=== PATIENT | male | born 1950 | race Caucasian/White ===

== ENCOUNTER 2016-11-25 17:49 | Inpatient (IN) ==
[2016-11-25 19:58] LABS: AGAP 13; ALBUMIN 3.5 g/dL (3.5-5.0); ALKALINE PHOSPHATASE 93 U/L (32-122); BUN 13 mg/dL (8-22); CALCIUM 8.9 mg/dL (8.8-10.2); CHLORIDE 95 mmol/L (98-107); CK PROFILE 59 U/L (24-204); COSMO 278; GOT 11 U/L (10-34); GPT 12 U/L (10-44); POTASSIUM 4.1 mmol/L (3.5-5.1); SODIUM 137 mmol/L (136-145); TCO2 29 mmol/L (25-35); TOTAL BILIRUBIN 0.37 mg/dL (0.20-1.00); TOTAL PROTEIN 6.7 g/dL (6.3-8.3)
[2016-11-25 20:12] LABS: MANUAL DIFF NEEDED? NO
[2016-11-25 20:15] LABS: BASO% 0.3 % (0.0-0.8); EOS# 0.07 X1000 (0.0-0.7); EOS% 0.6 % (0.0-10.0); HEMATOCRIT 40.7 % (42.0-52.0); HEMOGLOBIN 13.7 g/dL (14.0-18.0); IMM GRAN# 0.03 X1000 (0.0-0.04); IMM GRAN% 0.3 % (0.0-0.5); LYMPH% 11.7 % (20.5-51.1); MCH 28.7 PG (27-31); MCHC 33.7 g/dL (33-37); MCV 85.1 FL (81-99); MONO# 0.76 X1000 (0.11-0.59); MONO% 6.8 % (1.7-9.3); MPV 11.1 FL (7.4-10.4); NEUT% 80.3 % (42.2-75.2); PLT 223 X1000 (130-400); RBC 4.78 XMIL (4.7-6.1)
[2016-11-25 20:43] LABS: ALLEN TEST YES; BE 4.4 mmoll (-3.0-3.0); BLOOD TYPE ARTERIAL; DRAW SITE R RADIAL; METHB 1.7 % (0.0-1.5); MODALITY CANNULA; O2(CT) 18.2 mL/dL (15.0-23.0); PCO2(98.6) 43 mmHg (35-45); PO2(98.6) 71 mmHg (60-100); SAMPLE BLOOD; SAO2 97.7 % (95.0-100.0); THB 13.8 g/dL (11.5-17.4); pH(98.6) 7.44 (7.35-7.45)
[2016-11-25] MEDS ORDERED: VANCOMYCIN 1 GM/NS 250 ML IV ONE ×2 (21:06→23:00)
[2016-11-25] MEDS ORDERED: MERREM 1 GM in NS 50 ML IV ONE (21:06)
--- NOTE | 2016-11-25 21:15 | PROVIDER DOCUMENTATION ---
HPI-Respiratory General - General Chief Complaint: Cough Stated Complaint: poss pneumonia Time Seen by Provider: 11/25/16 20:05 Source: patient, family, old records Allergies/Adverse Reactions: Patient Allergies Allergy/AdvReac Type Severity Reaction Status Date / Time daptomycin Allergy Severe RASH Verified 10/06/16 15:33 piperacillin Allergy Intermediate RASH Verified 10/06/16 15:33 tazobactam Allergy Intermediate RASH Verified 10/06/16 15:33 Home Medications: Home Medication List Medication Instructions Recorded Confirmed Last Taken Type Albuterol Sulfate [Proair 90 mcg IH 4XDAY 10/06/16 10/06/16 10/06/16 History Respiclick] Buspirone [Buspar] 10 mg PO TID 10/06/16 10/06/16 10/06/16 History Carvedilol 12.5 mg PO BID 10/06/16 10/06/16 10/06/16 History Fluoxetine [Prozac] 20 mg PO BID 10/06/16 10/06/16 10/06/16 History Furosemide 120 mg PO DAILY 10/06/16 10/06/16 10/05/16 History Hum Insulin NPH/Reg Insulin Hm 70 unit SQ BID 10/06/16 10/06/16 10/06/16 History [Novolin 70-30 100 Unit/ml Vial] Isosorbide Mononitrate [Imdur] 120 mg PO DAILY 10/06/16 10/06/16 10/06/16 History Linaclotide [Linzess] 145 mcg PO TID 10/06/16 10/06/16 10/06/16 History Losartan [Cozaar] 50 mg PO DAILY 10/06/16 10/06/16 10/06/16 History Magnesium Carbonate/Al Hydrox 1 each PO 4XDAY PRN PRN 10/06/16 10/06/16 History [Gaviscon] Mometasone Furoate [Asmanex] 220 mcg IH BID 10/06/16 10/06/16 10/06/16 History Morphine Sulfate 15 mg PO BID PRN 10/06/16 10/06/16 10/06/16 History Morphine Sulfate [Ms Contin] 60 mg PO BID 10/06/16 10/06/16 10/06/16 History [place] 3,6,9 Combination No.7 92 mg PO DAILY 10/06/16 10/06/16 10/06/16 History [[place] Dha] Spironolactone 25 mg PO DAILY 10/06/16 10/06/16 10/06/16 History Sulfamethoxazole/Trimethoprim 20 ml PO BID 10/06/16 10/06/16 10/06/16 History [Sulfatrim 800-160 mg/20 ml Corinna] Warfarin [Coumadin] 5 mg PO QHS 10/06/16 10/06/16 10/06/16 History Pantoprazole [Protonix] 40 mg PO BID #60 tablet 10/09/16 Unknown Rx Prednisone 20 mg PO DAILY #5 tablet 10/09/16 Unknown Rx Sucralfate [Carafate Liquid] 1 gm PO Q6HR #1 udc 10/09/16 Unknown Rx - History of Present Illness-Resp Nature of Presenting Problem: This pt, who has chronic respiratory issues due to asbestosis, agent orange exposure and COPD. He has been hospitalized twice in the last 3 months for pneumonia. He is followed by Dr. Nino and Dr. Downs. He became acutely short of breath this morning and had a productive cough. He returns to the ER tonight to see if his pneumonia has returned. Quality of Pain: reports: aching, tightness Severity in ED: reports: moderate Onset/Duration: reports: other (see hpi) Timing: reports: still present Cough Quality/Degree: reports: moderate, productive cough Modifying Factors: improves with: exertion, coughing Associated Symptoms: reports: fever/chills, shortness of breath, sweaty, wheezing Similar Symptoms Previously?: Yes Recently seen or treated by another doctor?: Yes Review of Systems - Adult - REVIEW OF SYSTEMS - ADULT Constitutional: reports: roel. denies: weight gain, weight loss Eyes: reports: no symptoms reported. denies: discharge, dry eyes Ears, Nose, Mouth & Throat: reports: no symptoms reported. denies: ear discharge, ear pain Cardiovascular: reports: no symptoms reported. denies: chest pain, edema Respiratory: reports: chronic cough, cough, dyspnea on exertion, shortness of breath, wheezing. denies: hemoptysis, pleurisy Gastrointestinal: reports: no symptoms reported. denies: hematemesis, constipation Genitourinary: reports: no symptoms reported. denies: dysuria, discharge Musculoskeletal: reports: no symptoms reported. denies: bone pain, back pain Integumentary: reports: no symptoms reported. denies: hives, hair loss Neurological: reports: no symptoms reported. denies: ataxia, dizziness/vertigo Psychiatric: reports: no symptoms reported. denies: anxiety, anti-depressant use Endocrine: reports: no symptoms reported Hematologic/Lymphatic: reports: no symptoms reported Allergic/Immunologic: reports: no symptoms reported All Other Systems: Reviewed and Negative Past History - Adult - PAST MEDICAL HISTORY-ADULT Review of Records: reports: Old Records Reviewed, Nursing Assessment Review, Medications Reviewed, Social history reviewed & non-contributory. Major Childhood Illnesses: reports: denies history Cardiovascular: reports: arrhythmia (with cardiac ablation), CAD, HTN, hyperlipidemia Respiratory: reports: asthma, COPD (on 4 Liters NC), pneumonia Gastrointestinal: reports: denies history Obstetrical/Gynecological: reports: denies history Genitourinary: reports: kidney stones Musculoskeletal: reports: denies history Neurological: reports: denies history Endocrine/Immune: reports: Diabetes Other Conditions: reports: other (sleep apnea) - PRIOR SURGERIES/PROCEDURES Surgical/Procedure History: reports: CABG, pacemaker, other (ablation) - IMMUNIZATION STATUS Childhood Immunizations: See Nurse Assessment Flu Vaccine: See Nurse Assessment - FAMILY HISTORY Family History: reviewed, not pertinent Physical Exam-General - PHYSICAL EXAM-ADULT Initial Vital Signs Reviewed: Yes - CONSTITUTIONAL General Appearance: appears well, alert, no apparent distress - EYES Eyes: PERRL/EOMI, pink conjunctivae - HEAD, EARS, NOSE, MOUTH & THROAT HENMT: normocephalic/atraumatic, moist mucous membranes, normal ENT inspection - NECK Neck: non-tender, full range of motion, supple, normal inspection - RESPIRATORY Respiratory: chest non-tender, respiratory distress, decreased breath sounds, rhonchi, wheezing, increased rate. negative: accessory muscle use, crackles, rales, stridor - CARDIOVASCULAR Cardiovascular: normal peripheral pulses, tachycardia - GASTROINTESTINAL (ABDOMEN) Abdominal Exam: normal bowel sounds, non tender, soft - MUSCULOSKELETAL Back Exam: normal inspection, no CVA tenderness, no vertebral tenderness Extremity: normal range of motion, non-tender, normal gait, normal inspection - SKIN Integumentary: normal turgor, warm/dry, diaphoresis - NEUROLOGIC Neurologic: grossly normal, no motor/sensory deficits. negative: facial droop, focal weakness, motor weakness, sensory deficit - PSYCHIATRIC Psych/Mental Status: normal mood/affect, normal thought content, normal thought process, oriented x 3 Progress - PLAN OF CARE/RESULTS Progress/Plan/Lab Results: Laboratory Tests 11/25/16 11/25/16 11/25/16 19:20 19:20 19:20 WBC RBC Hgb Hct MCV MCH MCHC RDW Std Deviation Plt Count MPV Immature Gran % (Auto) Neut % (Auto) Lymph % (Auto) Island % (Auto) Eos % (Auto) Baso % (Auto) Immature Gran # (Auto) Neut # (Auto) Lymph # (Auto) Island # (Auto) Eos # (Auto) Baso # (Auto) D-Dimer 0.29 Specimen Type Sample Site pH pCO2 pO2 HCO3 Base Excess Oxyhemoglobin ABG O2 Sat (Calculated) ABG O2 Saturation ABG Carboxyhemoglobin ABG Methemoglobin Dominguez Test A-a O2 Difference Total Hemoglobin Lactate Liter Flow Blood Gas Modality FiO2 % Sodium 137 Potassium 4.1 Chloride 95 L Carbon Dioxide 29 Anion Gap 13 BUN 13 Creatinine 0.8 Estimated GFR/1.73 m2 > 60 BUN/Creatinine Ratio 16 Glucose 176 H Calculated Osmolality 278 Calcium 8.9 Total Bilirubin 0.37 AST 11 ALT 12 Alkaline Phosphatase 93 Creatine Kinase 59 Troponin T Cda-T-Odfdbaahkcm Pept 101 Total Protein 6.7 Albumin 3.5 Globulin 3.2 Albumin/Globulin Ratio 1.1 11/25/16 11/25/16 11/25/16 19:20 19:20 20:31 WBC 11.10 H RBC 4.78 Hgb 13.7 L Hct 40.7 L MCV 85.1 MCH 28.7 MCHC 33.7 RDW Std Deviation 13.8 Plt Count 223 MPV 11.1 H Immature Gran % (Auto) 0.3 Neut % (Auto) 80.3 H Lymph % (Auto) 11.7 L Island % (Auto) 6.8 Eos % (Auto) 0.6 Baso % (Auto) 0.3 Immature Gran # (Auto) 0.03 Neut # (Auto) 8.91 H Lymph # (Auto) 1.30 Island # (Auto) 0.76 H Eos # (Auto) 0.07 Baso # (Auto) 0.03 D-Dimer Specimen Type ARTERIAL Sample Site R RADIAL pH 7.44 pCO2 43 pO2 71 HCO3 28.3 H Base Excess 4.4 H Oxyhemoglobin 93.9 L ABG O2 Sat (Calculated) 18.2 ABG O2 Saturation 97.7 ABG Carboxyhemoglobin 2.20 ABG Methemoglobin 1.7 H Dominguez Test YES A-a O2 Difference 132.0 Total Hemoglobin 13.8 Lactate 1.80 Liter Flow 4.0 Blood Gas Modality CANNULA FiO2 % 36.0 Sodium Potassium Chloride Carbon Dioxide Anion Gap BUN Creatinine Estimated GFR/1.73 m2 BUN/Creatinine Ratio Glucose Calculated Osmolality Calcium Total Bilirubin AST ALT Alkaline Phosphatase Creatine Kinase Troponin T < 0.010 Rro-W-Xrccpcbvakp Pept Total Protein Albumin Globulin Albumin/Globulin Ratio Orders Category Date Time Status cxr [CHEST-2 VIEWS] [RAD] Stat Exams 11/25/16 18:08 Taken ABG [RESP] Routine Lab 11/25/16 20:31 Completed BLOOD CULTURE [BLDCUL] Stat Lab 11/25/16 19:20 Ordered CBC WITH ELECTRONIC DIFF [HEME] Stat Lab 11/25/16 19:20 Completed CK PROFILE [SP CHEM] Stat Lab 11/25/16 19:20 Completed CMP [COMPREHENSIVE METABOLIC PANEL] [CHEM] Stat Lab 11/25/16 19:20 Completed D-DIMER [CHEM] Stat Lab 11/25/16 19:20 Completed LACTATE, PLASMA [CHEM] Stat Lab 11/25/16 21:06 Uncollected PRO B-NATRIURETIC PEPTIDE Stat Lab 11/25/16 19:20 Completed TROPONIN T Stat Lab 11/25/16 19:20 Completed Meropenem [Merrem] 1 gm Med 11/25/16 21:06 Active 0.9% Sodium Chloride Inj [Ns] 50 ml IV NOW Vancomycin 1 gm/Ns 250 ml Med 11/25/16 21:06 Active IV NOW EKG [EKG] Stat Ther 11/25/16 18:08 Ordered Vital Signs Temp Pulse Resp BP Pulse Ox 11/25/16 20:33 77 20 95 11/25/16 18:04 97.9 F 78 24 134/74 94 L daptomycin Allergy (Severe, Verified 10/06/16 15:33) RASH piperacillin Allergy (Intermediate, Verified 10/06/16 15:33) RASH I think the rash is due to a fungal infection and is not a drug allergy. tazobactam Allergy (Intermediate, Verified 10/06/16 15:33) RASH Albuterol Sulfate [Proair Respiclick] 90 mcg IH 4XDAY 10/06/16 Buspirone [Buspar] 10 mg PO TID 10/06/16 Carvedilol 12.5 mg PO BID 10/06/16 Fluoxetine [Prozac] 20 mg PO BID 10/06/16 Furosemide 120 mg PO DAILY 10/06/16 Hum Insulin NPH/Reg Insulin Hm [Novolin 70-30 100 Unit/ml Vial] 70 unit SQ BID 10/06/16 Isosorbide Mononitrate [Imdur] 120 mg PO DAILY 10/06/16 Linaclotide [Linzess] 145 mcg PO TID 10/06/16 Losartan [Cozaar] 50 mg PO DAILY 10/06/16 Magnesium Carbonate/Al Hydrox [Gaviscon] 1 each PO 4XDAY PRN PRN 10/06/16 Mometasone Furoate [Asmanex] 220 mcg IH BID 10/06/16 Morphine Sulfate 15 mg PO BID PRN 10/06/16 Morphine Sulfate [Ms Contin] 60 mg PO BID 10/06/16 [place] 3,6,9 Combination No.7 [[place] Dha] 92 mg PO DAILY 10/06/16 Spironolactone 25 mg PO DAILY 10/06/16 Sulfamethoxazole/Trimethoprim [Sulfatrim 800-160 mg/20 ml Corinna] 20 ml PO BID 03/15 Warfarin [Coumadin] 5 mg PO QHS 10/06/16 Pantoprazole [Protonix] 40 mg PO BID #60 tablet 10/09/16 Prednisone 20 mg PO DAILY #5 tablet 10/09/16 Sucralfate [Carafate Liquid] 1 gm PO Q6HR #1 udc 10/09/16 Laboratory 11/25/16 11/25/16 11/25/16 20:31 19:20 19:20 WBC 11.10 H RBC 4.78 Hgb 13.7 L Hct 40.7 L MCV 85.1 MCH 28.7 MCHC 33.7 RDW Std Deviation 13.8 Plt Count 223 MPV 11.1 H Immature Gran % (Auto) 0.3 Neut % (Auto) 80.3 H Lymph % (Auto) 11.7 L Island % (Auto) 6.8 Eos % (Auto) 0.6 Baso % (Auto) 0.3 Immature Gran # (Auto) 0.03 Neut # (Auto) 8.91 H Lymph # (Auto) 1.30 Island # (Auto) 0.76 H Eos # (Auto) 0.07 Baso # (Auto) 0.03 D-Dimer Specimen Type ARTERIAL Sample Site R RADIAL pH 7.44 pCO2 43 pO2 71 HCO3 28.3 H Base Excess 4.4 H Oxyhemoglobin 93.9 L ABG O2 Sat (Calculated) 18.2 ABG O2 Saturation 97.7 ABG Carboxyhemoglobin 2.20 ABG Methemoglobin 1.7 H Dominguez Test YES A-a O2 Difference 132.0 Total Hemoglobin 13.8 Lactate 1.80 Liter Flow 4.0 Blood Gas Modality CANNULA FiO2 % 36.0 Sodium Potassium Chloride Carbon Dioxide Anion Gap BUN Creatinine Estimated GFR/1.73 m2 BUN/Creatinine Ratio Glucose Calculated Osmolality Calcium Total Bilirubin AST ALT Alkaline Phosphatase Creatine Kinase Troponin T < 0.010 Aaw-U-Ztcncxxrruk Pept Total Protein Albumin Globulin Albumin/Globulin Ratio 11/25/16 11/25/16 11/25/16 19:20 19:20 19:20 WBC RBC Hgb Hct MCV MCH MCHC RDW Std Deviation Plt Count MPV Immature Gran % (Auto) Neut % (Auto) Lymph % (Auto) Island % (Auto) Eos % (Auto) Baso % (Auto) Immature Gran # (Auto) Neut # (Auto) Lymph # (Auto) Island # (Auto) Eos # (Auto) Baso # (Auto) D-Dimer 0.29 Specimen Type Sample Site pH pCO2 pO2 HCO3 Base Excess Oxyhemoglobin ABG O2 Sat (Calculated) ABG O2 Saturation ABG Carboxyhemoglobin ABG Methemoglobin Dominguez Test A-a O2 Difference Total Hemoglobin Lactate Liter Flow Blood Gas Modality FiO2 % Sodium 137 Potassium 4.1 Chloride 95 L Carbon Dioxide 29 Anion Gap 13 BUN 13 Creatinine 0.8 Estimated GFR/1.73 m2 > 60 BUN/Creatinine Ratio 16 Glucose 176 H Calculated Osmolality 278 Calcium 8.9 Total Bilirubin 0.37 AST 11 ALT 12 Alkaline Phosphatase 93 Creatine Kinase 59 Troponin T Kqa-M-Mvspyxxwbot Pept 101 Total Protein 6.7 Albumin 3.5 Globulin 3.2 Albumin/Globulin Ratio 1.1 Will admit for recurrent pneumonia. - XRAY 1 XRAY Study: Chest XRAY Interpretation: RLL pneumonia Departure - Departure Time of Disposition Order: 21:18 DIAGNOSIS: Chronic respiratory failure with hypoxia and hypercapnia Pneumonia Qualifiers: Pneumonia type: due to unspecified organism Laterality: right Lung location: lower lobe of lung Qualified Code(s): J18.1 - Lobar pneumonia, unspecified organism Disposition: ADMITTED INPATIENT 09 Certified Medical Emergency: Emergent Condition: Stable Attestation - Physician/ ABBY Attestation Patient care was provided by Advanced Practice Provider:: Yes Advanced Practice Provider:: Calixto Bello Advanced Practice Provider documentation review:: The Mid-level provider documentation, treatment plan and medical decision making was reviewed by the physician who agrees with all treatment and medical decision making by the MLP.
[2016-11-25 22:23] LABS: INR 1.84; PROTIME 20.1 Seconds (9.2-11.7)
[2016-11-25] MEDS ORDERED: GAVISCON PO PRN (22:41)
[2016-11-25] MEDS ORDERED: VANCOMYCIN IV PER PHARMACY MISC SCH (22:41)
[2016-11-25] MEDS ORDERED: TYLENOL PO PRN (22:41)
[2016-11-25] MEDS: DUONEB (A & A) INH SCH (22:47)
--- NOTE | 2016-11-25 23:38 | HISTORY AND PHYSICAL ---
PRIMARY CARE PHYSICIAN: Dr. Jennifer Jean Baptiste. REASON FOR ADMISSION: Three day history of worsening shortness of breath. HISTORY OF PRESENT ILLNESS: Mr. Ari Bell is a 66-year-old man, with past medical history of multiple admissions for recurrent pneumonia and COPD. He has a history of asbestosis, reflux disease, morbid obesity, atrial fibrillation, CAD, type 2 diabetes, hypertension, obstructive sleep apnea and chronic systolic heart failure, EF 09/2016, was 40%. He reports that over the last 3 to 4 days, he has been having progressive shortness of breath with mild exertion. He said things came to a head today when he developed sudden shortness of breath, with smothering, but no chest pain. He said he became profoundly diaphoretic without any palpitations. He says his O2 saturation when he checked it was below 90%, and he had to increase his nasal cannula O2 supply from 3 L, to 10 L before he got any relief. On account of this, he decided to come into get checked out. He reports a 1 to 2 day history of fever and chills subjectively. He also complains of coughing up brownish yellowish sputum for the last 3 days. A month ago, he was treated for hospital-acquired pneumonia with vancomycin and Merrem, and got better, however, he says his symptoms today are very similar to this. He has a longstanding history of orthopnea and sleeps in a recliner. He also has a longstanding history of chronic lower extremity swelling, which has not gotten any worse. No PND and no lightheadedness. No weight loss. No polyuria or polydipsia. REVIEW OF SYSTEMS: Notable for chronic constipation and worsening heartburn. Otherwise, 12 system review is negative. Positive findings as per HPI. ALLERGIES: Daptomycin and Zosyn. HOME MEDICATIONS: Include: Magnesium carbonate and aluminum 4 times a day, morphine sulfate 15 mg b.i.d., ProAir 2 puffs q.4 p.r.n., BuSpar 10 mg t.i.d., carvedilol 12.5 mg b.i.d., losartan 50 mg daily, Coumadin 5 mg at bedtime, furosemide 120 mg daily, Humulin 70/30, 70 units b.i.d., Imdur 120 mg daily, Linzess 145 mg daily, Asmanex 2 puffs b.i.d., [place] Contin 60 mg b.i.d., [place] 3, 6 and 9, and 92 mg daily, Prozac 20 mg daily, spironolactone 25 mg daily, Bactrim b.i.d., Carafate 1 g q.6, prednisone 20 mg daily, Protonix 40 mg b.i.d. SURGICAL HISTORY: Notable for left lower extremity ORIF, back surgery, CABG, pacemaker implantation, and cardiac ablation. SOCIAL HISTORY: Patient is , does not smoke, drink or use drugs. He says he was exposed to agent orange and asbestos. FAMILY HISTORY: Two of his siblings have lung cancer, and several of his siblings and parents both have heart disease. Nobody else with diabetes. PAST MEDICAL HISTORY: See above, including chronic respiratory failure with home O2, systolic heart failure, and chronic pain. LAB WORK: Chest x-ray shows a right lower lobe infiltrate. White count 11,000, hemoglobin and hematocrit 13 and 40, platelets 223,000, with a neutrophil count of 80%. Glucose 176, BUN 13, creatinine 0.8. Troponin is negative. CK 59. ProBNP 101. D-dimer 0.29. Blood gas, pH 7.4, pCO2 of 43, PO2 of 71 on 4 L. EXAMINATION: General: He is more pleasant, morbidly obese, male. Vital signs: Blood pressure is 134/74, heart rate is 70, respirations 24, temperature 97.9, with for 4 L nasal cannula his O2 saturation is 94%. HEENT: Head is normocephalic, atraumatic. Eyes: He is anicteric and not pale. ENT and oropharynx exam is grossly normal. No signs of cyanosis. Neck: Short and thick. No JVD visualized. No bruit or thyromegaly. Chest: Decreased entry in both lung ann with expiratory wheezes, and scattered coarse crepitations. Cardiovascular: First and second heart sounds are heard but distant. No gallop, murmurs or rubs. Rhythm is regular. The patient does have a large ventral hernia, which is reducible and not tender. Abdomen: Protuberant, soft. No focal areas of tenderness. No mass or organomegaly appreciated. Bowel sounds are significantly hypoactive. Rectal: Deferred. Extremities: Patient has skin changes of the lower extremities consistent with chronic venous insufficiency. He has 1+ pitting edema in both lower extremities, but pulses distally in all extremities have good volume and are symmetrical. No clubbing or peripheral cyanosis. Neurological: No focal deficits. Skin: See above, but otherwise unremarkable. Musculoskeletal: Grossly normal. ASSESSMENT: 1. Right lower lobe pneumonia (recurrent pneumonia). 2. Acute on chronic respiratory failure, secondary to right lower lobe pneumonia and complicated with ongoing COPD and chronic systolic heart failure. 3. Coronary artery disease. 4. Atrial fibrillation. 5. Type 2 diabetes. 6. Hypertensive heart disease. 7. Obstructive sleep apnea. 8. Chronic systolic heart failure, EF 40%. 9. COPD. 10. Morbid obesity. 11. Hyperlipidemia. 12. Chronic pain syndrome. 13. Reflux disease. PLAN: At this time, I will start patient on Merrem and vancomycin, and treat him for hospital- acquired pneumonia. I have discontinued the patient's inhaled steroids as there is data suggesting that this can increase recurrence of pneumonia. Also, one needs to be aware of the severe theoretical risk associated of having PPIs increased pneumonia, and this will need to be discussed with the patient, especially since patient has severe reflux disease. I will also start the patient on nebulizer treatments. Repeat chest film in 2 days to ensure that this pneumonia does not become complicated with effusions/empyema. Adjust home O2 accordingly. We will send off sputum for cultures. Consult Dr. Downs and Dr. Nino to see the patient, to whom this patient is well known. Other issues i.e. diabetes, will be addressed by starting the patient on a sliding scale, but also cutting the dose of his 70/30 insulin, being that his diet was modified to a much lower dose. His PT/INR was not drawn, and we will order this and modify the dose if need be. Continue his CHF medications, i.e., Lasix, Cozaar, beta blockers and spironolactone. Other home medications will be continued. Start his magnesium, and Milk of Magnesia to help with his constipation, in addition to the Linzess, which he takes.
[2016-11-26] MEDS: MORPHINE IR PO PRN (00:53)
[2016-11-26] MEDS: MILK OF MAGNESIA PO SCH ×4 (01:05→21:48)
[2016-11-26] MEDS: DUONEB (A & A) INH SCH ×6 (03:22→23:00)
--- NOTE | 2016-11-26 05:20 | EKG Report ---
Test Performed on : 11/25/2016 6:08:15 PM Test Reason : cough/CP Blood Pressure : / mmHG Vent. Rate : 082 BPM Atrial Rate : 082 BPM P-R Int : 186 ms QRS Dur : 202 ms QT Int : 460 ms P-R-T Axes : 090 -73 089 degrees QTc Int : 537 ms Atrial-sensed ventricular-paced rhythm with frequent premature ventricular complexes. Abnormal ECG When compared with ECG of 06-OCT-2016 14:51, Vent. rate has decreased BY 17 BPM Unconfirmed Result
[2016-11-26] MEDS: MERREM 1 GM in NS 50 ML IV SCH ×3 (05:33→21:48)
[2016-11-26] MEDS: HUMALOG SUBQ SCH ×4 (06:57→21:53)
[2016-11-26 07:15] LABS: MANUAL DIFF NEEDED? NO
--- NOTE | 2016-11-26 07:20 | PROGRESS NOTE ---
DATE: 11/26/2016 PRESENT ILLNESS: The patient is admitted to the hospital. He is having a difficult time breathing and he is coughing up purulent sputum. I suspect he does have a pneumonia. However, the chest x-ray report is not yet back. MEDICATIONS: The patient is allergic to Zosyn. He broke out in a rash but he appears to be tolerating meropenem well. He is also on vancomycin. I agree with the choice of both of those antibiotics because the patient has been exposed to so many antibiotics that he may well have a very resistant organism causing his presumed pneumonia. PHYSICAL EXAMINATION: Vital Signs: Temperature is 97.9 degrees, pulse 91, respirations 15, blood pressure is 107/82. General: This is an obese, elderly male. He is slightly short of breath just sitting down and on a few instances, he coughed. Lungs: There were scattered rales and rhonchi bilaterally. Cardiovascular: The patient's heart rate was regular. Abdomen: Soft and nontender. Neurologic: The patient can move all of his extremities. There is no tremor. His speech is normal. LAB AND X-RAY: CBC-WBC 11.1, hgb 13.7, platelets 223K. Creatinine-0.8, GFR >60. Liver function tests-normal. Blood cultures-pending. Blood gases-pH 7.44, p02 71 , pCO2 43. ASSESSMENT AND PLAN: The patient has a pulmonary infection. Whether it is going to log turner to be pneumonia or a purulent bronchitis is uncertain at this time. In any event, I would treat with the same antibiotics that the patient is on for either one of the diagnoses. The sputum for culture has been ordered. Hopefully, it can be collected. Then we can, once we know the name and susceptibility of the organism, possibly streamline the patient's antibiotic treatment. The patient's comorbidities include COPD, asbestosis, reflux esophagitis, morbid obesity, atrial fibrillation, coronary artery disease, diabetes mellitus, hypertension, obstructive sleep apnea, and congestive heart failure. Thank you for asking me to see the patient again. The patient's comorbidities include asbestosis, reflux esophagitis, morbid obesity, chronic obstructive pulmonary disease, sleep apnea, and congestive heart failure. Patient's home medications as regarding his infection, he has been started on a combination of vancomycin and meropenem as mentioned above. [facility]
[2016-11-26 07:24] LABS: BASO% 0.2 % (0.0-0.8); EOS# 0.05 X1000 (0.0-0.7); EOS% 0.3 % (0.0-10.0); HEMATOCRIT 41.5 % (42.0-52.0); HEMOGLOBIN 13.7 g/dL (14.0-18.0); IMM GRAN# 0.03 X1000 (0.0-0.04); IMM GRAN% 0.2 % (0.0-0.5); LYMPH# 1.34 X1000 (1.2-3.4); LYMPH% 8.9 % (20.5-51.1); MCV 84.9 FL (81-99); MONO# 1.19 X1000 (0.11-0.59); MONO% 7.9 % (1.7-9.3); MPV 10.8 FL (7.4-10.4); NEUT% 82.5 % (42.2-75.2); PLT 205 X1000 (130-400); RBC 4.89 XMIL (4.7-6.1)
[2016-11-26 07:47] LABS: AGAP 14; ALBUMIN 3.4 g/dL (3.5-5.0); ALKALINE PHOSPHATASE 92 U/L (32-122); BUN 13 mg/dL (8-22); CALCIUM 9.1 mg/dL (8.8-10.2); CHLORIDE 96 mmol/L (98-107); COSMO 282; GOT 11 U/L (10-34); GPT 10 U/L (10-44); SODIUM 138 mmol/L (136-145); TCO2 28 mmol/L (25-35); TOTAL BILIRUBIN 0.87 mg/dL (0.20-1.00); TOTAL PROTEIN 6.6 g/dL (6.3-8.3)
--- NOTE | 2016-11-26 08:00 | Diag Imaging Result Document ---
PROCEDURE NAME: CHEST-2 VIEWS - 11/25/2016 PA AND LATERAL RADIOGRAPH OF THE CHEST: COMPARISON: 10/06/2016. FINDINGS: There are linear densities at the mid and lower lung zone suggesting scarring and/or atelectasis. The lungs are grossly clear otherwise. There is no large pleural fluid collection identified. There are stable CABG changes. Cardiac silhouette is prominent but stable. Central vasculature is unremarkable. IMPRESSION: Subsegmental atelectasis and/or scarring at the lower lung zones bilaterally.
[2016-11-26] MEDS ORDERED: LINZESS PO SCH (09:00)
[2016-11-26] MEDS: ALDACTONE PO SCH (09:28)
[2016-11-26] MEDS: COREG PO SCH ×2 (09:28→21:48)
[2016-11-26] MEDS: COZAAR PO SCH (09:28)
[2016-11-26] MEDS: BUSPAR PO SCH ×3 (09:28→17:11)
[2016-11-26] MEDS: PROZAC PO SCH ×2 (09:29→21:48)
[2016-11-26] MEDS: MS CONTIN PO SCH ×2 (09:29→21:49)
[2016-11-26] MEDS: PROTONIX PO SCH ×2 (09:29→21:48)
[2016-11-26] MEDS: LASIX PO SCH (09:29)
[2016-11-26] MEDS: IMDUR PO SCH (09:29)
[2016-11-26] MEDS: PREDNISONE PO SCH (09:29)
[2016-11-26] MEDS ORDERED: INSULIN PEN NEEDLES ONE (09:54)
[2016-11-26] MEDS: HUMULIN 70/30 SUBQ SCH ×2 (10:33→17:11)
[2016-11-26] MEDS: VANCOMYCIN 2,000 MG in NS 500 ML IV SCH (12:05)
--- NOTE | 2016-11-26 14:12 | PROGRESS NOTE ---
DATE: 11/26/2016 SUBJECTIVE: The patient is doing well. He has no complaint. Still having a productive cough. No fever. No chills. OBJECTIVE: Vital Signs: Blood pressure 134/73, pulse of 97, respirations 22, temperature 97.8 degrees, saturation of 96% on 5 L of nasal cannula. General Appearance: Morbidly obese, white male, in mild distress. HEENT: Anicteric. Clear conjunctivae. Neck: Supple. No JVD. No bruit. Cardiovascular: S1, S2. Normal rate and rhythm. No murmur, rubs, or gallops. Pulmonary: Clear to auscultation bilaterally. GI: Soft, nontender, nondistended. Normoactive bowel sounds. Musculoskeletal: No clubbing, cyanosis, or edema. LABORATORY: White count 15.12, hemoglobin of 13.7, hematocrit of 41.5, platelets of 205,000. Chemistry: Sodium 138, potassium 4.0, chloride 96, bicarb 28, BUN 13, creatinine 0.8, glucose of 203. Troponin 2 sets were negative. Chest x-ray on admission showed atelectasis versus scarring in the lower lungs on both side. ASSESSMENT AND PLAN: 1. A 66-year-old white male with a recurrent pneumonia, admitted for productive cough with purulent bronchitis. Cultures are pending. The patient is on meropenem and vancomycin. ID is following. 2. Diabetes type 2. We will continue 70/30 insulin and sliding scale insulin. 3. Hypertension. We will continue Cozaar, isosorbide. 4. Atrial fibrillation. We will continue rate control and Coumadin. 5. Chronic systolic congestive heart failure, not in acute exacerbation. We will resume his home medications. 6. Morbid obesity, noted. 7. Deep vein thrombosis prophylaxis. The patient is on Coumadin. We will recheck his INR in the morning. 8. Code status. The patient is a full code.
[2016-11-26] MEDS: COUMADIN PO SCH (21:49)
[2016-11-27] MEDS: VANCOMYCIN 2,000 MG in NS 500 ML IV SCH (00:30)
[2016-11-27] MEDS: MORPHINE IR PO PRN (00:44)
[2016-11-27] MEDS: DUONEB (A & A) INH SCH ×6 (02:45→23:02)
[2016-11-27] MEDS: MERREM 1 GM in NS 50 ML IV SCH ×3 (05:55→22:36)
[2016-11-27] MEDS: HUMALOG SUBQ SCH ×4 (06:09→22:33)
--- NOTE | 2016-11-27 08:20 | Diag Imaging Result Document ---
PROCEDURE NAME: CHEST-2 VIEWS - 11/26/2016 CHEST X-RAY, 2 VIEWS: COMPARISON: 11/25/2016. FINDINGS: Stable left-sided dual-chamber pacemaker. Stable CABG changes. Heart size remains grossly normal. No focal infiltrates, pneumothorax, or pleural effusion. Lungs are hyperexpanded compatible with COPD. There is some stable linear scarring in the lung bases. IMPRESSION: No acute disease or change from prior.
[2016-11-27] MEDS: MILK OF MAGNESIA PO SCH ×2 (10:35→22:35)
[2016-11-27] MEDS: PROTONIX PO SCH ×2 (10:35→22:35)
[2016-11-27] MEDS: BUSPAR PO SCH ×3 (10:36→18:21)
[2016-11-27] MEDS: IMDUR PO SCH (10:36)
[2016-11-27] MEDS: COREG PO SCH ×2 (10:36→22:35)
[2016-11-27] MEDS: LASIX PO SCH (10:36)
[2016-11-27] MEDS: ALDACTONE PO SCH (10:36)
[2016-11-27] MEDS: PREDNISONE PO SCH (10:36)
[2016-11-27] MEDS: COZAAR PO SCH (10:36)
[2016-11-27] MEDS: PROZAC PO SCH ×2 (10:36→22:36)
[2016-11-27] MEDS: MS CONTIN PO SCH ×2 (10:36→22:33)
[2016-11-27] MEDS: HUMULIN 70/30 SUBQ SCH ×2 (10:37→18:21)
[2016-11-27 10:49] LABS: INR 1.39; PROTIME 14.9 Seconds (9.2-11.7)
--- NOTE | 2016-11-27 11:09 | CONSULTATION ---
DATE OF CONSULTATION: 11/27/2016 OUTPATIENT PRIMARY CARE PHYSICIAN: Dr. Jennifer Jean Baptiste. HOSPITALIST: Dr. Juan A Scott. CHIEF COMPLAINT: Evaluation for sleep apnea, COPD, and recurrent pneumonia. HISTORY OF PRESENTING ILLNESS: This is a 66-year-old man with past history of coronary artery disease, atrial fibrillation, diabetes, hypertension, obstructive sleep apnea, congestive heart failure, ejection fraction 40%, with recurrent pneumonia who presents to the hospital with shortness of breath, COPD exacerbation, purulent sputum production likely signifying lower respiratory tract infection despite x-ray findings. PAST MEDICAL HISTORY: Coronary artery disease, congestive heart failure, atrial fibrillation, diabetes, hypertension, obstructive sleep apnea. Tried BiPAP serology and CPAP in the past. He is not compliant with that and likely this is contributing to his readmissions. Also, he is on home oxygen. PAST SURGICAL HISTORY: Coronary artery bypass graft, pacemaker, back surgery, ORIF for left lower extremity fracture, cardiac ablation. REVIEW OF SYSTEMS: As detailed in history of presenting illness, otherwise noncontributory. ALLERGIES: Zosyn and daptomycin. FAMILY HISTORY: Hypertension, coronary artery disease, diabetes. SOCIAL HISTORY: Not a smoker. 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 PHYSICAL EXAMINATION: Vital Signs: Noted. General Examination: He is awake, communicative. He is overweight and obese. Chest: Exam revealed reduced entry, a few crackles. Cardiac: S1, S2. Abdomen: Nontender on examination. Extremities: On lower limb examination, +1 pedal edema. Neurological exam: Awake and communicative. LABS AND INVESTIGATIONS: Chest x-ray reviewed with some renal scarring and COPD and sternal wires. Earlier ABG, CBC, CMP reviewed and his pCO2 on the twenty-ninth was 43, PO2 71 on nasal cannula. MEDICATIONS: Medications in the hospital were reviewed and they include vancomycin, meropenem, BuSpar, Coreg, Prozac, Lasix, insulin, Imdur, Cozaar. ASSESSMENT AND PLAN: A 66-year-old man with past history of coronary artery disease, coronary artery bypass graft, congestive heart failure, pacemaker, chronic obstructive pulmonary disease, sleep apnea not compliant with CPAP, BiPAP that presented to the hospital with chronic obstructive pulmonary disease exacerbation, shortness of breath. Sleep apnea needs to be addressed and the possibility of lower respiratory tract infection despite the x-ray findings. Thank you for the courtesy of this consult.
--- NOTE | 2016-11-27 12:33 | PROGRESS NOTE ---
DATE: 11/27/2016 PRESENT ILLNESS: The patient has chronic purulent bronchitis. MEDICATIONS: The patient currently is receiving a combination of vancomycin and meropenem. PHYSICAL EXAMINATION: Vital signs: Temperature is 98.4, pulse 81, respirations 20, blood pressure 140/78. General: The patient looks much better today. He does not seem to be nearly as dyspneic as he was yesterday. Lungs: There were bilateral rhonchi. Cardiovascular: The patient's heart tones were distant. At times, the heart appeared to be beating regularly and then at other times it was irregular. Abdomen: Soft and nontender. The patient is morbidly obese. LABORATORY AND X-RAY: There is no new lab today. The patient's CBC shows a white count of 15,120, hemoglobin 13.7, and platelet count 205,000. Creatinine is 0.8. GFR is greater than 60. Blood cultures are sterile. Sputum is growing a gram-negative sohail. ASSESSMENT AND PLAN: For now, we plan to continue the patient in the hospital. I have discontinued vancomycin but will continue meropenem pending the result of the gram-negative sohail growing from the patient's sputum. The patient's comorbidities include COPD, asbestosis, reflux esophagitis, morbid obesity, atrial fibrillation, diabetes mellitus, obstructive sleep apnea, and congestive heart failure.
--- NOTE | 2016-11-27 12:41 | PROGRESS NOTE ---
DATE: 11/27/2016 SUBJECTIVE: The patient is feeling a little better today. He denies having any fever or chills. Denies having any nausea, vomiting, or diarrhea. Still having productive cough. Vital signs: Blood pressure 140/78, pulse of 72, respirations 22, temperature 98.1 degrees, sat of 92% on 2 on 4 L. General Appearance: Morbidly obese, white male, in mild distress due to coughing. HEENT: Anicteric. Clear conjunctivae. Neck: Supple. No JVD. No bruits. Cardiovascular: S1, S2. Normal rate and rhythm. No murmur, rubs, or gallops. Pulmonary: Clear to auscultation bilaterally. GI: Soft, nontender, nondistended. Normoactive bowel sounds. Musculoskeletal: No clubbing, cyanosis, or edema. LABORATORY: White count 15.12, hemoglobin 13.7, hematocrit of 41.5 platelets 205,000. 82% neutrophils. Chemistry: Sodium 130, potassium 4.0, chloride 96, bicarb 28, BUN 13, creatinine 0.8, glucose of 203. His sputum culture grew out gram negative sohail. ASSESSMENT AND PLAN: This is a 66-year-old white male, admitted to the hospital for productive cough, fever and chills. He was found to have pneumonia due to gram-negative sohail. 1. Gram-negative sohail pneumonia. We stopped vancomycin and keep him on meropenem. Infectious Disease is following. 2. Diabetes type 2. Continue sliding scale insulin and 70/30 insulin. 3. Atrial fibrillation. Continue Coumadin. His INR is subtherapeutic. We will recheck it again tomorrow. We will hold off on bridging the patient at this point. Continue Coreg for rate control. 4. Hypertension. Continue Cozaar, spironolactone and Lasix as well as Imdur. 5. History of systolic heart failure. Not in acute exacerbation. He is on spironolactone, ARB and Lasix. 6. Depression. Continue Prozac. 7. Irritable bowel syndrome. Continue Linzess. 8. Deep vein thrombosis prophylaxis. The patient on Coumadin. CODE STATUS: The patient is a full code.
[2016-11-27] MEDS: COUMADIN PO SCH (22:36)
[2016-11-28] MEDS: DUONEB (A & A) INH SCH ×6 (03:35→23:15)
[2016-11-28] MEDS: HUMALOG SUBQ SCH ×3 (07:00→18:10)
[2016-11-28] MEDS: MERREM 1 GM in NS 50 ML IV SCH ×3 (07:18→23:19)
[2016-11-28] MEDS: PREDNISONE PO SCH (10:00)
[2016-11-28] MEDS: PROTONIX PO SCH ×2 (10:00→23:21)
[2016-11-28] MEDS: HUMULIN 70/30 SUBQ SCH ×2 (10:00→18:10)
[2016-11-28] MEDS: MILK OF MAGNESIA PO SCH ×2 (10:00→23:21)
[2016-11-28] MEDS: IMDUR PO SCH (10:00)
[2016-11-28] MEDS: LASIX PO SCH (10:00)
[2016-11-28] MEDS: COZAAR PO SCH (10:00)
[2016-11-28] MEDS: LINZESS PO SCH (10:00)
[2016-11-28] MEDS: COREG PO SCH ×2 (10:00→23:20)
[2016-11-28] MEDS: BUSPAR PO SCH ×3 (10:00→18:10)
[2016-11-28] MEDS: PROZAC PO SCH ×2 (10:00→23:20)
[2016-11-28] MEDS: ALDACTONE PO SCH (10:00)
[2016-11-28] MEDS: MS CONTIN PO SCH ×2 (10:00→23:21)
--- NOTE | 2016-11-28 14:18 | PROGRESS NOTE ---
DATE: 11/28/2016 SUBJECTIVE: The patient is feeling better. Still coughing up purulent sputum. No fever. No chills. OBJECTIVE: Vital signs: Blood pressure 140/79, pulse of 85, respirations 22, temperature 100.0 degrees. General appearance: Morbidly obese, white male, in no acute distress. HEENT: Anicteric. Clear conjunctivae. Neck: Supple. No JVD. No bruit. Cardiovascular: S1, S2. Normal rate and rhythm. No murmur, rubs, or gallops. Pulmonary: Crackle bilaterally. GI: Soft, nontender, nondistended. Normoactive bowel sounds. Musculoskeletal: No clubbing, cyanosis, or edema. LABORATORY: Is still pending labs this morning. ASSESSMENT/PLAN: 66-year-old white male, admitted to the hospital for pneumonia. 1. Gram-negative sohail pneumonia. The patient is on meropenem. Infectious Disease is following. We still waiting for culture to finalize. 2. Diabetes type 2. Continue sliding scale insulin and 70/30 insulin. 3. Atrial fibrillation. Continue Coumadin and Coreg. 4. Hypertension. Her systolic CHF without exacerbation. Continue Cozaar, spironolactone and Lasix as well as Imdur. 5. Depression. Continue Prozac. 6. Morbid obesity. Education provided. 7. Deep vein thrombosis prophylaxis. The patient on Coumadin.
[2016-11-28 18:03] LABS: INR 1.43; PROTIME 15.4 Seconds (9.2-11.7)
[2016-11-28 18:25] LABS: AGAP 11; BUN 12 mg/dL (8-22); CALCIUM 8.9 mg/dL (8.8-10.2); CHLORIDE 96 mmol/L (98-107); COSMO 277; POTASSIUM 4.4 mmol/L (3.5-5.1); SODIUM 136 mmol/L (136-145); TCO2 29 mmol/L (25-35)
[2016-11-28] MEDS: COUMADIN PO SCH (23:20)
[2016-11-29] MEDS: HUMALOG SUBQ SCH ×5 (00:48→21:39)
[2016-11-29] MEDS: DUONEB (A & A) INH SCH ×6 (02:50→22:35)
[2016-11-29] MEDS: MERREM 1 GM in NS 50 ML IV SCH (05:48)
[2016-11-29 07:08] LABS: MANUAL DIFF NEEDED? NO
[2016-11-29 07:13] LABS: BASO% 0.4 % (0.0-0.8); EOS# 0.16 X1000 (0.0-0.7); EOS% 1.6 % (0.0-10.0); HEMATOCRIT 41.5 % (42.0-52.0); HEMOGLOBIN 13.8 g/dL (14.0-18.0); IMM GRAN# 0.03 X1000 (0.0-0.04); IMM GRAN% 0.3 % (0.0-0.5); LYMPH# 1.66 X1000 (1.2-3.4); LYMPH% 16.9 % (20.5-51.1); MCH 28.3 PG (27-31); MCHC 33.3 g/dL (33-37); MONO# 0.95 X1000 (0.11-0.59); MONO% 9.7 % (1.7-9.3); MPV 10.7 FL (7.4-10.4); NEUT% 71.1 % (42.2-75.2); PLT 250 X1000 (130-400); RBC 4.88 XMIL (4.7-6.1)
[2016-11-29 07:29] LABS: INR 1.54; PROTIME 16.6 Seconds (9.2-11.7)
[2016-11-29 07:30] LABS: AGAP 10; BUN 17 mg/dL (8-22); CALCIUM 9.4 mg/dL (8.8-10.2); CHLORIDE 97 mmol/L (98-107); COSMO 275; POTASSIUM 4.6 mmol/L (3.5-5.1); SODIUM 136 mmol/L (136-145); TCO2 29 mmol/L (25-35)
[2016-11-29] MEDS: PREDNISONE PO SCH (08:28)
[2016-11-29] MEDS: LASIX PO SCH (08:28)
[2016-11-29] MEDS: IMDUR PO SCH (08:29)
[2016-11-29] MEDS: PROZAC PO SCH ×2 (08:29→21:37)
[2016-11-29] MEDS: LINZESS PO SCH (08:29)
[2016-11-29] MEDS: COZAAR PO SCH (08:29)
[2016-11-29] MEDS: ALDACTONE PO SCH (08:29)
[2016-11-29] MEDS: COREG PO SCH ×2 (08:29→21:36)
[2016-11-29] MEDS: BUSPAR PO SCH ×3 (08:29→21:36)
[2016-11-29] MEDS: MS CONTIN PO SCH ×2 (08:29→21:36)
[2016-11-29] MEDS: PROTONIX PO SCH ×2 (08:29→21:37)
[2016-11-29] MEDS: HUMULIN 70/30 SUBQ SCH ×2 (08:30→17:52)
[2016-11-29] MEDS: MILK OF MAGNESIA PO SCH ×2 (08:30→21:37)
--- NOTE | 2016-11-29 10:43 | PROGRESS NOTE ---
DATE: 11/29/2016 SUBJECTIVE: The patient is feeling better today. Still having a productive cough. No fever. No chills. No nausea, vomiting, or diarrhea. He rested well overnight. PHYSICAL EXAMINATION: Vital Signs: Blood pressure 135/81, pulse of 70, respirations 20, temperature of 97.3 degrees, saturation of 94% on 4 L nasal cannula. General Appearance: Obese, white male, in no acute distress. HEENT: Anicteric sclerae. Clear conjunctivae. Neck: Supple. No JVD. No bruit. Cardiovascular: S1 and S2. Normal rate and rhythm. No murmur, rubs, or gallops. Pulmonary: Crackles at the bases bilaterally. GI: Soft, nontender, nondistended. Normoactive bowel sounds. Musculoskeletal: No clubbing, cyanosis, or edema. LABORATORY: White count of 9.82, hemoglobin 13.8, hematocrit of 41.5, platelets of 250,000. Chemistry: Sodium 136, potassium 4.6, chloride 97, bicarb 29, BUN 17, creatinine 0.9, glucose of 118. Culture grew out Pseudomonas that is sensitive to cefepime. ASSESSMENT AND PLAN: This is a 66-year-old, white male admitted to the hospital for Pseudomonas pneumonia. 1. Pseudomonas pneumonia. We changed his antibiotics to cefepime 1 g twice a day. Infectious disease is following. Change antibiotic according to the sensitivity only. 2. Diabetes type 2. Sliding scale insulin, 70/30 insulin twice a day. 3. Atrial fibrillation. Continue Coumadin and Coreg. INR is going up. Bridging this patient for atrial fibrillation. 4. Hypertension. Continue Cozaar, spironolactone, Lasix, and Imdur. 5. Depression. Continue Prozac. 6. Morbid obesity. Education provided. 7. Deep vein thrombosis prophylaxis. The patient is on Coumadin. 8. Code status. The patient is a full code. 9. Disposition. This patient will need to be on antibiotics for about 2 weeks. He may need a peripherally inserted central catheter line and home antibiotics once he adequately responds to the cefepime.
[2016-11-29] MEDS ORDERED: MAXIPIME 1 GM/NS 1 GM/50 ML IVPB IV SCH (11:00)
[2016-11-29] MEDS: MAXIPIME 2 GM/NS 2 GM/100 ML IVPB IV SCH ×2 (16:19→22:14)
[2016-11-29] MEDS: COUMADIN PO SCH (21:36)
[2016-11-30] MEDS: DUONEB (A & A) INH SCH ×6 (03:10→23:02)
[2016-11-30] MEDS: MAXIPIME 2 GM/NS 2 GM/100 ML IVPB IV SCH ×3 (06:33→21:33)
[2016-11-30] MEDS: HUMALOG SUBQ SCH ×4 (06:36→21:34)
[2016-11-30 06:51] LABS: MANUAL DIFF NEEDED? NO
[2016-11-30 06:56] LABS: BASO% 0.5 % (0.0-0.8); EOS# 0.15 X1000 (0.0-0.7); EOS% 1.9 % (0.0-10.0); HEMATOCRIT 40.2 % (42.0-52.0); HEMOGLOBIN 13.3 g/dL (14.0-18.0); IMM GRAN# 0.04 X1000 (0.0-0.04); IMM GRAN% 0.5 % (0.0-0.5); LYMPH# 1.47 X1000 (1.2-3.4); LYMPH% 18.2 % (20.5-51.1); MCH 28.2 PG (27-31); MCHC 33.1 g/dL (33-37); MCV 85.4 FL (81-99); MONO# 0.87 X1000 (0.11-0.59); MONO% 10.8 % (1.7-9.3); MPV 10.6 FL (7.4-10.4); NEUT% 68.1 % (42.2-75.2); PLT 231 X1000 (130-400); RBC 4.71 XMIL (4.7-6.1)
[2016-11-30 07:19] LABS: AGAP 9; BUN 19 mg/dL (8-22); CALCIUM 9.4 mg/dL (8.8-10.2); CHLORIDE 95 mmol/L (98-107); COSMO 278; SODIUM 136 mmol/L (136-145); TCO2 32 mmol/L (25-35)
[2016-11-30 07:30] LABS: INR 1.75
[2016-11-30] MEDS: HUMULIN 70/30 SUBQ SCH ×2 (08:18→17:22)
[2016-11-30] MEDS: ALDACTONE PO SCH (08:19)
[2016-11-30] MEDS: LASIX PO SCH (08:19)
[2016-11-30] MEDS: PREDNISONE PO SCH (08:19)
[2016-11-30] MEDS: LINZESS PO SCH (08:19)
[2016-11-30] MEDS: IMDUR PO SCH (08:19)
[2016-11-30] MEDS: PROTONIX PO SCH ×2 (08:19→21:34)
[2016-11-30] MEDS: COZAAR PO SCH (08:19)
[2016-11-30] MEDS: COREG PO SCH ×2 (08:19→21:31)
[2016-11-30] MEDS: PROZAC PO SCH ×2 (08:19→21:31)
[2016-11-30] MEDS: BUSPAR PO SCH ×4 (08:19→17:21)
[2016-11-30] MEDS: MILK OF MAGNESIA PO SCH ×2 (08:21→21:31)
--- NOTE | 2016-11-30 08:24 | Diag Imaging Result Document ---
PROCEDURE NAME: CHEST-1 VIEW - 11/30/2016 SINGLE FRONTAL RADIOGRAPH OF THE CHEST: COMPARISON: 11/26/2016. FINDINGS: Linear scarring and/or atelectasis at the lower lung zones is stable. No new consolidation is identified. There is stable cardiomegaly. IMPRESSION: Stable chest.
[2016-11-30] MEDS: MS CONTIN PO SCH ×2 (08:26→21:32)
--- NOTE | 2016-11-30 12:08 | PROGRESS NOTE ---
DATE: 11/30/2016 SUBJECTIVE: The patient is resting comfortably in bed. He states that he feels better today. No acute events noted overnight. OBJECTIVE: Vital Signs: Temperature 97.3 degrees, blood pressure 147/75, heart rate 88, respirations 18, O2 saturations 98% on 5 L nasal cannula. General: This is an elderly, overweight male lying in bed, in no acute distress. HEENT: Head normocephalic and atraumatic. Heart: S1, S2. Normal. Regular rate and rhythm. Lungs: Clear to auscultation bilaterally. No crackles. No rales. Abdomen: Positive bowel sounds. Soft, obese, nontender, nondistended. Extremities: There is +1 edema. No cyanosis. No calf tenderness. Neurologic: The patient is alert and oriented x3. Labs: White blood cell count 8, hemoglobin 13, hematocrit 40, platelets 231,000. INR 1.75. Sodium 136, potassium 5, chloride 95, CO2 32, BUN 19, creatinine 1, glucose 164. ASSESSMENT AND PLAN: 1. Severe acute bronchitis secondary to Pseudomonas. We will continue with intravenous antibiotic therapy as directed by Dr. Downs. 2. Morbid obesity. Aware. 3. Atrial fibrillation. The patient is currently rate controlled. The INR is 1.75. Continue on warfarin. 4. Hypertension. Controlled. Continue on the current antihypertensives. 5. Depression. Continue on Prozac. 6. Disposition. The patient will be discharged home once arrangements have been made for home intravenous antibiotic therapy. cc: Denia Cordero MD
--- NOTE | 2016-11-30 16:40 | PALLIATIVE CARE CONSULTATION ---
DATE: 11/30/2016 REQUESTING PHYSICIAN: Ralph Stephen M.D. REASON FOR CONSULTATION: Goals of care. HISTORY OF PRESENT ILLNESS: This is a 66-year-old, male with a past medical history of COPD, recurrent pneumonia, gastroesophageal reflux disease, morbid obesity, atrial fibrillation, coronary artery disease, hypertension, type 2 diabetes mellitus, obstructive sleep apnea, and chronic systolic heart failure with an ejection fraction of 40%, who was most recently admitted on 11/25/2016 after presenting to the ED with complaints of progressive shortness of breath, fever, chills, productive cough. It was reported that just prior to presenting to the ER, he became suddenly short of breath with diaphoresis and an O2 saturation less than 90%. It is reported that they had to increase his oxygen from 3 L to 10 L before he got any relief. Currently he is sitting up in the hospital bed. He is receiving oxygen via nasal cannula at 3 L. He denies shortness of breath, however, he states with walking short distances he becomes significantly dyspneic. There is no family at the bedside. The palliative care team was consulted to assist with goals of care. He complains of pain to his low back that he describes as chronic. He is seen at the [facility] to manage that pain. He denies anxiety or depression. He states he has occasional episodes of nausea. REVIEW OF SYSTEMS: Twelve point review of systems has been conducted and otherwise negative except as mentioned in the HPI. PAST MEDICAL HISTORY: See HPI. PAST SURGICAL HISTORY: 1. CABG. 2. Pacemaker placement. 3. Cardiac ablation. 4. Back surgery. 5. Left lower extremity ORIF. SOCIAL HISTORY: He is . Alcohol, tobacco and drug use have been denied. FAMILY HISTORY: Positive for lung cancer and heart disease. PHYSICAL EXAMINATION: General: This is a 66-year-old, obese, male, who does not appear to be in any acute distress. HEENT: Atraumatic, normocephalic. Neck: Supple. Cardiovascular: Heart sounds are distant. Regular rate and rhythm. Pulmonary: Lung sounds are diminished with scattered wheeze. Respirations are nonlabored. Abdomen: Obese, soft. Bowel sounds are active. Extremities: Pulses are palpable. Neurologic: Alert and oriented to person, place and time. IMPRESSION: This is a 66-year-old, obese, male with a past medical history as listed above in HPI. The Palliative Care team was consulted to assist with goals of care. The patient states that he will be discharged home with IV antibiotics. He states that while at home he is able to perform all of his activities of daily living. It appears that Mr. Bell palliative performance scale is 70%. Mr. Bell is desires to be a full code. He states that he has legal documentation of Power of Powerhouse Engineer which is his and advanced directives that state that he would want to be a full code. I have asked that he present this document to the hospital staff to place on file. As previously mentioned, he currently denies shortness of breath and is receiving his oxygen via nasal cannula at 3 L. He does complain of back pain, however, he is followed at the [facility] for that and states that his current regimen is effective. The Palliative Care team will continue to follow as needed. Thank you for this consultation. Dictated by HORTENCIA Moses for Ramsey Nino MD cc: HORTENCIA Moses MD
--- NOTE | 2016-11-30 17:07 | PROGRESS NOTE ---
DATE: 11/30/2016 PRESENT ILLNESS: The patient has chronic purulent bronchitis. He has had an acute exacerbation. He remains coughing quite a bit and still bringing up purulent sputum. MEDICATIONS: The patient currently is on cefepime in a dose of 2 g IV every 8 hours. PHYSICAL EXAMINATION: Vital signs: Temperature is 98 degrees, pulse 85, respirations 18, blood pressure 116/72. General: This is a chronically ill-appearing, elderly male who is having some degree of respiratory difficulty. Lungs: Bilateral rhonchi. Cardiovascular: Regular heart rate. Abdomen: Soft and nontender. Patient is very obese. LABORATORY AND X-RAY: Patient's CBC for today shows a white count of 8070, hemoglobin 13.3, and platelet count 231,000. Creatinine is 1. GFR is greater than 60. Chest x-ray shows bibasilar atelectasis and/or scarring. ASSESSMENT AND PLAN: 1. I plan to continue with the 7 patient's cefepime. I have put in a consult for a peripherally inserted central line to be placed and also I have consulted [facility] to supply the patient's home IV antibiotic. I will be seeing the patient back in my office in approximately 2-3 weeks. 2. Comorbidities: Include chronic obstructive pulmonary disease, asbestosis, reflux esophagitis, morbid obesity, atrial fibrillation, diabetes mellitus, obstructive sleep apnea, and congestive heart failure. cc: Darryl Downs MD
[2016-11-30] MEDS: COUMADIN PO SCH (21:31)
[2016-12-01] MEDS: MAXIPIME 2 GM/NS 2 GM/100 ML IVPB IV SCH ×2 (02:13→09:26)
[2016-12-01] MEDS: DUONEB (A & A) INH SCH ×3 (03:12→11:32)
[2016-12-01 06:20] LABS: MANUAL DIFF NEEDED? NO
[2016-12-01 06:27] LABS: BASO% 0.4 % (0.0-0.8); EOS# 0.22 X1000 (0.0-0.7); EOS% 2.4 % (0.0-10.0); HEMATOCRIT 39.9 % (42.0-52.0); HEMOGLOBIN 13.3 g/dL (14.0-18.0); IMM GRAN# 0.05 X1000 (0.0-0.04); IMM GRAN% 0.6 % (0.0-0.5); LYMPH# 1.56 X1000 (1.2-3.4); LYMPH% 17.3 % (20.5-51.1); MCH 28.5 PG (27-31); MCHC 33.3 g/dL (33-37); MCV 85.4 FL (81-99); MONO# 0.96 X1000 (0.11-0.59); MONO% 10.6 % (1.7-9.3); MPV 10.7 FL (7.4-10.4); NEUT% 68.7 % (42.2-75.2); PLT 237 X1000 (130-400); RBC 4.67 XMIL (4.7-6.1)
[2016-12-01 06:44] LABS: AGAP 11; BUN 20 mg/dL (8-22); CALCIUM 9.2 mg/dL (8.8-10.2); CHLORIDE 96 mmol/L (98-107); COSMO 278; POTASSIUM 4.4 mmol/L (3.5-5.1); SODIUM 136 mmol/L (136-145); TCO2 29 mmol/L (25-35)
[2016-12-01] MEDS: HUMALOG SUBQ SCH ×2 (07:03→12:49)
[2016-12-01 07:52] VITALS: BP 123/83
[2016-12-01] MEDS ORDERED: NS 250 ML ONE (07:52)
[2016-12-01] MEDS: MS CONTIN PO SCH (09:20)
[2016-12-01] MEDS: HUMULIN 70/30 SUBQ SCH (09:24)
[2016-12-01] MEDS: PROTONIX PO SCH (09:25)
[2016-12-01] MEDS: PROZAC PO SCH (09:25)
[2016-12-01] MEDS: ALDACTONE PO SCH (09:25)
[2016-12-01] MEDS: LASIX PO SCH (09:25)
[2016-12-01] MEDS: IMDUR PO SCH (09:25)
[2016-12-01] MEDS: BUSPAR PO SCH ×2 (09:25→12:46)
[2016-12-01] MEDS: COZAAR PO SCH (09:25)
[2016-12-01] MEDS: PREDNISONE PO SCH (09:25)
[2016-12-01] MEDS: COREG PO SCH (09:25)
[2016-12-01] MEDS: LINZESS PO SCH (09:25)
[2016-12-01] MEDS: MILK OF MAGNESIA PO SCH (09:26)
--- NOTE | 2016-12-01 09:47 | Diag Imaging Result Document ---
PROCEDURE NAME: CHEST-PORTABLE - 12/01/2016 PORTABLE CHEST: COMPARISON: 11/30/2016. FINDINGS: There has been interval insertion of a PIC-line from the right. The distal end of the PIC-line is partially obscured by overlying transvenous cardiac pacemaker wire. The tip of the PIC-line appears to be located at the distal superior vena cava. There are no other significant interval changes identified. There is subsegmental atelectasis or scarring at the lung bases. There is stable cardiomegaly. There is no pneumothorax seen. IMPRESSION: 1. Tip of PICC line apparently at distal superior vena cava. Verbal results provided to Josue of the PIC-line team at 9:32 a.m. on 12/01/2016. [facility] CENTERLeonel
--- NOTE | 2016-12-02 11:58 | DISCHARGE SUMMARY ---
ADMISSION DATE: 11/25/2016 DISCHARGE DATE: 12/01/2016 CONSULTATIONS: 1. Dr. Marco A Campo with Pulmonology. 2. Dr. Darryl Downs with Infectious Disease. 3. HORTENCIA Moses with Palliative Care. PERTINENT PROCEDURES: Chest x-ray showed subsegmental atelectasis and/or scarring at the lower lung zones bilaterally. Follow-up chest x-ray showed no acute disease or change from prior. DISCHARGE DIAGNOSES: 1. Severe acute bronchitis secondary to pseudomonas. 2. Morbid obesity. 3. Atrial fibrillation 4. Hypertension 5. Depression. 6. Acute on chronic respiratory failure secondary to bronchitis with ongoing chronic obstructive pulmonary disease HOSPITAL COURSE: Briefly, Mr. Ari Bell is a 66-year-old man well known to our service with a past medical history of multiple admissions for recurrent pneumonia, COPD, asbestosis, reflux disease, morbid obesity, atrial fibrillation, CAD, type 2 diabetes mellitus, hypertension, obstructive sleep apnea, and chronic systolic heart failure with an EF of 40% on 10/19/2016. He came to the ED complaining of 3-4 days of progressive worsening shortness of breath without exertion. The patient stated that on the day of his admission he developed sudden shortness of breath with smothering without chest pain. He became profoundly diaphoretic without any palpitations and when he checked his O2 saturation it was below 90%. He increased his nasal cannula O2 supply from 3 L to 10 L before he got any relief. He did report 1-2 days of subjective fever and chills with complaints of coughing up brownish yellowish sputum for 3 days. A month ago he was treated for hospital-acquired pneumonia with vancomycin and Merrem. The patient does have a longstanding history of orthopnea and sleeps in a recliner and a longstanding history of chronic lower extremity swelling that has not changed. The patient was initially admitted for a right lower lobe pneumonia. However, after serial chest x-rays it was decided that the patient has acute bronchitis secondary to pseudomonas as well as acute on chronic respiratory failure with his ongoing COPD and chronic systolic heart failure. The patient was restarted on Merrem and vancomycin as well as his supplemental O2. Sputum cultures were sent. Infectious Disease as well as Pulmonology were consulted. The patient was educated on aggressive pulmonary toilet. The patient's sputum culture did grow out pseudomonas. The patient's antibiotics were changed to only Meropenem. Clinically the patient has improved. There have been no fevers. His white count is normal. Palliative Care was called in to assist with goals of care. He does have a legal power of patent attorney which is his and advanced directives that state that he would want to be a full code. The patient did receive a PICC line. Dr. Downs has set up IV antibiotics with [facility] with cefepime and he will follow up with Dr. Darryl Downs in 2-3 weeks. VITAL SIGNS AT THE TIME OF DISCHARGE: Temperature is 97.8, heart rate 72, respirations 18, and blood pressure 123/83. O2 is 97% on 3 L nasal cannula. DISCHARGE DIET: Diabetic. DISCHARGE MEDICATIONS: 1. BuSpar 10 mg p.o. t.i.d.. 2. Coreg 12.5 mg p.o. b.i.d.. 3. Prozac 20 mg p.o. b.i.d.. 4. Lasix 120 mg p.o. daily. 5. Isosorbide mononitrate 120 mg p.o. daily. 6. Linzess 145 mcg p.o. t.i.d.. 7. Losartan 50 mg daily. 8. Gaviscon one each p.o. 4 times a day p.r.n. for heartburn. 9. Morphine sulfate 15 mg p.o. b.i.d. p.r.n. pain. 10.MS Contin 60 mg p.o. b.i.d.. 11.Protonix 40 mg p.o. b.i.d.. 12.Prednisone 20 mg p.o. daily. 13.Spironolactone 25 mg p.o. daily. 14.Coumadin 5 mg p.o. at bedtime. 15.Albuterol sulfate 90 mcg inhaled 4 times a day. 16.Asmanex 220 mcg inhaled b.i.d.. 17.Carafate 1 gram p.o. every 6 hours. FOLLOW UP: The patient is to follow up with Dr. Darryl Downs in 2 weeks. He will follow up with his primary care physician, Dr. Jennifer Jean Baptiste in 1 week as well as Dr. Campo on 12/08/2016 at 1330. The patient is being discharged home with cefepime with [facility] set up by Dr. Darryl Downs. The patient has been educated on diet and exercise. He can return to the ED for any worsening of symptoms. This is HORTENCIA De La Fuente doing a discharge summary for Dr. Cordero. DISCHARGE TIME: 30 minutes. Dictated by HORTENCIA De La Fuente for Denia Cordero MD cc: MD Marichuy Celestin [facility]ENTERLeonel
== END 2016-12-01 13:49 | disposition home health service (06) ==
LOC: ED 17:49 → 3N 22:27 → OBSVTOIN 22:27 → SUATTDRO 22:27 → INTOOBSV 22:27 → 3N 23:19
PROVIDERS: ATTEND Internal Medicine

== ENCOUNTER 2017-01-25 00:26 | Inpatient (IN) ==
[2017-01-25] MEDS ORDERED: SOLU-MEDROL IV ONE (00:54)
[2017-01-25 01:27] LABS: ALLEN TEST YES; BE 0.1 mmoll (-3.0-3.0); BLOOD TYPE ARTERIAL; DRAW SITE R RADIAL; METHB 0.6 % (0.0-1.5); MODALITY CANNULA; O2(CT) 19.5 mL/dL (15.0-23.0); PCO2(98.6) 39 mmHg (35-45); PO2(98.6) 74 mmHg (60-100); SAMPLE BLOOD; SAO2 96.5 % (95.0-100.0); THB 14.7 g/dL (11.5-17.4); pH(98.6) 7.41 (7.35-7.45)
[2017-01-25] MEDS ORDERED: ROCEPHIN 1 GM/NS 1 GM/50 ML IVPB IV ONE (01:37)
[2017-01-25] MEDS ORDERED: NS 500 ML IV ONE (01:37)
[2017-01-25 02:44] LABS: BASO% 0.1 % (0.0-0.8); EOS# 0.06 X1000 (0.0-0.7); EOS% 0.3 % (0.0-10.0); HEMATOCRIT 40.7 % (42.0-52.0); HEMOGLOBIN 13.9 g/dL (14.0-18.0); IMM GRAN# 0.06 X1000 (0.0-0.04); IMM GRAN% 0.3 % (0.0-0.5); LYMPH# 0.53 X1000 (1.2-3.4); LYMPH% 2.8 % (20.5-51.1); MANUAL DIFF NEEDED? NO; MCHC 34.2 g/dL (33-37); MCV 81.9 FL (81-99); MONO# 1.12 X1000 (0.11-0.59); MONO% 5.9 % (1.7-9.3); MPV 11.5 FL (7.4-10.4); NEUT% 90.6 % (42.2-75.2); PLT 168 X1000 (130-400); RBC 4.97 XMIL (4.7-6.1)
[2017-01-25] MEDS ORDERED: DUONEB (A & A) INH ONE (02:58)
[2017-01-25 03:01] LABS: AGAP 17; ALBUMIN 3.6 g/dL (3.5-5.0); ALKALINE PHOSPHATASE 100 U/L (32-122); BUN 16 mg/dL (8-22); CALCIUM 9.1 mg/dL (8.8-10.2); CHLORIDE 95 mmol/L (98-107); COSMO 280; GOT 13 U/L (10-34); GPT 10 U/L (10-44); POTASSIUM 4.2 mmol/L (3.5-5.1); SODIUM 135 mmol/L (136-145); TCO2 23 mmol/L (25-35); TOTAL PROTEIN 6.8 g/dL (6.3-8.3)
--- NOTE | 2017-01-25 03:16 | PROVIDER DOCUMENTATION ---
This chart was entered by Jeison Sarmiento Scribe, acting as scribe for Mars Valentin MD. HPI-Respiratory General - General Chief Complaint: Fever Stated Complaint: "PNEUMONIA" Time Seen by Provider: 01/25/17 00:53 Source: patient Allergies/Adverse Reactions: Patient Allergies Allergy/AdvReac Type Severity Reaction Status Date / Time daptomycin Allergy Severe RASH Verified 01/25/17 00:48 piperacillin Allergy Intermediate RASH Verified 01/25/17 00:48 tazobactam Allergy Intermediate RASH Verified 01/25/17 00:48 Home Medications: Home Medication List Medication Instructions Recorded Confirmed Last Taken Type Albuterol Sulfate [Proair 90 mcg IH 4XDAY 10/06/16 01/25/17 01/24/17 20:00 History Respiclick] Buspirone [Buspar] 10 mg PO TID 10/06/16 01/25/17 01/24/17 20:00 History Carvedilol 12.5 mg PO BID 10/06/16 01/25/17 01/24/17 20:00 History Fluoxetine [Prozac] 20 mg PO BID 10/06/16 01/25/17 01/24/17 20:00 History Furosemide 120 mg PO DAILY 10/06/16 01/25/17 01/24/17 07:00 History Isosorbide Mononitrate [Imdur] 120 mg PO DAILY 10/06/16 01/25/17 01/24/17 20:00 History Linaclotide [Linzess] 145 mcg PO TID 10/06/16 01/25/17 01/24/17 20:00 History Losartan [Cozaar] 50 mg PO DAILY 10/06/16 01/25/17 01/24/17 07:00 History Magnesium Carbonate/Al Hydrox 1 each PO 4XDAY PRN PRN 10/06/16 01/25/17 20:00 History [Gaviscon] Mometasone Furoate [Asmanex] 220 mcg IH BID 10/06/16 01/25/17 01/24/17 20:00 History Morphine Sulfate 15 mg PO BID PRN 10/06/16 01/25/17 10/06/16 History Morphine Sulfate [Ms Contin] 60 mg PO BID 10/06/16 01/25/17 01/24/17 20:00 History Spironolactone 25 mg PO DAILY 10/06/16 01/25/17 01/24/17 07:00 History Warfarin [Coumadin] 5 mg PO QHS 10/06/16 01/25/17 01/24/17 20:00 History Pantoprazole [Protonix] 40 mg PO BID #60 tablet 10/09/16 01/25/17 01/24/17 20: 00 Rx Prednisone 20 mg PO DAILY #5 tablet 10/09/16 01/25/17 01/24/17 07:00 Rx Sucralfate [Carafate Liquid] 1 gm PO Q6HR #1 udc 10/09/16 01/25/17 01/24/17 20: 00 Rx Cefepime HCl/D5w 2 gm IV Q8H #1 piggyback 12/01/16 01/25/17 Unknown Rx [Cefepime-Dextrose 2 gm/50 ml] Insulin Humulin 70/30 [Humulin 70 unit SUBQ BID #4 insuln.pen 12/01/16 01/25/17 01/24/17 20:00 Rx 70/30] - History of Present Illness-Resp Nature of Presenting Problem: Pt is a 66 yowm who presents to ER with CC of shortness of breath. PT reports hx of asthma/COPD and has been diagnosed with pna 3 times this year. 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 Pt states that he has been short of breath for the past several weeks, but it got significantly worse today. Pt is on 4L home O2. Quality of Pain: reports: other (shortness of breath) Severity in ED: reports: moderate Onset/Duration: reports: this evening Timing: reports: still present Cough Quality/Degree: reports: moderate, productive cough, sputum (brown) Associated Symptoms: reports: cough, fever/chills, shortness of breath, short of breath, wheezing. denies: chest pain/soreness, dizziness, earache, facial pain, flu-like symptoms, headache, heart racing, hurts to breathe, hyperventilating, lightheadedness, muscle/bodyaches, nasal congestion, nasal drainage, sinus pain, sore throat, sweaty Similar Symptoms Previously?: Yes Recently seen or treated by another doctor?: Yes Review of Systems - Adult - REVIEW OF SYSTEMS - ADULT Constitutional: reports: chills, fever. denies: fatique, night sweats, weight gain, weight loss Eyes: reports: no symptoms reported Ears, Nose, Mouth & Throat: reports: no symptoms reported Cardiovascular: denies: chest pain, edema, irregular heart rate, palpitations, poor circulation, syncope Respiratory: reports: chronic cough, cough, excessive sputum production, shortness of breath, wheezing. denies: dyspnea on exertion, hemoptysis, pleurisy Gastrointestinal: reports: no symptoms reported Genitourinary: reports: no symptoms reported Musculoskeletal: reports: no symptoms reported Integumentary: reports: no symptoms reported Neurological: reports: no symptoms reported Psychiatric: reports: no symptoms reported Endocrine: reports: no symptoms reported Hematologic/Lymphatic: reports: no symptoms reported Allergic/Immunologic: reports: no symptoms reported All Other Systems: Reviewed and Negative Past History - Adult - PAST MEDICAL HISTORY-ADULT Review of Records: reports: Nursing Assessment Review, Medications Reviewed Cardiovascular: reports: arrhythmia (with cardiac ablation), CAD, HTN, hyperlipidemia Respiratory: reports: asthma, COPD (on 4 Liters NC), pneumonia Genitourinary: reports: kidney stones Endocrine/Immune: reports: Diabetes Other Conditions: reports: other (sleep apnea) - PRIOR SURGERIES/PROCEDURES Surgical/Procedure History: reports: CABG, pacemaker, other (ablation) - IMMUNIZATION STATUS Childhood Immunizations: See Nurse Assessment Flu Vaccine: See Nurse Assessment - FAMILY HISTORY Family History: reviewed, not pertinent Physical Exam-General - PHYSICAL EXAM-ADULT Initial Vital Signs Reviewed: Yes - CONSTITUTIONAL General Appearance: appears well, alert, mild distress, obese - EYES Eyes: PERRL/EOMI, pink conjunctivae - HEAD, EARS, NOSE, MOUTH & THROAT HENMT: normocephalic/atraumatic, moist mucous membranes, normal ENT inspection, TMs normal, pharynx normal. negative: pharyngeal erythema, tonsillar exudate, TM abnormal - NECK Neck: non-tender, full range of motion, supple, normal inspection. negative: limited range of motion, lymphadenopathy - RESPIRATORY Respiratory: chest non-tender, no pleuratic chest pain, no respiratory distress , no accessory muscle use, rhonchi (coarse), wheezing (scattered). negative: lungs clear, normal breath sounds - CARDIOVASCULAR Cardiovascular: normal peripheral pulses, regular rate, rhythm. negative: bradycardia, tachycardia, irregularly irregular - GASTROINTESTINAL (ABDOMEN) Abdominal Exam: normal bowel sounds, non tender, soft, no organomegaly, no pulsatile mass. negative: guarding, rebound, tenderness - LYMPHATIC Lymphatic: no adenopathy - MUSCULOSKELETAL Back Exam: normal inspection, no CVA tenderness, no vertebral tenderness. negative: CVA tenderness, vertebral tenderness Extremity: normal range of motion, non-tender, normal gait, normal inspection, no pedal edema, no calf tenderness, normal capillary refill, pelvis stable. negative: deformity, erythema, inflammation, swelling (pt wears bilateral compression socks), tenderness - SKIN Integumentary: normal color, normal turgor, warm/dry. negative: abrasion(s), diaphoresis, ecchymosis, erythema, laceration(s), swelling, tenderness, warm - NEUROLOGIC Neurologic: quality intern II-XII nml as tested, grossly normal, no motor/sensory deficits . negative: facial droop, focal weakness, motor weakness, sensory deficit - PSYCHIATRIC Psych/Mental Status: normal mood/affect, normal thought content, normal thought process, oriented x 3 Progress - PLAN OF CARE/RESULTS Progress/Plan/Lab Results: Vital Signs - 8 hr 01/25/17 00:28 01/25/17 03:11 Temperature 100.1 F H Pulse Rate 120 H 104 H Respiratory Rate 23 18 Blood Pressure 177/80 134/87 O2 Sat by Pulse Oximetry 94 L 95 Laboratory Results - last 24 hr 01/25/17 01/25/17 01/25/17 00:41 01:17 02:03 WBC 19.00 H RBC 4.97 Hgb 13.9 L Hct 40.7 L MCV 81.9 MCH 28.0 MCHC 34.2 RDW Std Deviation 13.8 Plt Count 168 MPV 11.5 H Immature Gran % (Auto) 0.3 Neut % (Auto) 90.6 H Lymph % (Auto) 2.8 L Hays % (Auto) 5.9 Eos % (Auto) 0.3 Baso % (Auto) 0.1 Immature Gran # (Auto) 0.06 H Neut # (Auto) 17.21 H Lymph # (Auto) 0.53 L Hays # (Auto) 1.12 H Eos # (Auto) 0.06 Baso # (Auto) 0.02 Specimen Type ARTERIAL Sample Site R RADIAL pH 7.41 pCO2 39 pO2 74 HCO3 24.9 Base Excess 0.1 Oxyhemoglobin 94.4 L ABG O2 Sat (Calculated) 19.5 ABG O2 Saturation 96.5 ABG Carboxyhemoglobin 1.60 ABG Methemoglobin 0.6 Dominguez Test YES A-a O2 Difference 162.0 Total Hemoglobin 14.7 Lactate 3.70 H Liter Flow 5.0 Blood Gas Modality CANNULA FiO2 % 40.0 Sodium Potassium Chloride Carbon Dioxide Anion Gap BUN Creatinine Estimated GFR/1.73 m2 BUN/Creatinine Ratio Glucose POC Glucose 152 H Calculated Osmolality Calcium Total Bilirubin AST ALT Alkaline Phosphatase Total Protein Albumin Globulin Albumin/Globulin Ratio 01/25/17 02:03 WBC RBC Hgb Hct MCV MCH MCHC RDW Std Deviation Plt Count MPV Immature Gran % (Auto) Neut % (Auto) Lymph % (Auto) Hays % (Auto) Eos % (Auto) Baso % (Auto) Immature Gran # (Auto) Neut # (Auto) Lymph # (Auto) Hays # (Auto) Eos # (Auto) Baso # (Auto) Specimen Type Sample Site pH pCO2 pO2 HCO3 Base Excess Oxyhemoglobin ABG O2 Sat (Calculated) ABG O2 Saturation ABG Carboxyhemoglobin ABG Methemoglobin Dominguez Test A-a O2 Difference Total Hemoglobin Lactate Liter Flow Blood Gas Modality FiO2 % Sodium 135 L Potassium 4.2 Chloride 95 L Carbon Dioxide 23 L Anion Gap 17 BUN 16 Creatinine 1.0 Estimated GFR/1.73 m2 > 60 BUN/Creatinine Ratio 16 Glucose 252 H POC Glucose Calculated Osmolality 280 Calcium 9.1 Total Bilirubin 0.50 AST 13 ALT 10 Alkaline Phosphatase 100 Total Protein 6.8 Albumin 3.6 Globulin 3.2 Albumin/Globulin Ratio 1.1 Orders Category Date Time Status Saline Loc NOW Care 01/25/17 00:54 Active CHEST-PORTABLE [RAD] Stat Exams 01/25/17 00:54 Taken ABG [RESP] Routine Lab 01/25/17 01:17 Completed BLOOD CULTURE [BLDCUL] Stat Lab 01/25/17 02:03 Received CBC WITH DIFF [HEME] Stat Lab 01/25/17 02:03 Completed COMPREHENSIVE METABOLIC PANEL [CHEM] Stat Lab 01/25/17 02:03 Completed PROTIME WITH INR [COAG] Stat Lab 01/25/17 02:42 Ordered PTT [COAG] Stat Lab 01/25/17 02:42 Ordered 0.9% Sodium Chloride Inj [Ns] 500 ml Med 01/25/17 01:37 Discontinued IV 999 mls/hr Albuterol 2.5MG/Ipratrop 0.5MG [Duoneb (A & A)] Med 01/25/17 02:58 Discontinued 3 ml INH NOW ONE CefTRIAXONE 1 GM/NS [Rocephin 1 gm/Ns] Med 01/25/17 01:37 Discontinued 1 gm in 50 ml IV NOW Methylprednisolone Sod Succ [Solu-Medrol] Med 01/25/17 00:54 Discontinued 125 mg IV NOW ONE Aerosol Treatments Routine Ot 01/25/17 02:58 Active Aerosol Treatments Stat Ot 01/25/17 02:58 Active Pulse Oximetry Stat Ot 01/25/17 00:54 Active Result Diagrams: 01/25/17 02:03 01/25/17 02:03 - XRAY 1 XRAY: Bilateral XRAY Study: Chest (obscured left hemidiaphragm, cannot rule out left lower lobe pneumonia - Dr. Valentin) Impression: See EMR Report XRAY Interpretation: obscured left hemidiaphragm, cannot rule out left lower lobe pneumonia - - CONSULTS/PCP/HOSPITALIST Notification #1 *Consult/PCP/Hospitalist*: Dr. Mustafa (Hospitalist) Time Discussed: 03:15 Consult Disposition: Admit Departure - Departure Time of Disposition Decision: 03:15 DIAGNOSIS: COPD exacerbation, Lactic acidosis Pneumonia Qualifiers: Pneumonia type: due to unspecified organism Laterality: left Lung location: lower lobe of lung Qualified Code(s): J18.1 - Lobar pneumonia, unspecified organism Diabetes Qualifiers: Diabetes mellitus type: type 2 Diabetes mellitus complication status: with unspecified complications Diabetes mellitus termite treater helper insulin use: with termite treater helper use Qualified Code(s): E11.8 - Type 2 diabetes mellitus with unspecified complications; Z79.4 - supervisor intermediates (current) use of insulin Disposition: ADMITTED INPATIENT 09 Certified Medical Emergency: Emergent Condition: Stable Referrals and Follow-Ups: Jennifer Jean Baptiste MD [Primary Care Provider] - - Critical Care Note This patient required my direct & personal management of CC.: No This chart was documented by the indicated scribe, (Jeison Sarmiento Scribe) and accurately reflects the services I performed and decisions made by , Mars Valentin MD, as attested by the provider's signature.
[2017-01-25 03:33] LABS: PTT 38.6 Seconds (22.0-36.0)
[2017-01-25 03:41] LABS: INR 3.12; PROTIME 35.2 Seconds (9.2-11.7)
--- NOTE | 2017-01-25 05:38 | HISTORY AND PHYSICAL ---
PRIMARY CARE PHYSICIAN: Dr. Jennifer Jean Baptiste. CHIEF COMPLAINT: Shortness of breath and coughing x4 days. HISTORY OF PRESENTING ILLNESS: This is a 66-year-old male with a history of COPD on home oxygen, diabetes mellitus type 2, hypertension and coronary disease. Had presented to the emergency department with 4 days history of having worsening shortness of breath and a productive cough of yellowish material. The patient was evaluated in the ER. He was moderately dyspneic. He was given nebulizers and he has had some improvement. As per ER physician, his chest x-ray did show some infiltrates consistent with pneumonia. Subsequently, he will need hospitalization for further management. At the time of my examination, he had denied any nausea, vomiting, diarrhea, chest pain, hemoptysis, melena, but complained of having fever, chills and shortness of breath. PAST MEDICAL HISTORY: Includes COPD on home oxygen, diabetes mellitus type 2, hypertension, coronary artery disease. PAST SURGICAL HISTORY: Coronary bypass, pacemaker, back surgeries, left leg surgery. ALLERGIES: To daptomycin, piperacillin, tazobactam. CURRENT MEDICATIONS: As listed in the MAR. SOCIAL HISTORY: He is a former smoker. Denies any history of alcohol or illicit drug use. FAMILY HISTORY: Positive for coronary disease in father. REVIEW OF SYSTEMS: [employer] point systems is as in HPI. Other systems negative. PHYSICAL EXAMINATION: GENERAL: Cooperative, friendly, obese male. He is resting more comfortably now. VITAL SIGNS: Temperature 100.1 degrees, pulse 120, respiration 23, blood pressure 177/80. He is saturating 94%. HEENT: Atraumatic, normocephalic. Extraocular movements intact. PERRLA. NECK: No masses. CHEST: Rhonchi. CARDIOVASCULAR: Regular rate and rhythm. ABDOMEN: Soft, obese, positive bowel sounds. EXTREMITIES: Trace edema. NEUROLOGIC: He is awake, alert, oriented x3. GENITOURINARY: No bladder distention. SKIN: Warm. LABORATORIES AND STUDIES: WBCs 19.0, hemoglobin 13.9, hematocrit 40.7, platelets 168,000. Sodium 135, potassium 4.2, chloride 95, CO2 23, BUN is 16, creatinine is 1.0, glucose is 252. ASSESSMENT: A 66-year-old male with a history of chronic obstructive pulmonary disease, diabetes mellitus 2, hypertension and coronary disease, who presented to the emergency department with 4 days history of worsening cough and shortness of breath. He is found to have infiltrates on chest x-ray consistent with pneumonia. The patient will need hospitalization for further management. 1. Suspected pneumonia. 2. Chronic obstructive pulmonary disease exacerbation. 3. Diabetes mellitus type 2. 4. Hypertension. PLAN: 1. We will admit patient to medical floor with telemetry. 2. We will check blood cultures and start patient on IV antibiotics. 3. We will continue with DuoNebs and mucolytic agents. 4. We will hold Solu-Medrol for now due to patient having diabetes. 5. We will monitor blood glucose and put patient on sliding scale insulin regimen. 6. We will monitor blood pressure and resume antihypertensive agents. 7. Put the patient on DVT prophylaxis with SCD. 8. We will continue to follow and reassess. cc: Mekhi Mustafa MD
--- NOTE | 2017-01-25 06:35 | Diag Imaging Result Doc PS360 ---
EXAM: CHEST-PORTABLE HISTORY: cough TECHNIQUE: COMPARISON: 12/17/2016 FINDINGS: The lungs are well expanded. There is a left-sided pacemaker. Heart is mildly prominent. The vessels are not distended. No consolidation. IMPRESSION: No pneumonia. Follow-up films may be beneficial. Electronically signed by Ramses Stanton 01/25/2017 6:33 AM
[2017-01-25] MEDS ORDERED: TYLENOL PO PRN (07:16)
[2017-01-25] MEDS ORDERED: LINZESS PO SCH (09:00)
[2017-01-25] MEDS: COREG PO SCH ×2 (10:28→20:26)
[2017-01-25] MEDS: LASIX PO SCH (10:28)
[2017-01-25] MEDS: IMDUR PO SCH (10:29)
[2017-01-25] MEDS: BUSPAR PO SCH ×3 (10:29→18:15)
[2017-01-25] MEDS: MUCINEX PO SCH ×2 (10:29→20:26)
[2017-01-25] MEDS: PROZAC PO SCH ×2 (10:30→20:25)
[2017-01-25] MEDS: LEVAQUIN 750 MG/D5W 750 MG/150 ML IVPB IV SCH (10:35)
[2017-01-25] MEDS: ALDACTONE PO SCH (11:03)
[2017-01-25] MEDS: CARAFATE LIQUID PO SCH ×3 (11:03→20:26)
[2017-01-25] MEDS: MS CONTIN PO SCH ×2 (11:04→20:26)
[2017-01-25] MEDS: PREDNISONE PO SCH (11:05)
[2017-01-25] MEDS: PROTONIX PO SCH ×2 (11:05→20:27)
[2017-01-25] MEDS: COZAAR PO SCH (11:06)
[2017-01-25] MEDS: DUONEB (A & A) INH SCH ×5 (11:15→23:02)
[2017-01-25] MEDS ORDERED: INSULIN PEN NEEDLES ONE (12:01)
[2017-01-25] MEDS: HUMULIN 70/30 SUBQ SCH ×2 (12:14→20:30)
[2017-01-25] MEDS: HUMULIN R SUBQ SCH ×4 (12:24→23:03)
--- NOTE | 2017-01-25 14:39 | PROGRESS NOTE ---
DATE: 01/25/2017 SUBJECTIVE: He states he is feeling a little better than yesterday but he was real sick when he came in, started having fever and chills, increased work of breathing. EXAM: Vital signs: Today afebrile temperature 98.2 degrees. HEENT: Pupils are equal, round. Lungs: With scattered rhonchi anterolateral. Cardiovascular: Regular rhythm, rate without murmur or S3. Abdomen: Soft. Skin: Warm and dry. Blood pressure 127/68. CVP less than 6 cm. Lungs: Clear in all lung ann. Weight 337 pounds. LAB: White count 19,000, hematocrit 40, platelet count 168,000. Chemistry, sodium 135, potassium 4.2, chloride 95, BUN 16, creatinine 1.0, blood sugar 152, 252 and 415 was his last 1. Chest x-ray from this morning. No pneumonia or infiltrates seen on films. ASSESSMENT AND PLAN: 1. Chronic obstructive pulmonary disease, exacerbation of chronic obstructive pulmonary disease with fever and chills. Will treat for bronchopneumonia. Did not see an infiltrate on x-ray but clinically consistent with bronchopneumonia. 2. Morbid obesity. 3. Atrial fibrillation. Rate is controlled. 4. Hypertension. 5. Depression. 6. Once again, acute on chronic respiratory failure secondary to bronchitis, chronic obstructive pulmonary disease. Continue present orders reviewed, on Levaquin 750 mg IV daily, getting breathing treatments and then he is on Linzess 145 mcg p.o. daily. Continue present regimen but he is on Coumadin. His PT was 35. Probably need to hold his Coumadin and follow pro times. cc: Dominguez Burger MD
[2017-01-25] MEDS: MORPHINE IR PO PRN (15:19)
[2017-01-25] MEDS ORDERED: COUMADIN PO SCH (21:00)
[2017-01-26] MEDS: CARAFATE LIQUID PO SCH ×4 (01:30→21:14)
[2017-01-26] MEDS: HUMULIN R SUBQ SCH ×5 (01:31→21:17)
[2017-01-26] MEDS: DUONEB (A & A) INH SCH ×6 (03:35→22:55)
[2017-01-26] MEDS: LINZESS PO SCH (06:14)
[2017-01-26] MEDS: MUCINEX PO SCH ×2 (06:16→21:22)
[2017-01-26 06:27] LABS: HEMATOCRIT 38.7 % (42.0-52.0); HEMOGLOBIN 13.1 g/dL (14.0-18.0); IMM GRAN# 0.05 X1000 (0.0-0.04); IMM GRAN% 0.3 % (0.0-0.5); LYMPH# 0.96 X1000 (1.2-3.4); LYMPH% 6.2 % (20.5-51.1); MANUAL DIFF NEEDED? YES; MCH 27.6 PG (27-31); MCHC 33.9 g/dL (33-37); MCV 81.5 FL (81-99); MONO# 1.27 X1000 (0.11-0.59); MONO% 8.2 % (1.7-9.3); MPV 11.1 FL (7.4-10.4); NEUT% 85.3 % (42.2-75.2); PLT 246 X1000 (130-400); RBC 4.75 XMIL (4.7-6.1)
[2017-01-26 06:28] LABS: INR 2.92; PROTIME 32.8 Seconds (9.2-11.7)
[2017-01-26 07:00] LABS: AGAP 14; BUN 22 mg/dL (8-22); CALCIUM 8.9 mg/dL (8.8-10.2); CHLORIDE 95 mmol/L (98-107); COSMO 277; POTASSIUM 4.1 mmol/L (3.5-5.1); SODIUM 134 mmol/L (136-145); TCO2 25 mmol/L (25-35)
[2017-01-26 07:01] LABS: LYMPHS 4 % (21-51); MONO 4 % (1-9)
[2017-01-26] MEDS ORDERED: INSULIN PEN NEEDLES ONE (07:02)
[2017-01-26] MEDS: IMDUR PO SCH (08:16)
[2017-01-26] MEDS: LASIX PO SCH (08:16)
[2017-01-26] MEDS: COZAAR PO SCH (08:16)
[2017-01-26] MEDS: BUSPAR PO SCH ×3 (08:17→16:26)
[2017-01-26] MEDS: PREDNISONE PO SCH (08:17)
[2017-01-26] MEDS: COREG PO SCH ×2 (08:17→21:14)
[2017-01-26] MEDS: ALDACTONE PO SCH (08:17)
[2017-01-26] MEDS: PROTONIX PO SCH ×2 (08:17→21:14)
[2017-01-26] MEDS: PROZAC PO SCH ×2 (08:19→21:14)
[2017-01-26] MEDS: HUMULIN 70/30 SUBQ SCH ×2 (08:19→21:15)
[2017-01-26] MEDS: MS CONTIN PO SCH ×2 (08:21→21:14)
[2017-01-26] MEDS: LEVAQUIN 750 MG/D5W 750 MG/150 ML IVPB IV SCH (10:34)
[2017-01-26] MEDS ORDERED: BUSPAR ONE (13:19)
--- NOTE | 2017-01-26 15:59 | PROGRESS NOTE ---
DATE: 01/26/2017 SUBJECTIVE: Today Mr. Bell was sitting up in the chair. He refers to be doing okay. However, he is coughing up some dark chocolate looking, bloody sputum since this morning according to him. OBJECTIVE: Vital signs: Blood pressure is 103/55, pulse of 88, respiration is 18, temperature 97.7 degrees. General: Mr. Bell is a 66-year-old, morbidly obese, male. He was sitting up in the chair. He did not seem to be in any distress. Was on oxygen. HEENT: Mucosa is pink and moist. Anicteric. Acyanotic. Neck: Supple. Chest: Air entry is bilaterally reduced, more so to the right lower lobe. There are some bibasilar few crepitations. Did not appreciate any rhonchi. Cardiovascular: Regular rate and rhythm. Abdomen: Soft, distended. Extremities: No pedal edema. 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 LABORATORY DATA: WBC is down to 15.51, hemoglobin is 13.1, platelet count of 246,000. Chemistry is reviewed. Sodium is 134, potassium is 4.1, chloride is 95, bicarb is 25, BUN is 22, creatinine 0.9, glucose is 119. INR is 2.92. MEDICATIONS: 1. Tylenol p.r.n. 2. BuSpar p.r.n. 3. Carvedilol 12.5 b.i.d. 4. Prozac 20 mg b.i.d. 5. Furosemide 120 p.o. daily. 6. Guaifenesin. 7. Insulin 70/30, 70 units b.i.d. 8. Sliding scale. 9. 120 daily. 10. Levaquin 750 daily. 11. Losartan 50 mg daily. 12. Morphine sulfate. 13. Prednisone 20 p.o. daily. 14. Spironolactone 25 mg daily. 15. Sucralfate. DIAGNOSTIC STUDIES: A chest x-ray done yesterday shows lungs were well expanded. There is the left-sided pacemaker. Heart size mildly prominent. Vessels are not distended. No consolidation. ASSESSMENT: 1. Chronic obstructive pulmonary disease exacerbation. 2. Morbid obesity. 3. Atrial fibrillation, currently rate controlled. 4. Hypertension. 5. Depression. 6. Coumadin anticoagulation. PLAN: So I think in general Mr. Bell is doing of relatively stable. He is coughing a lot of dark, bloody looking, chocolate colored sputum. We are going to do a CT scan of the lungs to have a better look at the lung anatomy since chest x-ray was completely unremarkable. I suspect the patient does have an underlying pneumonia. He has been started on levofloxacin and I will add doxycycline to cover for MRSA. cc: Jed Matthew MD MTDD
[2017-01-26] MEDS: DOXYCYCLINE 100 MG in NS 250 ML IV SCH (17:17)
[2017-01-27] MEDS: CARAFATE LIQUID PO SCH ×4 (01:01→20:27)
[2017-01-27] MEDS: DUONEB (A & A) INH SCH ×6 (03:25→23:10)
[2017-01-27] MEDS: DOXYCYCLINE 100 MG in NS 250 ML IV SCH ×2 (05:52→16:02)
[2017-01-27] MEDS: HUMULIN R SUBQ SCH ×4 (06:36→21:53)
[2017-01-27] MEDS: LINZESS PO SCH (06:36)
[2017-01-27] MEDS: MUCINEX PO SCH ×2 (06:37→18:26)
[2017-01-27 06:56] LABS: MANUAL DIFF NEEDED? NO
[2017-01-27 07:13] LABS: INR 2.14; PROTIME 23.6 Seconds (9.2-11.7)
[2017-01-27 07:14] LABS: BASO% 0.1 % (0.0-0.8); EOS# 0.04 X1000 (0.0-0.7); EOS% 0.3 % (0.0-10.0); HEMATOCRIT 40.9 % (42.0-52.0); HEMOGLOBIN 13.6 g/dL (14.0-18.0); IMM GRAN# 0.04 X1000 (0.0-0.04); IMM GRAN% 0.3 % (0.0-0.5); LYMPH# 1.56 X1000 (1.2-3.4); LYMPH% 13.6 % (20.5-51.1); MCH 27.3 PG (27-31); MCHC 33.3 g/dL (33-37); MCV 82.1 FL (81-99); MONO# 1.12 X1000 (0.11-0.59); MONO% 9.8 % (1.7-9.3); NEUT% 75.9 % (42.2-75.2); PLT 256 X1000 (130-400); RBC 4.98 XMIL (4.7-6.1)
--- NOTE | 2017-01-27 07:25 | Diag Imaging Result Doc PS360 ---
EXAM: CT THORAX W/CONTRAST HISTORY: pneumonia TECHNIQUE: CT of the chest with intravenous contrast and dose reduction (clarity.) COMMENT: There is no evidence of filling defects in the pulmonary arteries. The aorta is not distended and there is no evidence of dissection. There is extensive calcification in the left anterior descending, left main and right coronary arteries. There has been previous sternotomy. There is no evidence of significant adenopathy in the appearance of the mediastinum is essentially stable since 10/06/2016. There are no abnormal fluid collections. There are bibasilar pulmonary parenchymal opacities which have worsened slightly since the previous study. Some improvement in the opacities previously present in the lingula has occurred. Otherwise there is been no appreciable change in the lungs. There are spondylotic changes in the thoracic spine which are stable in appearance to the previous study. IMPRESSION: Atelectasis versus pneumonia in both lower lobes. No evidence of pulmonary emboli. Improvement in lingular atelectasis versus pneumonia. Electronically signed by Wayne Reddy 01/27/2017 7:23 AM
[2017-01-27 07:36] LABS: AGAP 12; BUN 21 mg/dL (8-22); CALCIUM 9.4 mg/dL (8.8-10.2); CHLORIDE 95 mmol/L (98-107); COSMO 276; MAGNESIUM 2.2 mg/dL (1.5-2.7); SODIUM 135 mmol/L (136-145); TCO2 28 mmol/L (25-35)
[2017-01-27] MEDS: LASIX PO SCH (08:26)
[2017-01-27] MEDS: HUMULIN 70/30 SUBQ SCH ×2 (08:26→20:27)
[2017-01-27] MEDS: COREG PO SCH ×2 (08:27→20:29)
[2017-01-27] MEDS: BUSPAR PO SCH ×3 (08:27→16:03)
[2017-01-27] MEDS: MS CONTIN PO SCH ×2 (08:27→20:28)
[2017-01-27] MEDS: PROTONIX PO SCH ×2 (08:27→20:29)
[2017-01-27] MEDS: PREDNISONE PO SCH (08:28)
[2017-01-27] MEDS: ALDACTONE PO SCH (08:28)
[2017-01-27] MEDS: COZAAR PO SCH (08:28)
[2017-01-27] MEDS: IMDUR PO SCH (08:28)
[2017-01-27] MEDS: PROZAC PO SCH ×2 (08:28→20:29)
[2017-01-27] MEDS: LEVAQUIN 750 MG/D5W 750 MG/150 ML IVPB IV SCH (09:49)
[2017-01-27] MEDS ORDERED: INSULIN PEN NEEDLES ONE (10:52)
--- NOTE | 2017-01-27 12:03 | PROGRESS NOTE ---
DATE: 01/27/2017 SUBJECTIVE: Today, Mr. Bell referred to be doing fine. He continues to have sputum production which continues to be slightly bloody. OBJECTIVELY: Vital Signs: Blood pressure is 120/67, pulse of 99, respirations are 11, temperature 97.6 degrees. General Examination: Mr. Bell is a 66-year-old, male. He was sitting up in the chair. Not seemingly in distress. HEENT: Mucosa is pink and moist. Anicteric and acyanotic. Neck: Supple. Chest: Air entry is bilaterally reduced. There is some end exploratory rhonchi in the left posterior lung field. Cardiovascular: Regular rate and rhythm. Abdomen: Soft, nontender. Extremities: Mild pedal edema. GEOLOGY TECHNICIAN: Patient is alert and oriented x4. Laboratory Data: WBC is 11.48 which is reduced from 15.51, hemoglobin is 13.6, platelet count of 256,000. Chemistry reviewed. Sodium is 135, potassium is 4.4, chloride 95, bicarb is 28, glucose is 155. Diagnostic Studies: A CT scan of the chest which was done yesterday shows atelectasis versus pneumonia in both lower lobes. No evidence of PE. There is improvement in the lingular atelectasis versus pneumonia. ASSESSMENT: 1. Chronic obstructive pulmonary disease exacerbation. 2. Left lingular pneumonia with bibasilar atelectasis. 3. Atrial fibrillation, currently rate controlled. 4. Hypertension. 5. Depression. 6. Mild hemoptysis. The patient is on Coumadin anticoagulation. A CT scan of the lungs is negative for pulmonary embolism. PLAN: In general, Mr. Bell seems to be doing fine. His INR is pretty much in the therapeutic range. He is having some mild hemoptysis which I am not quite sure if it is due to the anticoagulation or is to the underlying pneumonia. We will continue with the current double coverage of antibiotics. I will get pulmonary medicine to evaluate the patient. We will make changes to the management pending pulmonary medicine recommendations. cc: Jed Matthew MD
[2017-01-27] MEDS: PRIMAXIN 500 MG in NS 100 ML IV SCH (22:42)
[2017-01-28] MEDS: CARAFATE LIQUID PO SCH ×4 (03:16→20:57)
--- NOTE | 2017-01-28 03:26 | CONSULTATION ---
DATE OF CONSULTATION: 01/27/2017 REQUESTING PHYSICIAN: Dr. Matthew. REASON FOR CONSULTATION: Pneumonia and hemoptysis. HISTORY OF PRESENT ILLNESS: Mr. Bell is a 66-year-old white male with severe COPD, morbid obesity, bronchiectasis, with recurrent admission to the hospital with exacerbation of COPD/bronchiectasis. The patient's previous cultures have revealed Levaquin-resistant Pseudomonas, along with an ESBL positive E. coli. The patient was last discharged from this hospital in early November, and received an outpatient course of cefepime. The patient reports he was doing well until approximately 2-3 days prior to admission, when he developed increasing cough, increasing shortness of breath, with purulent sputum production, with intermittent blood components. He did have a 45 minutes episode of a shaking chill. The patient presented to the emergency room, and CT scan revealed some improvement and a lingular infiltrate on prior scan, but with new small bibasilar areas of consolidation associated with bronchiectasis in both lower lobes. PAST MEDICAL HISTORY: 1. Severe COPD with bronchiectasis. 2. Atrial fibrillation, on chronic anticoagulation. 3. Obstructive sleep apnea. He uses a Trilogy. 4. Morbid obesity. 5. Diabetes mellitus. 6. Dyslipidemia. 7. Hypertension. 8. Chronic back pain. 9. Chronic hip pain due to bilateral arthritis. 10. Coronary artery bypass grafting in 2000. 11. Status post pacemaker placement. 12. History of colonic polyps. SOCIAL HISTORY: Previous tobacco use, but none for several years. 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 FAMILY HISTORY: Positive for heart disease. REVIEW OF SYSTEMS: Negative, except as noted in the HPI. PHYSICAL EXAMINATION: General: Reveals a morbidly obese white male, resting comfortably in a bedside chair, in no distress. Vital Signs: Blood pressure 104/59, heart rate 72, respiration rate 16, oxygen saturation 99% on 5 L per nasal cannula. He is afebrile. HEENT: Pupils are equal and reactive. Oropharynx is clear. Neck: Supple. Chest: Reveals prolonged expiratory phase, with bilateral rhonchi and wheezing. Cardiac: Distant heart sounds. Normal S1, normal S2. Abdomen: Obese and soft. Extremities: Reveal chronic lower extremity edema. LABORATORY STUDIES: White blood count on admission was 19.00. White blood count today was 11.5. Blood cultures are no growth after 48 hours. Sputum culture is pending. CT scan as per HPI. IMPRESSION: A 66-year-old with severe chronic obstructive pulmonary disease, chronic hypoxemic respiratory failure, who presents with an exacerbation of bronchiectasis/bilateral pneumonia. Given his history, this most likely represents a Gram negative pneumonia. Patient's hemoptysis is likely related to an exacerbation of this pneumonia/bronchiectasis while on anticoagulation. The patient is not a candidate for bronchoscopy and aggressive evaluation of the airway, due to his obesity, chronic hypoxemic respiratory failure, and severe chronic obstructive pulmonary disease. RECOMMENDATIONS: 1. Recommend adding a carbapenem to his regimen, given the previous Pseudomonas identified, along with an ESBL positive E. coli. 2. Continue bronchial hygiene as you are doing. 3. Adjust antibiotics based on culture results. 4. Glucose control. 5. Encourage continued weight loss. 6. Additional recommendations pending hospital course. cc: Ramsey Nino MD
[2017-01-28] MEDS: DUONEB (A & A) INH SCH ×6 (04:35→22:56)
[2017-01-28] MEDS: DOXYCYCLINE 100 MG in NS 250 ML IV SCH ×2 (05:07→17:36)
[2017-01-28 06:39] LABS: INR 1.61; PROTIME 17.4 Seconds (9.2-11.7)
[2017-01-28] MEDS: LINZESS PO SCH (06:41)
[2017-01-28] MEDS: HUMULIN R SUBQ SCH ×4 (06:55→20:54)
[2017-01-28] MEDS: MUCINEX PO SCH ×2 (08:18→20:16)
[2017-01-28] MEDS: PROZAC PO SCH ×2 (08:18→20:58)
[2017-01-28] MEDS: PROTONIX PO SCH ×2 (08:18→20:58)
[2017-01-28] MEDS: PREDNISONE PO SCH (08:18)
[2017-01-28] MEDS: LASIX PO SCH (08:18)
[2017-01-28] MEDS: HUMULIN 70/30 SUBQ SCH ×2 (08:18→21:00)
[2017-01-28] MEDS: MS CONTIN PO SCH ×2 (08:19→20:57)
[2017-01-28] MEDS: COZAAR PO SCH (08:21)
[2017-01-28] MEDS: COREG PO SCH ×2 (08:21→20:57)
[2017-01-28] MEDS: PRIMAXIN 500 MG in NS 100 ML IV SCH ×2 (08:21→16:54)
[2017-01-28] MEDS: ALDACTONE PO SCH (08:21)
[2017-01-28] MEDS: BUSPAR PO SCH ×3 (08:21→17:35)
[2017-01-28] MEDS: IMDUR PO SCH (08:21)
[2017-01-28] MEDS: LEVAQUIN 750 MG/D5W 750 MG/150 ML IVPB IV SCH (10:14)
--- NOTE | 2017-01-28 13:11 | PROGRESS NOTE ---
DATE: 01/28/2017 Today Mr. Bell referred to be doing pretty fine. He continues to be coughing but not as before and he still has some dark expectoration. OBJECTIVE: Vital signs: Blood pressure is 117/67, pulse of 78, respirations 20 , temperature is 98.4 degrees. General: Mr. Bell is a 66-year-old male. He was sitting up in a chair. Was not in any distress. HEENT: Mucosa is pink and moist. Anicteric. Acyanotic. Neck: Supple. Chest: Air entry is bilaterally reduced. There are some few crepitations to the right posterior lung field. Cardiovascular: Regular rate and rhythm. Abdomen: Soft , is distended. Extremities: About 2+ pedal edema. TANKERMAN: Patient is alert and oriented x4. LABORATORY DATA: No lab work for today. Sputum culture growing gram-negative rods, gram-positive cocci. ASSESSMENT: 1. Left lingular pneumonia with bibasilar atelectasis. Sputum culture is growing gram-negative rods and gram-positive cocci. The patient has a history of multiple bacteria in the previous cultures including Pseudomonas, E. coli and Enterobacter cloacae complex and Klebsiella oxytoca. Imipenem has been added to his medication. Will be pending the ID and sensitivity to scale down on the current triple therapy. Since patient has been started on imipenem I will go ahead and stop the levofloxacin. 2. COPD exacerbation. 3. History of atrial fibrillation currently rate controlled. 4. Hypertension. 5. Depression. 6. Mild hemoptysis. In general, I think Mr. Bell is doing relatively fine. We are going to continue the current antibiotics including doxycycline and recently added imipenem. I have discontinued the levofloxacin. I will continue with aggressive pulmonary toilette and incentives parameter. I think Mr. Bell is probably going to be here throughout the weekend to get this lung infection better under control. cc: Jed Matthew MD MTDD
[2017-01-29] MEDS: PRIMAXIN 500 MG in NS 100 ML IV SCH ×3 (01:00→16:34)
[2017-01-29] MEDS: CARAFATE LIQUID PO SCH ×4 (01:36→21:08)
[2017-01-29] MEDS: DUONEB (A & A) INH SCH ×6 (04:01→22:51)
[2017-01-29] MEDS: DOXYCYCLINE 100 MG in NS 250 ML IV SCH ×2 (04:42→18:43)
[2017-01-29] MEDS: HUMULIN R SUBQ SCH ×3 (06:35→21:18)
[2017-01-29] MEDS: MUCINEX PO SCH ×2 (06:36→21:08)
[2017-01-29] MEDS: LINZESS PO SCH (06:36)
--- NOTE | 2017-01-29 07:13 | Diag Imaging Result Doc PS360 ---
EXAM: CHEST-PORTABLE HISTORY: dyspnea TECHNIQUE: AP portable chest dated 01/29/2017 at 0500 COMMENT: The inspiration is slightly less optimal than on 01/25/2017. Otherwise has been no significant change in the appearance of the chest. IMPRESSION: Stable chest Electronically signed by Wayne Reddy 01/29/2017 7:11 AM
[2017-01-29 07:45] LABS: INR 1.3; PROTIME 13.9 Seconds (9.2-11.7)
[2017-01-29] MEDS: LASIX PO SCH (09:49)
[2017-01-29] MEDS: COZAAR PO SCH (09:49)
[2017-01-29] MEDS: BUSPAR PO SCH ×3 (09:51→18:43)
[2017-01-29] MEDS: PROTONIX PO SCH ×2 (09:51→21:08)
[2017-01-29] MEDS: ALDACTONE PO SCH (09:51)
[2017-01-29] MEDS: IMDUR PO SCH (09:51)
[2017-01-29] MEDS: COREG PO SCH ×2 (09:51→21:08)
[2017-01-29] MEDS: PROZAC PO SCH ×2 (09:51→21:08)
[2017-01-29] MEDS: PREDNISONE PO SCH (09:51)
[2017-01-29] MEDS: HUMULIN 70/30 SUBQ SCH ×2 (09:52→21:17)
[2017-01-29] MEDS: MS CONTIN PO SCH ×2 (10:01→21:07)
--- NOTE | 2017-01-29 11:33 | PROGRESS NOTE ---
DATE: 01/29/2017 SUBJECTIVE: Today Mr. Bell refers to be doing a whole lot better. He continues to have a cough, but it is not bloody; it is dark gil colored. He says his breathing has also significantly improved. OBJECTIVE: Vital Signs: Blood pressure is 129/63, pulse of 77, respirations 20, temperature is 98.2 degrees. General: Mr. Bell is a 66-year-old morbidly obese male. He is in bed, in no distress. HEENT: Mucosa is pink and moist. Anicteric. Acyanotic. Neck: Supple. Chest: Good air entry bilateral. A few bibasilar crepitations. Cardiovascular: Regular rate and rhythm. Abdomen: Soft, distended, but nontender. Extremities: About 2+ pedal edema. Central Nervous System: The patient is alert, oriented x4. There is no focal neurological deficit. LABORATORY DATA: None. The sputum is still growing gram-negative rods of 3+. We are still pending the and ID and sensitivity. ASSESSMENT AND PLAN: 1. Left lingular pneumonia with bibasilar atelectasis. Culture is growing gram-negative rods. The patient is currently on imipenem and doxycycline. We will scale this down once we have the identification and sensitivity. 2. Chronic obstructive pulmonary disease exacerbation. 3. History of atrial fibrillation, currently rate controlled. 4. Hypertension. 5. Depression. 6. Mild hemoptysis is improved. 7. Coumadin anticoagulation. The patient's INR was 1.3. The patient has been started on his Coumadin 5 mg yesterday. We will recheck on the INR tomorrow and go from there. cc: Jed Matthew MD
[2017-01-29] MEDS ORDERED: NS 250 ML ONE (12:10)
[2017-01-29] MEDS: COUMADIN PO SCH (21:08)
[2017-01-30] MEDS: PRIMAXIN 500 MG in NS 100 ML IV SCH ×2 (01:56→08:40)
[2017-01-30] MEDS: CARAFATE LIQUID PO SCH ×4 (03:40→21:09)
[2017-01-30] MEDS: DUONEB (A & A) INH SCH ×6 (03:49→22:56)
[2017-01-30] MEDS: DOXYCYCLINE 100 MG in NS 250 ML IV SCH (05:44)
[2017-01-30] MEDS: HUMULIN R SUBQ SCH ×4 (06:26→21:11)
[2017-01-30 06:32] LABS: MANUAL DIFF NEEDED? NO
[2017-01-30] MEDS: LINZESS PO SCH (06:37)
[2017-01-30 06:45] LABS: INR 1.21; PROTIME 12.9 Seconds (9.2-11.7)
[2017-01-30 06:48] LABS: BASO% 0.3 % (0.0-0.8); EOS% 1.9 % (0.0-10.0); HEMATOCRIT 39.7 % (42.0-52.0); HEMOGLOBIN 13.2 g/dL (14.0-18.0); IMM GRAN# 0.08 X1000 (0.0-0.04); IMM GRAN% 0.8 % (0.0-0.5); LYMPH# 1.56 X1000 (1.2-3.4); LYMPH% 14.9 % (20.5-51.1); MCH 27.6 PG (27-31); MCHC 33.2 g/dL (33-37); MCV 82.9 FL (81-99); MONO# 0.91 X1000 (0.11-0.59); MONO% 8.7 % (1.7-9.3); MPV 10.1 FL (7.4-10.4); NEUT% 73.4 % (42.2-75.2); PLT 247 X1000 (130-400); RBC 4.79 XMIL (4.7-6.1)
[2017-01-30 07:23] LABS: AGAP 11; BUN 17 mg/dL (8-22); CALCIUM 8.8 mg/dL (8.8-10.2); CHLORIDE 97 mmol/L (98-107); COSMO 277; SODIUM 137 mmol/L (136-145); TCO2 29 mmol/L (25-35)
[2017-01-30] MEDS: MUCINEX PO SCH ×2 (08:43→21:09)
[2017-01-30] MEDS: MS CONTIN PO SCH ×2 (08:43→21:08)
[2017-01-30] MEDS: LASIX PO SCH (08:43)
[2017-01-30] MEDS: COREG PO SCH ×2 (08:44→21:08)
[2017-01-30] MEDS: COZAAR PO SCH (08:44)
[2017-01-30] MEDS: BUSPAR PO SCH ×3 (08:44→16:28)
[2017-01-30] MEDS: ALDACTONE PO SCH (08:44)
[2017-01-30] MEDS: PROZAC PO SCH ×2 (08:44→21:08)
[2017-01-30] MEDS: PREDNISONE PO SCH (08:44)
[2017-01-30] MEDS: IMDUR PO SCH (08:44)
[2017-01-30] MEDS: PROTONIX PO SCH ×2 (08:44→21:09)
[2017-01-30] MEDS: HUMULIN 70/30 SUBQ SCH ×2 (08:45→21:09)
[2017-01-30] MEDS: MAXIPIME 2 GM/NS 2 GM/100 ML IVPB IV SCH (14:04)
--- NOTE | 2017-01-30 15:01 | PROGRESS NOTE ---
DATE: 01/30/2017 SUBJECTIVE: Today Mr. Bell refers to be doing better. However he said he did have a little bit of rough night. OBJECTIVE: Vital Signs: Stable. Blood pressure is 104/64, pulse of 75, respirations 19, temperature is 97.9 degrees. General: Mr. Bell a 66-year-old morbidly obese male. He was sitting up in the chair. No distress. HEENT: Mucosa is pink and moist. Anicteric. Acyanotic. Neck: Supple. Chest: Air entry is bilaterally reduced. Did not appreciate any crepitations or rhonchi. Cardiovascular: Regular rate and rhythm. Abdomen: Soft. Extremities: About 2+ pedal edema. 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 No focal neurological deficit. LABORATORY DATA: WBC is down to 10.47, hemoglobin is 13.3, platelet count of 247,000. Chemistry is reviewed. Completely normal. Glucose is 195 this morning. ASSESSMENT: 1. Left lingular pneumonia. Culture is positive for Pseudomonas. I have therefore gone ahead and discontinued the doxycycline. Pulmonary medicine has changed the imipenem to cefepime. 2. Chronic obstructive pulmonary disease exacerbation. Will continue with the current therapy. 3. History of atrial fibrillation currently rate controlled. 4. Hypertension controlled. 5. Diabetes mellitus not very well controlled. We are going to go up on the insulin 70/30 to 75 b.i.d. 6. Mild hemoptysis resolved. 7. Coumadin anticoagulation. Patient has been started on his Coumadin. We will recheck his INR and tweak this accordingly. cc: Jed Matthew MD MTDD
[2017-01-30] MEDS ORDERED: INSULIN PEN NEEDLES ONE (16:17)
[2017-01-30] MEDS: COUMADIN PO SCH (21:09)
[2017-01-31] MEDS: MAXIPIME 2 GM/NS 2 GM/100 ML IVPB IV SCH ×2 (00:37→13:43)
[2017-01-31] MEDS: HUMULIN R SUBQ SCH ×5 (02:01→22:54)
[2017-01-31] MEDS: CARAFATE LIQUID PO SCH ×4 (02:16→22:53)
[2017-01-31] MEDS: DUONEB (A & A) INH SCH ×4 (03:56→15:49)
[2017-01-31] MEDS: LINZESS PO SCH (06:20)
--- NOTE | 2017-01-31 08:07 | Diag Imaging Result Doc PS360 ---
EXAM: CHEST-PORTABLE INDICATION: dyspnea TECHNIQUE: One view COMPARISON: 01/29/2017 FINDINGS: There are no new consolidations. Inspiration is marginally better than the previous study. Cardiac silhouette is stable. IMPRESSION: Stable chest. Electronically signed by Jose Harkins 01/31/2017 8:05 AM
[2017-01-31] MEDS: PROTONIX PO SCH ×2 (09:29→22:52)
[2017-01-31] MEDS: COZAAR PO SCH (09:29)
[2017-01-31] MEDS: COREG PO SCH ×2 (09:29→22:52)
[2017-01-31] MEDS: LASIX PO SCH (09:29)
[2017-01-31] MEDS: IMDUR PO SCH (09:29)
[2017-01-31] MEDS: PREDNISONE PO SCH (09:29)
[2017-01-31] MEDS: ALDACTONE PO SCH (09:29)
[2017-01-31] MEDS: BUSPAR PO SCH ×3 (09:29→16:41)
[2017-01-31] MEDS: MUCINEX PO SCH ×2 (09:29→22:52)
[2017-01-31] MEDS: PROZAC PO SCH ×2 (09:29→22:52)
[2017-01-31] MEDS: MS CONTIN PO SCH ×2 (09:29→23:00)
[2017-01-31] MEDS: HUMULIN 70/30 SUBQ SCH ×2 (09:39→22:53)
[2017-01-31] MEDS: MORPHINE IR PO PRN (13:43)
--- NOTE | 2017-01-31 16:51 | PROGRESS NOTE ---
DATE: 01/31/2017 SUBJECTIVE: Mr. Bell is feeling better. He is still coughing up thick yellowish beige sputum but he feels like he is breathing better. Feels like the swelling in his legs gone down some. OBJECTIVE: Vital signs: Temperature 97.4 degrees, pulse 76, respirations 18, blood pressure 101/50. HEENT: Pupils are equal, round. Lungs: Are clear in all lung ann. Cardiovascular: Regular rhythm and rate without murmur or S3. Good urine output. LAB: Reviewed from yesterday. Blood sugars 135, 222, 224. Chest x-ray from today stable chest. There is no new consolidations. ASSESSMENT AND PLAN: 1. Left lingular pneumonia. Cultures positive for Pseudomonas. Discontinued doxycycline and changed him to cefepime. Clinically seems to be improving. 2. Chronic obstructive pulmonary disease exacerbation. Continue bronchodilators and antibiotics. 3. History of atrial fibrillation. Rate is controlled. 4. Hypertension. 5. Diabetes mellitus type 2. Continue follow sugars. Put on sliding scale and pattern sugars. 6. Hemoptysis resolved. 7. Coumadin anticoagulation. Patient was started on Coumadin. Recheck his recent INR, yesterday it was 12.9 so will continue to follow that. REVIEW OF HIS ORDERS: Patient on Coumadin 5 mg at bedtime, Carafate 1 g q.6 hours, prednisone 20 mg a day, Aldactone 25 mg a day, Protonix 40 mg b.i.d. He is getting morphine ER, morphine IR for pain and I think that is back pain. Cozaar 50 mg a day, cefepime 2 g IV q.12, isosorbide mononitrate 120 mg daily, Linzess 145 mcg p.o. daily, guaifenesin ER 600 mg q.12, Lasix 120 mg p.o. daily, Prozac 20 mg b.i.d., Coreg 12.5 mg b.i.d., BuSpar 10 mg t.i.d. and his albuterol, ipratropium breathing treatments. cc: Dominguez Burger MD
[2017-01-31] MEDS: COUMADIN PO SCH (22:52)
[2017-02-01] MEDS: MAXIPIME 2 GM/NS 2 GM/100 ML IVPB IV SCH ×2 (00:55→13:09)
[2017-02-01] MEDS: CARAFATE LIQUID PO SCH ×4 (01:45→20:14)
[2017-02-01] MEDS: MORPHINE IR PO PRN (02:57)
[2017-02-01] MEDS: HUMULIN 70/30 SUBQ SCH (03:30)
[2017-02-01 07:34] LABS: MANUAL DIFF NEEDED? NO
[2017-02-01 07:35] LABS: INR 1.45; PROTIME 15.6 Seconds (9.2-11.7)
[2017-02-01] MEDS: DUONEB (A & A) INH SCH ×6 (07:38→22:51)
[2017-02-01 07:54] LABS: BASO% 0.2 % (0.0-0.8); EOS# 0.17 X1000 (0.0-0.7); EOS% 1.7 % (0.0-10.0); HEMATOCRIT 39.9 % (42.0-52.0); HEMOGLOBIN 13.2 g/dL (14.0-18.0); IMM GRAN# 0.09 X1000 (0.0-0.04); IMM GRAN% 0.9 % (0.0-0.5); LYMPH# 1.31 X1000 (1.2-3.4); LYMPH% 13.2 % (20.5-51.1); MCH 27.6 PG (27-31); MCHC 33.1 g/dL (33-37); MCV 83.3 FL (81-99); MONO# 0.93 X1000 (0.11-0.59); MONO% 9.3 % (1.7-9.3); MPV 10.4 FL (7.4-10.4); NEUT% 74.7 % (42.2-75.2); PLT 236 X1000 (130-400); RBC 4.79 XMIL (4.7-6.1)
[2017-02-01] MEDS: LASIX PO SCH (08:09)
[2017-02-01] MEDS: MUCINEX PO SCH ×2 (08:09→20:14)
[2017-02-01] MEDS: MS CONTIN PO SCH ×2 (08:09→20:14)
[2017-02-01] MEDS: PROTONIX PO SCH ×2 (08:10→20:14)
[2017-02-01] MEDS: BUSPAR PO SCH ×3 (08:10→17:31)
[2017-02-01] MEDS: COZAAR PO SCH (08:10)
[2017-02-01] MEDS: PROZAC PO SCH ×2 (08:10→20:14)
[2017-02-01] MEDS: IMDUR PO SCH (08:10)
[2017-02-01] MEDS: COREG PO SCH ×2 (08:10→20:14)
[2017-02-01] MEDS: ALDACTONE PO SCH (08:10)
[2017-02-01] MEDS: PREDNISONE PO SCH (08:10)
[2017-02-01] MEDS: NON-FORMULARY BULK MED SUBQ SCH ×2 (08:11→21:10)
[2017-02-01] MEDS: LINZESS PO SCH (08:14)
[2017-02-01] MEDS: HUMULIN R SUBQ SCH ×4 (08:15→20:28)
[2017-02-01 08:21] LABS: AGAP 12; BUN 12 mg/dL (8-22); CHLORIDE 96 mmol/L (98-107); COSMO 279; MAGNESIUM 2.2 mg/dL (1.5-2.7); POTASSIUM 3.8 mmol/L (3.5-5.1); SODIUM 138 mmol/L (136-145); TCO2 30 mmol/L (25-35)
--- NOTE | 2017-02-01 14:58 | PROGRESS NOTE ---
DATE: 02/01/2017 SUBJECTIVE: He was sitting up in a chair. He is breathing better. Still coughing up some thick yellowish base phlegm, but he does feel like he is moving air better and his feet are less swollen, less edema. OBJECTIVE: Vital signs: Temperature 97.8 degrees, pulse 62, respirations 19, blood pressure 120/61. Eyes: Pupils are equal, round. Lungs: Are clear in all lung ann anterolateral. Cardiovascular: Regular rhythm and rate without murmur or S3. Abdomen: Soft. Skin: Warm and dry. LABORATORY AND IMAGING: White count 9950, hematocrit 39, platelet count 236,000. Chemistry: Sodium 138, potassium 3.8, chloride 96, bicarb 30, BUN 12, creatinine 0.8, blood sugars 143, 167, 156, 200. Chest x-ray that we did yesterday, stable chest with no new consolidations. Inspiration is markedly better than previous study. Cardiac silhouette is stable. ASSESSMENT AND PLAN: 1. Chronic obstructive pulmonary disease exacerbation. Left lingular pneumonia improving. Culture grew out Pseudomonas, so continue present antibiotics. 2. Chronic obstructive pulmonary disease, he is on bronchodilators. 3. History of atrial fibrillation, rate controlled. 4. Hypertension. 5. Diabetes mellitus type 2. Sugars under good control. 6. History of hemoptysis which resolved. 7. On Coumadin. His ProTime is 15.6, so he is back on his 5 mg at bedtime. Continue to follow ProTime. Blood pressures look good. cc: Dominguez Burger MD
[2017-02-01] MEDS: COUMADIN PO SCH (20:14)
[2017-02-02] MEDS: MAXIPIME 2 GM/NS 2 GM/100 ML IVPB IV SCH ×2 (00:34→13:41)
[2017-02-02] MEDS: MORPHINE IR PO PRN (00:34)
[2017-02-02] MEDS: CARAFATE LIQUID PO SCH ×4 (01:31→20:52)
[2017-02-02] MEDS: DUONEB (A & A) INH SCH ×6 (03:56→22:57)
[2017-02-02] MEDS: LINZESS PO SCH (06:15)
[2017-02-02] MEDS: HUMULIN R SUBQ SCH ×4 (06:15→20:57)
[2017-02-02 06:47] LABS: INR 1.7; PROTIME 18.5 Seconds (9.2-11.7)
[2017-02-02] MEDS: IMDUR PO SCH (08:37)
[2017-02-02] MEDS: LASIX PO SCH (08:37)
[2017-02-02] MEDS: ALDACTONE PO SCH (08:38)
[2017-02-02] MEDS: PROZAC PO SCH ×2 (08:38→20:52)
[2017-02-02] MEDS: COZAAR PO SCH (08:38)
[2017-02-02] MEDS: MS CONTIN PO SCH ×2 (08:38→20:53)
[2017-02-02] MEDS: MUCINEX PO SCH ×2 (08:38→20:52)
[2017-02-02] MEDS: PREDNISONE PO SCH (08:38)
[2017-02-02] MEDS: BUSPAR PO SCH ×3 (08:38→20:52)
[2017-02-02] MEDS: PROTONIX PO SCH ×2 (08:38→20:53)
[2017-02-02] MEDS: COREG PO SCH ×2 (08:39→20:52)
[2017-02-02] MEDS: NON-FORMULARY BULK MED SUBQ SCH ×2 (08:39→20:56)
--- NOTE | 2017-02-02 13:52 | PROGRESS NOTE ---
DATE: 02/02/2017 SUBJECTIVE: Mr. Bell is better, breathing better. States the sputum is less colored and less tenacious. OBJECTIVE: Vital Signs: Temperature 97.6 degrees, pulse 72, respirations 17, blood pressure 124/60. HEENT: Pupils are equal, round. Lungs: Clear in all lung ann. Cardiovascular: Regular rhythm and rate, without murmur or S3. LABORATORY: Blood sugar 274, 172, 179. White count 9950, hematocrit 39, platelet count 236,000. Blood sugars 294, 58, 172. ASSESSMENT AND PLAN: 1. Chronic obstructive pulmonary disease with exacerbation. 2. Left lingular pneumonia, improving. Pseudomonas growing from sputum cultures. Continue present antibiotics. 3. Chronic obstructive pulmonary disease with some bronchospasm, on bronchodilators. 4. Atrial fibrillation, rate controlled. 5. Hypertension. 6. Diabetes mellitus, type 2. Sugars under good control. 7. History of hemoptysis, which has resolved. He is back on his Coumadin and prothrombin time is 18.5 today. Continue present dose of Coumadin this. cc: Dominguez Burger MD
[2017-02-02] MEDS: COUMADIN PO SCH (20:53)
[2017-02-03] MEDS: MAXIPIME 2 GM/NS 2 GM/100 ML IVPB IV SCH ×2 (01:41→13:39)
[2017-02-03] MEDS: CARAFATE LIQUID PO SCH ×4 (01:41→20:25)
[2017-02-03] MEDS: MORPHINE IR PO PRN (01:42)
[2017-02-03] MEDS: DUONEB (A & A) INH SCH ×7 (03:27→22:50)
[2017-02-03] MEDS: HUMULIN R SUBQ SCH ×4 (06:14→21:28)
[2017-02-03] MEDS: LINZESS PO SCH (06:15)
[2017-02-03 07:14] LABS: INR 2.18; PROTIME 24.1 Seconds (9.2-11.7)
[2017-02-03] MEDS: BUSPAR PO SCH ×3 (08:22→20:26)
[2017-02-03] MEDS: PROTONIX PO SCH ×2 (08:22→20:27)
[2017-02-03] MEDS: PROZAC PO SCH ×2 (08:22→20:26)
[2017-02-03] MEDS: PREDNISONE PO SCH (08:22)
[2017-02-03] MEDS: ALDACTONE PO SCH (08:22)
[2017-02-03] MEDS: MUCINEX PO SCH ×2 (08:22→20:27)
[2017-02-03] MEDS: IMDUR PO SCH (08:22)
[2017-02-03] MEDS: COZAAR PO SCH (08:22)
[2017-02-03] MEDS: LASIX PO SCH (08:22)
[2017-02-03] MEDS: COREG PO SCH ×2 (08:22→20:26)
[2017-02-03] MEDS: NON-FORMULARY BULK MED SUBQ SCH ×2 (08:23→20:27)
[2017-02-03] MEDS: MS CONTIN PO SCH ×2 (08:27→20:25)
--- NOTE | 2017-02-03 11:53 | PROGRESS NOTE ---
DATE: 02/03/2017 SUBJECTIVE: Mr. Bell is sitting up in bed. He feels that his breathing is better and his sputum is more clear. OBJECTIVE: Vital Signs: Temperature is 98.1 degrees, heart rate 74, respirations 18, blood pressure 130/69, O2 is 99% on 4 L nasal cannula. General: Mr. Bell is a 66-year-old, morbidly obese, male who is sitting up in the bed, in no acute distress. HEENT: Atraumatic, normocephalic. PERRLA. Neck: Supple. Trachea midline. CV: No murmurs, gallops, rubs noted. Respiratory: Lungs sound clear to auscultation. GI: Obese, soft, nontender, nondistended. Positive bowel sounds 4 quadrants. Extremities: Continue with generalized edema. Neurologic: No focal deficits noted. LABORATORY DATA: No new laboratory data. DIAGNOSTIC DATA: No new diagnostic data. ASSESSMENT AND PLAN: 1. Left lingular pneumonia. Culture positive for pseudomonas. Continue with antibiotics. 2. Chronic obstructive pulmonary disease exacerbation, improved. 3. Atrial fibrillation, history. Rate controlled. 4. Hypertension, controlled. 5. Diabetes mellitus. Not well controlled. Will continue with medications. 6. Mild hemoptysis, resolved. 7. Coumadin anticoagulation. PT was 24.1 and INR was 2.18 on 02/03/2017. 8. Disposition. Possibly home on Wednesday. 9. Further recommendations to follow physician evaluation. Dictated by HORTENCIA De La Fuente for Dominguez Burger MD cc: Dominguez Burger MD
[2017-02-03] MEDS: MYCOSTATIN POWDER TOP SCH ×2 (15:58→20:28)
[2017-02-03] MEDS: MYCOSTATIN CREAM TOP SCH (16:58)
[2017-02-03] MEDS: COUMADIN PO SCH (20:26)
[2017-02-04] MEDS: MAXIPIME 2 GM/NS 2 GM/100 ML IVPB IV SCH ×2 (00:09→13:14)
[2017-02-04] MEDS: MORPHINE IR PO PRN (00:09)
[2017-02-04] MEDS: CARAFATE LIQUID PO SCH ×4 (01:58→20:38)
[2017-02-04] MEDS: DUONEB (A & A) INH SCH ×7 (03:05→23:06)
[2017-02-04] MEDS: HUMULIN R SUBQ SCH ×4 (06:04→20:44)
[2017-02-04] MEDS: LINZESS PO SCH (06:05)
[2017-02-04 07:25] LABS: INR 2.35; PROTIME 26.1 Seconds (9.2-11.7)
[2017-02-04] MEDS: ALDACTONE PO SCH (09:02)
[2017-02-04] MEDS: COZAAR PO SCH (09:02)
[2017-02-04] MEDS: MUCINEX PO SCH ×2 (09:02→20:38)
[2017-02-04] MEDS: PROTONIX PO SCH ×2 (09:02→20:43)
[2017-02-04] MEDS: LASIX PO SCH (09:02)
[2017-02-04] MEDS: IMDUR PO SCH (09:02)
[2017-02-04] MEDS: COREG PO SCH ×2 (09:03→20:37)
[2017-02-04] MEDS: PREDNISONE PO SCH (09:03)
[2017-02-04] MEDS: PROZAC PO SCH ×2 (09:03→20:37)
[2017-02-04] MEDS: BUSPAR PO SCH ×3 (09:03→17:40)
[2017-02-04] MEDS: NON-FORMULARY BULK MED SUBQ SCH ×2 (09:04→20:37)
[2017-02-04] MEDS: MS CONTIN PO SCH ×2 (09:08→20:37)
[2017-02-04] MEDS: MYCOSTATIN CREAM TOP SCH ×3 (09:08→17:40)
[2017-02-04] MEDS: MYCOSTATIN POWDER TOP SCH ×2 (09:09→20:37)
--- NOTE | 2017-02-04 13:27 | PROGRESS NOTE ---
DATE: 02/04/2017 SUBJECTIVE: Mr. Bell is feeling better. Cough is looser. Still brownish yellow sputum. Feels like his legs are less swollen and feels much better. He is hoping he can go home tomorrow. OBJECTIVE: Vital signs: Temperature 97.3 degrees, pulse 70, respirations 20, blood pressure 125/63. Lungs: Clear in all lung ann. Cardiovascular: Regular rhythm and rate without murmur or S3. Abdomen: Soft. Skin: Warm and dry. : Urine output 2100 mL. LAB: Reviewed. Blood sugars 211, 319, and 94. ASSESSMENT AND PLAN: 1. Left lingular pneumonia. Found Pseudomonas. Continue present antibiotics. 2. Chronic obstructive pulmonary disease exacerbation, improved. 3. Atrial fibrillation, rate controlled. 4. Hypertension. 5. Diabetes mellitus type 2. 6. Mild hemoptysis, resolved. 7. Coumadin anticoagulation. Coumadin back on. His INR was 2.1. 8. Disposition hopefully Wednesday. His most recent INR today, PT was 26, INR 2.3. 9. Review of his medications. He is on warfarin 5 mg daily and I may back that down to 4 mg a day. We will see how he does. Hopefully home tomorrow. What we need to decide before going home tomorrow is how long he needs antibiotic treatment. He did grow Pseudomonas out that was sensitive to gentamicin and cefepime. cc: Dominguez Burger MD
--- NOTE | 2017-02-04 15:49 | CONSULTATION ---
DATE OF CONSULTATION: 02/04/2017 CONCLUSION: Patient is admitted to the hospital with a pneumonia. Unfortunately, the patient has been exposed to Agent [place] and asbestos. He has severe COPD. The last 2 times that we cultured his sputum, he was found to have Pseudomonas growing from it. The organism was resistant to Levaquin, but sensitive to the other antibiotics. The patient's immunoglobulin levels, specifically IgG and IgA, are normal. The patient now is on cefepime and he feels like he is improving. He is less short of breath and his sputum is becoming more clear. RECOMMENDATIONS: I agree with treating the patient with cefepime. I have ordered a sputum Gram stain and culture. I discussed with the patient the possibility of putting him on an oral antibiotic on a daily basis to prevent further pulmonary infections; however, this is not going to be possible because the patient, as mentioned above, has had Pseudomonas isolated from his sputum the last 2 times that the sputum was cultured and both times the organism was resistant to Levaquin, which means it would be resistant to any other quinolone, including ciprofloxacin. Unfortunately, I do not think there is an antibiotic by mouth we can put the patient on long-term for the reasons mentioned above to help prevent infection. Likewise, since his immunoglobulin levels are normal, an immunoglobulin infusion is not an option. I discussed with the patient getting a long-term IV in, such as a Port-A-Cath, so that possibly even as an outpatient, when he gets ill, we could start an IV antibiotic and that may get him better and prevent him from having to come in the hospital. The patient is ageeable about getting a portacath. . Dr. Vick is consulted place it. HISTORY OF PRESENT ILLNESS/DISCUSSION: The patient has had very frequent recurrences of pneumonia and purulent bronchitis. He has underlying lung disease, as outlined above. Usually, when he comes in the hospital, he gets put on an antibiotic and he starts to clear up. He currently has not been having any fever or chills. He is not having any chest pain either. The patient's CBC shows a white count of 9950, hemoglobin 13.2, and platelet count 236,000. Creatinine 0.8. GFR is greater than 60. IgG and IgA levels are in the normal range. PAST MEDICAL HISTORY/REVIEW OF SYSTEMS: Eyes and Ears: The patient has decreased hearing and he wears glasses. Neck: No meningismus. Respiratory: The patient has chronic cough and has dyspnea, especially with exertion. Cardiovascular: No chest pain or palpitations. Gastrointestinal: No nausea, vomiting, or diarrhea. Genitourinary: No dysuria or flank pain. Endocrine: The patient is not diabetic and he does not have thyroid disease. Neurologic: Patient has paresthesias in his arms and legs. He is not having seizures. Bones, Joints, Muscles: He has pain in his knee joints and it is difficult for him to be active because of many factors, including joint pain from osteoarthritis, dyspnea because of COPD, as mentioned above, and obesity. PREVIOUS HOSPITALIZATIONS AND OPERATIONS: He has had multiple admissions for pneumonia and exacerbation of his COPD. He has a pacemaker present on the left side. He has also had coronary artery bypass grafting and surgery on his left leg following trauma to the leg. MEDICAL DISEASES: Positive for coronary artery disease, diabetes mellitus, osteoarthritis, obesity, atrial fibrillation, pacemaker dependent, and COPD. INFECTIOUS DISEASE HISTORY: Positive for recurrent pneumonia and purulent bronchitis. Patient at times does have sinusitis. FAMILY HISTORY: Positive for cancer and myocardial infarction. SOCIAL HISTORY[place] . He is disabled. He stopped smoking cigarettes in 1989. He does not drink alcoholic beverages or abuse drugs. He does not have any pets at home. ASSESSMENT AND PLAN: For now, the patient is going to receive IV antibiotics in the hospital and is soon to be discharged. Unfortunately, there does not appear to be a good oral antibiotic we can give the patient to take at home. He may need to get more IV antibiotic, doing it at home. PHYSICAL EXAMINATION: Vital Signs: Temperature is 97.7 degrees, pulse 80, respirations 20, blood pressure 100/55. General: This is a morbidly obese, elderly male who is in no acute distress at this time. Head, Eyes, Ears, Nose, and Throat: He can hear my spoken words and see near objects. No drainage noted from the nose or ears. Thorax: Increased AP diameter to the chest. The patient has a pacemaker present in the left upper chest. The site is not swollen or erythematous. Lungs: Scattered rhonchi bilaterally. Cardiovascular: Heart rate is regular. Abdomen: Soft and nontender. Extremities: Patient has bilateral leg edema. Neurologic: The patient is awake. He can move his extremities. There is no tremor. His sensation is diminished in his legs. Thank you for the consult. cc: Darryl Downs MD MTDD
[2017-02-04 16:51] LABS: INR 2.46; PROTIME 27.4 Seconds (9.2-11.7)
[2017-02-04] MEDS: COUMADIN PO SCH (20:37)
[2017-02-05] MEDS: CARAFATE LIQUID PO SCH ×2 (01:16→08:09)
[2017-02-05] MEDS: MAXIPIME 2 GM/NS 2 GM/100 ML IVPB IV SCH ×2 (01:16→12:13)
[2017-02-05] MEDS: MORPHINE IR PO PRN ×2 (01:16→10:26)
[2017-02-05] MEDS: DUONEB (A & A) INH SCH ×3 (04:02→11:29)
--- NOTE | 2017-02-05 04:13 | PROGRESS NOTE ---
DATE: 02/04/2017 ADDENDUM: Dr. Burger, the patient and I have discussed things and we feel that the patient can go home tomorrow. Our plan is to have a PICC put in and I have consulted [facility] to supply the cefepime 2 g IV every 12 hours for 2 weeks at which time I will see the patient back in the office and if he seems to be doing well we will remove his PICC. I will go ahead also and get a chest x- ray. Dr. Vick has been consulted to put in a portacath after pneumonia clears. cc: Darryl Downs MD MTDD
[2017-02-05] MEDS: HUMULIN R SUBQ SCH ×2 (06:07→11:01)
[2017-02-05] MEDS: LINZESS PO SCH (06:08)
[2017-02-05] MEDS: PROTONIX PO SCH (08:09)
[2017-02-05] MEDS: COZAAR PO SCH (08:09)
[2017-02-05] MEDS: COREG PO SCH (08:09)
[2017-02-05] MEDS: IMDUR PO SCH (08:10)
[2017-02-05] MEDS: PREDNISONE PO SCH (08:10)
[2017-02-05] MEDS: MUCINEX PO SCH (08:10)
[2017-02-05] MEDS: BUSPAR PO SCH ×2 (08:10→12:16)
[2017-02-05] MEDS: PROZAC PO SCH (08:10)
[2017-02-05] MEDS: LASIX PO SCH (08:10)
[2017-02-05] MEDS: ALDACTONE PO SCH (08:10)
[2017-02-05] MEDS: MYCOSTATIN CREAM TOP SCH (08:12)
[2017-02-05] MEDS: MYCOSTATIN POWDER TOP SCH (08:12)
[2017-02-05] MEDS: MS CONTIN PO SCH (08:18)
[2017-02-05] MEDS: NON-FORMULARY BULK MED SUBQ SCH (08:19)
[2017-02-05 09:18] LABS: INR 2.54; PROTIME 28.3 Seconds (9.2-11.7)
[2017-02-05 14:24] VITALS: BP 116/70
--- NOTE | 2017-02-05 15:17 | DISCHARGE SUMMARY ---
ADMISSION DATE: 01/25/2017 DISCHARGE DATE: 02/05/2017 HISTORY OF PRESENT ILLNESS: This is a 66-year-old who presented with shortness of breath. He follows with Dr. Jennifer Jean Baptiste. He has a history of COPD, on home oxygen, with multiple admissions for pneumonia, diabetes mellitus type 2, hypertension, and coronary artery disease. He presented to the emergency department after 4 days of having worsening shortness of breath and productive cough of yellowish material. The patient was evaluated in the emergency room, with moderate dyspnea. He was given nebulizers and had some improvement. As per the ER physician, a chest x-ray did show some infiltrates consistent with pneumonia. Subsequently, he was hospitalized. HOSPITAL COURSE: He received antibiotics and showed steady improvement. We gave bronchodilators. We followed his blood sugars and blood pressure. He had no evidence of any cardiac ischemia and he showed slow improvement. He had a CT of his chest on 01/26/2017 that showed atelectasis versus pneumonia in both lower lobes, no evidence of pulmonary emboli. Involvement of lingular atelectasis versus pneumonia. He was clinically better. He had thick, tenacious, brown to beige sputum. Followup chest x-ray on 01/31/2017 showed stable chest. Clinically, though, he continued to improve. Dr. Downs was consulted and he felt the patient has been admitted multiple times for pneumonia and, unfortunately, the patient has been exposed to Agent [place] and asbestos. He has severe COPD. At least 2 times, his cultures of sputum were found to have Pseudomonas from it. Organisms were resistant to Levaquin, but sensitive to other antibiotics. Patient's immunoglobulin levels have been checked in the past, specifically IgG and IgA, and have been normal, so for now I am going to try to set him up for cefepime as an outpatient with IV antibiotics. I will let him go home. We will get a PICC line. He needs to hold his Coumadin for a couple of days and maybe get the PICC line in on Wednesday. This is Wednesday. We will discharge him on his medications that he takes at home. He will hold his Coumadin and get a prothrombin time checked first thing Wednesday. He will take his Carafate 1 g q.6 hours; Aldactone 25 mg a day; prednisone 20 mg a day; Protonix 40 mg b.i.d.; morphine IR 15 mg b.i.d. p.r.n.; MS Contin 60 mg b.i.d.; Cozaar 50 mg a day; Linzess 145 mg p.o. daily; Imdur 120 mg daily; take his insulin as before, 70/30; Prozac 20 mg b.i.d.; Lasix 120 mg q.a.m.; Coreg 12.5 mg b.i.d.; BuSpar 10 mg t.i.d.; DuoNeb at home. For 2 weeks more, they are hoping to get a PICC line and supply cefepime 2 g q.12 hours. We will send him home and he will get that done on Wednesday so we can hold his Coumadin. cc: Dominguez Burger MD
--- NOTE | 2017-02-05 18:31 | CONSULTATION ---
DATE OF CONSULTATION: 02/05/2017 HISTORY OF PRESENT ILLNESS: This is a 66-year-old male with chronic lung disease related to asbestosis and COPD who has recurrent pneumonia, requires IV antibiotics with inpatient admissions for this. Dr. Downs has seen in this go around and as he is clinically improving plan to transition to PICC line at home for the next couple weeks and has requested a port placement given his recurrent nature of this. Never had central line placements before or other venous catheters centrally but has had coronary bypass. MEDICAL HISTORY: COPD, asbestosis, diabetes, hypertension, coronary disease. SURGICAL HISTORY: Coronary artery bypass pacemaker, back surgery, left leg surgery. SOCIAL HISTORY: History of smoking and denies alcohol or drugs. REVIEW OF SYSTEMS: Ten point negative other what is mentioned in the HPI. FAMILY HISTORY: Noncontributory. PHYSICAL EXAM: Vital signs: Temperature 98.1 degrees, pulse 93, blood pressure 113/69. General: He is alert and oriented. HEENT: No scleral icterus. Chest: No cervical scars or masses. There is median sternotomy scar. Cardiovascular: Normal rate, regular rhythm. Pulmonary: On some nasal cannula but in no distress. Abdomen: Soft, nontender. Integument: Otherwise warm and dry. LABS: His INR is elevated at 2.54, is anticoagulated. ASSESSMENT/PLAN: 66-year-old male with recurrent pneumonias and chronic pulmonary disease. Dr. Downs requested for placement. I discussed risks, benefits, alternatives with patient. He has very poor peripheral access and is having a PICC line placed currently. I think he would be a good candidate for a port as an outpatient after he completes this course of antibiotics. He will see me in my office. I have given the contact information. He will call us outpatient evaluation. cc: Therese Vick MD
== END 2017-02-05 17:00 | disposition home health service (06) ==
LOC: ED 00:26 → 3N 06:21 → SUATTDRO 06:21
PROVIDERS: ATTEND Emergency Medicine

== ENCOUNTER 2017-03-08 13:06 | Inpatient (IN) ==
[2017-03-08 13:50] LABS: MANUAL DIFF NEEDED? NO
[2017-03-08 13:54] LABS: BASO% 0.2 % (0.0-0.8); EOS# 0.11 X1000 (0.0-0.7); EOS% 0.6 % (0.0-10.0); HEMOGLOBIN 13.3 g/dL (14.0-18.0); IMM GRAN# 0.04 X1000 (0.0-0.04); IMM GRAN% 0.2 % (0.0-0.5); LYMPH# 1.23 X1000 (1.2-3.4); LYMPH% 6.7 % (20.5-51.1); MCH 27.5 PG (27-31); MCHC 33.3 g/dL (33-37); MCV 82.6 FL (81-99); MONO# 1.47 X1000 (0.11-0.59); MPV 10.8 FL (7.4-10.4); NEUT% 84.3 % (42.2-75.2); PLT 235 X1000 (130-400); RBC 4.84 XMIL (4.7-6.1)
[2017-03-08 14:07] LABS: AGAP 11; ALBUMIN 3.6 g/dL (3.5-5.0); ALKALINE PHOSPHATASE 90 U/L (32-122); BUN 15 mg/dL (8-22); CALCIUM 8.7 mg/dL (8.8-10.2); CHLORIDE 93 mmol/L (98-107); COSMO 269; GOT 10 U/L (10-34); GPT 9 U/L (10-44); POTASSIUM 3.6 mmol/L (3.5-5.1); SODIUM 133 mmol/L (136-145); TCO2 29 mmol/L (25-35); TOTAL PROTEIN 7.1 g/dL (6.3-8.3)
--- NOTE | 2017-03-08 14:57 | Diag Imaging Result Doc PS360 ---
EXAM: CHEST-2 VIEWS HISTORY: short of breath TECHNIQUE: COMPARISON: 02/18/2017 FINDINGS: The lungs are well expanded. The heart is not enlarged. Sternal wires are present. There is a left-sided pacemaker. The right-sided PICC line has been removed. The vessels are not distended. There are no infiltrates. No pleural effusions. IMPRESSION: No acute abnormality. Electronically signed by Ramses Stanton 03/08/2017 2:55 PM
--- NOTE | 2017-03-08 15:29 | PROVIDER DOCUMENTATION ---
This chart was entered by Robert Olivera Scribe, acting as scribe for Alejandra Villanueva MD. HPI-Respiratory General - General Chief Complaint: Cough Stated Complaint: pneumonia Time Seen by Provider: 03/08/17 13:10 Source: patient Allergies/Adverse Reactions: Patient Allergies Allergy/AdvReac Type Severity Reaction Status Date / Time daptomycin Allergy Severe RASH Verified 03/08/17 13:35 piperacillin Allergy Intermediate RASH Verified 03/08/17 13:34 tazobactam Allergy Intermediate RASH Verified 03/08/17 13:35 Home Medications: Home Medication List Medication Instructions Recorded Confirmed Last Taken Type Albuterol Sulfate [Proair 90 mcg IH 4XDAY 10/06/16 01/25/17 01/24/17 20:00 History Respiclick] Buspirone [Buspar] 15 mg PO TID 10/06/16 01/25/17 03/08/17 12:00 History Carvedilol 12.5 mg PO BID 10/06/16 01/25/17 03/08/17 08:00 History Fluoxetine [Prozac] 20 mg PO BID 10/06/16 01/25/17 03/08/17 08:00 History Furosemide 120 mg PO DAILY 10/06/16 01/25/17 03/08/17 08:00 History Isosorbide Mononitrate [Imdur] 60 mg PO DAILY 10/06/16 01/25/17 03/08/17 08:00 History Linaclotide [Linzess] 145 mcg PO DAILY 10/06/16 01/25/17 03/08/17 08:00 History Losartan [Cozaar] 50 mg PO DAILY 10/06/16 01/25/17 03/08/17 08:00 History Magnesium Carbonate/Al Hydrox 1 each PO 4XDAY PRN PRN 10/06/16 01/25/17 20:00 History [Gaviscon] Mometasone Furoate [Asmanex] 220 mcg IH BID 10/06/16 01/25/17 01/24/17 20:00 History Morphine Sulfate 15 mg PO BID PRN 10/06/16 01/25/17 03/08/17 12:00 History Spironolactone 25 mg PO DAILY 10/06/16 01/25/17 03/08/17 08:00 History Pantoprazole [Protonix] 40 mg PO BID #60 tablet 10/09/16 01/25/17 03/08/17 08: 00 Rx Prednisone 20 mg PO DAILY #5 tablet 10/09/16 01/25/17 01/24/17 07:00 Rx Sucralfate [Carafate Liquid] 1 gm PO Q6HR #1 udc 10/09/16 01/25/17 03/07/17 20: 00 Rx Cefepime HCl/D5w 2 gm IV Q8H #1 piggyback 12/01/16 01/25/17 Unknown Rx [Cefepime-Dextrose 2 gm/50 ml] Insulin Humulin 70/30 [Humulin 70 unit SUBQ BID #4 insuln.pen 12/01/16 01/25/17 03/08/17 07:00 Rx 70/30] Baclofen [Baclofen] 10 mg PO HS 03/08/17 03/08/17 03/07/17 20:00 History Carvedilol [Coreg] 12.5 mg PO BID 03/08/17 03/08/17 03/08/17 07:00 History Furosemide 80 mg PO HS 03/08/17 03/08/17 03/07/17 19:00 History Morphine Sulfate [Yasmin] 60 mg PO BID 03/08/17 03/08/17 03/08/17 07:30 History [place]-3 Fatty Acids/Fish Oil 1 each PO DAILY 03/08/17 03/08/17 03/08/17 08:00 History [[place]astings 3 1,000 mg Softgel] Warfarin [Coumadin] 2.5 mg PO QHS 03/08/17 03/08/17 03/07/17 20:00 History Warfarin [Coumadin] 5 mg PO QHS 03/08/17 03/08/17 03/08/17 07:00 History - History of Present Illness-Resp Nature of Presenting Problem: patient is a 66 y/o M that presents with cough congestion and shortness of breath. Has been admitted 5 times in 6 months. has had to get IV antibiotics outpatient elise. Denies fever/chills. Feels he has pneumonia again. Quality of Pain: reports: fullness, tightness Severity in ED: reports: moderate, severe Onset/Duration: reports: gradual Timing: reports: still present, constant Context: reports: other (recent infection) Cough Quality/Degree: reports: moderate, productive cough, sputum (yellow to a rebel garcia) Episode Frequency: chronic episodes Current Respiratory Medication Therapy: Initiated see nurses note Modifying Factors: worse with: exertion, coughing Associated Symptoms: reports: cough, shortness of breath, short of breath. denies: fever/chills, nasal congestion, nasal drainage Similar Symptoms Previously?: Yes Recently seen or treated by another doctor?: Yes Review of Systems - Adult - REVIEW OF SYSTEMS - ADULT Constitutional: denies: chills, fever Eyes: reports: no symptoms reported Ears, Nose, Mouth & Throat: reports: throat pain. denies: ear pain, sinus problem Cardiovascular: denies: chest pain, palpitations, syncope Respiratory: reports: chronic cough, cough, dyspnea on exertion, excessive sputum production, shortness of breath Gastrointestinal: denies: abdominal pain, diarrhea, nausea, vomiting Genitourinary: reports: no symptoms reported Musculoskeletal: reports: no symptoms reported Integumentary: reports: no symptoms reported Neurological: reports: no symptoms reported Psychiatric: reports: no symptoms reported Endocrine: reports: no symptoms reported Hematologic/Lymphatic: reports: no symptoms reported Allergic/Immunologic: reports: no symptoms reported All Other Systems: Reviewed and Negative Past History - Adult - PAST MEDICAL HISTORY-ADULT Review of Records: reports: Old Records Reviewed, Nursing Assessment Review, Medications Reviewed Cardiovascular: reports: arrhythmia (with cardiac ablation), CAD, HTN, hyperlipidemia Respiratory: reports: asthma, COPD (on 4 Liters NC), pneumonia Genitourinary: reports: kidney stones Endocrine/Immune: reports: Diabetes Other Conditions: reports: other (sleep apnea) - PRIOR SURGERIES/PROCEDURES Surgical/Procedure History: reports: CABG, pacemaker, other (ablation) - IMMUNIZATION STATUS Childhood Immunizations: See Nurse Assessment Flu Vaccine: See Nurse Assessment - FAMILY HISTORY Family History: reviewed, not pertinent - SOCIAL HISTORY Smoking: quit greater than 1 year, cigarettes Alcohol Use Frequency: occasionally Living Situation: family Physical Exam-General - PHYSICAL EXAM-ADULT Initial Vital Signs Reviewed: Yes - CONSTITUTIONAL General Appearance: alert, mild distress, moderate distress, obese, other (Ill appearing) - EYES Eyes: PERRL/EOMI, pink conjunctivae - RESPIRATORY Respiratory: no respiratory distress, no accessory muscle use, rales (right sided), rhonchi (throughout) - CARDIOVASCULAR Cardiovascular: regular rate, rhythm, no edema, no murmur - GASTROINTESTINAL (ABDOMEN) Abdominal Exam: normal bowel sounds, non tender, soft - MUSCULOSKELETAL Extremity: normal range of motion, normal inspection, no pedal edema - SKIN Integumentary: normal color, warm/dry - NEUROLOGIC Neurologic: roaster supervisor II-XII nml as tested, no motor/sensory deficits - PSYCHIATRIC Psych/Mental Status: normal mood/affect, normal thought content, normal thought process, oriented x 3 Progress - PLAN OF CARE/RESULTS Progress/Plan/Lab Results: Vital Signs - 8 hr 03/08/17 13:25 Temperature 99 F Pulse Rate 87 Respiratory Rate 22 Blood Pressure 117/61 O2 Sat by Pulse Oximetry 91 L Laboratory Results - last 24 hr 03/08/17 03/08/17 03/08/17 13:35 13:35 13:35 WBC 18.47 H RBC 4.84 Hgb 13.3 L Hct 40.0 L MCV 82.6 MCH 27.5 MCHC 33.3 RDW Std Deviation 14.6 H Plt Count 235 MPV 10.8 H Immature Gran % (Auto) 0.2 Neut % (Auto) 84.3 H Lymph % (Auto) 6.7 L [place] % (Auto) 8.0 Eos % (Auto) 0.6 Baso % (Auto) 0.2 Immature Gran # (Auto) 0.04 Neut # (Auto) 15.59 H Lymph # (Auto) 1.23 [place] # (Auto) 1.47 H Eos # (Auto) 0.11 Baso # (Auto) 0.03 Sodium 133 L Potassium 3.6 Chloride 93 L Carbon Dioxide 29 Anion Gap 11 BUN 15 Creatinine 0.8 Estimated GFR/1.73 m2 > 60 BUN/Creatinine Ratio 19 Glucose 138 H Calculated Osmolality 269 Calcium 8.7 L Total Bilirubin 0.70 AST 10 ALT 9 L Alkaline Phosphatase 90 Total Protein 7.1 Albumin 3.6 Globulin 3.5 Albumin/Globulin Ratio 1.0 Plasma Lactate 1.6 Orders Category Date Time Status IV Insertion ORDERED Care 03/08/17 14:24 Active CHEST-2 VIEWS [RAD] Stat Exams 03/08/17 14:24 Completed BLOOD CULTURE [BLDCUL] Stat Lab 03/08/17 13:39 Results CBC WITH DIFF [HEME] Stat Lab 03/08/17 13:35 Completed CMP [COMPREHENSIVE METABOLIC PANEL] [CHEM] Stat Lab 03/08/17 13:35 Completed LACTATE, PLASMA [CHEM] Stat Lab 03/08/17 13:[address]Leroy Downs paged Result Diagrams: 03/08/17 13:35 03/08/17 13:35 - XRAY 1 XRAY Study: Chest Impression: Normal XRAY Interpretation: nad - CONSULTS/PCP/HOSPITALIST Notification #1 *Consult/PCP/Hospitalist*: Dr.Leroy Downs Time Discussed: 15:15 Reason/Comments: recommends admission, have hospitalist admit and he will consult Consult Disposition: other #2 Consult: Time Discussed: 15:24 Consult Disposition: Admit Departure - Departure Date of Disposition Decision: 03/08/17 Time of Disposition Decision: 15:28 DIAGNOSIS: COPD with exacerbation, Cough with sputum, Leukocytosis Dyspnea Qualifiers: Dyspnea type: shortness of breath Qualified Code(s): R06.02 - Shortness of breath Disposition: ADMITTED INPATIENT 09 Certified Medical Emergency: Emergent Condition: Stable Referrals and Follow-Ups: Marichuy Jean Baptiste [Primary Care Provider] - - Critical Care Note This patient required my direct & personal management of CC.: No This chart was documented by the indicated scribe, (Robert Olivera, Scribe) and accurately reflects the services I performed and decisions made by me, Alejandra Villanueva MD, as attested by the provider's signature.
[2017-03-08 16:11] LABS: INR 2.37; PROTIME 26.3 Seconds (9.2-11.7)
[2017-03-08 16:19] LABS: ALLEN TEST YES; BLOOD TYPE ARTERIAL; DRAW SITE R RADIAL; METHB 0.8 % (0.0-1.5); O2(CT) 18.2 mL/dL (15.0-23.0); PCO2(98.6) 43 mmHg (35-45); PO2(98.6) 72 mmHg (60-100); SAMPLE BLOOD; SAO2 96.5 % (95.0-100.0); THB 13.8 g/dL (11.5-17.4); pH(98.6) 7.46 (7.35-7.45)
[2017-03-08 16:20] LABS: MODALITY CANNULA
[2017-03-08] MEDS ORDERED: DUONEB (A & A) INH PRN (16:39)
[2017-03-08] MEDS ORDERED: ZOFRAN IV PRN (16:56)
[2017-03-08] MEDS ORDERED: MAXIPIME 1 GM/NS 1 GM/50 ML IVPB IV SCH (17:00)
[2017-03-08] MEDS: MAXIPIME 2 GM/NS 2 GM/100 ML IVPB IV SCH (18:00)
[2017-03-08] MEDS: DUONEB (A & A) INH SCH ×2 (19:30→23:30)
--- NOTE | 2017-03-08 19:47 | HISTORY AND PHYSICAL ---
PRIMARY CARE PHYSICIAN: Dr. Marichuy Jean Baptiste. SYRUP MACHINE LABORER: Dr. Nino. INFECTIOUS DISEASES PHYSICIAN: Dr. Darryl Downs. CHIEF COMPLAINT: Cough and shortness of breath. HISTORY OF PRESENT ILLNESS: Mr. Bell is a 66-year-old male, well-known to our service, with multiple admissions for recurrent pneumonia. He has a history of chronic bronchiectasis and severe COPD, on oxygen at home. He has been admitted multiple times for pneumonia, found to have Pseudomonas most recently, that was sensitive to cefepime. He is being followed by Dr. Downs of Infectious Disease, and has recently had a port placed for as needed IV antibiotics. He returns today with similar complaints of cough, shortness of breath, and sputum production. Over the past few days, getting progressively worse. Symptoms worsened acutely last night, when he started coughing, with grayish sputum production and hard chills, but no definite fever. He continued to worsen throughout the night, and decided to come to the ER today. In the ER, he had a chest x-ray done, which did not show anything acute. His laboratory data shows some leukocytosis, but otherwise unremarkable. Blood cultures have been obtained, and we are going to start antibiotics and admit him for further treatment and evaluation. PAST MEDICAL HISTORY: 1. Severe COPD, with bronchiectasis. 2. Chronic atrial fibrillation, on anticoagulation. 3. [place]. 4. Morbid obesity. 5. Diabetes mellitus. 6. Hyperlipidemia. 7. Hypertension. 8. Chronic back pain. PAST SURGICAL HISTORY: He has had a CABG, pacemaker placement, and ablation. SOCIAL HISTORY: The patient quit smoking in the s. He has a history of exposure to Agent [place] and asbestos. He denies drinking alcohol, use of illicit drugs. His is at the bedside. FAMILY HISTORY: Significant for cancer and heart disease. ALLERGIES: Zosyn and daptomycin. HOME MEDICATIONS: Currently being compiled. REVIEW OF SYSTEMS: A 14-point review of systems obtained and found to be negative, with the exception of the HPI. PHYSICAL EXAMINATION: VITAL SIGNS: Blood pressure is 117/61, heart rate is 87, respiratory rate 22, O2 saturation 99% on 4 L. Temperature is 99 degrees. GENERAL: This is a morbidly obese male, sitting in the hospital chair, in no acute distress. NEUROLOGIC AND HEENT: Head is atraumatic, normocephalic. His pupils are equal, round, and reactive to light. His oral mucosa is moist. Trachea is midline. CHEST: Coarse bilaterally. CARDIOVASCULAR: Irregular. S1, S2 is noted. GASTROINTESTINAL: Soft, nondistended, nontender. Bowel sounds positive. EXTREMITIES: 1+ edema. Diminished pulses, but palpable bilaterally. DIAGNOSTIC DATA: Chest x-ray does not show anything acute. WBC 18.47, hemoglobin 13, hematocrit 40, platelet count 235,000. INR 2.37. ABG on 4 L: pH 7.46, CO2 43, O2 72, bicarb 29.5, oxyhemoglobin 93.8. Sodium 133, potassium 3.6, chloride 93, CO2 29, anion gap 11, BUN 15, creatinine 0.8, glucose is 138. T-bilirubin 0.7, ALT 9, alkaline phosphatase 90, protein 7.1, albumin , lactate 1.6. Vitamin D 19.9. ASSESSMENT AND PLAN: 1. Recurrent pneumonia: Will cover the patient with cefepime and obtain sputum and blood cultures. Consult Dr. Downs and Dr. Nino. Continue oxygen, nebulizers, and aggressive pulmonary toilet. 2. Chronic obstructive pulmonary disease: As above. 3. Chronic atrial fibrillation: Continue home medications. His INR is within expected limits. 4. Hyperlipidemia/hypertension: Chronic and stable. Continue home medications. 5. Chronic pain: Continue home medications. This is stable. 6. Obstructive sleep apnea: Continue his Trilogy at night. 7. Diabetes mellitus: Add pattern sugars and sliding scale insulin. 8. DVT prophylaxis will be provided with his home Coumadin. Further recommendations to follow. Dictated by HORTENCIA Sutton for Denia Cordero MD cc: HORTENCIA Sutton MD Lindsey T. Smith Leroy F. Harris, MD James E. Boyle, MD
[2017-03-08] MEDS ORDERED: MORPHINE SULFATE 60 MG PO SCH (21:00)
[2017-03-08] MEDS ORDERED: MS CONTIN PO SCH (21:00)
[2017-03-08] MEDS: COUMADIN PO SCH (22:12)
[2017-03-08] MEDS: HUMALOG SUBQ SCH (22:12)
[2017-03-09] MEDS: MAXIPIME 2 GM/NS 2 GM/100 ML IVPB IV SCH ×3 (01:38→17:03)
[2017-03-09] MEDS: DUONEB (A & A) INH SCH ×6 (03:24→23:25)
[2017-03-09] MEDS: PRILOSEC PO SCH (06:33)
[2017-03-09] MEDS: HUMALOG SUBQ SCH ×4 (06:33→22:04)
[2017-03-09 06:50] LABS: HEMATOCRIT 39.1 % (42.0-52.0); HEMOGLOBIN 12.9 g/dL (14.0-18.0); MCH 27.4 PG (27-31); MCV 83.2 FL (81-99); MPV 10.9 FL (7.4-10.4); RBC 4.7 XMIL (4.7-6.1)
[2017-03-09 07:06] LABS: INR 2.21; PROTIME 24.4 Seconds (9.2-11.7)
[2017-03-09 07:20] LABS: AGAP 9; BUN 15 mg/dL (8-22); CALCIUM 9.2 mg/dL (8.8-10.2); CHLORIDE 96 mmol/L (98-107); COSMO 279; POTASSIUM 4.2 mmol/L (3.5-5.1); SODIUM 135 mmol/L (136-145); TCO2 30 mmol/L (25-35)
[2017-03-09] MEDS: VITAMIN D PO SCH ×2 (07:55→07:56)
[2017-03-09] MEDS ORDERED: HUMULIN 70/30 SUBQ SCH ×3 (09:00→21:00)
[2017-03-09] MEDS ORDERED: PREDNISONE PO SCH (09:00)
[2017-03-09] MEDS ORDERED: LASIX PO SCH (09:00)
[2017-03-09] MEDS ORDERED: INSULIN PEN NEEDLES ONE (09:44)
[2017-03-09] MEDS: PROZAC PO SCH (09:51)
[2017-03-09] MEDS: IMDUR PO SCH (09:51)
[2017-03-09] MEDS: ALDACTONE PO SCH (09:51)
[2017-03-09] MEDS: LINZESS PO SCH (09:51)
[2017-03-09] MEDS: COREG PO SCH ×2 (09:51→21:58)
[2017-03-09] MEDS: BUSPAR PO SCH ×3 (09:56→17:03)
--- NOTE | 2017-03-09 10:46 | PROGRESS NOTE ---
DATE: 03/09/2017 PRESENT ILLNESS: The patient is admitted with purulent bronchitis. He has a history of severe COPD and it may well be that his purulent bronchitis will turn into pneumonia. The patient was exposed to Agent [place] and asbestos; both probably account for much of his COPD. In the last few times that I have seen the patient, he has grown Pseudomonas from the his sputum. 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 We have checked the patient's immunoglobulin levels, specifically IgG and IgA, and they are normal. MEDICATIONS: I agree with placing the patient on cefepime. I increased the dose to 2 g IV every 8 hours. PHYSICAL EXAMINATION: Vital Signs: Temperature is 98 degrees, pulse 73, respirations are 16 and blood pressure 142/78. General: This is an obese, elderly male. He is wearing oxygen and seems to be dyspneic even at rest. Cardiovascular: Heart rate is regular. Lungs: Clear to auscultation. Abdomen: Obese, soft and nontender. Chest: On the left side the patient has a pacemaker. The site is not swollen or erythematous. LAB AND X-RAY: Chest x-ray shows clear lung ann. The patient's CBC shows a white count of 11,290, hemoglobin of 12.9, and platelet count of 208,000. Creatinine 0.8. GFR is greater than 60. Blood and sputum cultures are pending. Blood gases show a pH of 7.46, a PO2 of 72, and a pCO2 of 43. ASSESSMENT AND PLAN: Patient has purulent bronchitis and it may be early pneumonia that just does not show up yet on the chest x-ray. I have been treating him with cefepime because for the last few times he has grown Pseudomonas from his sputum. The patient is scheduled to get a Port-A-Cath placed because he comes in the hospital so frequently the Port-A-Cath will serve for a good place to give the patient intravenous medication without having to stick him so many times to start intravenous lines or to place a PICC. COMORBIDITIES: The patient's comorbidities include COPD, diabetes mellitus and obesity. Hopefully, the patient will get better soon and maybe we can get his Port-A-Cath placed this admission. Dr. Vick is the surgeon that it is going to place the patient's Port-A-Cath. cc: Darryl Downs MD
--- NOTE | 2017-03-09 15:44 | PROGRESS NOTE ---
DATE: 03/09/2017 SUBJECTIVE: Mr. Bell feels about the same compared with yesterday. He is still coughing up green phlegm. No fever, no chills. He is complaining also of throat soreness. He is morbidly obese, male, sitting in hospital chair and he is not in acute distress. OBJECTIVE: Vital Signs: Temperature 97.4, pulse 88, respiratory rate 14, blood pressure 117/66, oxygen saturation 98 on 4 L of nasal cannula. HEENT: Normocephalic. No trauma. PERRLA. Neck: Supple. No JVD. No masses. Central trachea. Chest: Coarse breath sounds bilaterally with rhonchi at the bases. Cardiovascular: Irregular rate and rhythm. Gastrointestinal: Soft, obese. Positive bowel sounds. Nontender. Extremities: One to 2+ lower extremity edema. No clubbing. No cyanosis. Neurological: The patient is alert and oriented x3. No focal neurological deficits. LABORATORY: WBC 11.2, hemoglobin 12.9, hematocrit 39.1, platelets 208. PT 24.4, INR 2.21, sodium 135, potassium 4.2, chloride 96, bicarbonate 30, BUN 15, creatinine 0.8, glucose 244, calcium 9.2. ASSESSMENT AND PLAN: 1. Bronchitis with possible bronchiectasis/pneumonia. I will continue with antibiotics. Infectious Disease Department is on board and pulmonary Department has been consulted. We will continue with oxygen nebulizers, antibiotics and pulmonary toilet. 2. Chronic obstructive pulmonary disease as above. 3. Chronic atrial fibrillation. Continue with home medications. INR is therapeutic. 4. Hyperlipidemia and hypertension, chronic and stable. Continue with home medication. 5. Chronic pain. I put this patient today on morphine sulfate p.o., but I cut the amount from 60 twice a day to 30 mg twice a day. 6. Type 2 diabetes. I will continue with sliding scale insulin and insulin Humulin 70/30. I will start with 20 in the morning and 10 in the afternoon. 7. Deep vein thrombosis prophylaxis, provided by Coumadin. cc: Blair Rivas MD
--- NOTE | 2017-03-09 18:06 | CONSULTATION ---
DATE OF CONSULTATION: 03/09/2017 REQUESTING PHYSICIAN: Dr. Downing. REASON FOR CONSULTATION: Recurrent pneumonia. HISTORY OF PRESENT ILLNESS: Mr. Bell is a 66-year-old white male with severe COPD, component of bronchiectasis, drug-resistant Pseudomonas, who has had monthly admissions for the last several months with exacerbations of bronchiectasis/pneumonia. The patient was tentatively scheduled for a Port-A-Cath placement tomorrow but developed increased cough, increased dyspnea with increased sputum production over the last 2 days. He has remained afebrile. He presented to the emergency room, was noted to have leukocytosis. He has improved with antibiotics. Pulmonary consultation was requested. PAST MEDICAL HISTORY: 1. Severe COPD with bronchiectasis component. 2. Morbid obesity. 3. Atrial fibrillation. 4. Obstructive sleep apnea. 5. Diabetes mellitus. 6. Dyslipidemia. 7. Hypertension. 8. Chronic back pain. 9. Coronary artery disease, status post bypass grafting. 10. Status post pacemaker placement. 11. History of colonic polyps. SOCIAL HISTORY: Extensive tobacco history but nonsmoker for several years. Patient previous exposed to Agent [place] and asbestos. 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 FAMILY HISTORY: Positive for heart disease. REVIEW OF SYSTEMS: As noted in the HPI. PHYSICAL EXAMINATION: General: Reveals a morbidly obese, white male resting comfortably and in no distress. He is sitting in a bedside chair eating supper. Vital Signs: BP 120/66, heart rate 79, respiratory rate 22, oxygen saturation 98%. HEENT: Pupils are equal and reactive. Oropharynx is clear. Neck: Supple. Chest: Reveals scattered rhonchi bilaterally. Cardiac Exam: Distant heart sounds. Irregular rhythm. Abdomen: Obese and soft. Extremities: Reveal trace to 1+ ankle edema. LABORATORIES: Chest x-ray reveals normal heart size, status post pacemaker placement, no acute infiltrates. White blood count 18.47, hemoglobin 13.3, platelet count 235,000. Arterial blood gas on 4 L pH 7.46, pCO2 of 43, PO2 of 72. IMPRESSION: 75-year-old white male with chronic obstructive pulmonary disease with component of bronchiectasis, quinolone-resistant Pseudomonas aeruginosa, with recurrent admissions to the hospital for exacerbation of bronchiectasis/pneumonia. RECOMMENDATIONS: 1. Agree with antibiotics as outlined by Dr. Downs. 2. Continue bronchial hygiene. 3. Would decrease steroids use given hyperglycemia which may affect his ability to clear this infection. 4. Long-term weight loss is recommended. 5. Additional recommendations pending hospital course. A Port-A-Cath will be of benefit because patient will likely require ongoing intermittent antibiotics. cc: Ramsey Nino MD
[2017-03-09] MEDS: COUMADIN PO SCH ×2 (21:57→22:09)
[2017-03-09] MEDS: LASIX IV SCH (21:57)
[2017-03-09] MEDS: MS CONTIN PO SCH (21:57)
[2017-03-10] MEDS: MAXIPIME 2 GM/NS 2 GM/100 ML IVPB IV SCH ×3 (02:15→19:17)
[2017-03-10] MEDS: DUONEB (A & A) INH SCH ×6 (03:52→22:50)
[2017-03-10] MEDS: PRILOSEC PO SCH (06:40)
[2017-03-10] MEDS: HUMALOG SUBQ SCH ×5 (06:41→22:36)
[2017-03-10 07:18] LABS: HEMATOCRIT 37.2 % (42.0-52.0); HEMOGLOBIN 12.2 g/dL (14.0-18.0); MCH 27.4 PG (27-31); MCHC 32.8 g/dL (33-37); MCV 83.6 FL (81-99); MPV 10.5 FL (7.4-10.4); RBC 4.45 XMIL (4.7-6.1)
[2017-03-10 07:39] LABS: AGAP 9; BUN 18 mg/dL (8-22); CHLORIDE 96 mmol/L (98-107); COSMO 279; POTASSIUM 3.7 mmol/L (3.5-5.1); SODIUM 134 mmol/L (136-145); TCO2 29 mmol/L (25-35)
[2017-03-10 07:59] LABS: INR 2.41; PROTIME 26.8 Seconds (9.2-11.7)
[2017-03-10] MEDS ORDERED: HUMULIN 70/30 SUBQ SCH ×2 (08:00→08:07)
[2017-03-10] MEDS: LINZESS PO SCH (09:31)
[2017-03-10] MEDS: ALDACTONE PO SCH (09:31)
[2017-03-10] MEDS: MS CONTIN PO SCH ×2 (09:31→20:06)
[2017-03-10] MEDS: COREG PO SCH ×2 (09:33→20:06)
[2017-03-10] MEDS: PROZAC PO SCH (09:33)
[2017-03-10] MEDS: BUSPAR PO SCH ×3 (09:33→18:23)
[2017-03-10] MEDS: IMDUR PO SCH (09:33)
[2017-03-10] MEDS: LASIX IV SCH ×2 (09:36→20:06)
--- NOTE | 2017-03-10 16:13 | PROGRESS NOTE ---
DATE: 03/10/2017 SUBJECTIVE: Mr. Bell feels a little bit better compared with yesterday. He is still coughing up green phlegm. No fever. No chills. He is complaining also of mild shortness of breath. He is a morbidly obese, male sitting in a hospital chair and he is not in acute distress. OBJECTIVE: Vital Signs: Temperature 97.6 degrees, pulse 76, respiratory rate 15, blood pressure 155/76, O2 saturation 98 on 4 L of nasal cannula. HEENT: Head normocephalic. No trauma. PERRLA. Neck: Supple. No JVD. No masses. Central trachea. Chest: Coarse breath sounds bilaterally with rhonchi mostly at the bases. Prolonged expiatory phase. Cardiovascular: Irregular rate and rhythm. Gastrointestinal: Soft, obese. Positive bowel sounds. Extremities: 2+ lower extremity edema. No clubbing. No cyanosis. Neurological: The patient is alert and oriented x3. No focal deficits. LABORATORY: WBC 7.3, hemoglobin 12.2, hematocrit 37.2, platelet 183,000. Sodium 134, potassium, chloride 96, bicarbonate 29, BUN 18, creatinine 0.7, glucose 256, calcium 9, magnesium 2.1. ASSESSMENT AND PLAN: 1. Bronchitis with possible bronchiectasis/pneumonia. I will continue with antibiotics. Infectious Disease Department is on board and Pulmonary Department is on board as well. We will continue with oxygen, nebulizer, antibiotics, and pulmonary toilet. 2. Chronic obstructive pulmonary disease as above. 3. Chronic atrial fibrillation. Continue with home medication, warfarin. INR is therapeutic. 4. Hyperlipidemia and hypertension chronic and stable. Continue with home medication. 5. Chronic pain. I increased the dose of morphine sulfate from 30 mg twice a day to 60 twice a day p.o., he has been usually on this dose at home. 6. Type 2 diabetes, uncontrolled. I increased the dose of insulin Humulin 70/30 from 20 every morning to 50 every morning, and from 10 every evening to 25 every evening. 7. Deep vein thrombosis prophylaxis provided by Coumadin. 8. Physical deconditioning. I have consulted Physical Therapy today. cc: Blair Rivas MD
[2017-03-10] MEDS: NITROGLYCERIN SL PRN ×4 (17:19→17:40)
--- NOTE | 2017-03-10 18:09 | PROGRESS NOTE ---
DATE: 03/10/2017 PRESENT ILLNESS: The patient has a purulent bronchitis most likely due to Pseudomonas which the patient has grown out several times from his sputum. In addition, tonight the patient started complaining of tightness in his chest which he thinks is due to angina. He sees Dr. Seven Dawson for this. MEDICATIONS: The patient is on cefepime at a high dose namely 2 g IV every 8 hours. PHYSICAL EXAMINATION: Vital Signs: Temperature is 97.6 degrees, pulse 76, respirations 15, blood pressure 155/76. General: This is an obese, elderly male. He has oxygen on and he is complaining that his chest feels tight. Lungs: Clear to auscultation. Cardiovascular: Heart rate is regular. Abdomen: Soft and nontender. Chest: On the left side the patient has a pacemaker. The chest wall is not tender. The pacemaker site is not erythematous or draining. LAB AND X-RAY: The patient's CBC today shows a white count of 7,320, hemoglobin 12.2, and platelet count 183,000. The patient's creatinine is 0.7 with a GFR of 60. ASSESSMENT AND PLAN: As regarding the patient's pulmonary status, I plan to continue with cefepime. As regarding his chest tightness which most likely is due to angina, we have ordered nitroglycerin for the patient and I have put in a consult for Dr. Dawson, who is the patient's x ray service engineer, to see him. Dr. Vick saw the patient today about putting in a Port-A-Cath because of the patient's frequent need of IV medication and hopefully his angina will be under good control and the Port-A-Cath can be put in later in the week or early next week. The patient's comorbidities include COPD, diabetes mellitus, obesity. cc: Darryl Downs MD
[2017-03-10] MEDS: HUMULIN 70/30 SUBQ SCH (19:30)
[2017-03-10] MEDS ORDERED: G.I. COCKTAIL PO ONE (22:33)
[2017-03-11] MEDS: MAXIPIME 2 GM/NS 2 GM/100 ML IVPB IV SCH ×3 (01:28→17:45)
[2017-03-11] MEDS: DUONEB (A & A) INH SCH ×6 (03:51→22:55)
--- NOTE | 2017-03-11 05:36 | EKG Report ---
Test Performed on : 03/10/2017 5:05:12 PM Test Reason : chest pain Blood Pressure : / mmHG Vent. Rate : 073 BPM Atrial Rate : 073 BPM P-R Int : 182 ms QRS Dur : 214 ms QT Int : 470 ms P-R-T Axes : 090 -71 089 degrees QTc Int : 517 ms Atrial-sensed ventricular-paced rhythm Abnormal ECG When compared with ECG of 25-NOV-2016 18:08, premature ventricular complexes. are no longer present Vent. rate has decreased BY 9 BPM Confirmed by Julián Hinson MD ([id number]) on 03/11/2017 1:06:50 PM
[2017-03-11] MEDS: PRILOSEC PO SCH (06:18)
[2017-03-11] MEDS: HUMALOG SUBQ SCH ×5 (06:19→22:19)
[2017-03-11 07:03] LABS: HEMATOCRIT 37.7 % (42.0-52.0); HEMOGLOBIN 12.4 g/dL (14.0-18.0); MCH 27.9 PG (27-31); MCHC 32.9 g/dL (33-37); MCV 84.7 FL (81-99); MPV 10.7 FL (7.4-10.4); RBC 4.45 XMIL (4.7-6.1)
[2017-03-11 07:08] LABS: INR 1.93; PROTIME 21.1 Seconds (9.2-11.7)
[2017-03-11 08:05] LABS: AGAP 12; BUN 15 mg/dL (8-22); CALCIUM 9.2 mg/dL (8.8-10.2); CHLORIDE 96 mmol/L (98-107); COSMO 280; POTASSIUM 3.9 mmol/L (3.5-5.1); SODIUM 137 mmol/L (136-145); TCO2 29 mmol/L (25-35)
[2017-03-11] MEDS: PROZAC PO SCH (09:43)
[2017-03-11] MEDS: LASIX IV SCH ×2 (09:43→22:17)
[2017-03-11] MEDS: IMDUR PO SCH (09:43)
[2017-03-11] MEDS: ALDACTONE PO SCH (09:43)
[2017-03-11] MEDS: COREG PO SCH ×2 (09:43→22:16)
[2017-03-11] MEDS: LINZESS PO SCH (09:43)
[2017-03-11] MEDS: BUSPAR PO SCH ×3 (09:44→18:40)
[2017-03-11] MEDS: MS CONTIN PO SCH ×2 (10:00→22:16)
--- NOTE | 2017-03-11 11:55 | CONSULTATION ---
DATE OF CONSULTATION: 03/11/2017 HISTORY OF PRESENT ILLNESS: This is a 66-year-old male with severe lung disease, chronic bronchitis, and pneumonia who requires frequent admissions for IV antibiotics. He is managed by Dr. Nino and Dr. Downs. He was supposed to see me on Wednesday to discuss port placement, as he is in and out, requires frequent infusions, and has poor peripheral access. However, he had worsening pulmonary symptoms and was admitted, and is being treated with antibiotics for pneumonia PAST MEDICAL HISTORY: 1. Coronary artery disease. 2. Severe pulmonary disease. 3. Chronic obstructive pulmonary disease with bronchiectasis. 4. Morbid obesity. 5. Atrial fibrillation, for which he takes Coumadin. 6. Obstructive sleep apnea. 7. Diabetes. 8. Hyperlipidemia. 9. Hypertension. 10. Chronic degenerative disk disease and back pain. 11. History of pacemaker placement. 12. History of colon polyps. SURGICAL HISTORY: He has had coronary bypass. He has a pacemaker placed on the left. He has had multiple percutaneous interventions for his back. SOCIAL HISTORY: Extensive tobacco history, but has not smoked for several years. 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 FAMILY HISTORY: Significant for coronary artery disease. REVIEW OF SYSTEMS: Ten points negative other than what is mentioned in HPI. PHYSICAL EXAMINATION: Vital Signs: No fevers. Pulse has been in the 70s to 80s. Blood pressure 155/79. He is 97% on 4L nasal cannula. General: He is alert, in no acute distress, sitting in a chair. Cardiovascular: Normal rate, regular rhythm. Pulmonary: He has a very productive cough, but is in no respiratory distress. Integument: Otherwise, warm and dry. Extremities: There is no upper extremity edema. He has a scar on his left neck from a traumatic injury, but has not had any vascular procedures. Integument: There is no jaundice noted at all on his exam. LABORATORY AND IMAGING: White count 7. Hematocrit is 37. INR is 1.93. Creatinine is 0.8. Glucose 186. Troponins have been negative x2. Blood culture has been negative for 48 hours. He has Gram-negative rods growing out of his sputum. He has also a chest x-ray from 03/08/2017 that shows some chronic-appearing changes, but no acute abnormalities, and a left-sided pacemaker in good position. ASSESSMENT AND PLAN: This is a 66-year-old male with severe chronic lung disease requiring frequent IV antibiotic infusions, and he has poor peripheral access. Long discussion with the patient about risks, benefits, and alternatives, including vascular injury, pneumothorax, bleeding, infection, nonfunction of the catheter, and anesthetic-associated complications. He consents to port placement. I have held his Coumadin, which he takes for atrial fibrillation. We will allow his INR to down-trend and will plan for Wednesday to place a Mediport if he is clinically ready. Otherwise, we will defer management Dr. Nino, Dr. Downs, and the Hospitalist Service for the weekend, and hopefully his pulmonary status will allow us to go to the operating room on Wednesday. cc: Therese Vick MD
--- NOTE | 2017-03-11 14:06 | PROGRESS NOTE ---
DATE: 03/11/2017 SUBJECTIVE: This patient states that he is feeling about the same compared with yesterday. He is still having productive cough with green phlegm. No fever, no chills. Yesterday he was complaining of chest pain pressure-like in the middle of the chest. We used nitroglycerin. Troponins are negative. No changes in the EKG. He has a pacemaker and apparently the pain went away after getting a GI cocktail so probably this pain is related with some esophagitis or gastritis. OBJECTIVE: Vital Signs: Temperature 97.3 degrees, pulse 82, respiratory rate 20, blood pressure 155/79, oxygen saturation 98 on 4 L of nasal cannula. HEENT: Head normocephalic. No trauma. PERRLA. Neck: Supple. No JVD. No masses. Central trachea. Cardiovascular: RRR. Chest: Decreased breath sounds at the bases with bilateral rhonchi, prolonged expiratory phase. Abdomen: Soft, obese, protuberant, nontender, nondistended. No hepatosplenomegaly. Extremities: 2+ lower extremity edema. No clubbing. No cyanosis. Neurological: The patient is alert and oriented x3. No focal deficits. LABORATORY: WBC 7.2, hemoglobin 12.4, hematocrit 37.7, platelets 193,000. PT 21.1, INR 1.9. Sodium 137, potassium 3.9, chloride 96, bicarbonate 29, BUN 15, creatinine 0.8, glucose 186, calcium 9.2, magnesium 2.1. Troponins negative x3. ASSESSMENT AND PLAN: 1. Bronchitis with possible bronchiectasis/pneumonia. Continue with the antibiotics. Infectious Disease Department is on board as well as Pulmonary Department. Continue with oxygen supplementation, nebulizer, antibiotics and pulmonary toilet. 2. Chronic obstructive pulmonary disease as above. 3. Chronic atrial fibrillation. We have discontinued his warfarin because he is going to get a Port-A-Cath placed on Wednesday, will monitor. 4. Hyperlipidemia and hypertension. This is chronic and stable. Continue with home medication. 5. Chronic pain. The dose of morphine was increased yesterday to 60 p.o. twice a day. He has been usually on this dose at home. 6. Type 2 diabetes. Today the blood sugar looks better. Yesterday I increased the dose of Humulin 70/30 to 50 in the morning and 25 in the evening. Will monitor. 7. Deep vein thrombosis prophylaxis provided by Coumadin but this one has been stopped because he is going to get a Port-A-Cath placed on Wednesday. 8. Poor intravenous access. Surgery department has been consulted. They will place a Port-A- Cath on Wednesday if everything is okay. 9. Physical deconditioning. Continue with physical therapy. cc: Blair Rivas MD
[2017-03-11] MEDS: HUMULIN 70/30 SUBQ SCH (18:44)
[2017-03-12] MEDS: DUONEB (A & A) INH SCH ×6 (03:34→22:44)
[2017-03-12] MEDS: TYLENOL PO PRN (03:49)
[2017-03-12] MEDS: MAXIPIME 2 GM/NS 2 GM/100 ML IVPB IV SCH ×3 (03:49→16:36)
[2017-03-12 06:44] LABS: MANUAL DIFF NEEDED? NO
[2017-03-12 06:47] LABS: BASO% 0.6 % (0.0-0.8); EOS# 0.17 X1000 (0.0-0.7); EOS% 2.1 % (0.0-10.0); HEMATOCRIT 37.1 % (42.0-52.0); HEMOGLOBIN 12.4 g/dL (14.0-18.0); IMM GRAN# 0.03 X1000 (0.0-0.04); IMM GRAN% 0.4 % (0.0-0.5); LYMPH# 1.39 X1000 (1.2-3.4); LYMPH% 17.5 % (20.5-51.1); MCH 27.7 PG (27-31); MCHC 33.4 g/dL (33-37); MCV 82.8 FL (81-99); MONO# 0.71 X1000 (0.11-0.59); MPV 10.4 FL (7.4-10.4); NEUT% 70.4 % (42.2-75.2); PLT 200 X1000 (130-400); RBC 4.48 XMIL (4.7-6.1)
[2017-03-12 06:58] LABS: INR 1.49; PROTIME 16.1 Seconds (9.2-11.7)
[2017-03-12 07:13] LABS: AGAP 10; BUN 17 mg/dL (8-22); CALCIUM 8.8 mg/dL (8.8-10.2); CHLORIDE 95 mmol/L (98-107); COSMO 277; POTASSIUM 3.8 mmol/L (3.5-5.1); SODIUM 133 mmol/L (136-145); TCO2 28 mmol/L (25-35)
[2017-03-12] MEDS: HUMALOG SUBQ SCH ×4 (07:40→21:34)
[2017-03-12] MEDS: PRILOSEC PO SCH (07:41)
[2017-03-12] MEDS: LASIX IV SCH ×2 (09:59→21:34)
[2017-03-12] MEDS: PROZAC PO SCH (09:59)
[2017-03-12] MEDS: BUSPAR PO SCH ×3 (09:59→16:36)
[2017-03-12] MEDS: LINZESS PO SCH (09:59)
[2017-03-12] MEDS: IMDUR PO SCH (10:00)
[2017-03-12] MEDS: ALDACTONE PO SCH (10:00)
[2017-03-12] MEDS: COREG PO SCH ×2 (10:00→21:34)
[2017-03-12] MEDS: MS CONTIN PO SCH ×2 (10:03→21:34)
[2017-03-12] MEDS: HUMULIN 70/30 SUBQ SCH (16:35)
--- NOTE | 2017-03-12 17:23 | PROGRESS NOTE ---
DATE: 03/12/2017 PRESENT ILLNESS: The patient has purulent bronchitis. His culture now is growing Pseudomonas. The susceptibilities are pending. MEDICATIONS: The patient is on cefepime in a high dose of 2 g IV every 8 hours. PHYSICAL EXAMINATION: Vital Signs: Temperature is 97.8, pulse is 79, respirations 18, blood pressure 132/70. Generally: This is an obese, elderly male. Thorax: Patient has an increased AP diameter of the chest. The patient has a pacemaker present on the left side. Lungs: There were bilateral basilar rales. Cardiovascular: Heart rate is regular. Abdomen: Soft and nontender. LAB AND X-RAY: There is no new x-ray today. The organism cultured from the patient's sputum has been identified as Pseudomonas. The susceptibility studies are pending. Patient's CBC has a white count of 7930, hemoglobin 12.4, and platelet count 200,000. Creatinine 0.8. GFR is greater than 60. ASSESSMENT AND PLAN: The patient still is coughing up purulent fluid I plan to continue for now cefepime pending the results of the susceptibility data. The patient has talked to Dr. Vick and his placement of a Port-A-Cath has been set up for WednesdayMarch 15. COMORBIDITIES: Include COPD which occurred because of asbestos exposure and agent orange exposure. Diabetes mellitus and obesity. cc: Darryl Downs MD
--- NOTE | 2017-03-12 18:03 | PROGRESS NOTE ---
DATE: 03/12/2017 SUBJECTIVE: This patient states that he is feeling about the same compared with yesterday. He is still having productive cough with green phlegm. No fever. No chills. He is not complaining of chest pain today. OBJECTIVE: Vital Signs: Temperature 97.8, pulse 79, respiratory rate 18, blood pressure 132/70, oxygen saturation 100% on 4 L of nasal cannula. HEENT: Head normocephalic. No trauma. PERRLA. Neck: Supple. No JVD. No masses. Central trachea. Cardiovascular: RRR. Chest: Decreased breath sounds at the bases with bilateral rhonchi. Prolonged expiatory phase. Abdomen: Soft, obese, protuberant. Nontender, nondistended. No hepatosplenomegaly. Extremities: 2+ lower extremity edema. No clubbing. No cyanosis. Neurological: The patient is alert and oriented x3. No focal deficits. LABORATORY: WBC 7.9, hemoglobin 12.4, hematocrit 37.1, platelets 200. PT 16.1, INR 1.4. Sodium 133, potassium 3.8, chloride 95, bicarbonate 28, BUN 17, creatinine 0.8, glucose 259. Calcium 8.8, magnesium 2.2. ASSESSMENT AND PLAN: 1. Bronchitis with possible bronchiectasis/pneumonia. Continue with antibiotics. Infectious Disease department on board, as well as Pulmonary department continue with oxygen supplementation, nebulizer, antibiotics and pulmonary toilet. 2. Chronic obstructive pulmonary disease, as above. 3. Chronic atrial fibrillation. We have discontinued his warfarin because he is going to get the Port-A-Cath placed on Wednesday. Will monitor the PT/INR. 4. Hyperlipidemia and hypertension. This is chronic and stable. Continue with home medication. 5. Chronic pain. Continue with the same management. 6. Type 2 diabetes. Today the blood sugar was above 200, I have increased the dose of Humulin 70/30 to 70 units in the morning and 40 units in the afternoon, we will continue to monitor. 7. Deep vein thrombosis prophylaxis provided by Coumadin but this has been stopped because he is going to get a Port-A-Cath placed on Wednesday. 8. Poor intravenous access. Surgery department has been consulted. They will place a Port-A- Cath on Wednesday if everything is okay. 9. Physical deconditioning. Continue physical therapy. cc: Blair Rivas MD
[2017-03-13] MEDS: TYLENOL PO PRN ×2 (00:13→21:48)
[2017-03-13] MEDS: MAXIPIME 2 GM/NS 2 GM/100 ML IVPB IV SCH ×3 (02:30→17:18)
[2017-03-13] MEDS: DUONEB (A & A) INH SCH ×6 (03:37→22:56)
[2017-03-13 06:33] LABS: INR 1.3; PROTIME 13.9 Seconds (9.2-11.7)
[2017-03-13] MEDS ORDERED: INSULIN PEN NEEDLES ONE (06:42)
[2017-03-13] MEDS: HUMALOG SUBQ SCH ×4 (06:45→21:47)
[2017-03-13] MEDS: PRILOSEC PO SCH (06:46)
[2017-03-13] MEDS: HUMULIN 70/30 SUBQ SCH ×2 (09:20→17:19)
[2017-03-13] MEDS: IMDUR PO SCH (09:21)
[2017-03-13] MEDS: PROZAC PO SCH (09:21)
[2017-03-13] MEDS: BUSPAR PO SCH ×3 (09:21→17:18)
[2017-03-13] MEDS: ALDACTONE PO SCH (09:21)
[2017-03-13] MEDS: LINZESS PO SCH (09:21)
[2017-03-13] MEDS: COREG PO SCH ×2 (09:21→21:48)
[2017-03-13] MEDS: LASIX IV SCH ×2 (09:22→21:48)
[2017-03-13] MEDS: MS CONTIN PO SCH ×2 (09:22→21:48)
[2017-03-13] MEDS ORDERED: LOVENOX SUBQ SCH (14:00)
--- NOTE | 2017-03-13 14:05 | PROGRESS NOTE ---
DATE: 03/13/2017 SUBJECTIVE: This patient states that he is feeling better today. He is still having productive cough with green phlegm. No fever. No chills. He is not complaining of chest pain today. We have a positive sputum culture that showed Pseudomonas aeruginosa, sensitive to with cefepime. OBJECTIVE: Vital Signs: Temperature 97.8 degrees, pulse 84, respiratory rate 19, blood pressure 136/69, oxygen saturation 97% on 4L nasal cannula. HEENT: Head normocephalic. No trauma. PERRLA. Neck: Supple. No JVD. No masses. Central trachea. Cardiovascular: RRR. Chest: Decreased breath sounds globally, but mostly at the bases, with bilateral scattered rhonchi, prolonged expiratory phase. Abdomen: Soft, obese, protuberant, nontender, and nondistended. No hepatosplenomegaly. Extremities: Lower extremity edema 2+. No clubbing. No cyanosis. Neurologic: The patient is alert and oriented x3. No focal deficits. LABORATORY: PT 13.9. INR 1.3. Glucose 192. ASSESSMENT AND PLAN: 1. Bronchitis with possible bronchiectasis/pneumonia. Continue with antibiotics. Infectious Disease Department is following this patient. He has a positive sputum culture that shows Pseudomonas aeruginosa that is sensitive to cefepime. We will continue with oxygen, nebulizer, antibiotics, and pulmonary toilet. 2. Chronic obstructive pulmonary disease, as above. 3. Chronic atrial fibrillation. We have discontinued his warfarin because he is going to get a Port-A-Cath placed on Wednesday. Will monitor the PT/INR. 4. Hyperlipidemia. Continue with the same management. 5. Hypertension. Stable. 6. Chronic pain. Continue with the same treatment. 7. Type 2 diabetes. Continue with the same management. Yesterday, I increased the dose of Humulin 70/30. 8. Deep vein thrombosis prophylaxis provided by Coumadin, but this has been stopped because he is going to get a Port-A-Cath placed on Wednesday. 9. Poor intravenous access. The Surgery Department has been consulted. They will place a Port-A- Cath on Wednesday if everything is fine. 10. Physical deconditioning. Continue with physical therapy. cc: Blair Rivas MD
[2017-03-14] MEDS ORDERED: NS 250 ML ONE (02:05)
[2017-03-14] MEDS: DUONEB (A & A) INH SCH ×6 (03:54→23:17)
[2017-03-14 06:49] LABS: MANUAL DIFF NEEDED? NO
[2017-03-14 06:53] LABS: BASO% 0.5 % (0.0-0.8); EOS% 2.1 % (0.0-10.0); HEMOGLOBIN 12.5 g/dL (14.0-18.0); IMM GRAN# 0.06 X1000 (0.0-0.04); IMM GRAN% 0.6 % (0.0-0.5); LYMPH# 1.43 X1000 (1.2-3.4); LYMPH% 15.1 % (20.5-51.1); MCH 27.6 PG (27-31); MCHC 32.9 g/dL (33-37); MCV 83.9 FL (81-99); MONO# 0.98 X1000 (0.11-0.59); MONO% 10.4 % (1.7-9.3); MPV 10.6 FL (7.4-10.4); NEUT% 71.3 % (42.2-75.2); PLT 215 X1000 (130-400); RBC 4.53 XMIL (4.7-6.1)
[2017-03-14 07:20] LABS: AGAP 7; BUN 17 mg/dL (8-22); CHLORIDE 98 mmol/L (98-107); COSMO 284; POTASSIUM 4.4 mmol/L (3.5-5.1); SODIUM 137 mmol/L (136-145); TCO2 32 mmol/L (25-35)
[2017-03-14] MEDS: LASIX IV SCH ×2 (08:07→21:49)
[2017-03-14] MEDS: MAXIPIME 2 GM/NS 2 GM/100 ML IVPB IV SCH ×3 (08:07→16:53)
[2017-03-14] MEDS: COREG PO SCH ×2 (08:08→21:49)
[2017-03-14] MEDS: MS CONTIN PO SCH ×2 (08:08→21:49)
[2017-03-14] MEDS: PROZAC PO SCH (08:08)
[2017-03-14] MEDS: IMDUR PO SCH (08:09)
[2017-03-14] MEDS: ALDACTONE PO SCH (08:09)
[2017-03-14] MEDS: BUSPAR PO SCH ×3 (08:09→16:54)
[2017-03-14] MEDS: HUMULIN 70/30 SUBQ SCH ×2 (08:09→16:55)
[2017-03-14] MEDS: LINZESS PO SCH (08:09)
[2017-03-14] MEDS: PRILOSEC PO SCH (11:19)
[2017-03-14] MEDS: HUMALOG SUBQ SCH ×4 (11:20→21:55)
--- NOTE | 2017-03-14 13:10 | PROGRESS NOTE ---
DATE: 03/14/2017 SUBJECTIVE: Mr. Bell is breathing a little better. He is coughing up some thick stuff and it is a little looser. OBJECTIVE: Vital signs: Today temp 97.4 degrees, pulse 82, respirations 18, blood pressure 144/82. HEENT: Pupils are equal and round. Lungs: Clear in all lung ann. Cardiovascular: Regular rhythm and rate without murmur or S3. Abdomen: Soft. Skin: Warm and dry. Intake and output: Good urine output. LAB: White count 9,460, hematocrit is 38, platelet count 215,000. Sodium 137, potassium 4.4, chloride 98, BUN 17, creatinine 1.0. Blood sugar 208, 168, 256. ASSESSMENT: 1. Bronchitis, possible bronchopneumonia, underlying chronic obstructive pulmonary disease. Continue present antibiotics. Had a sputum culture that shows Pseudomonas aeruginosa. It is sensitive to cefepime. Continue supplemental O2, nebulizer, bronchodilators. They are probably going to set up a PICC line for chronic antibiotics. He is followed by Dr. Downs. 2. Chronic obstructive pulmonary disease. 3. Chronic atrial fibrillation. Continue to be on his Coumadin. 4. Hyperlipidemia. 5. Hypertension. 6. Chronic pain, lower back. 7. Diabetes mellitus type 2. PLAN: So my understanding is we are going to try and put a PICC line in. Continue present antibiotics. He is getting cefepime 2 g IV q.8 hours. But maybe it is not a PICC line. Dr. Vick has been talked to about a Port-A-Cath placement for Wednesday, so maybe that is what we are attempting to do. cc: Dominguez Burger MD
[2017-03-15] MEDS: MAXIPIME 2 GM/NS 2 GM/100 ML IVPB IV SCH ×3 (01:56→17:03)
[2017-03-15] MEDS: DUONEB (A & A) INH SCH ×6 (03:48→23:59)
[2017-03-15] MEDS: PRILOSEC PO SCH (06:38)
[2017-03-15] MEDS: HUMALOG SUBQ SCH ×4 (06:38→22:16)
[2017-03-15] MEDS ORDERED: INSULIN PEN NEEDLES ONE (08:00)
[2017-03-15] MEDS: HUMULIN 70/30 SUBQ SCH ×2 (10:07→17:01)
[2017-03-15] MEDS: ALDACTONE PO SCH (10:09)
[2017-03-15] MEDS: COREG PO SCH ×2 (10:09→22:11)
[2017-03-15] MEDS: BUSPAR PO SCH ×3 (10:09→17:02)
[2017-03-15] MEDS: IMDUR PO SCH (10:09)
[2017-03-15] MEDS: LINZESS PO SCH (10:09)
[2017-03-15] MEDS: PROZAC PO SCH (10:09)
[2017-03-15] MEDS: LASIX IV SCH ×2 (10:10→22:12)
[2017-03-15] MEDS: MS CONTIN PO SCH ×2 (10:10→22:11)
[2017-03-15] MEDS: VITAMIN D PO SCH (17:03)
--- NOTE | 2017-03-15 21:03 | PROGRESS NOTE ---
DATE: 03/15/2017 PRESENT ILLNESS: The patient has purulent Pseudomonas bronchitis. The organism in vitro is susceptible to cefepime. MEDICATIONS: The patient is receiving cefepime at a dose of 2 g IV every 8 hours. PHYSICAL EXAMINATION: Vital Signs: Temperature is 97.4 degrees, pulse 91, respirations 17, blood pressure 122/80. General: This is an obese, elderly male who is somewhat dyspneic even at rest. He does cough fairly frequently and still produces sputum that has a light yellow color to it. Lungs: There were bilateral rhonchi and wheezes. Cardiovascular: Heart rate is regular. Thorax: Patient has an increased AP diameter of the chest. There is a left- sided pacemaker. The site is not swollen or tender. Legs: Patient has bilateral leg edema. LAB AND X-RAY:No new lab or x-ray. ASSESSMENT AND PLAN: The patient has purulent bronchitis. Plan is to continue with cefepime. Hopefully tomorrow the patient will have his Port-A-Cath put in and then possibly we could discharge him on cefepime at home. COMORBIDITIES: Include COPD, diabetes mellitus and obesity. cc: Darryl Downs MD MTDLeonel
--- NOTE | 2017-03-15 23:06 | PROGRESS NOTE ---
DATE: 03/15/2017 SUBJECTIVE: No events. Says his breathing is better; however, states that if he is unable to go surgery by noon today, he does not want to wait any longer. I reviewed his labs. OBJECTIVE: He is on nasal cannula but in no acute distress, sitting in the chair. ASSESSMENT/PLAN: A 66-year-old male with chronic bronchitis, pneumonias, who requires frequent antibiotics. His peripheral access is getting poor. I talked to him about port placement. He consents. He understands the risks, benefits and alternatives. However, I think due to the OR schedule, we will be unable to get this in before noon and he says that he is not going to be able to wait any longer to eat or drink. We will see if we can do it today. If not, we will make him NPO at midnight and plan for this tomorrow. Otherwise further medical management per the Hospitalist, Infectious Disease and Pulmonary Services. cc: Therese Vick MD
[2017-03-16] MEDS: MAXIPIME 2 GM/NS 2 GM/100 ML IVPB IV SCH ×3 (02:27→16:54)
[2017-03-16] MEDS: DUONEB (A & A) INH SCH ×6 (03:25→23:36)
--- NOTE | 2017-03-16 03:59 | PROGRESS NOTE ---
DATE: 03/15/2017 SUBJECTIVE: He does feel better. Feels like he is breathing a little better. They were not able to put the PICC line in, so hopefully tomorrow. He does feel like he is eating a little better. Maybe his ankles or lower extremities are a little more swollen. PHYSICAL EXAMINATION: Vital Signs: Temperature 97.4 degrees, pulse 90, respirations 17, blood pressure 122/80. HEENT: Pupils are equal and round. Lungs: Are clear in all lung ann. Cardiovascular Examination: Regular rhythm and rate without murmur or S3. Abdomen: Soft, nontender, nondistended. Skin: Is warm and dry. LABORATORY DATA: Blood sugar 208, 169, 366. ASSESSMENT AND PLAN: 1. Bronchitis secondary to bronchopneumonia, underlying chronic obstructive pulmonary disease. He has been on antibiotics for most of the year. He has chronic Pseudomonas aeruginosa, sensitive to cefepime. Continue intravenous antibiotics, oxygen supplement nebulizer, and bronchodilator treatments. Hope to place peripherally inserted central catheter line tomorrow. 2. Chronic obstructive pulmonary disease. 3. Chronic atrial fibrillation. Rate is controlled on Coumadin. 4. Hyperlipidemia. 5. Hypertension. 6. Chronic lower back pain. 7. Diabetes mellitus. Continue to follow sugars. A little bit sporadic. 8. Looking at lab, following his most recent lab on the , hematocrit is stable at 38. Coagulation, he is down to 13. Prothrombin time is 13 so we will restart his Coumadin tomorrow. This is in preparation to get him home. cc: Dominguez Burger MD
[2017-03-16] MEDS: PRILOSEC PO SCH (06:19)
[2017-03-16] MEDS: HUMALOG SUBQ SCH ×4 (06:45→21:45)
[2017-03-16] MEDS: MS CONTIN PO SCH ×2 (08:27→21:20)
[2017-03-16] MEDS: LASIX IV SCH ×2 (08:28→21:20)
[2017-03-16] MEDS: HUMULIN 70/30 SUBQ SCH ×2 (08:28→16:54)
[2017-03-16] MEDS: BUSPAR PO SCH ×3 (08:29→16:53)
[2017-03-16] MEDS: IMDUR PO SCH (08:30)
[2017-03-16] MEDS: LINZESS PO SCH (08:30)
[2017-03-16] MEDS: ALDACTONE PO SCH (08:30)
[2017-03-16] MEDS: PROZAC PO SCH (08:30)
[2017-03-16] MEDS: COREG PO SCH ×2 (08:30→21:21)
[2017-03-16] MEDS ORDERED: HEPARIN ONE (09:28)
[2017-03-16] MEDS ORDERED: NS 250 ML ONE (09:28)
[2017-03-16] MEDS ORDERED: XYLOCAINE 1%/EPI 1:100,000 ONE (09:41)
[2017-03-16] MEDS ORDERED: VERSED ONE (10:08)
[2017-03-16] MEDS ORDERED: DIPRIVAN 1% ONE (10:09)
--- NOTE | 2017-03-16 11:23 | Diag Imaging Result Doc PS360 ---
EXAM: CHEST-PORTABLE HISTORY: port placement TECHNIQUE: AP portable at 1100 COMMENT: Study is somewhat overexposed. There is some atelectasis or fibrosis over the lung bases. There is been placement of a Port-A-Cath on the right. The tip is in the superior vena cava. There is no apparent pneumothorax or pleural fluid collection. Considering differences in inspiration and technique there has been no appreciable change since 03/08/2017. IMPRESSION: Stable chest. Electronically signed by Wayne Reddy 03/16/2017 11:21 AM
[2017-03-16] MEDS: TYLENOL PO PRN (12:02)
--- NOTE | 2017-03-16 15:26 | PROGRESS NOTE ---
DATE: 03/16/2017 SUBJECTIVE: Mr. Bell is suppose to get his PICC line today. He states his breathing is better. He is still coughing up thick phlegm but feels like he is moving air better. OBJECTIVE: Temp 98.7 degrees, pulse 75, respirations 18, blood pressure 131/77. Pupils are equal and round. Lungs are clear in all lung ann. Cardiovascular: Regular rhythm and rate without murmur or S3. Abdomen is soft. Skin is warm and dry. Blood sugar 169, 199, 259. EXTREMITIES: He got 1+ to 2+ edema about the same. I would call it 1+ edema, symmetrical. ASSESSMENT AND PLAN: 1. Bronchitis secondary to bronchopulmonary pneumonia and underlying severe chronic obstructive pulmonary disease. Continue antibiotics. Plan is for PICC line. He has a recurrent Pseudomonas aeruginosa infection which is sensitive to cefepime. 2. Atrial fibrillation. We are holding the Coumadin for now. 3. Hyperlipidemia. 4. Hypertension. 5. Chronic lower back pain. 6. Diabetes mellitus, type 2. Sugar is under good control. So, we will hopefully get the PICC line in and set him up for home antibiotics and we will send him home. Currently, he is on cefepime 2 g IV daily. cc: Dominguez Burger MD
--- NOTE | 2017-03-16 15:28 | PROGRESS NOTE ---
DATE: 03/16/2017 SUBJECTIVE: Feels well. No events overnight. OBJECTIVE: No fevers, no tachycardia. Labs have been reviewed. Glucose 259, otherwise no new labs. INR is 1.3 three days ago. PHYSICAL EXAMINATION: General: He is alert. Cardiovascular: Normal rate, regular rhythm. Pulmonary: On nasal cannula but not working to breathe. Neck: His right neck has no scars, no masses. ASSESSMENT AND PLAN: A 66-year-old male with chronic pulmonary disease, recurrent pneumonias requiring frequent and long-term IV antibiotics with poor peripheral access. Long discussion with the patient. Risks, benefits, alternatives, bleeding, infection, possibility of pneumothorax, possibility of not being able to place the port, he has a left-sided pacemaker in place, and he consents to right internal jugular vein port placement. Will go to the operating room today. cc: Therese Vick MD
--- NOTE | 2017-03-16 18:38 | OPERATIVE NOTE ---
PROCEDURE DATE: 03/16/2017 PREOPERATIVE DIAGNOSES: Chronic lung disease with poor peripheral access. POSTOPERATIVE DIAGNOSES: Chronic lung disease with poor peripheral access. PROCEDURE PERFORMED: 1. Ultrasound-guided right internal jugular vein port placement. 2. Fluoroscopy less than 1 hour. COMPLICATIONS: None. ESTIMATED BLOOD LOSS: 5 mL. ANESTHESIA: MAC with local. INDICATION: This is a 66-year-old male with chronic lung disease requiring frequent and long course of antibiotics for bronchitis and pneumonias who has very poor peripheral access and need for long-term indwelling access. OPERATIVE FINDINGS: 1. Ultrasound examination of right neck showed a compressible small internal jugular vein with no evidence of intraluminal thrombus. 2. Final fluoroscopic image shows no kink in the catheter along its course with good position in the superior vena cava-atrial junction with no evidence of postoperative pneumothorax. OPERATIVE NOTE: Risks, benefits, alternatives discussed with the patient, he consented to the procedure. He was seen preoperatively and the surgery to be performed was confirmed. He was taken to the operating room, placed in supine position and IV anesthesia was administered. Hair was removed with clippers from his right neck and he was prepped with Betadine and draped in usual fashion. He had a left-sided pacemaker. After time out, ultrasound of the right neck was performed. Then a skin shravan was made after local anesthetic was infiltrated. The pink needle was used to access the internal jugular vein with the 1st course. It was quite compressible despite being in Trendelenburg position, but we were able to thread a wire and confirmed with fluoroscopy that this was in the superior vena cava and the right side of the heart. Also confirmed with ultrasound that the wire coursed directly into vein not traversing artery. We created our subcutaneous pouch 2 fingerbreadths below the clavicle after infiltration per local anesthetic. We used bipolar cautery as his pacemaker was in place and we tunneled the catheter from the incision in the chest to incision in the neck. We measured the catheter overlying the wire with fluoroscopy and trimmed it to fit and then using a peel-away dilator introducer sheath, we placed this under fluoroscopic guidance, removing the dilator and the wire, threading the catheter into the right side of the heart. We confirmed that it was in good position. We trimmed the catheter, connected the port with a hemmer chainstitch device and placed it into the subcutaneous pouch secured with 2- 0 Prolene. We confirmed that it did withdraw blood and flushed easily. Final fluoroscopic images showed good position of the catheter. We then closed the deep dermis with interrupted 3-0 Vicryl sutures. Skin was closed 4-0 Monocryl, both the neck and chest. We confirmed after closure of the skin that the port again withdrew blood and flushed easily. We flushed it at the final flushed with heparinized saline. Dermabond was applied for dressing. There were no identified complications. He was awoken and transferred to PACU where we will obtain a chest x-ray. Counts were correct x2. cc: Therese Vick MD MTDD
--- NOTE | 2017-03-16 20:37 | PROGRESS NOTE ---
DATE: 03/16/2017 PRESENT ILLNESS: The patient has purulent Pseudomonas bronchitis. Gradually the patient has been improving. He is coughing less and the sputum he does cough up he has less color to it, too. MEDICATIONS: The patient is receiving Cefepime. This is day 8 of cefepime. PHYSICAL EXAMINATION: Vital Signs: Temperature is 98.1 degrees, pulse 73, respirations 14, blood pressure 123/71. General: This is a somewhat ill-appearing dyspneic elderly male. He is in no acute distress, however. Lungs: There are scattered rhonchi bilaterally. The patient coughed a few times while I was examining him. Cardiovascular: Heart rate is regular. Thorax: Patient has an increased AP diameter of the chest. On the left side there is a pacemaker present. That site is not erythematous or swollen. Extremities: Patient has bilateral leg edema. LABORATORY AND X-RAY: There is no new lab or x-ray. A chest x-ray today shows bibasilar atelectasis versus fibrosis. ASSESSMENT AND PLAN: 1. The patient has purulent bronchitis. The plan is to continue his antibiotics and tomorrow I have ordered a CBC and a BMP. In possibly 2 days, the patient should be ready to go home. I am paging Dr. Vick to see when we can use his Port-A-Cath. 2. Comorbidities include COPD, diabetes mellitus and obesity. cc: Darryl Downs MD
[2017-03-17] MEDS: TYLENOL PO PRN (00:36)
[2017-03-17] MEDS: MAXIPIME 2 GM/NS 2 GM/100 ML IVPB IV SCH ×3 (02:53→17:45)
[2017-03-17] MEDS: DUONEB (A & A) INH SCH ×6 (03:50→22:52)
[2017-03-17] MEDS: PRILOSEC PO SCH (06:33)
[2017-03-17] MEDS: HUMALOG SUBQ SCH ×4 (06:34→21:57)
[2017-03-17 06:45] LABS: MANUAL DIFF NEEDED? NO
[2017-03-17 06:56] LABS: EOS# 0.19 X1000 (0.0-0.7); EOS% 2.5 % (0.0-10.0); HEMATOCRIT 38.9 % (42.0-52.0); HEMOGLOBIN 12.8 g/dL (14.0-18.0); IMM GRAN# 0.05 X1000 (0.0-0.04); IMM GRAN% 0.6 % (0.0-0.5); LYMPH# 1.49 X1000 (1.2-3.4); LYMPH% 19.3 % (20.5-51.1); MCH 27.7 PG (27-31); MCHC 32.9 g/dL (33-37); MCV 84.2 FL (81-99); MONO# 0.88 X1000 (0.11-0.59); MONO% 11.4 % (1.7-9.3); MPV 11.1 FL (7.4-10.4); NEUT% 65.2 % (42.2-75.2); PLT 207 X1000 (130-400); RBC 4.62 XMIL (4.7-6.1)
[2017-03-17 07:24] LABS: AGAP 12; BUN 20 mg/dL (8-22); CALCIUM 8.9 mg/dL (8.8-10.2); CHLORIDE 96 mmol/L (98-107); COSMO 281; POTASSIUM 4.6 mmol/L (3.5-5.1); SODIUM 137 mmol/L (136-145); TCO2 29 mmol/L (25-35)
[2017-03-17] MEDS: BUSPAR PO SCH ×3 (08:48→17:44)
[2017-03-17] MEDS: HUMULIN 70/30 SUBQ SCH ×2 (08:48→17:45)
[2017-03-17] MEDS: LINZESS PO SCH (08:48)
[2017-03-17] MEDS: LASIX IV SCH ×2 (08:49→21:52)
[2017-03-17] MEDS: MS CONTIN PO SCH ×2 (08:49→21:52)
[2017-03-17] MEDS: IMDUR PO SCH (08:49)
[2017-03-17] MEDS: COREG PO SCH ×2 (08:49→21:52)
[2017-03-17] MEDS: PROZAC PO SCH (08:49)
[2017-03-17] MEDS: ALDACTONE PO SCH (08:49)
--- NOTE | 2017-03-17 12:00 | PROGRESS NOTE ---
DATE: 03/17/2017 SUBJECTIVE: He feels well. Some soreness at his port site but no other events. No difficulty breathing. OBJECTIVE: He is alert. No acute distress on room air. He still has a productive cough. Some bruising at his port site but no hematoma or cellulitis. The incision is healing well. IMPRESSION AND PLAN: A 66-year-old male with chronic pulmonary disease status post port placement for long-term IV access. His port can be used whenever it is needed, however, if he remains in the hospital I would keep using the peripheral IV for the next couple of days just give this further time to heal but if he loses access it is okay to use his port. We will defer further management to the pulmonology, hospitalist, and infectious disease service. cc: Therese Vick MD
[2017-03-17] MEDS ORDERED: INSULIN PEN NEEDLES ONE (13:25)
[2017-03-17] MEDS ORDERED: COUMADIN PO SCH (21:00)
--- NOTE | 2017-03-17 22:13 | PROGRESS NOTE ---
DATE: 03/17/2017 SUBJECTIVE: He feels better and feels like he is breathing well, still coughing up thick sputum. He had his Port-A-Cath placed and would like that to heal a little bit before we try to use it. He has got a left PICC line. OBJECTIVE: Vital signs: Remains afebrile, 97.5 degrees, pulse 75, respirations 19, blood pressure 134/72. HEENT: Pupils are equal, round. Lungs: Are clear in all lung ann. Cardiovascular: Regular rhythm and rate without murmur or S3. Abdomen: Soft. Skin: Warm and dry. : Urine output 2 L. LABORATORY: White count 7740, hematocrit 38, platelet count 207,000. Chemistry: Sodium 137, potassium 4.6, chloride 96, BUN 20, creatinine 0.9, blood sugars 165, 203, 177. ASSESSMENT AND PLAN: 1. Chronic pulmonary disease status post port placement. Long-term IV access. He has Pseudomonas which is probably colonized. Continue present antibiotics. Hope to get him home after another 48 hours of antibiotics. He is currently on Cefepime, day 8. 2. Chronic obstructive pulmonary disease. Suspect some bronchiectasis, chronic colonization with Pseudomonas. 3. Morbid obesity. 4. Chronic venous insufficiency. 5. Atrial fibrillation. Restarted his Coumadin. Rate has been well controlled. 6. Lower back pain. 7. Diabetes mellitus. Sugars under good control. cc: Dominguez Burger MD
[2017-03-18] MEDS: MAXIPIME 2 GM/NS 2 GM/100 ML IVPB IV SCH ×2 (02:06→08:40)
[2017-03-18] MEDS: TYLENOL PO PRN (03:00)
[2017-03-18] MEDS: DUONEB (A & A) INH SCH ×3 (03:51→11:39)
--- NOTE | 2017-03-18 04:08 | PROGRESS NOTE ---
DATE: 03/17/2017 PRESENT ILLNESS: The patient has purulent Pseudomonas bronchitis. Overall, he is improving since admission to the hospital. MEDICATIONS: This is day 9 of treatment with cefepime in a dose of 2 g IV every 8 hours. PHYSICAL EXAMINATION: Vital Signs: Temperature is 97.5 degrees, pulse 75, respirations 19, blood pressure 134/72. Generally: This is a chronically ill-appearing, elderly male. He is somewhat dyspneic even at rest. He occasionally coughs and occasionally produces sputum. Lungs: There is bilateral rhonchi. Thorax: Patient's Port-A-Cath site is slightly erythematous. On the left side, the patient has a pacemaker. Cardiovascular: Heart rate is regular. Abdomen: Obese, soft, and nontender. Extremities: The patient has leg edema but no erythema. LAB AND X-RAY: CBC shows a white count of 7740, hemoglobin 12.8, platelet count 207,000. Creatinine 0.9. GFR is greater than 60. Chest x-ray is stable. ASSESSMENT AND PLAN: Patient has bronchitis. The plan is to continue cefepime at home for 2 more weeks. I have also ordered that the patient's Port-A-Cath can be accessed. I will be seeing the patient back in the office in 2 weeks at which time I will examine him and repeat his x-ray. If he is doing well, we may stop the antibiotics but if he still is coughing and producing some sputum with color, I will keep them going and probably repeat a culture of the sputum as well. COMORBIDITIES: Include COPD, diabetes mellitus, and obesity. cc: Darryl Downs MD
--- NOTE | 2017-03-18 04:15 | PROGRESS NOTE ---
DATE: 03/17/2017 PRESENT ILLNESS: The patient has purulent Pseudomonas bronchitis. He overall has improved since being hospitalized. He received a Port-A-Cath while he was in here. MEDICATIONS: The patient is on cefepime in a dose of 2 g IV every 8 hours. This is the 9th day of treatment with that antibiotic in the hospital. PHYSICAL EXAMINATION: Vital Signs: Temperature is 97.5 degrees, pulse 75, respirations 19, blood pressure 134/72. General: This is a chronically ill-appearing and dyspneic, elderly male. He even seems somewhat dyspneic at rest. Lungs: Bilateral rhonchi. Cardiovascular: Regular heart rate. Abdomen: Soft and nontender. Chest: The patient's right-sided Port-A-Cath site is only slightly erythematous. It is not fluctuant or tender. Extremities: Patient has bilateral leg edema but no erythema. LAB AND X-RAY: The CBC shows a white count of 7740, hemoglobin 12.8, and platelet count of 207,000. Creatinine 0.9. GFR is greater than 60. The patient's chest x-ray showed atelectasis or fibrosis over the patient's lung bases. ASSESSMENT AND PLAN: The patient has a Pseudomonas bronchitis. I plan to continue cefepime for 2 more weeks and then see the patient in the office at which time I will examine him and obtain another chest x-ray. COMORBIDITIES: Include COPD, diabetes mellitus, and obesity. cc: Darryl Downs MD
[2017-03-18] MEDS: PRILOSEC PO SCH (06:15)
[2017-03-18] MEDS: HUMALOG SUBQ SCH ×2 (06:17→11:58)
[2017-03-18] MEDS: IMDUR PO SCH (08:41)
[2017-03-18] MEDS: BUSPAR PO SCH ×2 (08:41→13:08)
[2017-03-18] MEDS: HUMULIN 70/30 SUBQ SCH (08:41)
[2017-03-18] MEDS: ALDACTONE PO SCH (08:41)
[2017-03-18] MEDS: MS CONTIN PO SCH (08:41)
[2017-03-18] MEDS: LINZESS PO SCH (08:41)
[2017-03-18] MEDS: COREG PO SCH (08:41)
[2017-03-18] MEDS: PROZAC PO SCH (08:41)
[2017-03-18] MEDS: LASIX IV SCH (08:41)
[2017-03-18 14:01] VITALS: BP 122/78
--- NOTE | 2017-03-18 14:35 | DISCHARGE SUMMARY ---
ADMISSION DATE: 03/08/2017 DISCHARGE DATE: 03/18/2017 He is a patient of Dr. Marichuy Jean Baptiste, followed by Dr. Ramsey Nino, and Dr. Darryl Downs also follows him. HISTORY OF PRESENT ILLNESS: A 66-year-old male, well known to our service, with multiple admissions for recurrent pneumonia. He has a history of chronic bronchiectasis and severe COPD, dependent on home O2. He is colonized with Pseudomonas and presents again with shortness of breath. His Pseudomonas was sensitive to cefepime. He was readmitted, started on antibiotics, bronchodilators, and supplemental O2. He also has chronic venous insufficiency, severe COPD with bronchiectasis, chronic atrial fibrillation on anticoagulation, osteoarthritis, morbid obesity, diabetes mellitus, hyperlipidemia, hypertension, and chronic back pain. He has had a CABG, pacemaker placement, and AV ablation, I believe, in the past. He showed steady improvement. He was followed by Dr. Downs, who felt he would benefit from Port-A-Cath for access and felt like he had improved, and could give him some antibiotics and let him go home. He continues bronchodilators. Continue to encourage him to try and lose some weight. Port-A-Cath was placed. The patient is on cefepime 2 g IV q.8 hours. He has finished 9 days of treatment. We will set him up to go home, to follow up with Dr. Downs. MEDICATIONS ON DISCHARGE: DuoNeb, albuterol, ipratropium as needed, BuSpar 50 mg t.i.d., Coreg 12.5 b.i.d., continue cefepime under the direction of Dr. Downs, which is 2 g IV q.8 hours, vitamin D 50,000 units every week, Prozac 20 mg a day, Lasix 40 mg I think p.o. b.i.d., and he will continue his insulin Humulin 70/30, 70 units in the morning and 40 units at 5 o'clock, linaclotide, which is Linzess, 145 mcg daily, MS Contin 60 mg q.12 hours, Prilosec 40 mg a day, Aldactone 25 mg a day, Coumadin 5 mg at bedtime, and he was started back on his Coumadin at 5 mg. His prothrombin time needs to be followed up, as well, as an outpatient. cc: MD Marichuy Mauricio
== END 2017-03-18 15:45 | disposition home health service (06) ==
LOC: 3N 13:06 → ED 13:06 → OBSVTOIN 15:57 → SUATTDRO 15:57
PROVIDERS: ATTEND Emergency Medicine

== ENCOUNTER 2018-11-17 23:30 | Inpatient (IN) ==
[2018-11-18 00:36] LABS: BASO# 0.01 X1000 (0.0-0.2); BASO% 0.1 % (0.0-0.8); EOS# 0.07 X1000 (0.0-0.7); EOS% 0.9 % (0.0-10.0); HEMOGLOBIN 12.2 g/dL (14.0-18.0); IMM GRAN# 0.03 X1000 (0.0-0.04); IMM GRAN% 0.4 % (0.0-0.5); LYMPH# 1.05 X1000 (1.2-3.4); LYMPH% 14.2 % (20.5-51.1); MCH 26.3 PG (27-31); MCHC 32.1 g/dL (33-37); MCV 82.1 FL (81-99); MONO# 0.66 X1000 (0.11-0.59); MONO% 8.9 % (1.7-9.3); MPV 11.6 FL (7.4-10.4); NEUT# 5.57 X1000 (1.4-6.5); NEUT% 75.5 % (42.2-75.2); PLT 124 X1000 (130-400); RBC 4.63 XMIL (4.7-6.1); RDW 13.7 % (11.5-14.5); WBC 7.39 X1000 (4.8-10.8)
[2018-11-18 01:20] LABS: AGAP 14; ALB/GLOB RATIO 1.3; ALBUMIN 3.5 g/dL (3.5-5.0); ALKALINE PHOSPHATASE 87 U/L (32-122); BUN 15 mg/dL (8-22); CALCIUM 8.6 mg/dL (8.8-10.2); CHLORIDE 98 mmol/L (98-107); COSMO 292; ESTIMATED GFR > 60; GLUCOSE 346 mg/dL (70-104); GOT 11 U/L (10-34); GPT 9 U/L (10-44); POTASSIUM 3.6 mmol/L (3.5-5.1); SODIUM 139 mmol/L (136-145); TCO2 27 mmol/L (25-35); TOTAL BILIRUBIN 0.28 mg/dL (0.20-1.00); TOTAL PROTEIN 6.3 g/dL (6.3-8.3)
[2018-11-18] MEDS ORDERED: NS 1,000 ML IV ONE (01:43)
[2018-11-18] MEDS ORDERED: ROCEPHIN 1 GM in NS 50 ML IV ONE (01:43)
[2018-11-18] MEDS ORDERED: VANCOMYCIN 1 GM/NS 1 GM/250 ML IVPB IV ONE (01:49)
[2018-11-18] MEDS ORDERED: MAXIPIME 2 GM in NS 100 ML IV ONE (02:10)
[2018-11-18] MEDS ORDERED: TYLENOL PO PRN (02:58)
[2018-11-18] MEDS ORDERED: VANCOMYCIN IV PER PHARMACY MISC SCH (02:58)
[2018-11-18] MEDS ORDERED: MAXIPIME 1 GM in NS 50 ML IV SCH (03:00)
[2018-11-18] MEDS ORDERED: VANCOMYCIN 2,500 MG in NS 500 ML IV SCH (04:00)
--- NOTE | 2018-11-18 04:06 | HISTORY AND PHYSICAL ---
PRIMARY CARE PHYSICIAN: Dr. Rut Jean Baptiste REASON FOR ADMISSION: Two day history of worsening shortness of breath. HISTORY OF PRESENT ILLNESS: Mr. Ari Bell is a 68-year-old male with past medical history of COPD on 4 L nasal cannula, diastolic heart failure, ischemic cardiomyopathy with recent EF of 60%, coronary artery disease, obstructive sleep apnea, type 2 diabetes, hypertension, hyperlipidemia, chronic low back pain, chronic depression, atrial fibrillation, reflux disease, and history of recurrent gram-negative pneumonia, E. coli/pseudomonas. The patient reports that for the last 2 days he has been increasingly short of breath and has been having to use his nebulizer machine more frequently with minimal improvement. He says also his cough has gotten worse and noticed that his sputum has changed from a yellowish color with a brownish color which usually heralds early onset pneumonia. Patient denies any fever, but says he has been having chills since yesterday. No worsening of the lower extremity swelling, PND or orthopnea. No significant chest pain. He did have some mild chest pain with cough yesterday. No GI or complaints. No focal neurological neurologic complaints. No polyuria or polydipsia. REVIEW OF SYSTEMS: Notable for chronic lower extremity swelling which has not worsened and chronic constipation. A 12-point review of systems was done and positive as per HPI. ALLERGIES: No known allergies. HOME MEDICATIONS: Yet to be reconciled. SURGICAL HISTORY: He has had a CABG, pacemaker placed, cardiac ablation, bilateral lower extremity surgery, lumbar spine surgery, a Mediport placed in the right chest. SOCIAL HISTORY: . Does not smoke, drink or use illicit drugs. A . FAMILY HISTORY: Notable for coronary artery disease and lung cancer. No first-degree relatives with type 2 diabetes. LABORATORY WORK: White count is 75,000, hemoglobin and hematocrit 12 and 38, platelets 124,000 with 75% neutrophils. Glucose is 346, BUN 15, creatinine 1.0. Troponin is negative. Lactate 2.8. Flu swab was negative. Chest film: The patient did not fully inspire, but I do not see any gross infiltrates at this point in time. PHYSICAL EXAMINATION: VITAL SIGNS: Blood pressure 160/77, heart rate is 82, temperature is 97.9, respiratory rate is 25. He is on oxygen at 4 L. GENERAL APPEARANCE: Morbidly obese man in no acute distress. He is alert and oriented to person, place and time with normal mood and affect. HEAD: Normocephalic and atraumatic. EYES: PERRL. EOMI. He is anicteric and not pale. ENT: Oropharynx exam is grossly normal. NECK: Short and thick. No JVD. No central cyanosis noted. CHEST: The patient has significant decreased entry in both lung ann. There are few scattered wheezes. CARDIOVASCULAR: First and second heart sounds heard. No gallops, murmurs or rubs. Rhythm is regular. He has a Mediport in the right pectoral area, no areas of erythema or tenderness elicited. ABDOMEN: The patient has a 6 x 4 upper ventral hernia which is reducible. No tenderness. Bowel sounds are heard. No masses or organomegaly appreciated. RECTAL EXAM: Deferred. EXTREMITIES: Patient has trace to +1 pitting edema of lower extremities. Distal pulses in all extremities 1+ symmetrical. No clubbing or peripheral cyanosis appreciated. NEUROLOGIC: No gross focal deficits. SKIN: Intact with no breakdown or erythema. SKIN: For the most part grossly normal. I did not take off the compression hose on the lower extremities to evaluate the skin of the lower extremities. MUSCULOSKELETAL: Grossly normal. ASSESSMENT: 1. Probable pneumonia. 2. Chronic obstructive pulmonary disease. 3. Chronic diastolic heart failure. 4. Atrial fibrillation. 5. Type 2 diabetes uncontrolled. 6. Hypertensive heart disease. 7. Coronary artery disease. 8. Morbid obesity with probable sleep apnea. 9. Anemia of chronic inflammation. PLAN: The patient is currently undergoing a CT thorax to get a better picture of his pulmonary anatomy. His x-ray was not done with full inspiration, but the technique was good. For now will empirically treat him with Maxipime with vancomycin. Will start him on nebulizer treatments. I know his lactate was high, but it could be a false positive from beta2 agonist stimulation. I am cautious about giving this patient excessive fluids because of the underlying congestive heart failure. Will await home medications to be reconciled. Sliding scale will be instituted and daily Lantus might need to be increased during his stay. If the patient does not improve clinically, other things need to be explored. He may need a moderate dose of steroids, or, alternatively, antibiotics may need to be changed from Maxipime to a carbapenem if it is documented that he has a new infiltrate on film. This is [*]for potential ESBL or a multi drug- resistant pseudomonas. cc: Juan A Scott MD
[2018-11-18] MEDS: DUONEB (A & A) INH SCH ×4 (05:19→21:16)
[2018-11-18 06:36] LABS: BILIRUBIN URINE NEGATIVE (NEGATIVE); BLOOD URINE TRACE (NEGATIVE); COLOR YELLOW; GLUCOSE URINE 500 mg/dL (NEGATIVE); KETONE URINE NEGATIVE (NEGATIVE); LEUKOCYTES URINE NEGATIVE (NEGATIVE); NITRITE URINE NEGATIVE (NEGATIVE); PH URINE 6.5; PROTEIN URINE 100 mg/dL (NEGATIVE); SP GRAVITY URINE 1.014; TURBIDITY URINE CLEAR (CLEAR); URINE SOURCE CATH; UROBILINOGEN URINE NORMAL (NORMAL)
[2018-11-18 06:37] LABS: UR EPITHELIAL CELLS <10 /HPF (<10); URINE BACTERIA NEGATIVE /HPF; URINE RBC <10 /HPF (<10); URINE WBC <10 /HPF (<10)
[2018-11-18] MEDS ORDERED: HUMALOG SUBQ SCH (07:00)
--- NOTE | 2018-11-18 07:15 | Diag Imaging Result Doc PS360 ---
EXAM: CHEST-2 VIEWS 11/18/2018 HISTORY: cough, sputum, possible pneumonia TECHNIQUE: PA and lateral chest COMMENT: There is some platelike opacity over the right base which was not present on 10/11/2018. Otherwise there has been no significant change. IMPRESSION: Right lower lobe subsegmental atelectasis. Electronically signed by Wayne Reddy 11/18/2018 7:12 AM
--- NOTE | 2018-11-18 07:23 | Diag Imaging Result Doc PS360 ---
EXAM: CT THORAX W/O CONTRAST INDICATION: Possible PNA TECHNIQUE: This exam was performed using automated exposure control, adjustment of mA or kV according to patient size, and/or use of iterative reconstruction technique. COMPARISON: 06/29/2018 FINDINGS: There are mild emphysematous changes at the lung apices. There is linear scarring in the mid lung zones and the lung bases that is unchanged as compared to the previous study. There is a calcified granuloma in the right middle lobe and right lower lobe. The main pulmonary artery is somewhat prominent measuring up to 4 cm in diameter. There are CABG changes. There are extensive coronary artery atherosclerotic calcifications there is a calcified subcarinal lymph node indicating prior granulomatous disease. No new lymphadenopathy is appreciated. There are degenerative changes throughout the spine. IMPRESSION: 1.Mild pulmonary emphysema. 2.Linear scarring at the mid lung zones and lung bases. No airspace consolidation is appreciated. 3.Stable somewhat prominent main pulmonary artery which could indicate pulmonary hypertension. 4.Other incidental/nonacute findings detailed above. Electronically signed by Jose Harkins 11/18/2018 7:20 AM
--- NOTE | 2018-11-18 08:08 | EKG Report ---
Test Performed on : 11/18/2018 00:06:26 AM Test Reason : CP Blood Pressure : / mmHG Vent. Rate : 082 BPM Atrial Rate : 082 BPM P-R Int : 184 ms QRS Dur : 212 ms QT Int : 480 ms P-R-T Axes : 072 -76 081 degrees QTc Int : 560 ms Atrial-sensed ventricular-paced rhythm Abnormal ECG When compared with ECG of 22-SEP-2018 06:23, (Unconfirmed) premature ventricular complexes. are no longer present Vent. rate has decreased BY 37 BPM Unconfirmed Result
[2018-11-18] MEDS: LINZESS PO SCH (09:32)
[2018-11-18] MEDS: MS CONTIN PO SCH ×2 (09:32→18:57)
[2018-11-18] MEDS: ELIQUIS PO SCH ×2 (09:33→21:54)
[2018-11-18] MEDS: COREG PO SCH ×2 (09:33→21:55)
--- NOTE | 2018-11-18 12:59 | PROGRESS NOTE ---
DATE: 11/18/2018 The patient with a slightly productive cough, dyspnea, and body aches. Flu swab pending. The initial suspicion was for pneumonia, but CT chest shows only chronic issues including COPD. The patient is afebrile. No leukocytosis. We will discontinue antibiotics and monitor. Continue steroids and nebs. Suspect a viral upper respiratory infection with mild COPD exacerbation. If the patient improves on steroids and nebs, and no other acute issues develop then can likely be discharged home tomorrow.
[2018-11-18] MEDS: BUSPAR PO SCH ×2 (15:30→21:54)
[2018-11-18] MEDS: PROZAC PO SCH (15:30)
[2018-11-18] MEDS: HUMALOG SUBQ SCH ×2 (16:32→21:53)
--- NOTE | 2018-11-18 20:37 | PROVIDER DOCUMENTATION ---
This chart was entered by Glory Blake Scribe, acting as scribe for Juan Shukla MD. HPI-General Adult - General Chief Complaint: Cough Stated Complaint: "PNEUMONIA" Time Seen by Provider: 11/17/18 23:42 Source: patient Allergies/Adverse Reactions: Patient Allergies Allergy/AdvReac Type Severity Reaction Status Date / Time No Known Allergies Allergy Verified 09/22/18 12:54 Home Medications: Home Medication List Medication Instructions Recorded Confirmed Last Taken Type Buspirone [Buspar] 15 mg PO TID 10/06/16 11/18/18 05/26/18 05:00 History Carvedilol 12.5 mg PO BID 10/06/16 11/18/18 05/26/18 05:00 History Fluoxetine [Prozac] 20 mg PO DAILY 10/06/16 11/18/18 05/26/18 05:00 History Furosemide 80 mg PO QHS 10/06/16 11/18/18 09/22/18 History 80 mg Isosorbide Mononitrate [Imdur] 60 mg PO QHS 10/06/16 11/18/18 05/26/18 05:00 History Losartan [Cozaar] 50 mg PO HS 10/06/16 11/18/18 05/25/18 20:00 History Spironolactone 25 mg PO QHS 10/06/16 11/18/18 05/25/18 20:00 History Insulin Aspart [Novolog] 20 units SQ QPM 07/04/17 11/18/18 05/25/18 20:00 History Albuterol 2.5MG/Ipratrop 0.5MG 3 ml INH Q4H PRN PRN neb 07/14/17 11/18/18 05/26/18 05:00 Rx [Duoneb (A & A)] Hydroxyzine [Atarax] 25 mg PO DAILY 03/04/18 11/18/18 05/26/18 05:00 History Insulin Aspart [Novolog] 30 unit SQ BID 03/04/18 11/18/18 06/28/18 History Mometasone Furoate 220 Mcg INH 0.5 inhaler INH BID 03/04/18 11/18/18 05/26/18 05:00 History [Asmanex 220 Microgm Inhaler] Morphine Sulfate 30 mg PO TID 03/04/18 11/18/18 1 Day Ago History ~06/28/18 Apixaban [Eliquis] 5 mg PO BID 05/19/18 11/18/18 05/22/18 History Cholecalciferol (Vitamin D3) 1,000 unit PO DAILY 05/19/18 11/18/18 05/26/18 05:00 History [Vitamin D3] Furosemide [Lasix] 120 mg PO AC 05/19/18 11/18/18 05/26/18 05:00 History Insulin Detemir [Levemir] 60 unit SUBQ BID 05/19/18 11/18/18 05/25/18 20:00 History Pantoprazole [Protonix] 40 mg PO QHS 05/19/18 11/18/18 05/25/18 20:00 History Tiotropium [place] [Spiriva 18 mcg IH DAILY 06/29/18 11/18/18 Unknown History Respimat] Albuterol Sulfate [Proair 90 mcg IH 4XDAY 09/22/18 11/18/18 09/21/18 History Respiclick] Baclofen [Lioresal] 10 mg PO QHS 09/22/18 11/18/18 Unknown History Linaclotide [Linzess] 145 mcg PO DAILY 09/22/18 11/18/18 Unknown History - History of Present Illness -Gen Adult Nature of Presenting Problems: Pt is 68/m presenting to ED w/ productive cough and SOB.that has increased since yesterday. Pt was admitted to the hospital for pneumonia at the end of August and was sent home w/ a port to receive 2 weeks of antibiotics, as he was told that he also had E. Coli in his lungs. Pt is on 4L O2 at home around the clock. Pt has hx of IDDM, CHF, COPD, pacemaker and bypass. Location of Pain/Injury: reports: none Pain Radiation: reports: no radiation Quality of Pain: reports: none Severity: reports: moderate Onset/Duration: reports: 24 hours ago Timing: reports: still present, getting worse Context/Activities at Onset: reports: none Modifying Factors: improves with: coughing Associated Symptoms: reports: cough, nausea, shortness of breath. denies: diaphoresis, EENT symptoms, vomiting Similar Symptoms Previously?: Yes Recently seen or treated by another doctor?: Yes Review of Systems - Adult - REVIEW OF SYSTEMS - ADULT Constitutional: reports: no symptoms reported. denies: chills, fever Eyes: reports: no symptoms reported Cardiovascular: reports: edema. denies: chest pain Respiratory: reports: chronic cough, cough, shortness of breath. denies: wheezing Gastrointestinal: reports: no symptoms reported. denies: abdominal pain, nausea, vomiting Musculoskeletal: reports: no symptoms reported Neurological: reports: no symptoms reported. denies: dizziness/vertigo, headache/migraines Past History - Adult - PAST MEDICAL HISTORY-ADULT Review of Records: reports: Old Records Reviewed, Nursing Assessment Review, Medications Reviewed, Social history reviewed & non-contributory. Major Childhood Illnesses: reports: denies history Cardiovascular: reports: arrhythmia (with cardiac ablation), CAD, HTN, hyperlip idemia, NV Respiratory: reports: asthma, COPD (on 4 Liters NC), pneumonia Gastrointestinal: reports: denies history Obstetrical/Gynecological: reports: denies history Genitourinary: reports: kidney stones Musculoskeletal: reports: denies history Neurological: reports: denies history Endocrine/Immune: reports: Diabetes Diabetes Type: Type 2 Diabetes controlled by:: Insulin Dependent Other Conditions: reports: other (sleep apnea) - PRIOR SURGERIES/PROCEDURES Surgical/Procedure History: reports: CABG, pacemaker, other (ablation) - IMMUNIZATION STATUS Childhood Immunizations: See Nurse Assessment Flu Vaccine: See Nurse Assessment - FAMILY HISTORY Family History: reviewed, not pertinent - SOCIAL HISTORY Smoking: quit greater than 1 year Substance Use: none/never Alcohol Use Frequency: never Living Situation: family Physical Exam-General - CONSTITUTIONAL General Appearance: appears well, alert, no apparent distress, obese (morbid obesity), other (Pt has port in R chest) - EYES Eyes: PERRL/EOMI, pink conjunctivae - HEAD, EARS, NOSE, MOUTH & THROAT HENMT: normal ENT inspection - NECK Neck: full range of motion - RESPIRATORY Respiratory: respiratory distress, other (Fiar air entry B/L). negative: rhonchi, wheezing - CARDIOVASCULAR Cardiovascular: regular rate, rhythm (heart sounds are distant), other (2+ edema lower extremities bilaterally) - CHEST (BREASTS) Chest/Breast: other (midline scar) - GASTROINTESTINAL (ABDOMEN) Abdominal Exam: normal bowel sounds, non tender, soft - LYMPHATIC Lymphatic: no adenopathy - MUSCULOSKELETAL Back Exam: normal inspection, no CVA tenderness, no vertebral tenderness Extremity: non-tender - SKIN Integumentary: normal color, warm/dry - NEUROLOGIC Neurologic: grossly normal - PSYCHIATRIC Psych/Mental Status: oriented x 3 Progress - PLAN OF CARE/RESULTS Progress/Plan/Lab Results: Vital Signs - 8 hr 11/17/18 23:49 Temperature 97.9 F Pulse Rate 84 Respiratory Rate 20 Blood Pressure 125/77 O2 Sat by Pulse Oximetry 94 L Orders Category Date Time Status cxr [CHEST-2 VIEWS] [RAD] Stat Exams 11/18/18 00:03 Ordered BNP [PRO B-NATRIURETIC PEPTIDE] Stat Lab 11/18/18 00:04 Uncollected CBC WITH ELECTRONIC DIFF [HEME] Stat Lab 11/18/18 00:04 Uncollected CMP [COMPREHENSIVE METABOLIC PANEL] [CHEM] Stat Lab 11/18/18 00:04 Uncollected Flu Swab [INFLUENZA SCREEN A/B] Stat Lab 11/18/18 00:05 Uncollected LACTATE, PLASMA [CHEM] Stat Lab 11/18/18 00:11 Uncollected TROPONIN T Stat Lab 11/18/18 00:04 Uncollected EKG [EKG] Stat Ther 11/18/18 00:04 Ordered Result Diagrams: 11/18/18 00:18 11/18/18 00:18 - REASSESSMENT Reassessment #1 Time Reassessed: 01:36 Status: unchanged - EKG 1 Time of EKG reading by physician:: 00:10 EKG Read and Signed by:: Mark Massey EKG Interpretation (*Must complete 3 of following elements*): Normal (paced rhythm) Rate: 82 Rhythm: paced - CONSULTS/PCP/HOSPITALIST Notification #1 *Consult/PCP/Hospitalist*: Dr. Scott Time Discussed: 02:14 Consult Disposition: Admit (Patient Hx, PE and patient care discussed with Dr. Scott, accepted.) Departure - Departure Date of Disposition Decision: 11/18/18 Time of Disposition Decision: 02:13 DIAGNOSIS: Elevated serum lactate dehydrogenase (LDH), Respiratory distress Pneumonia Qualifiers: Pneumonia type: due to unspecified organism Laterality: left Lung location: lower lobe of lung Qualified Code(s): J18.1 - Lobar pneumonia, unspecified organism Disposition: ADMITTED INPATIENT 09 Certified Medical Emergency: Emergent Condition: Serious - Critical Care Note This patient required my direct & personal management of CC.: No Attestation - Physician/ ABBY Attestation Patient care was provided by Advanced Practice Provider:: No The physician spent face to face time with patient:: Yes Advanced Practice Provider documentation review:: Supervising physician onsite and consulted in the evaluation and care of this patient. The physician did have a face to face encounter with the patient. This chart was documented by the indicated scribe, (Glory Blake, Demarc[place]) and accurately reflects the services I performed and decisions made by me, Juan Mclean MD, as attested by the provider's signature.
[2018-11-18] MEDS: LEVEMIR SUBQ SCH (21:53)
[2018-11-18] MEDS ORDERED: INSULIN PEN NEEDLES ONE (21:54)
[2018-11-18] MEDS: COZAAR PO SCH (21:55)
[2018-11-18] MEDS: PRILOSEC PO SCH (21:55)
[2018-11-19] MEDS: MS CONTIN PO SCH ×3 (01:02→17:24)
[2018-11-19] MEDS: DUONEB (A & A) INH SCH ×4 (03:17→21:27)
[2018-11-19] MEDS: HUMALOG SUBQ SCH ×6 (06:08→21:20)
[2018-11-19] MEDS: LINZESS PO SCH (06:08)
[2018-11-19 07:31] LABS: BASO# 0.03 X1000 (0.0-0.2); BASO% 0.5 % (0.0-0.8); EOS# 0.14 X1000 (0.0-0.7); EOS% 2.3 % (0.0-10.0); HEMATOCRIT 37.9 % (42.0-52.0); HEMOGLOBIN 12.1 g/dL (14.0-18.0); IMM GRAN# 0.02 X1000 (0.0-0.04); IMM GRAN% 0.3 % (0.0-0.5); LYMPH% 17.8 % (20.5-51.1); MCH 26.3 PG (27-31); MCHC 31.9 g/dL (33-37); MCV 82.4 FL (81-99); MONO# 0.62 X1000 (0.11-0.59); MPV 11.1 FL (7.4-10.4); NEUT# 4.26 X1000 (1.4-6.5); NEUT% 69.1 % (42.2-75.2); PLT 133 X1000 (130-400); RDW 13.8 % (11.5-14.5); WBC 6.17 X1000 (4.8-10.8)
[2018-11-19 07:56] LABS: AGAP 11; BUN 11 mg/dL (8-22); CALCIUM 9.2 mg/dL (8.8-10.2); CHLORIDE 101 mmol/L (98-107); COSMO 286; CREATININE 0.8 mg/dL (0.7-1.2); ESTIMATED GFR > 60; GLUCOSE 201 mg/dL (70-104); POTASSIUM 3.6 mmol/L (3.5-5.1); SODIUM 141 mmol/L (136-145); TCO2 29 mmol/L (25-35)
[2018-11-19] MEDS: BUSPAR PO SCH ×3 (08:21→21:12)
[2018-11-19] MEDS: COREG PO SCH ×2 (08:21→21:13)
[2018-11-19] MEDS: PROZAC PO SCH (08:21)
[2018-11-19] MEDS: ELIQUIS PO SCH ×2 (08:21→21:12)
[2018-11-19] MEDS: LEVEMIR SUBQ SCH ×2 (08:21→21:14)
[2018-11-19] MEDS ORDERED: HUMALOG SUBQ SCH (13:00)
--- NOTE | 2018-11-19 13:22 | PROGRESS NOTE ---
DATE: 11/19/2018 INTERVAL HISTORY: The patient is slightly improved, but still with dyspnea with minimal exertion, wheezing, myalgias. Remains afebrile. Oxygen sats remain essentially stable on his home 4 L. No other new complaints. No acute events overnight. REVIEW OF SYSTEMS: Twelve point review of systems negative except as per interval history. LABS: WBC 6.1, hemoglobin 12.1, hematocrit 37.9, platelets 133,000. Basic metabolic panel unremarkable aside from hyperglycemia. Hemoglobin A1c 9.0. Lactate 1.4. VITALS: T-max 98.9 degrees, pulse 79, respirations 20, blood pressure 149/80, O2 saturation 100% on 4 L by nasal. PHYSICAL EXAMINATION: General: No acute distress. Vitals: As above. HEENT: Normocephalic, atraumatic. Moist mucous membranes. Neck: No cervical adenopathy. Cardiovascular: Regular rate and rhythm. No murmurs, rubs or gallops. Pulmonary: Moderately decreased air entry throughout. Some expiratory wheezing remains. No rales or rhonchi noted. Abdomen: Obese, soft, nontender. Bowel sounds positive. Extremities: Peripheral pulses intact. No clubbing or cyanosis. Neurologic: Cranial nerves grossly intact. No focal deficits. Psychiatric: Normal mood and affect. Awake, alert, and oriented x3. ASSESSMENT AND PLAN: 1. Dyspnea. CT chest with no evidence of pneumonia, so suspect viral upper respiratory infection and COPD exacerbation. Given ongoing dyspnea and wheezing we will increase the steroids slightly. Continue nebulizer treatments. Hopeful for discharge tomorrow if the patient begins to improve. 2. Chronic diastolic heart failure. No signs of volume overload currently. Monitor. 3. Paroxysmal atrial fibrillation. The patient has remained normal sinus rhythm, thus far. Continue home medications. Continue patient;s home Eliquis for anticoagulation. 4. Chronic hypoxic respiratory failure secondary to chronic obstructive pulmonary disease as above. We will continue his 4 L of oxygen, which he is on at home. 5. Diabetes mellitus. Control remains suboptimal. We will add mealtime insulin and continue to monitor. 6. Hypertension. Some occasional mild elevations, but overall reasonable control currently. If it becomes further elevated then we will restart the patient's home spironolactone. 7. CAD. Continue home medications. Stable at this time. 8. Gastroesophageal reflux disease. Continue PPI. 9. Morbid obesity. Patient counseled on weight loss. Likely contributing to respiratory issues above. 10. Hyperlipidemia. Continue home statin.
[2018-11-19] MEDS: SOLU-MEDROL IV SCH ×2 (14:52→23:55)
[2018-11-19] MEDS: PRILOSEC PO SCH (21:12)
[2018-11-19] MEDS: COZAAR PO SCH (21:13)
[2018-11-20] MEDS: MS CONTIN PO SCH ×2 (01:53→09:05)
[2018-11-20] MEDS: DUONEB (A & A) INH SCH ×2 (03:21→10:48)
[2018-11-20] MEDS: LINZESS PO SCH (06:22)
[2018-11-20] MEDS: HUMALOG SUBQ SCH ×3 (06:23→11:14)
[2018-11-20 08:30] VITALS: BP 149/74
[2018-11-20] MEDS: LEVEMIR SUBQ SCH (09:05)
[2018-11-20] MEDS: COREG PO SCH (09:05)
[2018-11-20] MEDS: BUSPAR PO SCH (09:05)
[2018-11-20] MEDS: ELIQUIS PO SCH (09:05)
[2018-11-20] MEDS: PROZAC PO SCH (09:05)
[2018-11-20] MEDS: SOLU-MEDROL IV SCH (11:14)
--- NOTE | 2018-11-20 15:26 | DISCHARGE SUMMARY ---
ADMISSION DATE: 11/18/2018 DISCHARGE DATE: 11/20/2018 ADMITTING DIAGNOSES: 1. Suspected pneumonia. 2. Chronic obstructive pulmonary disease exacerbation. 3. Acute on chronic diastolic heart failure. 4. Atrial fibrillation. 5. Uncontrolled type 2 diabetes. 6. Hypertensive heart disease. 7. Coronary artery disease. 8. Morbid obesity with probable sleep apnea. 9. Anemia of chronic inflammation. DISCHARGE DIAGNOSES: 1. Chronic obstructive pulmonary disease exacerbation. 2. Sinus infection. 3. Chronic diastolic heart failure. 4. Atrial fibrillation. 5. Type 2 diabetes, uncontrolled. 6. Hypertensive heart disease. 7. Coronary artery disease. 8. Morbid obesity with probable sleep apnea. 9. Anemia of chronic disease. CONSULTATIONS: None. DIAGNOSTIC PROCEDURES AND FINDINGS: Chest x-ray on 11/18/2018 with right lower lobe subsegmental atelectasis. EKG on 11/18/2018 with atrial sensed ventricular paced rhythm. Chest CT on 11/18/2018 with mild pulmonary emphysema, linear scarring at the mid lung zones and lung bases, no airspace consolidation appreciated. Stable, somewhat prominent pulmonary artery which could indicate pulmonary hypertension. HOSPITAL COURSE: Mr. Bell is a 68-year-old male with a significant history of oxygen dependent COPD, diastolic heart failure, type 2 diabetes and others, who presented with 2 days of progressive shortness of breath and increased use of nebulizers. He reported that his cough had worsened and that his sputum changed from yellow to brown which, according to him, usually suggests a pneumonia. He came to the ER and while a chest x-ray initially did not show acute pneumonia, he was treated for suspected pneumonia. The next day, he had a CT of the chest which was negative for any consolidation, so his antibiotics were discontinued. With IV steroids, breathing treatments and time, his symptoms improved greatly. Today he was complaining of some sinus pressure, so the decision was to go ahead and start him on some Augmentin for sinus infection. Otherwise, his vitals are stable, and he has reached maximum benefit of inpatient hospitalization. He will now be discharged home. DISCHARGE MEDICATIONS: BuSpar 15 mg p.o. t.i.d., Aldactone 25 mg p.o. at bedtime, Cozaar 50 mg at bedtime, isosorbide mononitrate 60 mg p.o. at bedtime, Lasix 80 mg p.o. at bedtime, Prozac 20 mg daily, Coreg 12.5 mg p.o. b.i.d., NovoLog 20 units subcutaneously daily, DuoNeb every 4 hours as needed, morphine sulfate 30 mg p.o. t.i.d., mometasone inhaler as directed, NovoLog 30 units subcutaneously b.i.d., Atarax 25 mg p.o. daily, Eliquis 5 mg p.o. b.i.d., vitamin D3 1000 units p.o. daily, Protonix 40 mg p.o. at bedtime, Levemir 60 units subcutaneously p.o. b.i.d., Lasix 120 mg p.o. before meals, ProAir RespiClick 90 mcg inhaled 4 times a day, Baclofen 10 mg p.o. at bedtime, Augmentin 875/125 one p.o. b.i.d., Medrol Dosepak as directed. DISCHARGE DIET: Diabetic. DISCHARGE ACTIVITY: Resume activity as tolerated. DISPOSITION AND OTHER DISCHARGE INSTRUCTIONS: The patient is discharged home to self care. He is to follow up with his PCP, Dr. Jennifer Jean Baptiste, within the next week to 2 weeks or sooner if needed. He is to return to the ER or call 911 for any worsening complaints or concerns. All questions answered. Discharge time greater than 35 minutes. Dictated by HORTENCIA Sutton for Almas Fountain MD cc: HORTENCIA Sutton MD Agree with above, the following is my own face to face assessment. Patient wheezing resolved. dyspnea back to baseline. still with some significant sinus drainage and some frontal sinus tenderness on exam so will give short course of augmentin for possible sinusitis. steroid taper for his copd. MTDD
== END 2018-11-20 13:44 | disposition home or self-care (01) | DRG 191 ==
LOC: ED 23:30 → 3N 11-18 02:37 → SUATTDRO 11-18 02:37
PROVIDERS: ATTEND Internal Medicine
CPT/HCPCS: 71020; 71046; 71250; 76641; 80048; 80053; 81001; 82948; 83036; 83605; 83880; 84484; 85025; 87040; 87275; 87276; 87804; 93005; 94640; 94761; 94799; 96365; 99285; A9270; J0692; J0696; J1815; J2920; J3370; J7030; J7040; XXXXX

== ENCOUNTER 2019-05-10 09:54 | Inpatient (IN) ==
[2019-05-10] MEDS ORDERED: MAXIPIME 1 GM in NS 50 ML IV SCH (12:45)
--- NOTE | 2019-05-10 13:08 | EKG Report ---
Test Performed on : 05/10/2019 12:59:58 PM Test Reason : rychristine mcmanus Blood Pressure : / mmHG Vent. Rate : 079 BPM Atrial Rate : 079 BPM P-R Int : 168 ms QRS Dur : 206 ms QT Int : 472 ms P-R-T Axes : 069 259 059 degrees QTc Int : 541 ms Atrial-sensed ventricular-paced rhythm (100% paced) Abnormal ECG When compared with ECG of 15-APR-2019 17:33, (Unconfirmed) premature ventricular complexes. are no longer present Vent. rate has decreased BY 22 BPM Confirmed by Lakeisha GREGG, Ubaldo Nation ([id number]) on 05/11/2019 8:28:13 AM
[2019-05-10 13:11] LABS: ALLEN TEST YES; BE 6.5 mmoll (-3.0-3.0); BLOOD TYPE ARTERIAL; METHB 0.6 % (0.0-1.5); MODALITY CANNULA; O2(CT) 15.6 mL/dL (15.0-23.0); O2HB 95.8 % (95.0-99.0); PCO2(98.6) 45 mmHg (35-45); PO2(98.6) 82 mmHg (60-100); SAMPLE BLOOD; SAO2 97.9 % (95.0-100.0); THB 11.5 g/dL (11.5-17.4); pH(98.6) 7.45 (7.35-7.45)
--- NOTE | 2019-05-10 13:38 | Diag Imaging Result Doc PS360 ---
EXAM: CHEST-2 VIEWS 05/10/2019 HISTORY: Pneumonia TECHNIQUE: AP portable at 1316 COMMENT: There is bibasilar atelectasis which is definitely worse on the right than on 04/15/2019. The inspiration is generally less optimal. IMPRESSION: Subsegmental atelectasis. The possibility of bronchopneumonia cannot be entirely excluded. Electronically signed by Wayne Reddy 05/10/2019 1:35 PM
[2019-05-10 15:11] LABS: BASO# 0.03 X1000 (0.0-0.2); BASO% 0.4 % (0.0-0.8); EOS# 0.27 X1000 (0.0-0.7); EOS% 3.2 % (0.0-10.0); HEMATOCRIT 37.4 % (42.0-52.0); HEMOGLOBIN 11.9 g/dL (14.0-18.0); IMM GRAN# 0.03 X1000 (0.0-0.04); IMM GRAN% 0.4 % (0.0-0.5); LYMPH# 1.24 X1000 (1.2-3.4); LYMPH% 14.7 % (20.5-51.1); MCH 25.8 PG (27-31); MCHC 31.8 g/dL (33-37); MCV 81.1 FL (81-99); MONO# 0.68 X1000 (0.11-0.59); MONO% 8.1 % (1.7-9.3); MPV 11.3 FL (7.4-10.4); NEUT# 6.17 X1000 (1.4-6.5); NEUT% 73.2 % (42.2-75.2); PLT 129 X1000 (130-400); RBC 4.61 XMIL (4.7-6.1); RDW 13.9 % (11.5-14.5); WBC 8.42 X1000 (4.8-10.8)
[2019-05-10 15:36] LABS: AGAP 12; ALB/GLOB RATIO 1.3; ALBUMIN 3.4 g/dL (3.5-5.0); ALKALINE PHOSPHATASE 90 U/L (32-122); BUN 12 mg/dL (8-22); CALCIUM 8.5 mg/dL (8.8-10.2); CHLORIDE 98 mmol/L (98-107); COSMO 276; CREATININE 0.7 mg/dL (0.7-1.2); ESTIMATED GFR > 60; GLUCOSE 148 mg/dL (70-104); GOT 11 U/L (10-34); GPT 9 U/L (10-44); POTASSIUM 3.7 mmol/L (3.5-5.1); SODIUM 137 mmol/L (136-145); TCO2 27 mmol/L (25-35); TOTAL BILIRUBIN 0.28 mg/dL (0.20-1.00); TOTAL PROTEIN 6.1 g/dL (6.3-8.3)
[2019-05-10 15:49] LABS: HEMOGLOBIN A1C 7.8 % (4.8-6.0)
[2019-05-10] MEDS: DUONEB (A & A) INH SCH ×3 (16:04→23:37)
[2019-05-10 17:35] LABS: URINE SOURCE CLEAN CATCH
[2019-05-10] MEDS: HUMULIN R SUBQ SCH ×2 (17:39→23:35)
[2019-05-10 17:49] LABS: BILIRUBIN URINE NEGATIVE (NEGATIVE); BLOOD URINE NEGATIVE (NEGATIVE); COLOR YELLOW; GLUCOSE URINE NEGATIVE (NEGATIVE); KETONE URINE NEGATIVE (NEGATIVE); LEUKOCYTES URINE TRACE (NEGATIVE); NITRITE URINE NEGATIVE (NEGATIVE); PH URINE 6.5; PROTEIN URINE 30 mg/dL (NEGATIVE); TURBIDITY URINE CLEAR (CLEAR); UROBILINOGEN URINE 2 mg/dL (NORMAL)
[2019-05-10 17:50] LABS: UR EPITHELIAL CELLS <10 /HPF (<10); URINE BACTERIA NEGATIVE /HPF; URINE RBC <10 /HPF (<10); URINE WBC <10 /HPF (<10)
[2019-05-10] MEDS: MERREM 1 GM in NS 50 ML IV SCH (18:06)
--- NOTE | 2019-05-10 18:45 | HISTORY AND PHYSICAL ---
CHIEF COMPLAINT: Shortness of breath. HISTORY OF PRESENT ILLNESS: Mr. Ari Bell is a 68-year-old male with a medical history of frequent spells of pneumonia, also with urinary tract infections, COPD followed by Dr. Nino, history of chronic atrial fibrillation on Eliquis at home, is now here with recurrent pneumonia. Apparently, Mr. Bell went to go see Dr. Jennifer Jean Baptiste secondary to having worsening shortness of breath and increased production of phlegm. So his story is he had come here to the emergency department on 04/19/2019, followed up with Dr. Jean Baptiste afterwards, was started on antibiotic therapy, Levaquin, for pneumonia. He took 750 mg daily, has been off of it for about a week and a half. He is coming here as a direct admit from Dr. Jennifer Jean Baptiste's office. Apparently this past Wednesday started having fatigue and started having shortness of breath on Wednesday, saw Dr. Jean Baptiste today, having excessive amounts of productive phlegm that is yellow-green in color, some nausea, just feeling extreme fatigue, fluid buildup in the lower extremities, cannot walk more than 5 feet without getting significantly short of breath. He is on oxygen at home, 4 L. When he went to Dr. Jean Baptiste's office, they put him on 6 L, but when he got here, he was returned down to about 5 L of oxygen. Reviewing his microbiology results from last month on the when he presented to the emergency department, the urine grew out Pseudomonas aeruginosa, which was cervantes sensitive. The sputum grew out Serratia, which was resistant to cefazolin. Since he had taken the Levaquin and was getting worse, he came here for IV antibiotic treatment of his pneumonia. He states he does have a history of having pneumonia about 5 times within a 1-year timeframe and apparently had a port placed at that time by Dr. Downs, Infectious Disease, to treat his pneumonia. We will get him started on cefepime here. Currently he is stable. PAST MEDICAL HISTORY: 1. COPD, severe bronchiectasis followed by Dr. Nino on continuous 4 L of oxygen at home. 2. GERD. 3. Chronic atrial fibrillation on anticoagulation, Eliquis. 4. Ischemic cardiomyopathy. Ejection fraction in August of 2018 per echocardiogram is 60% now, but I believe in 2017, it was 40%. 5. Coronary artery disease with coronary artery bypass grafting history. 6. Obstructive sleep apnea, does not wear CPAP. 7. Morbid obesity. The BMI is not currently recorded. 8. Diabetes mellitus type 2, insulin dependent. 9. Hypertension. 10. Hyperlipidemia. 11. Chronic pain syndrome with chronic opioid use. 12. Depression or PTSD. 13. History of multidrug resistant Pseudomonas. That is when he was followed by Dr. Downs and that was in the lungs. 14. History of osteoarthritis. 15. DVT and pulmonary emboli back in his 20s. 16. Seasonal allergies. 17. History of exposure to asbestosis and agent orange. 18. Untreated umbilical hernia. SURGICAL HISTORY: 1. Coronary artery bypass grafting. 2. Permanent pacemaker in 2004. 3. Cardiac ablation. 4. Bilateral leg surgery secondary to traumatic injury in his 20s. 5. Lumbar spine surgery. 6. Port placement. 7. Skin graft on his leg. SOCIAL HISTORY: Started smoking at the age of 13, quit in 1989. He was a 3-pack per day smoker. Two beers a year maybe. Denies any illicit drug use. Lives at home with his . FAMILY HISTORY: Positive for lung cancer in the mother at age 36. Grandmother also had lung cancer. Father had a heart attack at 68. He has 3 brothers with heart disease, 2 of them with surgery. ALLERGIES: No known drug allergies. HOME MEDICATIONS: Not yet reconciled. REVIEW OF SYSTEMS: Fourteen point review of systems are complete, and all were negative except for those mentioned above in HPI except he did complain of a wound on his buttock. PHYSICAL EXAMINATION: VITAL SIGNS: Not recorded. GENERAL: Mr. Ari Bell is a 68-year-old male, morbidly obese, sounds congested in his head when he is talking, was sitting on the side of the bed eating and was able to answer questions appropriately. HEENT: Atraumatic, normocephalic. Pupils equal, round, reactive to light. Extraocular movements intact. Mucous membranes are moist. NECK: Trachea midline. CARDIOVASCULAR: S1, S2. It is actually a regular rate and rhythm. No rubs, gallops, or murmurs. He has got 1+ lower extremity edema. +2 dorsalis and radial pulses. Negative JVD or carotid bruits. PULMONARY: Inspiratory wheezes noted throughout. GASTROINTESTINAL: Soft, nontender, nondistended. Positive bowel sounds x4. EXTREMITIES: Moves all extremities equally. Decreased range of motion. NEUROLOGIC: A and O x3. Follows commands. Decreased sensory in the lower extremities. SKIN: Warm, dry, intact. On the right lower buttock, there is a stage II right buttock wound. LABORATORY DATA: The only labs we have right now is an ABG: pH 7.45, pCO2 45, pO2 82, bicarb 30, base excess 6.5, saturation 95%, lactate 1.7 and this should have been on 5 L nasal cannula. IMAGING: We do have a chest x-ray: Subsegmental atelectasis, possibility of bronchopneumonia could not be entirely excluded. EKG is ventricularly paced rhythm. The rate is 79. ASSESSMENT AND PLAN: 1. Failed outpatient treatment of bronchopneumonia. Apparently it just keeps coming back. He had a sputum culture on the 19 of April when he first came here. It was positive for Serratia and resistant to cefazolin. He was treated with Levaquin, and it never fully went away. So we will start him on cefepime. 2. Also urinary tract infection diagnosed 04/19/2019 with Pseudomonas, also sensitive to cefepime so we will continue with that. He denies any symptoms at this time with that. 3. Right buttock stage II wound, and we will consult wound care for that. 4. Chronic obstructive pulmonary disease. No obvious exacerbation at this time. We will continue him on oxygen, nebulizers. 5. History of chronic atrial fibrillation on Eliquis, currently waiting on home medications to be verified so we can resume those. 6. History of ischemic cardiomyopathy, but most recently the echocardiogram showed a normal ejection fraction, looks like he is on spironolactone at home, Lasix at home, Imdur, Coreg so will get those resumed once they are in the medication list verified. 7. Chronic pain syndrome. It looks like he also takes scheduled morphine at home. If that is what he takes, we will get that resumed as well. 8. Diabetes mellitus type 2. We will do pattern blood glucoses and sliding scale insulin. 9. Hypertension. We will resume home medications. 10. Deep venous thrombosis prophylaxis. He is on JANI hose. Dictated by HORTENCIA Haywood for Jed Matthew MD cc: HORTENCIA Haywood MD
[2019-05-10] MEDS: PULMICORT INH SCH (19:43)
--- NOTE | 2019-05-10 19:52 | HISTORY AND PHYSICAL ---
ADDENDUM: Mr. Bell is a frequent flyer to the hospital. Was last discharged from here in October, on 11/20/2018. This is about his 3rd hospitalization for this year. Mr. Bell is known to have severe COPD with bronchiectasis, associated with multiple infections, including ESBL and Pseudomonas in the sputum in the past. Comes this time because of progressively worsening shortness of breath. Patient refers that he was treated recently in the ER, per the chart, on 04/15/2019. Apparently was sent home on some antibiotics, which he does not remember. I do not see any documentation in the chart. He also said the family doctor also treated him recently with Levaquin and he did feel slightly better; however, for the past 3 or 4 days, he has been bringing up some yellowish sputum and he has been coughing up more, and he has been having more difficulty breathing. He came to the emergency department. He was evaluated. His chest x-ray seems to suggest subsegmental atelectasis and possibility of bronchopneumonia. On physical exam, he is remarkably wheezing with rhonchi on expiration. He is currently on oxygen 5 L and he is saturating about 94%. Mr. Bell is being admitted for: 1. Chronic obstructive pulmonary disease/bronchiectasis exacerbation. I have changed his current antimicrobial coverage to meropenem because of his previous extended-spectrum beta lactamase and Pseudomonas, so we can get it right at the beginning. Sputum will be sent for cultures. 2. History of ischemic cardiomyopathy, with ejection fraction of 40%. Patient seems to be euvolemic. 3. Diabetes mellitus. 4. Morbid obesity. 5. History of atrial fibrillation. 6. Obstructive sleep apnea. Please refer to the details of the History and Physical, which has been dictated by the WINDLASSER, in the chart. cc: Jed Matthew MD
[2019-05-10] MEDS: IMDUR PO SCH ×2 (19:56→23:34)
[2019-05-10] MEDS: ELIQUIS PO SCH ×2 (19:58→23:34)
[2019-05-10] MEDS: PROTONIX PO SCH ×2 (19:58→23:34)
[2019-05-10] MEDS: COZAAR PO SCH ×2 (19:58→23:34)
[2019-05-10] MEDS: ATARAX PO SCH ×2 (19:58→23:33)
[2019-05-10] MEDS: BUSPAR PO SCH ×2 (19:58→23:34)
[2019-05-10] MEDS: LASIX PO SCH (19:59)
[2019-05-10] MEDS: ALDACTONE PO SCH (19:59)
[2019-05-10] MEDS: COREG PO SCH (19:59)
[2019-05-10] MEDS: MS CONTIN PO PRN (21:07)
[2019-05-10] MEDS: HUMALOG SUBQ SCH (21:08)
[2019-05-10] MEDS: LEVEMIR SUBQ SCH (21:11)
[2019-05-10] MEDS: ASMANEX 220 MICROGM INHALER INH SCH (22:54)
[2019-05-11] MEDS: MERREM 1 GM in NS 50 ML IV SCH ×3 (00:33→18:25)
[2019-05-11] MEDS: TYLENOL PO PRN (03:06)
[2019-05-11] MEDS: DUONEB (A & A) INH SCH ×6 (03:30→23:41)
[2019-05-11] MEDS: HUMULIN R SUBQ SCH ×3 (06:24→18:26)
[2019-05-11 07:26] LABS: BASO# 0.03 X1000 (0.0-0.2); BASO% 0.4 % (0.0-0.8); EOS# 0.22 X1000 (0.0-0.7); HEMATOCRIT 37.5 % (42.0-52.0); HEMOGLOBIN 12.1 g/dL (14.0-18.0); LYMPH# 1.03 X1000 (1.2-3.4); LYMPH% 14.1 % (20.5-51.1); MCH 26.2 PG (27-31); MCHC 32.3 g/dL (33-37); MCV 81.2 FL (81-99); MONO# 0.58 X1000 (0.11-0.59); MONO% 7.9 % (1.7-9.3); MPV 11.4 FL (7.4-10.4); NEUT# 5.45 X1000 (1.4-6.5); NEUT% 74.6 % (42.2-75.2); PLT 133 X1000 (130-400); RBC 4.62 XMIL (4.7-6.1); RDW 13.9 % (11.5-14.5); WBC 7.31 X1000 (4.8-10.8)
[2019-05-11] MEDS ORDERED: INSULIN PEN NEEDLES ONE (07:45)
[2019-05-11 07:48] LABS: AGAP 11; ALB/GLOB RATIO 1.3; ALBUMIN 3.6 g/dL (3.5-5.0); ALKALINE PHOSPHATASE 90 U/L (32-122); BUN 14 mg/dL (8-22); CALCIUM 8.9 mg/dL (8.8-10.2); CHLORIDE 95 mmol/L (98-107); COSMO 279; ESTIMATED GFR > 60; GLUCOSE 216 mg/dL (70-104); GOT 13 U/L (10-34); GPT 8 U/L (10-44); POTASSIUM 3.9 mmol/L (3.5-5.1); SODIUM 136 mmol/L (136-145); TCO2 30 mmol/L (25-35); TOTAL BILIRUBIN 0.46 mg/dL (0.20-1.00); TOTAL PROTEIN 6.3 g/dL (6.3-8.3)
[2019-05-11] MEDS: PULMICORT INH SCH ×2 (07:57→19:28)
[2019-05-11] MEDS: ASMANEX 220 MICROGM INHALER INH SCH ×2 (08:57→22:11)
[2019-05-11] MEDS: SPIRIVA INH SCH (08:58)
[2019-05-11] MEDS: LEVEMIR SUBQ SCH ×2 (09:32→23:17)
[2019-05-11] MEDS: LINZESS PO SCH (09:32)
[2019-05-11] MEDS: ELIQUIS PO SCH ×2 (09:33→23:02)
[2019-05-11] MEDS: BUSPAR PO SCH ×3 (09:33→23:02)
[2019-05-11] MEDS: PROZAC PO SCH (09:33)
[2019-05-11] MEDS: COREG PO SCH ×2 (09:33→23:01)
[2019-05-11] MEDS: HUMALOG SUBQ SCH ×2 (09:36→23:21)
[2019-05-11] MEDS ORDERED: SOLU-MEDROL IV ONE (13:15)
[2019-05-11] MEDS: MS CONTIN PO PRN ×2 (13:34→22:59)
--- NOTE | 2019-05-11 13:43 | PROGRESS NOTE ---
DATE: 05/11/2019 SUBJECTIVE: This patient is still feeling short of breath and with generalized weakness. He has been coughing up phlegm. He does have some end-expiratory wheezing so I will try some steroids today to see how he does. He has a history of COPD and he is on home O2, around 4 L. OBJECTIVE: Vital Signs: Temperature 97.8 degrees, pulse 81, respiratory rate 18, blood pressure 137/70, oxygen saturation 100% on 5 L of nasal cannula. HEENT: Head normocephalic. No trauma. PERRLA. Neck: Supple. I cannot see JVD because of his neck size. Central trachea. Chest: Decreased breath sounds globally with bilateral rhonchi and crackles, some crepitus, mostly at the bases. Abdomen: Soft, obese, protuberant, nontender, nondistended. No hepatosplenomegaly. Extremities: He does have edema. No clubbing, no clubbing. Neurological Examination: The patient is alert. He is oriented x3. No focal deficits. Laboratory: WBCs 7.3, hemoglobin 12.1, hematocrit 37.5, platelets are 433,000. Sodium 136, potassium 3.9, chloride 95, bicarbonate 30, BUN 14, creatinine 1, glucose 216, calcium 8.9. ASSESSMENT AND PLAN: 1. Chronic obstructive pulmonary disease exacerbation. He is wheezing and having shortness of breath. Also failed outpatient treatment for bronchopneumonia. We have placed this patient on antibiotics. We will continue with the same management. Also, I will start this patient on some steroids today and I will recheck on him tomorrow. He feels a little bit better compared with yesterday but still short of breath and today, he is wheezing. 2. Urinary tract infection diagnosed on 04/19/2019 with Pseudomonas, also sensitive to cefepime. 3. Right buttock ulcer stage II. Wound care has been consulted. 4. History of chronic atrial fibrillation, on Eliquis. Continue with the same management. 5. History of ischemic cardiomyopathy. Continue home medications. 6. Chronic pain syndrome. Continue with home medications as well. 7. Type 2 diabetes. Continue pattern of blood sugar and sliding scale insulin. 8. Hypertension, stable. Continue home treatment. 9. Deep vein thrombosis prophylaxis. This patient has been placed back on Eliquis. 10. Acute on chronic hypoxemic respiratory failure. Normally, this patient is on home oxygen at 4 L. Now he is requiring 5. We will continue with the same management for now. cc: Blair Rivas MD
[2019-05-11] MEDS ORDERED: CALMOSEPTINE OINTMENT TOP PRN (15:15)
[2019-05-11] MEDS: ALDACTONE PO SCH (23:00)
[2019-05-11] MEDS: ATARAX PO SCH (23:00)
[2019-05-11] MEDS: PROTONIX PO SCH (23:00)
[2019-05-11] MEDS: IMDUR PO SCH (23:01)
[2019-05-11] MEDS: LASIX PO SCH (23:01)
[2019-05-11] MEDS: COZAAR PO SCH (23:01)
[2019-05-11] MEDS: SOLU-MEDROL IV SCH (23:02)
[2019-05-12] MEDS: CALMOSEPTINE OINTMENT TOP SCH ×6 (00:21→23:17)
[2019-05-12] MEDS: HUMULIN R SUBQ SCH ×5 (02:40→20:36)
[2019-05-12] MEDS: TYLENOL PO PRN (02:40)
[2019-05-12] MEDS: MERREM 1 GM in NS 50 ML IV SCH ×3 (02:41→18:23)
[2019-05-12] MEDS: DUONEB (A & A) INH SCH ×6 (03:18→23:19)
[2019-05-12] MEDS: SOLU-MEDROL IV SCH ×2 (06:53→20:34)
[2019-05-12] MEDS: SPIRIVA INH SCH (07:44)
[2019-05-12] MEDS: PULMICORT INH SCH ×2 (07:44→21:00)
[2019-05-12] MEDS: ASMANEX 220 MICROGM INHALER INH SCH ×2 (07:45→21:15)
[2019-05-12 08:37] LABS: AGAP 10; BUN 17 mg/dL (8-22); CALCIUM 8.6 mg/dL (8.8-10.2); CHLORIDE 89 mmol/L (98-107); COSMO 270; CREATININE 0.9 mg/dL (0.7-1.2); ESTIMATED GFR > 60; GLUCOSE 331 mg/dL (70-104); POTASSIUM 4.3 mmol/L (3.5-5.1); SODIUM 127 mmol/L (136-145); TCO2 28 mmol/L (25-35)
[2019-05-12 08:42] LABS: HEMATOCRIT 37.8 % (42.0-52.0); HEMOGLOBIN 12.5 g/dL (14.0-18.0); IMM GRAN# 0.03 X1000 (0.0-0.04); IMM GRAN% 0.3 % (0.0-0.5); LYMPH# 0.68 X1000 (1.2-3.4); LYMPH% 6.1 % (20.5-51.1); MCH 26.1 PG (27-31); MCHC 33.1 g/dL (33-37); MCV 78.9 FL (81-99); MONO% 3.6 % (1.7-9.3); MPV 11.3 FL (7.4-10.4); NEUT# 9.98 X1000 (1.4-6.5); PLT 169 X1000 (130-400); RBC 4.79 XMIL (4.7-6.1); RDW 13.6 % (11.5-14.5); WBC 11.09 X1000 (4.8-10.8)
--- NOTE | 2019-05-12 09:30 | PROGRESS NOTE ---
DATE: 05/12/2019 SUBJECTIVE: This patient is feeling a little bit better compared with yesterday. He is still complaining of shortness of breath, cough. He has been coughing with phlegm, and generalized weakness. I have requested a new evaluation by Physical Therapy and Occupational Therapy as well. I will continue with antibiotics. CPT. I will decrease the dose of the steroids as well. OBJECTIVE: Vital Signs: Temperature 97.4, pulse 94, respiratory rate 15, blood pressure 152/70, oxygen saturation 100% on 5 L nasal cannula. HEENT: Head normocephalic. No trauma. PERRLA. Neck: Supple. I cannot see JVD because of the neck size. Central trachea. Chest: Decreased breath sounds globally with bilateral rhonchi and crackles, some crepitus mostly at the bases. Abdomen: Soft, obese, protuberant, nontender, nondistended. No hepatosplenomegaly. Extremities: He does have edema. No clubbing. No cyanosis. Neurological: The patient is alert. He is oriented x3. No focal neurological deficit. LABORATORY: Pending lab work at this moment, blood sugar 277. ASSESSMENT AND PLAN: 1. Chronic obstructive pulmonary disease exacerbation, the wheezing has improved but he is still short of breath and having rhonchi and some mild crackles and crepitus. I have decreased the dose of the steroids. I will add CPT. He is coughing up green brownish phlegm. He feels a little bit better compared with yesterday. He failed outpatient treatment for bronchopneumonia. Continue with same management for now. He is on meropenem. 2. Failed outpatient treatment for bronchopneumonia. Continue with antibiotics, breathing treatment, oxygen supplementation. 3. Urinary tract infection recently with Pseudomonas. 4. Right buttock ulcer stage II, wound care has been consulted. 5. History of chronic atrial fibrillation on Eliquis rate controlled. 6. History of ischemic cardiomyopathy. Continue with home medications. 7. Chronic pain syndrome. Continue home medications as well. 8. Type 2 diabetes. Continue pattern blood sugar and sliding scale insulin. He is also getting insulin detemir 84 units subcutaneously twice a day. 9. Hypertension, stable. 10.Deep venous thrombosis prophylaxis. This patient is back on Eliquis. 11.[id number] hypoxemic respiratory failure, normally this patient is on home oxygen, at 4 L, now requiring 5 to 5-1/2 L. Will continue with same management for now. I believe he is getting better. cc: Blair Rivas MD MTDD
[2019-05-12 09:32] LABS: BANDS 2 % (0-1); HYPOCHROM 1+; LYMPHS 14 % (21-51); MONO 6 % (1-9); SEGS 78 % (42-75)
[2019-05-12] MEDS: ELIQUIS PO SCH ×2 (10:42→20:33)
[2019-05-12] MEDS: COREG PO SCH ×2 (10:42→20:33)
[2019-05-12] MEDS: BUSPAR PO SCH ×3 (10:42→20:33)
[2019-05-12] MEDS: PROZAC PO SCH (10:43)
[2019-05-12] MEDS: HUMALOG SUBQ SCH ×2 (10:43→20:36)
[2019-05-12] MEDS: LINZESS PO SCH (10:43)
[2019-05-12] MEDS: LEVEMIR SUBQ SCH ×2 (10:43→20:36)
[2019-05-12] MEDS: MS CONTIN PO PRN ×3 (10:50→20:39)
[2019-05-12] MEDS ORDERED: FLONASE NAS ONE (19:00)
[2019-05-12] MEDS: ALDACTONE PO SCH (20:33)
[2019-05-12] MEDS: COZAAR PO SCH (20:33)
[2019-05-12] MEDS: ATARAX PO SCH (20:33)
[2019-05-12] MEDS: PROTONIX PO SCH (20:33)
[2019-05-12] MEDS: LASIX PO SCH (20:33)
[2019-05-12] MEDS: IMDUR PO SCH (20:33)
[2019-05-13] MEDS: MERREM 1 GM in NS 50 ML IV SCH ×3 (02:02→17:12)
[2019-05-13] MEDS: DUONEB (A & A) INH SCH ×6 (04:47→23:10)
[2019-05-13] MEDS: HUMULIN R SUBQ SCH ×4 (06:08→20:05)
[2019-05-13] MEDS: ASMANEX 220 MICROGM INHALER INH SCH ×2 (07:42→19:57)
[2019-05-13] MEDS: SPIRIVA INH SCH (07:42)
[2019-05-13] MEDS: PULMICORT INH SCH ×2 (07:43→19:56)
[2019-05-13 08:05] LABS: BASO# 0.01 X1000 (0.0-0.2); BASO% 0.1 % (0.0-0.8); HEMATOCRIT 37.8 % (42.0-52.0); HEMOGLOBIN 12.3 g/dL (14.0-18.0); IMM GRAN# 0.04 X1000 (0.0-0.04); IMM GRAN% 0.3 % (0.0-0.5); LYMPH% 6.9 % (20.5-51.1); MCH 25.8 PG (27-31); MCHC 32.5 g/dL (33-37); MCV 79.4 FL (81-99); MONO# 0.68 X1000 (0.11-0.59); MONO% 5.8 % (1.7-9.3); MPV 10.9 FL (7.4-10.4); NEUT% 86.9 % (42.2-75.2); PLT 183 X1000 (130-400); RBC 4.76 XMIL (4.7-6.1); WBC 11.63 X1000 (4.8-10.8)
[2019-05-13 08:06] LABS: AGAP 10; BUN 20 mg/dL (8-22); CALCIUM 8.8 mg/dL (8.8-10.2); CHLORIDE 92 mmol/L (98-107); COSMO 279; CREATININE 0.8 mg/dL (0.7-1.2); ESTIMATED GFR > 60; GLUCOSE 304 mg/dL (70-104); POTASSIUM 4.5 mmol/L (3.5-5.1); SODIUM 132 mmol/L (136-145); TCO2 30 mmol/L (25-35)
[2019-05-13 08:56] LABS: LYMPHS 12 % (21-51); MONO 6 % (1-9); SEGS 82 % (42-75)
[2019-05-13] MEDS ORDERED: INSULIN PEN NEEDLES ONE (09:44)
[2019-05-13] MEDS: SOLU-MEDROL IV SCH (09:55)
[2019-05-13] MEDS: LEVEMIR SUBQ SCH ×2 (09:55→20:05)
[2019-05-13] MEDS: BUSPAR PO SCH ×3 (09:55→20:01)
[2019-05-13] MEDS: LINZESS PO SCH (09:55)
[2019-05-13] MEDS: COREG PO SCH ×2 (09:56→20:01)
[2019-05-13] MEDS: MS CONTIN PO PRN ×3 (09:56→20:01)
[2019-05-13] MEDS: CALMOSEPTINE OINTMENT TOP SCH ×4 (09:56→20:02)
[2019-05-13] MEDS: HUMALOG SUBQ SCH ×2 (09:56→20:04)
[2019-05-13] MEDS: ELIQUIS PO SCH ×2 (09:56→20:01)
[2019-05-13] MEDS: PROZAC PO SCH (09:56)
--- NOTE | 2019-05-13 12:24 | PROGRESS NOTE ---
DATE: 05/13/2019 SUBJECTIVE: The patient seems to be feeling a little bit better compared with yesterday. He is still complaining of shortness of breath. He is still coughing up a lot of phlegm which is green brownish. We have a positive sputum culture that showed gram-negative rods. I will continue with same management for now. I will stop the steroids. OBJECTIVE: Vital Signs: Temperature 97.4 degrees, pulse 85, respiratory rate 16, blood pressure 104/69, oxygen saturation 97% on 4 L of nasal cannula. HEENT: Head normocephalic. No trauma. PERRLA. Neck: Supple. No JVD. Central trachea. Chest: Decreased breath sounds globally with rhonchi and crackles bilaterally. Some crepitus, mostly at the bases. Abdomen: Soft, obese, protuberant. Nondistended. No hepatosplenomegaly. Extremities: He does have edema. No clubbing. No cyanosis. Neurological: Alert and oriented x3. No focal deficits. LABORATORY: WBC 11.6, hemoglobin 12.3, hematocrit 37.8, platelets 183,000. Sodium 132, potassium 4.5, chloride 92, bicarbonate 30, BUN 20, creatinine 0.8, glucose 304, calcium 8.8. ASSESSMENT AND PLAN: 1. Chronic obstructive pulmonary disease exacerbation. No more wheezing. I will stop the steroids. He does have rhonchi and some crackles with crepitus. I have stopped the steroids. I will continue CPT. He has been coughing up green brownish phlegm. He feels a bit better compared with yesterday. He failed outpatient treatment for bronchopneumonia. Continue with same management for now. He is on meropenem. 2. Failed outpatient treatment for pneumonia, bilaterally at the bases. Continue with antibiotics breathing treatment, oxygen supplementation, CPT, pulmonary toilet. 3. Urinary tract infection diagnosed on 04/19/2019 due to Pseudomonas. Continue with antibiotics. He is not having symptoms at this moment. 4. Right buttock ulcer stage 2, continue wound care. 5. History of chronic atrial fibrillation, on Eliquis, rate controlled. 6. History of ischemic cardiomyopathy. Continue home medication. 7. Chronic pain syndrome. Continue with the home medications as well. 8. Type 2 diabetes. His hemoglobin has been elevated, probably also due to steroids which I have stopped, I will monitor this closely. Continue with insulin, detemir. 9. Hypertension, stable. 10. Deep vein thrombosis prophylaxis. This patient is on Eliquis. 11. Acute on chronic hypoxemic respiratory failure. Normally, he is on home oxygen around 4 L. He seems to be better. cc: Blair Rivas MD
[2019-05-13] MEDS: IMDUR PO SCH (20:00)
[2019-05-13] MEDS: LASIX PO SCH (20:01)
[2019-05-13] MEDS: ATARAX PO SCH (20:01)
[2019-05-13] MEDS: ALDACTONE PO SCH (20:01)
[2019-05-13] MEDS: COZAAR PO SCH (20:01)
[2019-05-13] MEDS: PROTONIX PO SCH (20:02)
[2019-05-14] MEDS: MERREM 1 GM in NS 50 ML IV SCH ×4 (01:25→17:43)
[2019-05-14] MEDS: DUONEB (A & A) INH SCH ×6 (03:37→23:08)
[2019-05-14] MEDS: HUMULIN R SUBQ SCH ×4 (06:01→20:41)
[2019-05-14] MEDS: ASMANEX 220 MICROGM INHALER INH SCH ×2 (07:40→19:59)
[2019-05-14] MEDS: PULMICORT INH SCH ×2 (07:40→19:59)
[2019-05-14] MEDS: SPIRIVA INH SCH (07:40)
[2019-05-14 07:54] LABS: AGAP 13; BUN 25 mg/dL (8-22); CALCIUM 8.8 mg/dL (8.8-10.2); CHLORIDE 92 mmol/L (98-107); COSMO 280; ESTIMATED GFR > 60; GLUCOSE 167 mg/dL (70-104); POTASSIUM 4.1 mmol/L (3.5-5.1); SODIUM 136 mmol/L (136-145); TCO2 31 mmol/L (25-35)
[2019-05-14] MEDS: PROZAC PO SCH (08:11)
[2019-05-14] MEDS: MS CONTIN PO PRN ×3 (08:11→20:34)
[2019-05-14] MEDS: LINZESS PO SCH (08:12)
[2019-05-14] MEDS: HUMALOG SUBQ SCH ×2 (08:12→20:41)
[2019-05-14] MEDS: CALMOSEPTINE OINTMENT TOP SCH ×4 (08:12→20:36)
[2019-05-14] MEDS: ELIQUIS PO SCH ×2 (08:12→20:35)
[2019-05-14] MEDS: COREG PO SCH ×2 (08:12→20:35)
[2019-05-14] MEDS: BUSPAR PO SCH ×3 (08:12→20:35)
--- NOTE | 2019-05-14 09:20 | PROGRESS NOTE ---
DATE: 05/14/2019 SUBJECTIVE: He is feeling a little bit better. He is still coughing up a lot of phlegm, which is dark green brownish. We have a positive culture that showed gram-negative rods. I will continue with same management for now. It looks like it is working for him. He is still having generalized crackles and rhonchi bilaterally chest, and decreased breath sounds as well. He has morbid obesity. I already requested an evaluation by physical therapy and occupational therapy department, he is on home O2. OBJECTIVE: Vital Signs: Temperature 97.5 degrees, pulse 72, respiratory rate 16, blood pressure 171/64, oxygen saturation 100% on 5 L nasal cannula. HEENT: Head normocephalic, no trauma. PERRLA. Neck: Supple. No JVD. No masses. Central trachea. Chest: Decreased breath sounds globally with rhonchi and crackles bilaterally. Some crepitus, mostly at the bases. Abdomen: Soft, obese, protuberant, nondistended, no hepatosplenomegaly. Extremities: He does have edema around 2+. No clubbing no cyanosis. Neurological: The patient is alert and oriented x3. No focal deficits. LABORATORY: Sodium 136, potassium 4.1, chloride 92, bicarbonate 31, BUN 25, creatinine 1, glucose 167, calcium 8.8. ASSESSMENT AND PLAN: 1. Chronic obstructive pulmonary disease exacerbation, no more wheezing. I stopped already the steroids. He still have a significant amount of phlegm coming out. He still have rhonchi and crackles bilaterally and shortness of breath, continue with CPT. Continue with oxygen supplementation and breathing treatment. 2. Failed outpatient treatment for pneumonia, bilaterally at the bases. Continue with antibiotics, breathing treatment. We have a positive culture that showed gram-negative rods, pending final results. 3. Recent urinary tract infection on 04/19/2019 due to Pseudomonas. Continue with antibiotics. He is not having symptoms at this moment. 4. Right buttock ulcer stage II. Continue with wound care. 5. History of chronic atrial fibrillation on Eliquis, rate controlled. 6. History of ischemic cardiomyopathy. He has no prior chest pain. Continue home medication. 7. Chronic pain syndrome. Continue home medications as well. 8. Type 2 diabetes. His blood sugar has been a little bit elevated before because of the steroids, but now seems to be much better. 9. Hypertension, stable. 10. Deep vein thrombosis prophylaxis with Eliquis. 11. Acute on chronic hypoxemic respiratory failure, normally he is on home oxygen around 4 L. Continue with oxygen supplementation during this hospitalization as well. cc: Blair Rivas MD
[2019-05-14] MEDS: LEVEMIR SUBQ SCH ×2 (11:53→20:42)
[2019-05-14] MEDS ORDERED: MYLICON PO PRN (17:25)
--- NOTE | 2019-05-14 18:46 | EKG Report ---
Test Performed on : 05/14/2019 09:26:18 AM Test Reason : CP Blood Pressure : / mmHG Vent. Rate : 081 BPM Atrial Rate : 081 BPM P-R Int : 184 ms QRS Dur : 220 ms QT Int : 472 ms P-R-T Axes : 089 -76 091 degrees QTc Int : 548 ms Atrial-sensed ventricular-paced rhythm (100% pqced) Abnormal ECG When compared with ECG of 10-MAY-2019 12:59, Vent. rate has increased BY 2 BPM Confirmed by Lakeisha GREGG, Ubaldo Nation ([id number]) on 05/15/2019 7:02:46 AM
[2019-05-14] MEDS: IMDUR PO SCH (20:34)
[2019-05-14] MEDS: ALDACTONE PO SCH (20:34)
[2019-05-14] MEDS: COZAAR PO SCH (20:35)
[2019-05-14] MEDS: LASIX PO SCH (20:35)
[2019-05-14] MEDS: PROTONIX PO SCH (20:35)
[2019-05-14] MEDS: ATARAX PO SCH (20:35)
[2019-05-15] MEDS: TYLENOL PO PRN (00:07)
[2019-05-15] MEDS: MERREM 1 GM in NS 50 ML IV SCH ×4 (00:07→18:23)
[2019-05-15] MEDS: DUONEB (A & A) INH SCH ×6 (02:36→23:30)
[2019-05-15 05:53] LABS: POTASSIUM 3.9 mmol/L (3.5-5.1); SODIUM 136 mmol/L (136-145)
[2019-05-15 05:54] LABS: AGAP 9; BUN 25 mg/dL (8-22); CALCIUM 8.7 mg/dL (8.8-10.2); CHLORIDE 94 mmol/L (98-107); COSMO 279; ESTIMATED GFR > 60; GLUCOSE 154 mg/dL (70-104); TCO2 33 mmol/L (25-35)
[2019-05-15] MEDS: HUMULIN R SUBQ SCH ×3 (06:07→15:55)
[2019-05-15] MEDS: PULMICORT INH SCH ×2 (08:17→19:19)
[2019-05-15] MEDS: ASMANEX 220 MICROGM INHALER INH SCH ×2 (08:18→19:19)
[2019-05-15] MEDS: SPIRIVA INH SCH (08:18)
[2019-05-15] MEDS: CALMOSEPTINE OINTMENT TOP SCH ×4 (09:29→21:22)
[2019-05-15] MEDS: HUMALOG SUBQ SCH ×2 (09:29→23:30)
[2019-05-15] MEDS: COREG PO SCH ×2 (09:29→21:11)
[2019-05-15] MEDS: BUSPAR PO SCH ×3 (09:29→21:13)
[2019-05-15] MEDS: PROZAC PO SCH (09:29)
[2019-05-15] MEDS: LINZESS PO SCH (09:29)
[2019-05-15] MEDS: ELIQUIS PO SCH ×2 (09:29→21:13)
[2019-05-15] MEDS: MS CONTIN PO PRN ×3 (09:30→21:18)
[2019-05-15] MEDS: LEVEMIR SUBQ SCH ×2 (09:31→21:13)
--- NOTE | 2019-05-15 09:58 | Diag Imaging Result Doc PS360 ---
EXAM: CHEST-2 VIEWS HISTORY: hypoxia TECHNIQUE: Chest three views COMPARISON: 05/10/2019 FINDINGS: Improved inspiratory effort. There are sternal wires and surgical clips. No change in the right portacatheter or left pacemaker. No cardiac megaly. No pulmonary edema. No infiltrates on the current exam. No effusions. IMPRESSION: Interval improvement. Electronically signed by Ramses Stanton 05/15/2019 9:55 AM
--- NOTE | 2019-05-15 16:35 | PROGRESS NOTE ---
DATE: 05/15/2019 SUBJECTIVE: He is feeling better. He is still coughing up a lot of phlegm. He has been working on physical therapy. We have a positive culture that showed Stenotrophomonas maltophilia. I will continue with the same management. Hopefully, I will discharge this patient in the morning. He feels stronger. Continue with oxygen supplementation, breathing treatment, pulmonary toilet, antibiotics. OBJECTIVE: Vital Signs: Temperature 97.4 degrees, pulse 88, respiratory rate 18, blood pressure 134/84, oxygen saturation 100% on 5 L of nasal cannula. HEENT: Head normocephalic. No trauma. PERRLA. Neck: Supple. No JVD. No masses. Central trachea. Chest: Decreased breath sounds globally with rhonchi and crackles bilaterally, crepitus at the bases. Abdomen: Soft, obese, protuberant, nondistended. No hepatosplenomegaly. Extremities: He does have edema around 2+. No clubbing, no cyanosis. Neurological: Alert and oriented x3. No focal deficits. LABORATORY DATA: Sodium 136, potassium 3.9, chloride 94, bicarbonate 33, BUN 25, creatinine 1, glucose 154, calcium 8.7. Troponins negative x3. ASSESSMENT AND PLAN: 1. Chronic obstructive pulmonary disease exacerbation. He is no longer on steroids. He is still coughing a significant amount of phlegm which is green-brownish. He has rhonchi and crackles bilaterally. Continue CPT, oxygen supplementation, breathing treatment, antibiotics. 2. Failed outpatient treatment for pneumonia, bilaterally at the bases. Continue with antibiotics, breathing treatment. We have a positive culture that showed gram-negative rods, and the final bacteria is Stenotrophomonas maltophilia. I will continue with same management and probably I will discharge this patient home with levofloxacin which is sensitive. 3. Recent urinary tract infection on 04/19/2019 due to Pseudomonas. Continue with antibiotics. He is not having symptoms. 4. Right buttock ulcer stage II. Continue wound care. 5. History of chronic atrial fibrillation, on Eliquis, rate controlled. 6. History of ischemic cardiomyopathy. He was complaining of some chest pain yesterday, but EKG and troponins were negative. I will continue with home medication. 7. Chronic pain syndrome. Continue home medications as well. 8. Type 2 diabetes, better controlled. 9. Hypertension, stable. 10. Deep vein thrombosis prophylaxis with Eliquis. 11. Acute on chronic hypoxemic respiratory failure. Normally he is on home O2 around 4 L. Continue with oxygen supplementation during this hospitalization as well. cc: Blair Rivas MD
[2019-05-15] MEDS: IMDUR PO SCH (21:11)
[2019-05-15] MEDS: LASIX PO SCH (21:11)
[2019-05-15] MEDS: COZAAR PO SCH (21:12)
[2019-05-15] MEDS: PROTONIX PO SCH (21:12)
[2019-05-15] MEDS: ALDACTONE PO SCH (21:13)
[2019-05-15] MEDS: ATARAX PO SCH (21:13)
[2019-05-15] MEDS ORDERED: INSULIN PEN NEEDLES ONE (21:15)
[2019-05-16] MEDS: HUMULIN R SUBQ SCH ×2 (00:22→11:40)
[2019-05-16] MEDS: DUONEB (A & A) INH SCH ×3 (03:36→11:41)
[2019-05-16] MEDS: MERREM 1 GM in NS 50 ML IV SCH ×2 (04:30→09:12)
[2019-05-16 07:57] VITALS: BP 117/60
[2019-05-16 08:12] LABS: BASO# 0.03 X1000 (0.0-0.2); BASO% 0.3 % (0.0-0.8); EOS% 1.8 % (0.0-10.0); HEMATOCRIT 41.2 % (42.0-52.0); HEMOGLOBIN 13.6 g/dL (14.0-18.0); IMM GRAN# 0.09 X1000 (0.0-0.04); IMM GRAN% 0.8 % (0.0-0.5); LYMPH# 1.37 X1000 (1.2-3.4); LYMPH% 12.1 % (20.5-51.1); MCH 26.4 PG (27-31); MONO# 1.18 X1000 (0.11-0.59); MONO% 10.5 % (1.7-9.3); MPV 11.4 FL (7.4-10.4); NEUT# 8.42 X1000 (1.4-6.5); NEUT% 74.5 % (42.2-75.2); PLT 155 X1000 (130-400); RBC 5.15 XMIL (4.7-6.1); WBC 11.29 X1000 (4.8-10.8)
[2019-05-16 08:32] LABS: AGAP 13; BUN 27 mg/dL (8-22); CALCIUM 8.5 mg/dL (8.8-10.2); CHLORIDE 93 mmol/L (98-107); COSMO 282; CREATININE 0.9 mg/dL (0.7-1.2); ESTIMATED GFR > 60; GLUCOSE 155 mg/dL (70-104); POTASSIUM 4.1 mmol/L (3.5-5.1); SODIUM 137 mmol/L (136-145); TCO2 31 mmol/L (25-35)
[2019-05-16] MEDS: ASMANEX 220 MICROGM INHALER INH SCH (08:40)
[2019-05-16] MEDS: SPIRIVA INH SCH (08:40)
[2019-05-16] MEDS: PULMICORT INH SCH (08:41)
[2019-05-16] MEDS: BUSPAR PO SCH ×2 (09:12→12:37)
[2019-05-16] MEDS: HUMALOG SUBQ SCH (09:12)
[2019-05-16] MEDS: ELIQUIS PO SCH (09:12)
[2019-05-16] MEDS: LEVEMIR SUBQ SCH (09:12)
[2019-05-16] MEDS: PROZAC PO SCH (09:12)
[2019-05-16] MEDS: COREG PO SCH (09:12)
[2019-05-16] MEDS: LINZESS PO SCH (09:13)
[2019-05-16] MEDS: MS CONTIN PO PRN ×2 (09:15→12:36)
[2019-05-16] MEDS: CALMOSEPTINE OINTMENT TOP SCH (12:36)
--- NOTE | 2019-05-17 10:01 | DISCHARGE SUMMARY ---
ADMISSION DATE: 05/10/2019 DISCHARGE DATE: 05/16/2019 DISCHARGE DIAGNOSES: 1. Chronic obstructive pulmonary disease exacerbation. 2. Failed outpatient treatment for pneumonia, bilaterally at the bases due to Stenotrophomonas maltophilia. 3. Recent urinary tract infection on 04/19/2019 due to Pseudomonas. 4. Right buttock ulcer stage II, stable. 5. History of is chronic atrial fibrillation on Eliquis. 6. History of ischemic cardiomyopathy. 7. Chronic pain syndrome. 8. Type 2 diabetes. 9. Hypertension. 10. Acute on chronic hypoxemic respiratory failure on home O2. PROCEDURES PERFORMED: 1. Chest x-ray dated 05/10/2019. Impression: Subsegmental atelectasis, bronchopneumonia cannot be excluded at the bases. 2. Chest x-ray dated 05/15/2019. Impression: Interval improvement. No cardiomegaly. No pulmonary edema. No infiltrates on the current exam. No effusions. HOSPITAL COURSE: A 68-year-old male with a medical history of frequent spells of pneumonia, urinary tract infections, and COPD followed by Dr. Nino, history of chronic atrial fibrillation on Eliquis at home, presented and was admitted on 05/10/2019 due to pneumonia. Apparently, Mr. Bell went to see Dr. Jennifer Jean Baptiste secondary to having worsening shortness of breath and increasing production of phlegm. He started taking some treatment for pneumonia, but apparently did not work. Now, he presented as a direct admit from Dr. Jean Baptiste's office. He is not only having shortness of breath and cough, but also this is associated with fatigue and excessive production of phlegm which is green in color, some nausea, lower extremity edema, and he cannot walk more than 5 feet without getting significantly short of breath. He is normally on home O2 around 4 L. Previously, he had a result of urinary tract infection that showed Pseudomonas. He was admitted and received treatment with meropenem. We did a sputum culture that showed Stenotrophomonas maltophilia at the beginning. Also, he was wheezing a little bit so he received a short course of steroids, but he was always getting breathing treatments, CPT, oxygen supplementation, physical therapy, pulmonary toilet, and antibiotics. He was getting better on a daily basis. He was still coughing up a significant amount of phlegm, but he was significantly better. X-ray done recently showed an interval improvement in his condition. No pleural effusion and no infiltrates. The culture that showed Stenotrophomonas maltophilia showed that this is sensitive to levofloxacin. Also, the urinalysis done last month with pseudomonal infection is also sensitive to levofloxacin. I discussed briefly the case with Infectious Disease Department, and the decision to keep this patient on levofloxacin for 14 days has been made. He will need to follow up with Dr. 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 He will continue with breathing treatment at home, oxygen supplementation, and antibiotics. At the moment of discharge, this patient was in a stable medical condition. He has been working with physical therapy. He feels better. PHYSICAL EXAMINATION: Vital Signs: Temperature 98 degrees, pulse 89, respiratory rate 18, blood pressure 117/60, and oxygen saturation 100% on 5 L of nasal cannula HEENT: Head normocephalic. No trauma. PERRLA. Neck: Supple. No JVD. No masses. Central trachea. Chest: Decreased breath sounds globally with some rhonchi and some crepitus at the bases. Abdomen: Soft, obese, protuberant. Nontender, nondistended. No hepatosplenomegaly. Extremities: 2+ lower extremity edema. No clubbing. No cyanosis. Neurological: The patient is alert. He is oriented x3. No focal deficits. LABORATORY: WBC 11.2, hemoglobin 13.6, hematocrit 41.2, and platelets 155,000. Sodium 137, potassium 4.1, chloride 93, bicarbonate 31, BUN 27, creatinine 0.9 glucose 155, and calcium 8.5. DISCHARGE MEDICATIONS: 1. DuoNeb 3 mL inhaler every 4 hours. Patient has been instructed to use it for at least 5 more days and then as needed. 2. Eliquis 5 mg p.o. b.i.d. 3. BuSpar 10 mg p.o. t.i.d. 4. Carvedilol 12.5 mg p.o. b.i.d. 5. Prozac 20 mg p.o. daily. 6. Lasix 120 mg p.o. at bedtime. 7. Mucinex 1200 mg p.o. q.12 hours. 8. Atarax 25 mg p.o. at bedtime. 9. NovoLog 45 units subcutaneous b.i.d. 10. Levemir 81 units subcu b.i.d. 11. Imdur 60 mg p.o. at bedtime. 12. Levaquin 500 mg p.o. daily, 13. Linzess 145 mcg p.o. daily. 14. Cozaar 50 mg p.o. at bedtime. 15. Asmanex 220 mcg inhaler twice a day. 16. Morphine sulfate 30 mg p.o. t.i.d. 17. Pantoprazole 40 mg p.o. at bedtime. 18. Spironolactone 25 mg p.o. at bedtime. 19. Spiriva Respimat 18 mcg inhaled daily. TIME SPENT: Time discharging this patient 35 minutes. cc: Blair Rivas MD
== END 2019-05-16 13:16 | disposition home health service (06) | DRG 190 ==
LOC: SUATTDRO 09:54 → DIRADM 09:54 → EDIPHOLD 11:38 → 3N 17:17
PROVIDERS: ATTEND Internal Medicine

== ENCOUNTER 2019-07-18 12:26 | Inpatient (IN) ==
[2019-07-18] MEDS ORDERED: ASPIRIN PO ONE (13:04)
--- NOTE | 2019-07-18 13:19 | PROVIDER DOCUMENTATION ---
HPI-Screening - General Chief Complaint: Flu Symptoms Stated Complaint: HP, SOB WEAKNESS, FEVER MALE Time Seen by Provider: 07/18/19 13:16 Source: patient, family Allergies/Adverse Reactions: Allergies Allergy/AdvReac Type Severity Reaction Status Date / Time No Known Allergies Allergy Verified 06/01/19 07:06 Home Medications: Home Medication List Medication Instructions Recorded Confirmed Last Taken Type Buspirone [Buspar] 10 mg PO TID 10/06/16 05/10/19 06/01/19 05:30 History Carvedilol 12.5 mg PO BID 10/06/16 05/10/19 06/01/19 05:30 History Fluoxetine [Prozac] 20 mg PO DAILY 10/06/16 05/10/19 06/01/19 05:30 History Isosorbide Mononitrate [Imdur] 60 mg PO QHS 10/06/16 05/10/19 05/31/19 19:00 History Losartan [Cozaar] 50 mg PO HS 10/06/16 05/10/19 05/31/19 19:00 History Spironolactone 25 mg PO QHS 10/06/16 05/10/19 05/31/19 19:00 History Hydroxyzine [Atarax] 25 mg PO QHS 03/04/18 05/10/19 05/31/19 19:00 History Insulin Aspart [Novolog] 45 unit SQ BID 03/04/18 05/10/19 05/31/19 19:00 History Mometasone Furoate 220 Mcg INH 0.5 inhaler INH BID 03/04/18 05/10/19 05/31/19 19:00 History [Asmanex 220 Microgm Inhaler] Morphine Sulfate 30 mg PO TID 03/04/18 05/10/19 06/01/19 05:30 History Apixaban [Eliquis] 5 mg PO BID 05/19/18 06/01/19 05/29/19 History Furosemide [Lasix] 80 mg PO QHS 05/19/18 06/01/19 05/31/19 19:00 History Insulin Detemir [Levemir] 84 unit SUBQ BID 05/19/18 05/10/19 05/31/19 19:00 History Pantoprazole [Protonix] 40 mg PO QHS 05/19/18 05/10/19 05/31/19 19:00 History Tiotropium [place] [Spiriva 18 mcg IH DAILY 06/29/18 06/01/19 05/31/19 09:00 History Respimat] Linaclotide [Linzess] 145 mcg PO DAILY 09/22/18 06/01/19 05/31/19 09:00 History Albuterol 2.5MG/Ipratrop 0.5MG 3 ml INH RTQ4H #100 neb 05/16/19 06/01/19 05/31/19 19:00 Rx [Duoneb (A & A)] Guaifenesin [Mucinex] 1,200 mg PO Q12H #14 tab.er.12h 05/16/19 06/01/19 05/31/19 19:00 Rx Furosemide [Lasix] 120 mg PO DAILY 06/01/19 06/01/19 06/01/19 05:30 History Patient arrived via EMS?: No HPI: Pt. is 69 yom that presents with c/o SOB and feeling bad all over. He reports he saw Dr. Rodarte yesterday and had a CXR but doesn't know the results. Physical Exam-Screening - CONSTITUTIONAL General Appearance: alert, moderate distress, obese. negative: anxious, obtunded, combative - RESPIRATORY Respiratory: no accessory muscle use, rhonchi. negative: crackles, stridor - SKIN Integumentary: diaphoresis, pallor. negative: cyanosis, erythema, mottled, swelling - PSYCHIATRIC Psych/Mental Status: negative: depressed affect, paranoid, tearful Screening Depart - Departure ED Screening Disposition: Continued in ED for Treatment Date of Disposition Decision: 07/18/19 Time of Disposition Decision: 13:18 DIAGNOSIS: Shortness of breath Disposition: STILL A PATIENT 30 Certified Medical Emergency: Emergent Condition: Stable Referrals and Follow-Ups: Seven Dawson MD [Primary Care Provider] - Attestation - Physician/ ABBY Attestation Patient care was provided by Advanced Practice Provider:: Yes Advanced Practice Provider:: [place] Advanced Practice Provider documentation review:: The Mid-level provider documentation, treatment plan and medical decision making was reviewed by the physician who agrees with all treatment and medical decision making by the [facility]. The physician spent face to face time with patient:: No Advanced Practice Provider documentation review:: Supervising physician onsite and consulted in the evaluation and care of this patient. The physician did not have a face to face encounter with the patient.
--- NOTE | 2019-07-18 13:28 | EKG Report ---
Test Performed on : 07/18/2019 1:18:26 PM Test Reason : sob Blood Pressure : / mmHG Vent. Rate : 118 BPM Atrial Rate : 115 BPM P-R Int : 000 ms QRS Dur : 206 ms QT Int : 420 ms P-R-T Axes : 000 -78 084 degrees QTc Int : 588 ms Ventricular-paced rhythm Abnormal ECG When compared with ECG of 14-MAY-2019 09:26, Vent. rate has increased BY 37 BPM Unconfirmed Result
--- NOTE | 2019-07-18 14:45 | Diag Imaging Result Doc PS360 ---
CHEST-2 VIEWS - 07/18/2019 INDICATION: sob COMPARISON: 07/17/2019 FINDINGS: There is new dense infiltrate in the right lower lobe. Stable right chest port and left-sided pacemaker. Heart size remains borderline enlarged. Stable mild pulmonary vascular congestion. No pneumothorax or pleural effusion. IMPRESSION: Right lower lobe bronchopneumonia. Electronically signed by Brandon Gauthier 07/18/2019 2:42 PM
[2019-07-18 15:28] LABS: BASO# 0.03 X1000 (0.0-0.2); BASO% 0.1 % (0.0-0.8); EOS# 0.01 X1000 (0.0-0.7); HEMATOCRIT 41.7 % (42.0-52.0); HEMOGLOBIN 13.2 g/dL (14.0-18.0); IMM GRAN# 0.08 X1000 (0.0-0.04); IMM GRAN% 0.3 % (0.0-0.5); INR 1.31; LYMPH% 3.2 % (20.5-51.1); MCH 24.9 PG (27-31); MCHC 31.7 g/dL (33-37); MCV 78.7 FL (81-99); MONO# 1.39 X1000 (0.11-0.59); MONO% 5.5 % (1.7-9.3); MPV 11.8 FL (7.4-10.4); NEUT# 22.86 X1000 (1.4-6.5); NEUT% 90.9 % (42.2-75.2); PLT 135 X1000 (130-400); PROTIME 16.5 Seconds (11.0-16.0); WBC 25.17 X1000 (4.8-10.8)
[2019-07-18 15:53] LABS: AGAP 18; ALB/GLOB RATIO 1.4; ALKALINE PHOSPHATASE 115 U/L (32-122); BUN 21 mg/dL (8-22); CALCIUM 9.5 mg/dL (8.8-10.2); CHLORIDE 93 mmol/L (98-107); CK PROFILE 46 U/L (24-204); COSMO 284; ESTIMATED GFR > 60; GLUCOSE 193 mg/dL (70-104); GOT 11 U/L (10-34); GPT 11 U/L (10-44); SODIUM 138 mmol/L (136-145); TCO2 27 mmol/L (25-35); TOTAL BILIRUBIN 0.93 mg/dL (0.20-1.00); TOTAL PROTEIN 6.9 g/dL (6.3-8.3)
[2019-07-18] MEDS ORDERED: DUONEB (A & A) INH ONE (16:21)
--- NOTE | 2019-07-18 16:33 | PROVIDER DOCUMENTATION ---
HPI-Respiratory General - General Chief Complaint: Flu Symptoms Stated Complaint: HP, SOB WEAKNESS, FEVER Time Seen by Provider: 07/18/19 13:16 Source: patient, family (Spouse) Allergies/Adverse Reactions: Patient Allergies Allergy/AdvReac Type Severity Reaction Status Date / Time No Known Allergies Allergy Verified 07/18/19 22:46 Home Medications: Home Medication List Medication Instructions Recorded Confirmed Last Taken Type Buspirone [Buspar] 10 mg PO TID 10/06/16 07/18/19 06/01/19 05:30 History Carvedilol 12.5 mg PO BID 10/06/16 07/18/19 06/01/19 05:30 History Fluoxetine [Prozac] 20 mg PO DAILY 10/06/16 07/18/19 06/01/19 05:30 History Isosorbide Mononitrate [Imdur] 60 mg PO QHS 10/06/16 07/18/19 05/31/19 19:00 History Losartan [Cozaar] 50 mg PO HS 10/06/16 07/18/19 05/31/19 19:00 History Spironolactone 25 mg PO QHS 10/06/16 07/18/19 05/31/19 19:00 History Hydroxyzine [Atarax] 25 mg PO QHS 03/04/18 07/18/19 05/31/19 19:00 History Insulin Aspart [Novolog] 32 unit SQ BID 03/04/18 07/18/19 05/31/19 19:00 History Mometasone Furoate 220 Mcg INH 0.5 inhaler INH BID 03/04/18 07/18/19 05/31/19 19:00 History [Asmanex 220 Microgm Inhaler] Morphine Sulfate 30 mg PO TID PRN 03/04/18 07/18/19 06/01/19 05:30 History Apixaban [Eliquis] 5 mg PO BID 05/19/18 07/18/19 05/29/19 History Furosemide [Lasix] 80 mg PO QHS 05/19/18 07/18/19 05/31/19 19:00 History Insulin Detemir [Levemir] 70 unit SUBQ BID 05/19/18 07/18/19 05/31/19 19:00 History Pantoprazole [Protonix] 40 mg PO QHS 05/19/18 07/18/19 05/31/19 19:00 History Tiotropium [place] [Spiriva 18 mcg IH DAILY 06/29/18 07/18/19 05/31/19 09:00 History Respimat] Linaclotide [Linzess] 145 mcg PO DAILY 09/22/18 07/18/19 05/31/19 09:00 History Guaifenesin [Mucinex] 1,200 mg PO Q12H #14 tab.er.12h 05/16/19 06/01/19 05/31/19 19:00 Rx - History of Present Illness-Resp Nature of Presenting Problem: 69 yo M w/ PMH of recurrent pneumonia (most recent admission 04/2019, discharged on Levaquin), h/o pneumonia 2/2 ESBL E. coli (08/2018) and MDRO, recurrent urinary tract infections including UTI 2/2 pseudomonas, COPD with frequent exacerbations, chronic hypoxemic respiratory failure on home O2 (4 lpm), [place] previously on BiPAP, CAD, chronic CHF s/p PPM, chronic aFib on Eliquis, type 2 DM, and HTN; patient presents to the ED c/o several days of subjective fever, chills, worsening productive cough (dark green flegm), malaise/fatigue, and worsening sob (unable to walk more than 4-5 ft w/o sob, at baseline patient can walk > 5 ft before becoming sob). He denies CP, LOC, N/V or diarrhea. Quality of Pain: reports: none Cough Quality/Degree: reports: severe, sputum (Dark green) Episode Frequency: frequent episodes Current Respiratory Medication Therapy: Initiated see nurses note Modifying Factors: improves with: nothing. worse with: exertion Associated Symptoms: reports: dizziness, flu-like symptoms, short of breath, wheezing Similar Symptoms Previously?: Yes (Several times ) Recently seen or treated by another doctor?: Yes (See HPI) Review of Systems - Adult - REVIEW OF SYSTEMS - ADULT Constitutional: reports: chills, fever, fatique. denies: weight gain Eyes: reports: no symptoms reported Ears, Nose, Mouth & Throat: reports: no symptoms reported Cardiovascular: reports: edema, orthopnea. denies: chest pain, palpitations, PND, syncope Respiratory: reports: see HPI, chronic cough (with acute worsening), dyspnea on exertion, excessive sputum production, shortness of breath, wheezing Gastrointestinal: reports: no symptoms reported Genitourinary: reports: no symptoms reported Musculoskeletal: reports: no symptoms reported Integumentary: reports: no symptoms reported Neurological: reports: no symptoms reported Psychiatric: reports: no symptoms reported Endocrine: reports: no symptoms reported Hematologic/Lymphatic: reports: no symptoms reported Allergic/Immunologic: reports: no symptoms reported All Other Systems: Reviewed and Negative Past History - Adult - PAST MEDICAL HISTORY-ADULT Review of Records: reports: Old Records Reviewed, Nursing Assessment Review, Med ications Reviewed, Social history reviewed & non-contributory. Major Childhood Illnesses: reports: denies history Cardiovascular: reports: A-Fib, arrhythmia (with cardiac ablation), CAD, HTN, hyperlipidemia, [place] Respiratory: reports: asthma, COPD (on 4 Liters NC), pneumonia Gastrointestinal: reports: denies history Genitourinary: reports: kidney stones Musculoskeletal: reports: denies history Neurological: reports: denies history Endocrine/Immune: reports: Diabetes Diabetes Type: Type 2 Other Conditions: reports: other (sleep apnea) - PRIOR SURGERIES/PROCEDURES Surgical/Procedure History: reports: CABG, pacemaker, other (ablation) - IMMUNIZATION STATUS Childhood Immunizations: See Nurse Assessment Flu Vaccine: See Nurse Assessment - FAMILY HISTORY Family History: reviewed, not pertinent Physical Exam-General - PHYSICAL EXAM-ADULT Initial Vital Signs Reviewed: Yes (Tachycardic, tachypnic, SPO2 95% on 4 lpm NC) - CONSTITUTIONAL General Appearance: alert, no apparent distress, obese, other (Ill-appearing) - EYES Eyes: PERRL/EOMI - HEAD, EARS, NOSE, MOUTH & THROAT HENMT: normocephalic/atraumatic, moist mucous membranes - NECK Neck: supple - RESPIRATORY Respiratory: chest non-tender, crackles (Diffuse), wheezing (Scattered). negative: pain on inspiration - CARDIOVASCULAR Cardiovascular: regular rate, rhythm, systolic murmur, gallop/S3. negative: JVD - CHEST (BREASTS) Chest/Breast: other (Right chest port, left-sided pacemaker, no evidence of overlying skin infection) - GASTROINTESTINAL (ABDOMEN) Abdominal Exam: normal bowel sounds, non tender, soft, other (Obese) - LYMPHATIC Lymphatic: no adenopathy - MUSCULOSKELETAL Back Exam: no CVA tenderness Extremity: no calf tenderness, pedal edema (+2 lower legs (below knee level bilaterally)) - SKIN Integumentary: normal color, normal turgor, warm/dry - NEUROLOGIC Neurologic: grossly normal - PSYCHIATRIC Psych/Mental Status: oriented x 3 Progress - PLAN OF CARE/RESULTS Progress/Plan/Lab Results: Vital Signs - 8 hr 07/18/19 16:46 Pulse Rate 118 H Respiratory Rate 22 07/18/19 16:20 - Final Sputum 07/18/19 14:10 Influenza Screen - Final Nasopharyngeal Laboratory Results - last 24 hr 07/18/19 07/18/19 07/18/19 14:40 14:40 14:40 WBC 25.17 H RBC 5.30 Hgb 13.2 L Hct 41.7 L MCV 78.7 L MCH 24.9 L MCHC 31.7 L RDW Std Deviation 14.0 Plt Count 135 MPV 11.8 H Immature Gran % (Auto) 0.3 Neut % (Auto) 90.9 H Lymph % (Auto) 3.2 L Hamb[place] % (Auto) 5.5 Eos % (Auto) 0.0 Baso % (Auto) 0.1 Immature Gran # (Auto) 0.08 H Neut # (Auto) 22.86 H Lymph # (Auto) 0.80 L Hamblen # (Auto) 1.39 H Eos # (Auto) 0.01 Baso # (Auto) 0.03 PT INR PTT (Actin FS) Specimen Type Sample Site pH pCO2 pO2 HCO3 Base Excess Oxyhemoglobin ABG O2 Sat (Calculated) ABG O2 Saturation ABG Carboxyhemoglobin ABG Methemoglobin Dominguez Test A-a O2 Difference Total Hemoglobin Lactate Liter Flow Blood Gas Modality FiO2 % Sodium 138 Potassium 4.0 Chloride 93 L Carbon Dioxide 27 Anion Gap 18 BUN 21 Creatinine 1.0 Estimated GFR/1.73 m2 > 60 BUN/Creatinine Ratio 21 Glucose 193 H POC Glucose Calculated Osmolality 284 Calcium 9.5 Total Bilirubin 0.93 AST 11 ALT 11 Alkaline Phosphatase 115 Creatine Kinase 46 Troponin T Pay-Z-Fobyxorpeps Pept 295 H Total Protein 6.9 Albumin 4.0 Globulin 2.9 Albumin/Globulin Ratio 1.4 Plasma Lactate Urine Source Urine Color Urine Turbidity Urine pH Ur Specific Hanna Urine Protein Ur Glucose (Stick) Ur Ketones (Stick) Urine Blood Urine Nitrite Urine Bilirubin Urobilinogen Dipstick Urine Leukocytes Urine WBC (Auto) Urine RBC (Auto) U Epithel Cells (Auto) Urine Bacteria (Auto) 07/18/19 07/18/19 07/18/19 14:40 14:40 14:40 WBC RBC Hgb Hct MCV MCH MCHC RDW Std Deviation Plt Count MPV Immature Gran % (Auto) Neut % (Auto) Lymph % (Auto) Hamb[place] % (Auto) Eos % (Auto) Baso % (Auto) Immature Gran # (Auto) Neut # (Auto) Lymph # (Auto) Hamblen # (Auto) Eos # (Auto) Baso # (Auto) PT 16.5 H INR 1.31 PTT (Actin FS) 38.0 Specimen Type Sample Site pH pCO2 pO2 HCO3 Base Excess Oxyhemoglobin ABG O2 Sat (Calculated) ABG O2 Saturation ABG Carboxyhemoglobin ABG Methemoglobin Dominguez Test A-a O2 Difference Total Hemoglobin Lactate Liter Flow Blood Gas Modality FiO2 % Sodium Potassium Chloride Carbon Dioxide Anion Gap BUN Creatinine Estimated GFR/1.73 m2 BUN/Creatinine Ratio Glucose POC Glucose Calculated Osmolality Calcium Total Bilirubin AST ALT Alkaline Phosphatase Creatine Kinase Troponin T < 0.010 Vbf-X-Famsjibplyn Pept Total Protein Albumin Globulin Albumin/Globulin Ratio Plasma Lactate 2.9 H Urine Source Urine Color Urine Turbidity Urine pH Ur Specific Hanna Urine Protein Ur Glucose (Stick) Ur Ketones (Stick) Urine Blood Urine Nitrite Urine Bilirubin Urobilinogen Dipstick Urine Leukocytes Urine WBC (Auto) Urine RBC (Auto) U Epithel Cells (Auto) Urine Bacteria (Auto) 07/18/19 07/18/19 07/18/19 16:19 16:37 18:20 WBC RBC Hgb Hct MCV MCH MCHC RDW Std Deviation Plt Count MPV Immature Gran % (Auto) Neut % (Auto) Lymph % (Auto) Hamb[place] % (Auto) Eos % (Auto) Baso % (Auto) Immature Gran # (Auto) Neut # (Auto) Lymph # (Auto) Hamb[place] # (Auto) Eos # (Auto) Baso # (Auto) PT INR PTT (Actin FS) Specimen Type ARTERIAL Sample Site L RADIAL pH 7.48 H pCO2 44 pO2 63 HCO3 31.2 H Base Excess 8.3 H Oxyhemoglobin 91.3 L ABG O2 Sat (Calculated) 16.8 ABG O2 Saturation 94.9 L ABG Carboxyhemoglobin 2.40 ABG Methemoglobin 1.4 Dominguez Test YES A-a O2 Difference 139.0 Total Hemoglobin 13.1 Lactate 1.50 Liter Flow 4.0 Blood Gas Modality CANNULA FiO2 % 36.0 Sodium Potassium Chloride Carbon Dioxide Anion Gap BUN Creatinine Estimated GFR/1.73 m2 BUN/Creatinine Ratio Glucose POC Glucose 212 H Calculated Osmolality Calcium Total Bilirubin AST ALT Alkaline Phosphatase Creatine Kinase Troponin T Thl-L-Heputirevfx Pept Total Protein Albumin Globulin Albumin/Globulin Ratio Plasma Lactate 2.5 H Urine Source Urine Color Urine Turbidity Urine pH Ur Specific Hanna Urine Protein Ur Glucose (Stick) Ur Ketones (Stick) Urine Blood Urine Nitrite Urine Bilirubin Urobilinogen Dipstick Urine Leukocytes Urine WBC (Auto) Urine RBC (Auto) U Epithel Cells (Auto) Urine Bacteria (Auto) 07/18/19 07/18/19 07/18/19 18:32 19:42 22:57 WBC RBC Hgb Hct MCV MCH MCHC RDW Std Deviation Plt Count MPV Immature Gran % (Auto) Neut % (Auto) Lymph % (Auto) [place] % (Auto) Eos % (Auto) Baso % (Auto) Immature Gran # (Auto) Neut # (Auto) Lymph # (Auto) Hamb[place] # (Auto) Eos # (Auto) Baso # (Auto) PT INR PTT (Actin FS) Specimen Type Sample Site pH pCO2 pO2 HCO3 Base Excess Oxyhemoglobin ABG O2 Sat (Calculated) ABG O2 Saturation ABG Carboxyhemoglobin ABG Methemoglobin Dominguez Test A-a O2 Difference Total Hemoglobin Lactate Liter Flow Blood Gas Modality FiO2 % Sodium Potassium Chloride Carbon Dioxide Anion Gap BUN Creatinine Estimated GFR/1.73 m2 BUN/Creatinine Ratio Glucose POC Glucose 364 H D Calculated Osmolality Calcium Total Bilirubin AST ALT Alkaline Phosphatase Creatine Kinase Troponin T Kpj-M-Sqekymjwomq Pept Total Protein Albumin Globulin Albumin/Globulin Ratio Plasma Lactate 2.1 Urine Source CLEAN CATCH Urine Color YELLOW Urine Turbidity CLEAR Urine pH 5.5 Ur Specific Hanna 1.016 Urine Protein 70 A Ur Glucose (Stick) NEGATIVE Ur Ketones (Stick) NEGATIVE Urine Blood TRACE A Urine Nitrite NEGATIVE Urine Bilirubin NEGATIVE Urobilinogen Dipstick NORMAL Urine Leukocytes NEGATIVE Urine WBC (Auto) <10 Urine RBC (Auto) <10 U Epithel Cells (Auto) <10 Urine Bacteria (Auto) NEGATIVE Orders Category Date Time Status Oxygen Therapy- ED Nursing DIRECTED Care 07/18/19 13:04 Active Saline Loc NOW Care 07/18/19 13:04 Active Saline Loc NOW Care 07/18/19 16:24 Active Straight Catheterization ORDERED Care 07/18/19 17:27 Active CHEST-2 VIEWS [RAD] Stat Exams 07/18/19 13:04 Completed ABG [RESP] Routine Lab 07/18/19 16:37 Completed BLOOD CULTURE [BLDCUL] Stat Lab 07/18/19 16:56 Results CBC WITH ELECTRONIC DIFF [HEME] Stat Lab 07/18/19 14:40 Completed CK PROFILE [SP CHEM] Stat Lab 07/18/19 14:40 Completed COMPREHENSIVE METABOLIC PANEL [CHEM] Stat Lab 07/18/19 14:40 Completed INFLUENZA SCREEN A/B Stat Lab 07/18/19 14:10 Completed LACTATE, PLASMA [CHEM] Stat Lab 07/18/19 14:40 Completed LACTATE, PLASMA [CHEM] Stat Lab 07/18/19 18:20 Completed LACTATE, PLASMA [CHEM] Stat Lab 07/18/19 19:42 Completed LEGIONELLA AG URINE [HOUMA] Stat Lab 07/18/19 18:32 Received PRO B-NATRIURETIC PEPTIDE Stat Lab 07/18/19 14:40 Completed PROTIME WITH INR [COAG] Stat Lab 07/18/19 14:40 Completed PTT [COAG] Stat Lab 07/18/19 14:40 Completed SPUTUM CULTURE WITH GRAM STAIN [RM] Routine Lab 07/18/19 16:20 Results STREP PNEUMO AG URINE [HOUMA] Stat Lab 07/18/19 18:32 Received TROPONIN T Stat Lab 07/18/19 14:40 Completed URINALYSIS [URINALYSIS] Stat Lab 07/18/19 18:32 Completed 0.9% Sodium Chloride Inj [Ns] 1,000 ml Med 07/18/19 18:13 Active IV 75 mls/hr Albuterol 2.5MG/Ipratrop 0.5MG [Duoneb (A & A)] Med 07/18/19 16:21 Disconti nued 3 ml INH NOW ONE Aspirin Med 07/18/19 13:04 Discontinued 325 mg PO NOW ONE Levofloxacin 750 mg/D5w [Levaquin 750 mg/D5w] Med 07/18/19 18:30 Active 750 mg in 150 ml IV Q24H Methylprednisolone Sod Succ [Solu-Medrol] Med 07/18/19 17:25 Discontinued 125 mg IV NOW ONE Piperacillin/Tazobactam [Zosyn] 4.5 gm Med 07/18/19 18:20 Discontinued 0.9% Sodium Chloride Inj [Ns] 100 ml IV NOW Vancomycin 1 gm/Ns Med 07/18/19 18:20 Discontinued 1 gm in 250 ml IV NOW Aerosol Treatments Routine Oth 07/18/19 16:25 Completed Aerosol Treatments Stat Oth 07/18/19 16:25 Completed CP/SOB/Palp >45 yrs of Age Stat Oth 07/18/19 13:04 Ordered Pulse Oximetry Stat Oth 07/18/19 16:24 Completed EKG [EKG] Stat Ther 07/18/19 13:04 Draft Transfer/Admit Order [TRANSFER] Routine Transfer 07/18/19 22:29 Ordered Contacted ID. Result Diagrams: 07/18/19 14:40 07/18/19 14:40 - EKG 1 Time of EKG reading by physician:: 13:18 EKG Read and Signed by:: Mariaelena Infante Rate: 118 Rhythm: Ventricular paced rhythm [place]: left QRS: other (Paced rhythm) - XRAY 1 XRAY Study: Chest Impression: See EMR Report (CHEST-2 VIEWS - 07/18/2019 INDICATION: sob COMPARISON: 07/17/2019 FINDINGS: There is new dense infiltrate in the right lower lobe. Stable right chest port and left-sided pacemaker. Heart size remains borderline enlarged. Stable mild pulmonary vascular congestion. No pneumothorax or pleural effusion. IMPRESSION: Right lower lobe bronchopneumonia. Electronically signed by Brandon Gauthier 07/18/2019 2:42 PM) - CONSULTS/PCP/HOSPITALIST Notification #1 *Consult/PCP/Hospitalist*: Infectious disease specialist Time Discussed: 17:45 (For antibiotic recommendations in light of h/o recurrent PNA, ESBL E coli PNA, and extensive antibiotic treatment within the past year) Reason/Comments: Unable to reach at this time Consult Disposition: other #2 Consult: Hospitalist Time Discussed: 18:35 Consult Disposition: Admit Departure - Departure Date of Disposition Decision: 07/18/19 Time of Disposition Decision: 17:12 DIAGNOSIS: Bronchopneumonia, COPD exacerbation, Shortness of breath, Chronic a-fib, Pacemaker, Sepsis due to pneumonia, Recurrent bacterial pneumonia, History of infection due to ESBL Escherichia coli Acute and chronic respiratory failure Qualifiers: Respiratory failure complication: hypoxia Qualified Code(s): J96.21 - Acute and chronic respiratory failure with hypoxia Diabetes type 2, uncontrolled Qualifiers: Glycemic state: with hyperglycemia Qualified Code(s): E11.65 - Type 2 diabetes mellitus with hyperglycemia Chronic heart failure Qualifiers: Heart failure type: unspecified Qualified Code(s): I50.9 - Heart failure, unspecified Leukocytosis Qualifiers: Leukocytosis type: other Qualified Code(s): D72.828 - Other elevated white blood cell count Disposition: ADMITTED INPATIENT 09 Certified Medical Emergency: Emergent Condition: Stable Referrals and Follow-Ups: Seven Dawson MD [ACTIVE STAFF PHYSICIAN] - - Critical Care Note This patient required my direct & personal management of CC.: Yes Total Time (mins): 45 Critical Care Statement: This patient required my direct personal management to treat or rule out processes, the absence of which, could potentiallly result in sudden, clinically significant life or limb threatening deterioration. Attestation - Physician/ ABBY Attestation Patient care was provided by Advanced Practice Provider:: No The physician spent face to face time with patient:: Yes Advanced Practice Provider documentation review:: Supervising physician onsite and consulted in the evaluation and care of this patient. The physician did have a face to face encounter with the patient.
[2019-07-18 16:46] LABS: ALLEN TEST YES; BE 8.3 mmoll (-3.0-3.0); BLOOD TYPE ARTERIAL; HCO3-(ACT) 31.2 mmoll (20.0-26.0); METHB 1.4 % (0.0-1.5); O2(CT) 16.8 mL/dL (15.0-23.0); O2HB 91.3 % (95.0-99.0); PCO2(98.6) 44 mmHg (35-45); PO2(98.6) 63 mmHg (60-100); SAMPLE BLOOD; SAO2 94.9 % (95.0-100.0); THB 13.1 g/dL (11.5-17.4); pH(98.6) 7.48 (7.35-7.45)
[2019-07-18 16:47] LABS: MODALITY CANNULA
[2019-07-18] MEDS ORDERED: SOLU-MEDROL IV ONE (17:25)
[2019-07-18] MEDS ORDERED: NS 1,000 ML IV ONE (18:13)
[2019-07-18] MEDS ORDERED: ZOSYN 4.5 GM in NS 100 ML IV ONE (18:20)
[2019-07-18] MEDS ORDERED: VANCOMYCIN 1 GM/NS 1 GM/250 ML IVPB IV ONE (18:20)
[2019-07-18] MEDS ORDERED: LEVAQUIN 750 MG/D5W 750 MG/150 ML IVPB IV SCH (18:30)
[2019-07-18 18:54] LABS: URINE SOURCE CLEAN CATCH
[2019-07-18 18:58] LABS: BILIRUBIN URINE NEGATIVE (NEGATIVE); BLOOD URINE TRACE (NEGATIVE); COLOR YELLOW; GLUCOSE URINE NEGATIVE (NEGATIVE); KETONE URINE NEGATIVE (NEGATIVE); LEUKOCYTES URINE NEGATIVE (NEGATIVE); NITRITE URINE NEGATIVE (NEGATIVE); PH URINE 5.5; PROTEIN URINE 70 mg/dL (NEGATIVE); SP GRAVITY URINE 1.016; TURBIDITY URINE CLEAR (CLEAR); UR EPITHELIAL CELLS <10 /HPF (<10); URINE BACTERIA NEGATIVE /HPF; URINE RBC <10 /HPF (<10); URINE WBC <10 /HPF (<10); UROBILINOGEN URINE NORMAL (NORMAL)
[2019-07-19] MEDS ORDERED: PROTONIX PO SCH (00:45)
[2019-07-19] MEDS ORDERED: TESSALON PO PRN (00:56)
[2019-07-19] MEDS ORDERED: ZOFRAN IV PRN (00:58)
[2019-07-19] MEDS ORDERED: VANCOMYCIN IV PER PHARMACY MISC SCH (01:00)
[2019-07-19] MEDS ORDERED: MERREM 1 GM in NS 50 ML IV SCH (01:00)
[2019-07-19] MEDS: ELIQUIS PO SCH ×3 (01:41→22:23)
[2019-07-19] MEDS: LEVEMIR SUBQ SCH ×2 (01:41→22:25)
[2019-07-19] MEDS: MS CONTIN PO PRN ×3 (01:42→22:24)
[2019-07-19] MEDS: COREG PO SCH ×3 (01:42→22:23)
[2019-07-19] MEDS: COZAAR PO SCH ×2 (01:42→22:23)
[2019-07-19] MEDS ORDERED: VANCOMYCIN 1,500 MG in NS 250 ML IV ONE (02:00)
[2019-07-19] MEDS: BUSPAR PO PRN ×3 (02:02→22:30)
[2019-07-19] MEDS: HUMULIN R SUBQ SCH ×5 (02:28→22:25)
[2019-07-19] MEDS: DUONEB (A & A) INH SCH ×6 (03:38→22:48)
[2019-07-19 06:59] LABS: BASO# 0.01 X1000 (0.0-0.2); BASO% 0.1 % (0.0-0.8); HEMATOCRIT 38.6 % (42.0-52.0); HEMOGLOBIN 12.2 g/dL (14.0-18.0); IMM GRAN# 0.03 X1000 (0.0-0.04); IMM GRAN% 0.2 % (0.0-0.5); LYMPH# 0.58 X1000 (1.2-3.4); LYMPH% 3.7 % (20.5-51.1); MCH 24.8 PG (27-31); MCHC 31.6 g/dL (33-37); MCV 78.6 FL (81-99); MONO# 0.27 X1000 (0.11-0.59); MONO% 1.7 % (1.7-9.3); MPV 11.8 FL (7.4-10.4); NEUT# 14.97 X1000 (1.4-6.5); NEUT% 94.3 % (42.2-75.2); PLT 135 X1000 (130-400); RBC 4.91 XMIL (4.7-6.1); WBC 15.86 X1000 (4.8-10.8)
[2019-07-19 07:23] LABS: AGAP 15; ALB/GLOB RATIO 1.1; ALBUMIN 3.5 g/dL (3.5-5.0); ALKALINE PHOSPHATASE 97 U/L (32-122); BUN 25 mg/dL (8-22); CHLORIDE 95 mmol/L (98-107); COSMO 291; ESTIMATED GFR > 60; GLUCOSE 397 mg/dL (70-104); GOT 10 U/L (10-34); GPT 9 U/L (10-44); MAGNESIUM 2.1 mg/dL (1.5-2.7); POTASSIUM 3.9 mmol/L (3.5-5.1); SODIUM 135 mmol/L (136-145); TCO2 25 mmol/L (25-35); TOTAL BILIRUBIN 0.73 mg/dL (0.20-1.00); TOTAL PROTEIN 6.8 g/dL (6.3-8.3)
[2019-07-19] MEDS: LASIX PO SCH ×2 (08:53→22:22)
[2019-07-19] MEDS: MUCINEX PO SCH ×2 (08:53→22:22)
[2019-07-19] MEDS: CULTURELLE PO SCH (08:53)
[2019-07-19] MEDS: PROZAC PO SCH (08:53)
[2019-07-19] MEDS: LINZESS PO SCH (08:54)
[2019-07-19] MEDS: DOXYCYCLINE PO SCH ×2 (08:59→22:22)
[2019-07-19] MEDS: MERREM 2 GM in NS 100 ML IV SCH ×2 (10:36→18:22)
[2019-07-19] MEDS ORDERED: NS IV SCH (14:15)
[2019-07-19] MEDS ORDERED: CUBICIN IV SCH (14:15)
[2019-07-19] MEDS: TYLENOL PO PRN (15:23)
[2019-07-19] MEDS ORDERED: TUMS PO ONE (18:03)
--- NOTE | 2019-07-19 18:56 | INFECTIOUS DISEASE PROGRESS NO ---
DATE: 07/19/2019 PRESENT ILLNESS: The patient is admitted to the hospital with a right lower lobe pneumonia. MEDICATIONS: The patient was started on vancomycin and meropenem. PHYSICAL EXAMINATION: Vital Signs: Temperature 98 degrees, pulse 90, respirations 20, and blood pressure 120/60. The patient weighs 343 pounds. General: This is a morbidly obese, chronically ill-appearing elderly male. He seems to be dyspneic even at rest. Head/eyes/ears/nose/throat: He has decreased hearing. He can see near objects. He does have an ulcerated area on his oral mucosa. He does not have any white patches in his mouth. Neck: No meningismus. Lungs: Bilateral rhonchi. Cardiovascular: Heart rate is regular. Thorax: The patient has an increased AP diameter of the chest. He also has a right-sided Port-A-Cath in place. Cardiovascular: Heart rate is regular. Abdomen: Soft and not tender. Extremities: The patient has edema but no erythema of the legs. Neurologic: The patient is awake, He is able to ambulate. There is no tremor. LABORATORY AND X-RAY: Chest x-ray shows right lower lobe pneumonia. [place] [address], hemoglobin 12.2, and platelet count is 135,000. Creatinine is 1. GFR is greater than 60. Liver function studies are normal. Urinalysis showed no white cells or bacteria. Sputum Gram stain is showing gram-positive cocci and gram-negative rods. Sputum culture is pending. ASSESSMENT AND PLAN: Patient has pneumonia. He had just finished receiving meropenem. He initially had symptoms somewhat similar to what he has now. He tells me that he got better on the meropenem, but when he finished it, he got worse again. Therefore, I am going to restart meropenem, but this time I have increased the dose to 2 g IV every 8 hours. I am awaiting for the results of the patient's sputum culture on Gram stain, gram-positive cocci and gram-negative rods were seen. I was going to give the patient Zyvox, but it has too many interactions with some of the other medications the patient is taking. Therefore, I am going to start the patient on doxycycline for culture of methicillin-resistant Staph aureus in case that is what the patient has. COMORBIDITIES: Patient has chronic obstructive pulmonary disease, bronchiectasis, diabetes mellitus, ischemic cardiomyopathy, morbid obesity, and obstructive sleep apnea. The patient also has a history of atrial fibrillation. He does not appear to be in atrial fibrillation now. cc: Darryl Downs MD
--- NOTE | 2019-07-19 19:28 | HISTORY AND PHYSICAL ---
PRIMARY CARE PROVIDER: Dr. Jennifer Jean Baptiste in the OR in [place]. DECAL CUTTER: Dr. Dawson. KIDNEY TRIMMER: Dr. Nino. DATE AND TIME: 07/18/2019 at 2130. CHIEF COMPLAINT: Shortness of breath. HISTORY OF PRESENT ILLNESS: Mr. Bell is a 69-year-old, male, with multiple medical problems. Most pertinent is that he has a history of frequent episodes of pneumonia. Most recently, he did have a sputum culture that was positive for E. coli, Pseudomonas, and was ESBL positive as well. He did get discharged home with antibiotic of Levaquin and meropenem. Dr. Downs of Infectious Disease with treating him for this as well. The patient states that he has not been feeling well over the past 2 days, and has had worsening pneumonia as well as productive cough with brownish colored sputum. He states that he has had chills and body aches as though he is running a fever. He did see his artificial breeding technician, Dr. Dawson, approximately yesterday or the day before, and did receive a chest x-ray, though he states he does not know the results, but Dr. Dawson told him that his lung sounded really bad. Due to not feeling well, he did go ahead and present to the ER for further evaluation. He was noted to have leukocytosis with a white blood cell count of 25,170. Arterial blood gases did show some very mild alkalosis at 7.48, though pCO2 is 44, PO2 is 63, HC03 is 31.2, with O2 saturation of 94.9. Chemistries were pretty unremarkable, except for his glucose was elevated, though he is a diabetic. Though, cardiac enzymes are within normal limits and proBNP was 295. The patient denies any headache, dizziness, or feeling lightheaded. He denies any chest pain. He denies any abdominal pain or worsening abdominal swelling. He denies any nausea, vomiting. He does have chronic problems with constipation. He denies any hematochezia or melena. He denies any dysuria. He denies any worsening pain, numbness, tingling, or swelling in extremities. Chest x-ray in the ER, did show a right lower lobe bronchopneumonia. He is maintaining adequate oxygen saturations on his regular nasal cannula at 4 L of oxygen. He will be admitted for further treatment and evaluation of his pneumonia. REVIEW OF SYSTEMS: A 14-point review of systems was conducted with the patient and all were negative, except for pertinent positives mentioned above in HPI. PAST MEDICAL HISTORY: 1. Recurrent episodes of pneumonia as mentioned above in the HPI. 2. COPD with severe bronchiectasis, followed by Dr. Nino. He is on continuous home oxygen of 4 L per nasal cannula. 3. Chronic hypoxic respiratory failure, on continuous oxygen. 4. Gastroesophageal reflux disease. 5. Chronic atrial fibrillation, on anticoagulation with Eliquis. 6. Ischemic cardiomyopathy with a most recent known ejection fraction of 60% in August 2018. 7. Coronary artery disease, status post coronary artery bypass graft. 8. Obstructive sleep apnea, though the patient reports that he does not wear CPAP. 9. Morbid obesity. 10. Diabetes mellitus type 2, insulin dependent. 11. Hypertension. 12. Hyperlipidemia. 13. Chronic pain syndrome. 14. Depression. 15. History of multi-drug resistant Pseudomonas, followed by Dr. Downs. 16. History of osteoarthritis. 17. History of DVT and pulmonary emboli back in his early 20s. 18. Seasonal allergies. 19. History of exposure to asbestos and Agent [place]. 20. Untreated umbilical hernia. PAST SURGICAL HISTORY: 1. Coronary artery bypass grafting. 2. Permanent pacemaker placement in 2004, secondary to bradycardia. 3. Cardiac ablation. 4. Bilateral leg surgery secondary to traumatic injury in his 20s. 5. Lumbar spine surgery. 6. Port placement. 7. Skin graft on his legs. 8. Recent lithotripsy, I believe was in late May or early June 2019. SOCIAL HISTORY: The patient is a previous 3-pack per day smoker. He started smoking at age 13, though quit in 1989. He rarely drinks, maybe 2 beers a year. There is no known alcohol or illicit drug use. FAMILY HISTORY: Positive for lung cancer in his mother at age 36. His grandmother had lung cancer as well. His father with a heart attack at age 68. He has 3 brothers with heart disease, 2 of them having to undergo cardiac surgery. ALLERGIES: Patient has no known allergies. HOME MEDICATIONS: 1. Eliquis 5 mg p.o. b.i.d. 2. BuSpar 10 mg p.o. t.i.d. 3. Carvedilol 12.5 mg p.o. b.i.d. 4. Prozac 20 mg daily. 5. Lasix 80 mg p.o. every morning. 6. Lasix 120 mg p.o. at bedtime. 7. Mucinex 1200 mg p.o. q.12 hours. 8. Atarax 25 mg p.o. at bedtime. 9. NovoLog 32 units subcutaneously b.i.d. 10. NovoLog 28 units at lunch. 11. Levemir 70 units subcutaneously b.i.d. 12. Imdur 60 mg p.o. at bedtime. 13. Linzess 145 mcg p.o. daily. 14. Cozaar 50 mg p.o. at bedtime. 15. Asmanex 220 mcg inhaler use as directed twice daily. 16. Morphine sulfate 30 mg p.o. t.i.d. p.r.n. for pain. 17. Protonix 40 mg p.o. at bedtime. 18. Spirolactone 25 mg p.o. at bedtime. 19. Spiriva 18 mcg daily inhaled as directed. DIAGNOSTIC DATA/LABORATORY RESULTS: White blood cell count is 25,170, hemoglobin is 13.2, hematocrit 41.7, platelet count is 135,000. PT 16.5, INR 1.31, PTT is 38. Sodium 138, potassium 4, chloride 93, serum bicarbonate is 27, BUN 21, creatinine 1, GFR is greater than 60, glucose 193, calcium 9.5, magnesium is 2.1. Liver function tests are within normal limits. CK 46, troponin less than 0.01. ProBNP is 295. Arterial blood gases were obtained on FiO2 of 36%, pH was 7.48, pCO2 of 44, PO2 of 63, HC03 of 31.2, base excess is 8.3, with an O2 saturation 94.9. Urinalysis obtained via clean catch was positive for protein and trace blood. It was negative for glucose, ketones, nitrites, leukocytes, white blood cells, or bacteria. EKG showed a ventricular paced rhythm at a rate of 118 with a QTc of 588. Chest x-ray did show a right lower lobe bronchopneumonia. PHYSICAL EXAMINATION: VITAL SIGNS: Temperature 97.7 degrees, heart rate 96, respirations 22, blood pressure is 138/66, with a MAP of 84, oxygen saturation is 90% to 94% on nasal cannula at 4 L. GENERAL: Mr. Bell is a very pleasant, 69-year-old, male. He was resting in a bedside chair. Upon my evaluation in the ER, he was in no acute distress. He was awake, alert, and able to answer questions appropriately. HEENT: Head is atraumatic, normocephalic. Pupils are equal, round, reactive to light, are 3 mm bilaterally and brisk. Oral mucosa is moist. Oropharynx is clear. NECK: Supple. Trachea midline. CARDIOVASCULAR: Patient has S1-S2 present. No murmurs, gallops, rubs appreciated. Regular rate and rhythm. PULMONARY: Patient has symmetrical chest expansion bilaterally. Lung sounds in bilateral full ann did have a combination of coarse rhonchi and crackles. ABDOMEN: Soft. Does not appear to be distended, though the patient does have a protuberant abdomen noted. He is nontender upon palpation. Bowel sounds are present in all 4 quadrants. EXTREMITIES: No cyanosis noted. The patient does have some chronic edema of bilateral lower extremities that is, I would say, trace edema. He states this has not worsened. Pulse, motor, and sensory is intact in all extremities. Radial and pedal pulses are 2+ bilaterally. INTEGUMENTARY: The patient's skin is pink, warm, and dry. NEUROLOGICAL: The patient is alert and oriented to person, place, time, and situation. He is able to move all extremities. There are no focal neurological deficits noted. ASSESSMENT AND PLAN: 1. Healthcare-associated pneumonia with recent sputum culture that was positive for extended spectrum beta-lactamase. The patient did just recently get discharged after receiving a round of meropenem and Levaquin. We will continue with antibiotic treatment with vancomycin and meropenem. Blood cultures and sputum culture have been obtained. We will continue with aggressive pulmonary toilet with scheduled DuoNeb treatments, incentive spirometry, frequent encouragement for cough, turn, and deep breathing. We have added on Mucinex as well. We will continue with supplemental oxygen nasal cannula at 2 L continuously. We have placed a consult with Dr. Downs with Infectious Disease. We will await his evaluation and further recommendations for assistance with antibiotic course. 2. Chronic obstructive pulmonary disease and chronic hypoxic respiratory failure. We will continue the patient on continuous nasal cannula 4 L as he does at home. Also, we will continue with treatment as mentioned above for #1. 3. Ischemic cardiomyopathy with last known ejection fraction of 60%. 4. History of coronary artery disease. For #3 and #4, we will continue the patient's regularly prescribed cardiac medications. He does not appear to be in exacerbation or fluid overload at this time. He did receive 1 L of normal saline at 75 mL/h initially in the ER, though we will continue the patient's regularly prescribed Lasix doses orally in the morning. We will do strict intake and output and daily weights. 5. Chronic atrial fibrillation. We will continue his regularly prescribed medication of Coreg. We will also continue his Eliquis. 6. History of deep vein thrombosis and pulmonary embolism. We will continue his Eliquis as previously prescribed. 7. Diabetes mellitus. We have continued the patient's Levemir. We will place him on a sliding scale insulin, will do patterned fingerstick blood sugars. 8. Chronic pain. We will continue his regularly prescribed pain medications. 9. History of frequent problems with constipation. We have continued his regularly prescribed bowel regimen. 10. Deep vein thrombosis prophylaxis will be provided with previously mentioned Eliquis. He has been placed on the medical floor with telemetry. He will have vital signs q.4 hours, with strict intake and output and incentive spirometry. He will be on a diabetic and heart healthy diet. We will repeat CBC and CMP in the morning. Further orders and recommendations pending hospital course, diagnostic studies, and physician evaluation. Dictated by HORTENCIA Castelan for Mekhi Mustafa MD I have performed a face to face diagnostic evaluation. Labs/ Xray- reviewed, Exam- Chest- rhonchi, CV- regular. A/P- Pneumonia- Admit, check blood cultures, IV ABX. Dr. Mustafa cc: Mekhi Mustafa MD [facility]
[2019-07-19] MEDS ORDERED: VANCOMYCIN 2,500 MG in NS 500 ML IV SCH (20:00)
[2019-07-19] MEDS: IMDUR PO SCH (22:22)
[2019-07-19] MEDS: ATARAX PO SCH (22:23)
[2019-07-19] MEDS: ALDACTONE PO SCH (22:23)
[2019-07-19] MEDS: PROTONIX PO SCH (22:24)
--- NOTE | 2019-07-19 22:37 | PROGRESS NOTE ---
DATE: 07/19/2019 SUBJECTIVE: The patient is still complaining of cough. He has been having phlegm which is green with some blood. Sputum culture showed gram-negative sohail. On 06/20/2019, he also had a sputum culture that showed Escherichia coli and Pseudomonas putida. As per the patient, he was treated as an outpatient by the Infectious Disease Department. He started feeling better, but then he started to decline again. On the other hand, he has a little ulcer with a fluctuating area in his inguinal area. I have requested an evaluation by Surgery Department. OBJECTIVE: Vital signs: Temperature 97.4 degrees, pulse 90, respiratory rate 24, blood pressure 125/56, oxygen saturation 95% on 4 L of nasal cannula.HEENT: Head normocephalic. No trauma. PERRLA. Neck supple. No JVD. No masses. Central trachea. Chest: Decreased breath sounds globally. Prolonged expiratory phase. I do not hear any wheezing, but he does have some rhonchi bilaterally mostly at the bases, especially on the right side. Abdomen is soft, protuberant, nontender, nondistended. No hepatosplenomegaly. Extremities: He does have edema. No clubbing, no cyanosis. Inguinal area: He has a fluctuating area on the right side with a small ulcer on top of it. Neurological: The patient is alert. He is oriented x3. No focal deficits. LABORATORY DATA: WBC 15.8, hemoglobin 12.2, hematocrit 38.6, platelets 135,000. Sodium 135, potassium 3.9, chloride 95, bicarbonate 25, BUN 25, creatinine 1, glucose 397, calcium 9, magnesium 2.1. ASSESSMENT AND PLAN: 1. Right lower lobe pneumonia. Recently he has been treated multiple times for pneumonia. He had a recent culture from 06/20/2019 that showed Escherichia coli and Pseudomonas putida. Also he has a sputum culture from 05/10/2019 that showed Stenotrophomonas maltophilia. Another sputum culture from 04/23/2019 showed Serratia marcescens. He has been evaluated by the Infectious Disease Department. He has been placed on meropenem. Now we received a positive culture that showed gram-positive cocci in blood 1 out of 2. We will start this patient on daptomycin since he has a pacemaker and he has also a Port-A-Cath. 2. Fluctuating area in his inguinal area, possible abscess. This will be evaluated by the wound care nurse or Surgery Department. We will monitor and follow their recommendations. 3. Chronic obstructive pulmonary disease, probably mild exacerbation. I will continue breathing treatment and oxygen supplementation. 4. Previous urinary tract infection with pseudomonas on 04/23/2019. Aware. So far, urine culture is negative. 5. Right buttock ulcer stage II. Like I mentioned before, he has a fluctuating area. We will monitor. 6. History of chronic atrial fibrillation, on Eliquis. Rate controlled. 7. History of ischemic cardiomyopathy. He is not complaining of chest pain today. 8. Chronic pain syndrome. Continue home medications. 9. Type 2 diabetes. His blood sugar increased, probably due to steroids that he received upon admission, I believe in the emergency department. He is no longer on steroids at this moment, but I will monitor this closely. I will put this patient back on his home medications and sliding scale insulin. 10. Hypertension, stable. 11. Deep vein thrombosis prophylaxis. Continue with anticoagulation. 12. Chronic hypoxemic respiratory failure. Normally he is on home oxygen around 4 L. We will continue with the same management. He seems to be getting the same amount during this hospitalization. cc: Blair Rivas MD
[2019-07-20] MEDS: MERREM 2 GM in NS 100 ML IV SCH ×2 (02:35→10:16)
[2019-07-20] MEDS: DUONEB (A & A) INH SCH ×6 (03:20→20:03)
--- NOTE | 2019-07-20 04:19 | INFECTIOUS DISEASE PROGRESS NO ---
DATE: 07/19/2019 ADDENDUM: The microbiology lab called, and notified us that the patient has 1/2 blood cultures growing a gram-positive coccus. This could be a pathogen or it could be a contaminant. Pending further identification of the organism, I am going to start the patient on daptomycin in a dose of 1000 mg every 24 hours. I am choosing this rather than vancomycin because the patient has decreased hearing. cc: Darryl Downs MD
[2019-07-20] MEDS: HUMULIN R SUBQ SCH ×4 (06:52→21:01)
[2019-07-20 06:56] LABS: BASO# 0.02 X1000 (0.0-0.2); BASO% 0.1 % (0.0-0.8); EOS# 0.08 X1000 (0.0-0.7); EOS% 0.5 % (0.0-10.0); HEMATOCRIT 36.2 % (42.0-52.0); HEMOGLOBIN 11.4 g/dL (14.0-18.0); IMM GRAN# 0.05 X1000 (0.0-0.04); IMM GRAN% 0.3 % (0.0-0.5); LYMPH# 0.96 X1000 (1.2-3.4); LYMPH% 6.6 % (20.5-51.1); MCH 24.8 PG (27-31); MCHC 31.5 g/dL (33-37); MCV 78.9 FL (81-99); MONO# 1.19 X1000 (0.11-0.59); MONO% 8.2 % (1.7-9.3); MPV 11.7 FL (7.4-10.4); NEUT% 84.3 % (42.2-75.2); PLT 148 X1000 (130-400); RBC 4.59 XMIL (4.7-6.1); RDW 14.1 % (11.5-14.5)
--- NOTE | 2019-07-20 07:11 | GENERAL SURGERY CONSULTATION ---
DATE: 07/19/2019 REASON FOR CONSULTATION: Right upper thigh/gluteal wound. CHIEF COMPLAINT: Productive cough, shortness of breath, and pleuritic chest pain. HISTORY OF PRESENT ILLNESS: This 69-year-old gentleman has chronic lung disease, recurrent infections related to bronchiectasis, COPD. He is known to me for a port, which I placed several years ago for recurrent pulmonary infections requiring antibiotics. He is, for the most part, immobile. He does use a cane, but he mostly sits in the chair. He came in now with productive cough, pleuritic pain, shortness of breath, and was found to have a bullous-type lesion of his right superior gluteal wound. I was consulted for evaluation. He says that he has noticed this there for several months. It occasionally drains serosanguineous-type fluid. His current medical issues include ischemic cardiomyopathy, COPD with bronchiectasis, severe atrial fibrillation, obesity, obstructive sleep apnea, coronary disease, diabetes, hypertension, hyperlipidemia, chronic pain (on chronic narcotics), depression. PAST MEDICAL HISTORY: As noted in his HPI. PAST SURGICAL HISTORY: He has had a right-sided port that continues to function well. He has had coronary artery bypass grafting, left-sided pacemaker, cardiac ablation, leg operations, lumbar spine surgery. SOCIAL HISTORY: He quit smoking in the s, but heavy smoker prior to this. He was exposed to Agent [place] as well. Denies alcohol. 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 FAMILY HISTORY: Reviewed and noncontributory. REVIEW OF SYSTEMS: A 10-point review of systems is negative, other than he has noted an oral lesion in his lower gum/lip margin. PHYSICAL EXAMINATION: Vital Signs: He is afebrile currently, pulse is in the 90s, blood pressure 125/56, oxygen saturation is 95%. General: He is alert, chronically ill- appearing and obese, but in no acute distress. HEENT: No scleral icterus. No cervical masses. On his oral mucosal exam, there is an ulcerative-type lesion anteriorly in the midline on his lower gum margin, most likely related from friction from his ill-fitting dentures, but could be concerning for a mucosal malignancy. Cardiovascular: Normal rate. Pulmonary: He is chronically short of breath. He is on nasal cannula. Abdomen: Obese, but nontender and nondistended. Integument: Warm and dry. He has several early-stage pressure changes to his bilateral gluteal skin and bilateral upper thighs. The right upper thigh does have more of a bullous-type change, but there is no cellulitis. There is no induration. Peripheral Vascular: He has lower extremity edema, but well perfused. Psychiatric: Appropriate affect. Neurologic: Generalized weakness. IMAGING AND LABORATORY DATA: White count is 15 (it is down from 25 earlier yesterday), hematocrit is 38, platelets 135,000. Creatinine is 1.0, glucose is elevated up to 300s. Troponin is negative. Urinalysis: He does have trace blood, no leukocyte, no nitrates. His x-ray shows right lower lobe pneumonia. ASSESSMENT AND PLAN: 1. This is a 69-year-old gentleman with chronic pulmonary disease. He has pneumonia. He has been admitted for this. He has decubitus-type changes of the gluteal skin, upper thighs. I do not see any signs of infection or necrosis. I have recommended offloading. Will apply Mepilex pads to this, and we can follow him, but he will need strict offloading, I think, given his obesity and his other medical issues. He is, for the most part, immobile. His body mass index is 47.9, and I think the negron to preventing these and helping them to heal is going to be offloading of this. I will follow him at [facility]. 2. Oral lesion. It is indeterminate on exam. I do think that this needs outpatient followup, most likely biopsy via one of our ENT colleagues going forward. Dr. Jennifer Jean Baptiste is his primary care physician. He also has plans to discuss this matter with her. In the meantime, will continue antibiotics for his pulmonary disease. I do not suspect soft tissue infection. Will apply offloading, Mepilex-type pads. cc: Therese Vick MD [facility]
[2019-07-20 08:52] LABS: AGAP 13; ALB/GLOB RATIO 1.1; ALBUMIN 3.2 g/dL (3.5-5.0); ALKALINE PHOSPHATASE 83 U/L (32-122); BUN 24 mg/dL (8-22); CALCIUM 8.9 mg/dL (8.8-10.2); CHLORIDE 98 mmol/L (98-107); COSMO 283; CREATININE 0.9 mg/dL (0.7-1.2); ESTIMATED GFR > 60; GLUCOSE 194 mg/dL (70-104); GOT 10 U/L (10-34); GPT 8 U/L (10-44); POTASSIUM 3.7 mmol/L (3.5-5.1); SODIUM 137 mmol/L (136-145); TCO2 26 mmol/L (25-35); TOTAL BILIRUBIN 0.38 mg/dL (0.20-1.00); TOTAL PROTEIN 6.2 g/dL (6.3-8.3)
[2019-07-20] MEDS: MUCINEX PO SCH ×2 (09:57→20:59)
[2019-07-20] MEDS: MS CONTIN PO PRN ×2 (09:57→21:01)
[2019-07-20] MEDS: COREG PO SCH ×2 (09:58→21:00)
[2019-07-20] MEDS: PROZAC PO SCH (09:58)
[2019-07-20] MEDS: PROTONIX PO SCH ×2 (09:58→21:00)
[2019-07-20] MEDS: DOXYCYCLINE PO SCH (09:58)
[2019-07-20] MEDS: LASIX PO SCH ×2 (09:58→21:00)
[2019-07-20] MEDS: CULTURELLE PO SCH (09:58)
[2019-07-20] MEDS: ELIQUIS PO SCH ×2 (09:58→21:00)
[2019-07-20] MEDS: LINZESS PO SCH (09:59)
[2019-07-20] MEDS: LEVEMIR SUBQ SCH ×2 (09:59→21:02)
[2019-07-20] MEDS ORDERED: INSULIN PEN NEEDLES ONE (10:01)
[2019-07-20] MEDS ORDERED: CALMOSEPTINE OINTMENT TOP PRN (10:01)
[2019-07-20] MEDS: DIFLUCAN PO SCH (13:14)
[2019-07-20] MEDS: LOTRIMIN 1% CREAM TOP SCH ×2 (13:15→21:11)
[2019-07-20] MEDS: INVANZ 1 GM/NS 1 GM/50 ML IVPB IV SCH (13:56)
--- NOTE | 2019-07-20 14:40 | INFECTIOUS DISEASE PROGRESS NO ---
DATE: 07/20/2019 PRESENT ILLNESS: The patient has an extended-spectrum beta-lactamase producing E. coli right lower lobe pneumonia. The patient also has developed ulises dermatitis. The patient has 1 of 2 blood cultures positive for a coagulase-negative staph. This is a contaminant and not a pathogen. MEDICATIONS: The patient is on daptomycin, doxycycline, and meropenem. PHYSICAL EXAMINATION: Vital Signs: Temperature is 97.7, pulse 91, respirations 22, and blood pressure 108/59. General: This is an ill and obese elderly male. He is lethargic and does seem to be dyspneic even at rest. Head, Eyes, Ears, Nose, and Throat: He has decreased hearing. He can see near objects. I did not see any white coating on his tongue. He does have an ulcerated area in his mouth. Lungs: Bilateral rhonchi. Cardiovascular: Heart rate is regular. Thorax: The patient has an increased AP diameter of the chest. He has a right-sided Port-A-Cath in place. The site is not erythematous or purulent. Abdomen: Soft and nontender. Extremities: The patient has edema but no erythema. Integument: The patient has intertriginous erythema where the patient's skins rub against each other. Neurologic: The patient is lethargic but he is arousable. He can walk but only for a short period and he does get tired just doing that. LAB AND RADIOLOGY: There is no chest x-ray for today. CBC shows a white count of 14,600, hemoglobin 11.4, and platelet count 148,000. Creatinine is 0.9. GFR is greater than 60. One out of two blood cultures is growing coagulase-negative staph. This is a contaminant and does not require treatment. Sputum is growing an extended-spectrum beta-lactamase producing E. coli. Swab for influenza was negative. ASSESSMENT AND PLAN: My plan is the followin. Discontinue meropenem and put the patient on ertapenem. 2. Since the patient has only 1 out of 2 blood cultures growing a coagulase- negative staph then that means that it is a contaminant and does not require treatment. 3. The patient does have ulises dermatitis in intertriginous areas. The patient has been started on p.o. fluconazole and Lotrimin cream to the erythematous intertriginous areas. 4. Doxycycline also has been discontinued. 5. The sputum grew an extended-spectrum beta-lactamase producing Escherichia coli. 6. Comorbidities: The patient is morbidly obese. He has chronic obstructive pulmonary disease, bronchiectasis, diabetes mellitus, ischemic cardiomyopathy, and obstructive sleep apnea. COMORBIDITY: COPD, diabetes, obesity, sleep apnea. cc: Darryl Downs MD [facility]
[2019-07-20] MEDS ORDERED: TUMS EXTRA STRENGTH PO PRN (15:19)
--- NOTE | 2019-07-20 20:23 | GENERAL SURGERY PROGRESS NOTE ---
DATE: 07/20/2019 SUBJECTIVE: His Mepilex dressings are in place. He is breathing somewhat improved. No fevers documented overnight. OBJECTIVE: Vital signs: Pulse has been in the 80s to 90s. Blood pressure systolics 100s to 120s. Oxygen saturation 100% on 5 L. General: He is alert, sitting on the edge of bed. Cardiovascular: Normal rate. Pulmonary: Productive cough on nasal cannula. Integument: Warm and dry. LABORATORIES: White count is 14. It is downtrending. Hematocrit 36, creatinine 0.9, glucose is now better than on admission 190s to 200. ASSESSMENT/PLAN: A 69-year-old gentleman with early decubitus wounds in his gluteal clefts and bilateral thighs. We have Mepilex dressings in place. I have discussed the importance of offloading. He is also admitted with pneumonia related to chronic pulmonary disease. He is being treated for this, which is the main reason for admission. We will follow him along. Plan to follow at the [facility]. Continue Mepilex dressings, and offloading. cc: Therese Vick MD
[2019-07-20] MEDS: ALDACTONE PO SCH (21:00)
[2019-07-20] MEDS: COZAAR PO SCH (21:00)
[2019-07-20] MEDS: IMDUR PO SCH (21:00)
[2019-07-20] MEDS: ATARAX PO SCH (21:00)
[2019-07-20] MEDS: BUSPAR PO PRN (21:08)
--- NOTE | 2019-07-20 22:48 | PROGRESS NOTE ---
DATE: 07/20/2019 SUBJECTIVE: This patient is still complaining of cough and phlegm, which is green with some blood. He feels better. A sputum culture showed ESBL E coli. Infectious disease department has been adjusting his medications, blood culture showed coagulase-negative Staphylococcus x1, which is likely a contamination. OBJECTIVE: Vital signs: Temperature 98.7 degrees, pulse 78, respiratory rate 18, blood pressure 110/55, oxygen saturation 97% on 4 L of nasal cannula. HEENT: Head normocephalic, no trauma. PERRLA. Neck: Is supple. No JVD. No masses. Central trachea. Chest: Decreased breath sounds globally. Prolonged expiratory phase. I do not hear any wheezing today, but he does have generalized rhonchi, especially in the right base. Abdomen: Soft protuberant, nontender, nondistended. No hepatosplenomegaly. Extremities: He does have edema. No clubbing, no cyanosis. Inguinal area he has a fluctuating area on the right side with a small ulcer on top of it. Neurological examination: Alert and oriented x3. No focal deficits. LABORATORY: WBC 14.6, hemoglobin 11.4, hematocrit 36.2, platelets 148,000. Sodium 137, potassium 3.7, chloride 98, bicarbonate 26, BUN 24, creatinine 0.9, glucose 194, calcium 8.9, magnesium 2.1. AST 10, ALT 8, alkaline phosphatase 83, albumin 3.2. ASSESSMENT AND PLAN: 1. Right lower lobe pneumonia due to extended spectrum beta-lactamases Escherichia coli. Infectious Disease Department on board. This patient has been placed on ertapenem. We will continue with same management. Also, this patient has a Yamileth dermatitis in the intertriginous areas and he has been started on fluconazole p.o. and Lotrimin cream. Doxycycline also has been discontinued. 2. Chronic obstructive pulmonary disease with mild exacerbation. Continue breathing treatment and oxygen supplementation. 3. Prior history of urinary tract infection with Pseudomonas on 04/23/2019. Aware. 4. Right buttock ulcer stage II. Like I mentioned before, he has a fluctuating area and Surgery Department already evaluated this patient. 5. History of chronic atrial fibrillation on Eliquis. 6. History of ischemic cardiomyopathy. He is not complaining of chest pain today. 7. Chronic pain syndrome. Continue home medication. 8. Type 2 diabetes. Continue with same management for now. 9. Hypertension. Stable. 10. Deep vein thrombosis prophylaxis with anticoagulation. 11. Chronic hypoxemic respiratory failure. Normally, he is on home O2 around 4 L. We will continue with same management. He seems to be getting the same amount during this hospitalization. cc: Blair Rivas MD
[2019-07-21] MEDS: TYLENOL PO PRN ×2 (00:25→23:32)
[2019-07-21] MEDS: DUONEB (A & A) INH SCH ×6 (03:20→23:34)
[2019-07-21] MEDS: HUMULIN R SUBQ SCH ×4 (07:12→21:15)
[2019-07-21 07:22] LABS: BASO# 0.04 X1000 (0.0-0.2); BASO% 0.4 % (0.0-0.8); EOS# 0.16 X1000 (0.0-0.7); EOS% 1.7 % (0.0-10.0); HEMATOCRIT 36.9 % (42.0-52.0); HEMOGLOBIN 11.6 g/dL (14.0-18.0); IMM GRAN# 0.04 X1000 (0.0-0.04); IMM GRAN% 0.4 % (0.0-0.5); LYMPH% 12.9 % (20.5-51.1); MCH 24.8 PG (27-31); MCHC 31.4 g/dL (33-37); MONO# 0.94 X1000 (0.11-0.59); MONO% 10.1 % (1.7-9.3); MPV 11.1 FL (7.4-10.4); NEUT# 6.92 X1000 (1.4-6.5); NEUT% 74.5 % (42.2-75.2); PLT 146 X1000 (130-400); RBC 4.67 XMIL (4.7-6.1)
[2019-07-21 07:49] LABS: AGAP 10; BUN 21 mg/dL (8-22); CALCIUM 8.9 mg/dL (8.8-10.2); CHLORIDE 97 mmol/L (98-107); COSMO 279; ESTIMATED GFR > 60; GLUCOSE 163 mg/dL (70-104); POTASSIUM 3.9 mmol/L (3.5-5.1); SODIUM 136 mmol/L (136-145); TCO2 29 mmol/L (25-35)
[2019-07-21] MEDS: CULTURELLE PO SCH (08:59)
[2019-07-21] MEDS: PROZAC PO SCH (08:59)
[2019-07-21] MEDS: COREG PO SCH ×2 (08:59→20:43)
[2019-07-21] MEDS: DIFLUCAN PO SCH (08:59)
[2019-07-21] MEDS: ELIQUIS PO SCH ×2 (08:59→20:43)
[2019-07-21] MEDS: LASIX PO SCH ×2 (08:59→20:43)
[2019-07-21] MEDS: MUCINEX PO SCH ×2 (08:59→20:45)
[2019-07-21] MEDS: PROTONIX PO SCH ×2 (09:00→20:44)
[2019-07-21] MEDS: LEVEMIR SUBQ SCH ×2 (09:00→20:45)
[2019-07-21] MEDS: LINZESS PO SCH (09:00)
[2019-07-21] MEDS: MS CONTIN PO PRN ×2 (09:29→21:15)
[2019-07-21] MEDS: LOTRIMIN 1% CREAM TOP SCH ×2 (10:19→20:43)
[2019-07-21] MEDS: INVANZ 1 GM/NS 1 GM/50 ML IVPB IV SCH (13:00)
[2019-07-21] MEDS: MYCOSTATIN SUSP PO SCH ×3 (13:19→20:43)
--- NOTE | 2019-07-21 19:56 | INFECTIOUS DISEASE PROGRESS NO ---
DATE: 07/21/2019 PRESENT ILLNESS: Mr. Bell is being treated for an extended spectrum beta lactamase producing Escherichia coli pneumonia. There is also a candidal dermatitis and an oral candidiasis. MEDICATIONS: He is receiving ertapenem 1 g IV every 24 hours, Lotrimin cream topically twice a day, fluconazole 200 mg by mouth daily, and today we have added nystatin swish and swallow. PHYSICAL EXAMINATION: Vital Signs: Temperature is 97.6 degrees, pulse rate 82, respiratory rate 16, blood pressure 96/51, O2 saturation is 91% on 4 L nasal cannula. General: This is a morbidly obese, chronically ill-appearing, elderly gentleman. He is sitting up in a chair currently in no acute distress. HEENT: Atraumatic, normocephalic. Oral mucous membranes are red with a mild amount of white coating noted on his tongue, which he states is sore. Neck: Supple. Trachea is midline. Cardiovascular: Heart rate and rhythm are regular. Paced rhythm on the monitor. Respiratory: Lung sounds are diminished to auscultation bilaterally. No work of breathing is noted. Integumentary: Skin is warm and dry. There is a Port-A-Cath in place to the right chest. That site is without edema, erythema or drainage. Abdomen: Soft, obese and nontender. Bowel sounds are active. Neurologic: He is awake, alert, and oriented. Able to move around in the room with assistance. LABORATORY AND X-RAY: Today his white count is 9.3, hemoglobin 11.6, platelet count 146,000. Creatinine is 1. Estimated GFR is greater than 60. His immunoglobulin levels show an IgA of 349, IgG of 850 and IgM of 19. His sputum has grown an Escherichia coli which is ESBL producing. No imaging reports today. ASSESSMENT AND PLAN: Mr. Bell is being treated for pneumonia and states he is feeling a little better today. His white blood cell count is back down to normal so we will continue the ertapenem as ordered. He also has a candidal dermatitis, which he states is improving; however, he says his mouth is sore so I have put in orders for nystatin swish and swallow. He is receiving Lotrimin cream to the erythematous areas on his skin as well as oral fluconazole, which we will also continue. These plans have been discussed with and recommended by Dr. Downs. COMORBIDITIES: For Mr. Bell include that he is elderly and morbidly obese with chronic obstructive pulmonary disease, bronchiectasis, diabetes mellitus, ischemic cardiomyopathy and obstructive sleep apnea. Dictated by HORTENCIA Samuel for Darryl Downs MD cc: Darryl Downs MD
[2019-07-21] MEDS: COZAAR PO SCH (20:43)
[2019-07-21] MEDS: ALDACTONE PO SCH (20:44)
[2019-07-21] MEDS: ATARAX PO SCH (20:44)
[2019-07-21] MEDS: IMDUR PO SCH (20:44)
--- NOTE | 2019-07-21 20:50 | PROGRESS NOTE ---
DATE: 07/21/2019 SUBJECTIVE: This patient seems to be feeling better. He is still coughing up some green phlegm with blood. Vital signs are stable. WBC is normal today. OBJECTIVE: Vital Signs: Temperature 97.6 degrees, pulse 80, respiratory rate 16, blood pressure 136/74, oxygen saturation 95% on 4 L of nasal cannula. HEENT: Head normocephalic, no trauma. PERRLA. Neck: Supple. No JVD. No masses. Central trachea. Chest: Decreased breath sounds globally. Prolonged expiratory phase. I do not hear any wheezing. He does have generalized rhonchi, especially at the right base. Abdomen: Soft, protuberant, nontender, nondistended. No hepatosplenomegaly. Extremities: He does have some edema. No clubbing, no cyanosis. Inguinal area: He has a fluctuating area on the right side with a small ulcer on top of it. Neurological: The patient is alert and oriented x3. No focal deficits. LABORATORY: WBC 9.3, hemoglobin 11.6, hematocrit 36.9, platelets 146,000. Sodium 136, potassium 3.9, chloride 97, bicarbonate 29, BUN 21, creatinine 1, glucose 163, calcium 8.9. ASSESSMENT AND PLAN: 1. Right lower lobe pneumonia, due to extended-spectrum beta-lactamase Escherichia coli. Infectious Disease Department on board. Continue with same management. 2. Yamileth dermatitis in the inguinal area. Continue with voriconazole and Lotrimin cream. 3. Chronic obstructive pulmonary disease with mild exacerbation. Continue with breathing treatment and oxygen supplementation. 4. Prior history of urinary tract infection with Pseudomonas on 04/21/2019. Aware. No urinary symptoms right now. 5. Right buttock ulcer, stage II. Surgery department on board. I believe they are going to do a procedure as an outpatient. 6. History of chronic atrial fibrillation, on Eliquis. 7. History of ischemic cardiomyopathy. No chest pain at this moment. 8. Chronic pain syndrome. Continue home medication. 9. Type 2 diabetes. Continue with same management for now. 10. Hypertension, stable. 11. Deep vein thrombosis prophylaxis with anticoagulation. 12. Chronic hypoxemic respiratory failure. Normally, he is around 4 L of oxygen at home, so we will continue with same management here. cc: Blair Rivas MD
[2019-07-21] MEDS ORDERED: NON-FORMULARY MED (Dulaglutide [Trulicity] 0.75 MG) SUBQ ONE (21:00)
[2019-07-21] MEDS: BUSPAR PO PRN (21:15)
[2019-07-22] MEDS: DUONEB (A & A) INH SCH ×6 (03:26→23:45)
[2019-07-22] MEDS: HUMULIN R SUBQ SCH ×4 (06:26→21:31)
[2019-07-22] MEDS: LOTRIMIN 1% CREAM TOP SCH ×2 (09:49→21:37)
[2019-07-22] MEDS: COREG PO SCH ×2 (09:50→21:32)
[2019-07-22] MEDS: ELIQUIS PO SCH ×2 (09:51→21:32)
[2019-07-22] MEDS: DIFLUCAN PO SCH (09:51)
[2019-07-22] MEDS: PROZAC PO SCH (09:51)
[2019-07-22] MEDS: CULTURELLE PO SCH (09:52)
[2019-07-22] MEDS: MUCINEX PO SCH ×2 (09:52→21:31)
[2019-07-22] MEDS: LINZESS PO SCH (09:52)
[2019-07-22] MEDS: LASIX PO SCH ×2 (09:53→21:30)
[2019-07-22] MEDS: PROTONIX PO SCH ×2 (09:53→21:32)
[2019-07-22] MEDS: MYCOSTATIN SUSP PO SCH ×4 (09:54→21:30)
[2019-07-22] MEDS: MS CONTIN PO PRN ×2 (10:53→18:22)
[2019-07-22] MEDS: LEVEMIR SUBQ SCH ×2 (10:54→21:29)
[2019-07-22] MEDS: BUSPAR PO PRN ×2 (10:55→18:22)
[2019-07-22] MEDS: INVANZ 1 GM/NS 1 GM/50 ML IVPB IV SCH (13:51)
--- NOTE | 2019-07-22 16:03 | PROGRESS NOTE ---
DATE: 07/22/2019 SUBJECTIVE: This patient seems to be feeling better. He is still coughing up some green phlegm with blood but is not that thick and is not that frequent, vital signs are stable. OBJECTIVE: Vital Signs: Temperature 97.9 degrees, pulse 82, respiratory rate 20, blood pressure 121/64, oxygen saturation 96 on 4 L of nasal cannula. HEENT: Head normocephalic, no trauma. PERRLA. Neck: Supple. No JVD. No masses. Central trachea. Chest: Decreased breath sounds globally with prolonged expiratory phase. I do not hear any wheezing. He does have generalized rhonchi especially at the right base but better compared with yesterday. Abdomen: Soft, protuberant, nontender, nondistended. No hepatosplenomegaly. Extremities: Trace edema, no clubbing no cyanosis. Inguinal area he has a fluctuating area on the right side with a small ulcer on top of it. Neurological: The patient is alert, awake and oriented x3. No focal deficits. LABORATORY: Glucose 129. ASSESSMENT AND PLAN: 1. Right lower lobe pneumonia due to extended spectrum beta-lactamase Escherichia coli. Infectious Disease on board. Continue with same management. 2. Yamileth dermatitis in the inguinal area. Continue with fluconazole. 3. Chronic obstructive pulmonary disease with mild exacerbation. Continue breathing treatment, oxygen supplementation. He seems to be better. 4. Prior history urinary tract infection with Pseudomonas on 04/21/2019 aware. No urinary symptoms at this moment. 5. Right buttock ulcer stage II. Surgery Department on board. They will follow this patient as an outpatient. 6. History of chronic atrial fibrillation on Eliquis. 7. History of ischemic cardiomyopathy, no chest pain at this moment. 8. Chronic pain syndrome. Continue home medications. 9. Type 2 diabetes. Continue with same management for now. 10. Hypertension stable. 11. Deep vein thrombosis prophylaxis with current anticoagulation. 12. Chronic hypoxemic respiratory failure, normally he is on 4 L of oxygen at home, he is getting 4 L during this hospitalization as well so will continue with same management. cc: Blair Rivas MD
[2019-07-22] MEDS: IMDUR PO SCH (21:30)
[2019-07-22] MEDS: COZAAR PO SCH (21:32)
[2019-07-22] MEDS: ALDACTONE PO SCH (21:32)
[2019-07-22] MEDS: ATARAX PO SCH (21:33)
[2019-07-23] MEDS: TYLENOL PO PRN (02:40)
[2019-07-23] MEDS: MS CONTIN PO PRN ×2 (02:51→22:10)
[2019-07-23] MEDS: DUONEB (A & A) INH SCH ×6 (03:45→23:20)
[2019-07-23] MEDS: HUMULIN R SUBQ SCH ×4 (06:45→21:54)
[2019-07-23] MEDS: LEVEMIR SUBQ SCH ×2 (09:45→21:39)
[2019-07-23] MEDS: PROTONIX PO SCH ×2 (09:45→21:41)
[2019-07-23] MEDS: ELIQUIS PO SCH ×2 (09:45→21:42)
[2019-07-23] MEDS: CULTURELLE PO SCH (09:45)
[2019-07-23] MEDS: MUCINEX PO SCH ×2 (09:45→21:39)
[2019-07-23] MEDS: MYCOSTATIN SUSP PO SCH ×4 (09:45→21:41)
[2019-07-23] MEDS: LINZESS PO SCH (09:45)
[2019-07-23] MEDS: LOTRIMIN 1% CREAM TOP SCH ×2 (09:45→21:41)
[2019-07-23] MEDS: DIFLUCAN PO SCH (09:45)
[2019-07-23] MEDS: COREG PO SCH ×2 (09:45→21:41)
[2019-07-23] MEDS: PROZAC PO SCH (09:45)
[2019-07-23] MEDS: LASIX PO SCH ×2 (09:45→21:46)
[2019-07-23] MEDS: INVANZ 1 GM/NS 1 GM/50 ML IVPB IV SCH (12:53)
--- NOTE | 2019-07-23 13:59 | PROGRESS NOTE ---
DATE: 07/23/2019 SUBJECTIVE: The patient is feeling better but he is still coughing up some phlegm and blood, which is really thick. Vital signs are stable. He has been hospitalized multiple times due to pneumonia and also urinary tract infection. Infectious disease department on board. OBJECTIVE: Vital Signs: Temperature 97.5 degrees, pulse 85, respiratory rate 20, blood pressure 125/59, oxygen saturation 95% on 4 L of nasal cannula. HEENT: Head normocephalic. No trauma. PERRLA. Neck: Supple. No JVD. No masses. Central trachea. Chest: Decreased breath sounds globally with prolonged expiratory phase. I do not hear any wheezing. He does have generalized rhonchi, especially at the right base. Abdomen: Soft, protuberant, nontender, nondistended. No hepatosplenomegaly. Extremities: Trace edema. No clubbing, no cyanosis. Inguinal Area: He has a fluctuant area on the right side with a small ulcer on top of it. It is not draining. He does have a right buttock ulcer stage 2. Neurological Examination: The patient is alert. He is awake and oriented x3. No focal deficits but generalized weakness. Laboratory: Glucose 130. ASSESSMENT AND PLAN: 1. Right lower lobe pneumonia due to extended-spectrum beta-lactamase Escherichia coli. Infectious disease department on board. Continue with the same management. He is on ertapenem. 2. Yamileth dermatitis in the inguinal area. Continue with fluconazole. 3. Chronic obstructive pulmonary disease with mild exacerbation. We will continue breathing treatments and oxygen supplementation. He seems to be better. 4. Prior history of urinary tract infection with pseudomonas on 04/21/2019. Aware. No urinary symptoms at this moment. 5. Right buttock ulcer stage 2. Surgery department already evaluated this patient. There is a fluctuant area in that place that probably they will take care of it as an outpatient. 6. History of chronic atrial fibrillation, on Eliquis. 7. History of ischemic cardiomyopathy. No chest pain at this moment. 8. Chronic pain syndrome. Continue home medication. 9. Type 2 diabetes. Continue with the same management for now. He seems to be stable. 10. Hypertension, stable. 11. Deep vein thrombosis prophylaxis with current anticoagulation. 12. Chronic hypoxemic respiratory failure, on home oxygen around 4 L, same here. He seems to be getting better slowly. He is still coughing up a lot of phlegm which is thick and green with some blood. I do believe probably he has some bronchiectasis going on. At any rate, he has been having multiple episodes of pneumonia and he has been actually treated recently as an outpatient by Dr. Dwons. I wonder if this patient will need to be on chronic antibiotic therapy upon discharge. I will let the infectious disease department to make that decision. cc: Blair Rivas MD
[2019-07-23] MEDS: COZAAR PO SCH (21:27)
[2019-07-23] MEDS: IMDUR PO SCH (21:39)
[2019-07-23] MEDS: ALDACTONE PO SCH (21:40)
[2019-07-23] MEDS: ATARAX PO SCH (21:42)
[2019-07-23] MEDS ORDERED: INSULIN PEN NEEDLES ONE (21:49)
[2019-07-23] MEDS: BUSPAR PO PRN ×2 (21:54→22:10)
[2019-07-24] MEDS: TYLENOL PO PRN ×2 (02:15→22:05)
[2019-07-24] MEDS: DUONEB (A & A) INH SCH ×6 (03:26→23:17)
[2019-07-24] MEDS: HUMULIN R SUBQ SCH ×4 (06:48→21:35)
[2019-07-24 07:46] LABS: BASO# 0.05 X1000 (0.0-0.2); BASO% 0.5 % (0.0-0.8); EOS# 0.24 X1000 (0.0-0.7); EOS% 2.6 % (0.0-10.0); HEMATOCRIT 38.8 % (42.0-52.0); HEMOGLOBIN 12.3 g/dL (14.0-18.0); IMM GRAN# 0.09 X1000 (0.0-0.04); LYMPH# 1.66 X1000 (1.2-3.4); LYMPH% 18.1 % (20.5-51.1); MCH 24.9 PG (27-31); MCHC 31.7 g/dL (33-37); MCV 78.5 FL (81-99); MONO# 0.79 X1000 (0.11-0.59); MONO% 8.6 % (1.7-9.3); MPV 11.2 FL (7.4-10.4); NEUT# 6.36 X1000 (1.4-6.5); NEUT% 69.2 % (42.2-75.2); PLT 105 X1000 (130-400); RBC 4.94 XMIL (4.7-6.1); RDW 14.2 % (11.5-14.5); WBC 9.19 X1000 (4.8-10.8)
[2019-07-24 08:21] LABS: AGAP 12; BUN 19 mg/dL (8-22); CALCIUM 9.5 mg/dL (8.8-10.2); CHLORIDE 93 mmol/L (98-107); COSMO 276; ESTIMATED GFR > 60; GLUCOSE 202 mg/dL (70-104); MAGNESIUM 2.2 mg/dL (1.5-2.7); PHOSPHORUS 3.9 mg/dL (2.7-4.5); POTASSIUM 4.6 mmol/L (3.5-5.1); SODIUM 134 mmol/L (136-145); TCO2 29 mmol/L (25-35)
[2019-07-24] MEDS: PROTONIX PO SCH ×2 (10:50→21:37)
[2019-07-24] MEDS: MUCINEX PO SCH ×2 (10:50→21:37)
[2019-07-24] MEDS: MYCOSTATIN SUSP PO SCH ×4 (10:50→21:37)
[2019-07-24] MEDS: LOTRIMIN 1% CREAM TOP SCH ×2 (10:50→21:50)
[2019-07-24] MEDS: ELIQUIS PO SCH ×2 (10:50→21:36)
[2019-07-24] MEDS: PROZAC PO SCH (10:50)
[2019-07-24] MEDS: LINZESS PO SCH (10:50)
[2019-07-24] MEDS: LASIX PO SCH ×2 (10:50→21:36)
[2019-07-24] MEDS: DIFLUCAN PO SCH (10:50)
[2019-07-24] MEDS: CULTURELLE PO SCH (10:51)
[2019-07-24] MEDS: COREG PO SCH ×2 (10:51→21:37)
--- NOTE | 2019-07-24 11:15 | Diag Imaging Result Doc PS360 ---
EXAM: CHEST-2 VIEWS 07/24/2019 HISTORY: hypoxia TECHNIQUE: PA and lateral chest COMMENT: There is atelectatic appearing opacity over the right base. This is diminished somewhat since 07/18/2019. Otherwise are has been no significant change. IMPRESSION: Improving right lower lobe pneumonia. Electronically signed by Wayne Reddy 07/24/2019 11:11 AM
[2019-07-24] MEDS: LEVEMIR SUBQ SCH ×2 (13:02→21:38)
[2019-07-24] MEDS: INVANZ 1 GM/NS 1 GM/50 ML IVPB IV SCH (13:02)
[2019-07-24] MEDS: MS CONTIN PO PRN (14:29)
--- NOTE | 2019-07-24 19:53 | INFECTIOUS DISEASE PROGRESS NO ---
DATE: 07/24/2019 PRESENT ILLNESS: The patient has an extended spectrum beta lactamase producing E coli pneumonia. He also has Yamileth dermatitis and oral candidiasis. Patient has 1/2 blood cultures positive for a coagulase-negative Staph. This is a contaminant. MEDICATIONS: The patient has been on ertapenem for 4 days for treatment for the patient's pneumonia and the patient is receiving a fluconazole by mouth for 4 days and he is also using Lotrimin cream for his Yamileth infections. Because the patient's 1 coagulase negative Staph blood culture is a contaminant it does not require antibiotic treatment. PHYSICAL EXAMINATION: Vital Signs: Temperature is 97.4 degrees, pulse 84, respirations 17, blood pressure is 104/56. General: This is an obese, chronically ill-appearing, elderly male. He is in no acute distress this afternoon. Head/eyes/ears/nose/throat: He can hear my spoken words and see near objects. I did not note any white patches in his mouth. Neck: No pain with movement. Lungs: There were right lower lobe rales. The left lung was clear. Cardiovascular: Heart rate was regular. Abdomen: Soft and nontender. Thorax: The patient has a Port-A-Cath present on the right upper chest. The site is not swollen or erythematous or tender. Abdomen: Soft and nontender. Neurologic: The patient is awake. He can move his extremities. There is no tremor. LAB AND X-RAY: Chest x-ray shows improvement in the right lower lobe pneumonia. The CBC shows a white count of 9190, hemoglobin 12.3, and platelet count 105,000. Creatinine is 1. GFR is greater than 60. IgG and IgA are normal. One out of two blood cultures are growing coagulase- negative Staph. This is a contaminant and does not require treatment. ASSESSMENT AND PLAN: I plan on continuing ertapenem for at least 2 weeks and hopefully the patient's chest x-ray will be clear by then and he will be feeling better. As mentioned earlier, the positive blood culture for coagulase-negative staph is a contaminant and does not require antibiotic treatment. COMORBIDITIES: The patient is elderly, he is morbidly obese. He has chronic obstructive pulmonary disease, bronchiectasis, diabetes mellitus, ischemic cardiomyopathy, and obstructive sleep apnea. cc: Darryl Downs MD
--- NOTE | 2019-07-24 19:56 | PROGRESS NOTE ---
DATE: 07/24/2019 SUBJECTIVE: Today Mr. Bell referred to be doing fairly the same, still coughing some brownish sputum associated with pockets of blood. OBJECTIVE: Vital signs: Blood pressure is 122/70, pulse of 53, respirations 16, temperature is 97.6 degrees. General: Mr. Bell is a 59-year-old gentleman, morbidly obese. He was sitting up in a chair. BMI is 46.4. He is not in any distress. He has nasal oxygen in place. Chest: Air entry is bilaterally reduced, a few crackles in the posterior lung ann bilaterally. Cardiovascular: Regular rate and rhythm. Abdomen: Soft, distended but nontender. Extremities: About 2+ pedal edema. Central nervous system: Patient is awake, alert, and oriented. LABORATORY DATA: CBC shows a microcytic anemia with low platelet count of 105,000. Chemistry is unremarkable except for mildly elevated glucose and low sodium. So far the sputum culture has grown E coli, which is ESBL. ASSESSMENT: 1. Extended spectrum beta-lactamase Escherichia coli pneumonia. Patient is currently on ertapenem. Today is day 4 on the antibiotics. ID is on board. 2. Yamileth dermatitis in the inguinal area. 3. History of chronic obstructive pulmonary disease with mild exacerbation improved. 4. History of ischemic cardiomyopathy. 5. Chronic pain syndrome. 6. Diabetes mellitus type 2 and hypertension. 7. Chronic hypoxemic respiratory failure on home oxygen on 4 L. 8. Documented stage II right buttocks pressure ulcer. 9. Microcytic anemia most likely due to anemia of chronic disease. We will check on her iron studies tomorrow. cc: Jed Matthew MD
[2019-07-24] MEDS: COZAAR PO SCH (21:36)
[2019-07-24] MEDS: IMDUR PO SCH (21:36)
[2019-07-24] MEDS: ATARAX PO SCH (21:36)
[2019-07-24] MEDS: ALDACTONE PO SCH (21:37)
[2019-07-25] MEDS: DUONEB (A & A) INH SCH ×6 (03:18→23:15)
[2019-07-25] MEDS: HUMULIN R SUBQ SCH ×3 (06:51→16:48)
[2019-07-25 07:17] LABS: HEMOGLOBIN 12.2 g/dL (14.0-18.0); MCH 24.5 PG (27-31); MCHC 31.3 g/dL (33-37); MCV 78.5 FL (81-99); MPV 11.2 FL (7.4-10.4); RBC 4.97 XMIL (4.7-6.1); WBC 9.1 X1000 (4.8-10.8)
[2019-07-25 07:41] LABS: ALB/GLOB RATIO 1.2; ALBUMIN 3.6 g/dL (3.5-5.0); CALCIUM 9.4 mg/dL (8.8-10.2); CREATININE 1.3 mg/dL (0.7-1.2); MAGNESIUM 2.2 mg/dL (1.5-2.7); PHOSPHORUS 3.3 mg/dL (2.7-4.5); POTASSIUM 4.3 mmol/L (3.5-5.1); TOTAL BILIRUBIN 0.3 mg/dL (0.20-1.00); TOTAL PROTEIN 6.7 g/dL (6.3-8.3)
[2019-07-25 08:16] LABS: FERRITIN 71 ng/mL (30-400)
[2019-07-25] MEDS: MUCINEX PO SCH (10:06)
[2019-07-25] MEDS: MYCOSTATIN SUSP PO SCH ×3 (10:07→16:49)
[2019-07-25] MEDS: LINZESS PO SCH (10:07)
[2019-07-25] MEDS: PROTONIX PO SCH (10:07)
[2019-07-25] MEDS: COREG PO SCH (10:07)
[2019-07-25] MEDS: DIFLUCAN PO SCH (10:07)
[2019-07-25] MEDS: ELIQUIS PO SCH (10:07)
[2019-07-25] MEDS: LEVEMIR SUBQ SCH (10:08)
[2019-07-25] MEDS: LASIX PO SCH (10:08)
[2019-07-25] MEDS: PROZAC PO SCH (10:08)
[2019-07-25] MEDS: CULTURELLE PO SCH (10:08)
[2019-07-25] MEDS: LOTRIMIN 1% CREAM TOP SCH (10:09)
[2019-07-25] MEDS: INVANZ 1 GM/NS 1 GM/50 ML IVPB IV SCH (12:42)
--- NOTE | 2019-07-25 19:01 | INFECTIOUS DISEASE PROGRESS NO ---
DATE: 07/25/2019 PRESENT ILLNESS: The patient has an extended spectrum beta lactamase producing E coli right lower lobe pneumonia. The patient also has Yamileth dermatitis and oral candidiasis. The patient has 1/2 blood cultures positive for coagulase-negative Staph. This is a contaminant. MEDICATIONS: This is day 5 of treatment with ertapenem. Patient also is taking fluconazole by mouth and putting Lotrimin cream on his rash. PHYSICAL EXAMINATION: Vital Signs: Temperature is 97.6 degrees, pulse 90, respirations 20, blood pressure 105/62. General: This is an obese, chronically ill-appearing, elderly male. He is in no acute distress. Head, eyes, ears, nose, and throat: He can hear my spoken words and see near objects. He does not have any white coating on his tongue. Neck: No pain with movement. Lungs: Right lower lobe rales were heard. Left lung was clear. Cardiovascular: Heart rate is regular. Thorax: Patient has a Port-A-Cath in the right upper chest. The site is not swollen or erythematous. Abdomen: Soft and nontender. Neurologic: The patient is alert. He can move his extremities. There is no tremor. Extremities: Patient has bilateral leg edema but no erythema. LAB AND X-RAY: X-ray shows improvement in the right lower lobe infiltrate. Liver function studies are normal. Creatinine is 1.3. GFR is 55. CBC shows a white count of 9100, hemoglobin 12.2, and platelet count 86,000. ASSESSMENT AND PLAN: I am going to continue ertapenem for 10 more days for the patient's E coli pneumonia. I am going to give the patient a prescription for fluconazole for 2 weeks and also I have told the patient he can get Lotrimin cream over the counter. The patient will be given appointment in my office for 2 weeks at which time the patient will be examined and the chest x- ray will be obtained. As I mentioned above, the positive blood culture for coagulase-negative staph is a contaminant and does not require antibiotic treatment. COMORBIDITIES: The patient is elderly. He has morbid obesity and chronic obstructive pulmonary disease along with bronchiectasis, diabetes mellitus, ischemic cardiomyopathy, and obstructive sleep apnea. cc: Darryl Downs MD
--- NOTE | 2019-07-25 20:07 | PROGRESS NOTE ---
DATE: 07/25/2019 SUBJECTIVE: This morning Mr. Bell referred to be doing fairly okay. Still has some cough with some sputum production that continues to be quite brownish. OBJECTIVE: Vital signs: Blood pressure is 110/63, pulse of 83, respiration is 22, temperature is 97.8 degrees. General: Mr. Bell is a 69-year-old elderly male with a BMI of 46.4. He is in bed in no distress. HEENT: Mucosa is pink and moist. Anicteric. Acyanotic. Chest: Good air entry bilaterally. Few crackles in the posterior lung ann. Cardiovascular: Regular rate and rhythm. GI: Abdomen is soft, distended, but nontender. Extremities: 2+ pedal edema. WASTE COLLECTOR: Patient is awake, alert, and oriented. No focal neurological deficit. LABORATORY DATA: WBC 9.10, hemoglobin 12.2, platelet count of 86,000. Chemistry is also reviewed. Creatinine is slightly elevated to 1.3. The patient has been advised adequate fluid resuscitation. ASSESSMENT: 1. Extended spectrum beta-lactamases Escherichia coli pneumonia. The patient is on ertapenem. Today is day 4. Infectious Disease is on board. I have discussed with Dr. Downs. He plans to continue with IV ertapenem for a total of about 2 weeks at home. 2. Yamileth dermatitis in the inguinal region. We will continue with antifungal management. 3. History of chronic obstructive pulmonary disease with mild exacerbation, improved. 4. History of ischemic cardiomyopathy. Patient is on home medications. 5. Diabetes mellitus type 2. Controlled on insulin regimen. 6. Chronic hypoxemic respiratory failure on home oxygen on 4 L. 7. Documented stage II right buttocks pressure ulcer. 8. Microcytic anemia secondary to anemia of chronic disease with some underlying iron deficiency. 9. Acute kidney injury, most likely from dehydration. The patient has been advised on enteral hydration. PLAN: In general, I think Mr. Bell is doing well. He is coughing less. We will continue with the current antimicrobial coverage. There is a plan for possible discharge tomorrow pending final recommendations from Infectious Disease. cc: Jed Matthew MD
[2019-07-26] MEDS: LEVEMIR SUBQ SCH ×2 (01:14→08:06)
[2019-07-26] MEDS: PROTONIX PO SCH ×2 (01:15→08:05)
[2019-07-26] MEDS: ATARAX PO SCH (01:15)
[2019-07-26] MEDS: MUCINEX PO SCH ×2 (01:15→08:08)
[2019-07-26] MEDS: LASIX PO SCH ×2 (01:15→08:05)
[2019-07-26] MEDS: COZAAR PO SCH (01:15)
[2019-07-26] MEDS: ELIQUIS PO SCH ×2 (01:16→08:05)
[2019-07-26] MEDS: ALDACTONE PO SCH (01:16)
[2019-07-26] MEDS: COREG PO SCH ×2 (01:16→08:05)
[2019-07-26] MEDS: LOTRIMIN 1% CREAM TOP SCH ×2 (01:16→08:10)
[2019-07-26] MEDS: IMDUR PO SCH (01:16)
[2019-07-26] MEDS: MYCOSTATIN SUSP PO SCH ×3 (01:16→12:23)
[2019-07-26] MEDS: HUMULIN R SUBQ SCH ×3 (01:17→12:22)
[2019-07-26] MEDS: MS CONTIN PO PRN ×2 (01:34→08:17)
[2019-07-26] MEDS: DUONEB (A & A) INH SCH ×3 (03:31→11:32)
[2019-07-26] MEDS: CULTURELLE PO SCH (08:04)
[2019-07-26] MEDS: PROZAC PO SCH (08:05)
[2019-07-26] MEDS: LINZESS PO SCH (08:05)
[2019-07-26] MEDS: DIFLUCAN PO SCH (08:05)
[2019-07-26] MEDS: BUSPAR PO PRN (08:16)
[2019-07-26 11:29] VITALS: BP 145/83
--- NOTE | 2019-07-27 12:23 | DISCHARGE SUMMARY ---
ADMISSION DATE: 07/18/2019 DISCHARGE DATE: 07/26/2019 DISPOSITION: Home. FOLLOWUP: 1. Dr. Downs. 2. Dr. Jennifer Jean Baptiste. 3. Dr. Vick. 4. Dr. Dawson. CONSULTATION DURING THIS ADMISSION: 1. ID was consulted, patient was seen by Dr. Downs. 2. Surgery was also consulted, patient was seen by Dr. Vick. INVASIVE PROCEDURES DONE DURING THIS ADMISSION: None IMAGING STUDIES OF SIGNIFICANCE: A chest x-ray showed right lower lobe bronchopneumonia. A repeat chest x-ray showed improved right lower lobe bronchopneumonia. ADMISSION DIAGNOSES: 1. Healthcare-associated pneumonia. 2. Chronic obstructive pulmonary disease. 3. History of ischemic cardiomyopathy. 4. Chronic atrial fibrillation. DIAGNOSES AT THE TIME OF DISCHARGE: 1. Extended-spectrum beta-lactamase Escherichia coli pneumonia. 2. Yamileth dermatitis in the inguinal region. 3. History of chronic obstructive pulmonary disease with mild exacerbation. 4. Ischemic cardiomyopathy. 5. Diabetes mellitus type 2. 6. Chronic hypoxemic respiratory failure on home O2 oxygen. 7. Documented stage II right buttocks pressure ulcer. 8. Microcytic anemia secondary to anemia of chronic disease with underlying iron deficiency. 9. Acute kidney injury secondary to dehydration. DISCHARGE MEDICATIONS: 1. Buspirone 10 mg 3 times per day. 2. Spironolactone 25 mg p.o. at bedtime. 3. Cozaar 50 mg Q p.o. at bedtime. 4. Imdur 60 mg p.o. at bedtime. 5. Fluoxetine 20 mg p.o. daily. 6. Carvedilol 12.5 mg b.i.d. 7. Morphine sulfate 30 mg 3 times per day. 8. Insulin aspartate 30 units b.i.d. 9. Hydroxyzine 25 mg p.o. at bedtime. 10. Eliquis 5 mg b.i.d. 11. Pantoprazole 40 mg p.o. daily. 12. Detemir insulin 70 units b.i.d. 13. Furosemide 80 units in the morning and 120 at night. 14. Trulicity 0.75 subcutaneously as directed. 15. Fluconazole 200 mg p.o. daily. 16. Lactobacillus. 17. Ertapenem, dose and length of therapy to be determined by Dr. Downs. PRESENTING COMPLAINT: Shortness of breath. HISTORY OF PRESENT COMPLAINT: Mr. Bell is a 69-year-old, elderly, morbid, male who has COPD, chronic hypoxemia on home O2 oxygen, came into the emergency department because of more shortness of breath and cough with sputum production. He has had multiple occasions of pneumonias with Pseudomonas ESBL. Upon presentation, he was evaluated and admitted for medical care. HOSPITAL COURSE: Mr. Bell was admitted to the medical floor, was started on broad-spectrum IV antibiotics. Blood cultures came back negative but sputum came back positive for ESBL E coli. The pathogen was targeted with the ertapenem. Progressively, Mr. Bell continues to show improvement. The cough got better. Shortness of breath improved and the sputum production also got less and the coloration got better. He did refer to be feeling better so ID has arranged his home antimicrobial therapy which he plans to treat for a total of 2 weeks. Mr. Bell is today feeling better. We think he is stable for discharge. All the discharge instructions discussed with him and he voiced understanding. TIME SPENT: For discharge is 38 minutes. cc: Jed Matthew MD MTDD
[2019-07-28] MEDS ORDERED: NON-FORMULARY MED (Dulaglutide [Trulicity] 0.75 MG) SUBQ SCH (09:00)
== END 2019-07-26 13:05 | disposition home health service (06) | DRG 191 ==
LOC: SUPCPDRO → ED 12:26 → 4N 23:17 → SUATTDRO 23:17
PROVIDERS: ATTEND Internal Medicine

== ENCOUNTER 2019-08-21 11:02 | Inpatient (IN) ==
--- NOTE | 2019-08-21 11:40 | Diag Imaging Result Doc PS360 ---
CHEST-PORTABLE - 08/21/2019 INDICATION: cough COMPARISON: 07/24/2019 FINDINGS: Stable COPD. Stable right chest port and left pacemaker. Stable CABG changes. Stable mild cardiomegaly and pulmonary vascular congestion. There is been decrease in the patchy infiltrates or atelectasis in the lung bases. No large pleural effusion. IMPRESSION: Improvement from prior. COPD. Persistent cardiomegaly and pulmonary vascular congestion. Electronically signed by Brandon Gauthier 08/21/2019 11:37 AM
--- NOTE | 2019-08-21 11:46 | PROVIDER DOCUMENTATION ---
HPI-General Adult - General Chief Complaint: Shortness of Breath Stated Complaint: "PNEUMONIA" DR DOWNS REFERRED TO ER Time Seen by Provider: 08/21/19 11:16 Source: patient Allergies/Adverse Reactions: Patient Allergies Allergy/AdvReac Type Severity Reaction Status Date / Time No Known Allergies Allergy Verified 08/21/19 13:19 Home Medications: Home Medication List Medication Instructions Recorded Confirmed Last Taken Type Buspirone [Buspar] 20 mg PO TID 10/06/16 08/21/19 08/21/19 History Carvedilol 12.5 mg PO BID 10/06/16 08/21/19 08/21/19 History Fluoxetine [Prozac] 20 mg PO DAILY 10/06/16 08/21/19 08/21/19 History Isosorbide Mononitrate [Imdur] 60 mg PO QHS 10/06/16 08/21/19 1 Day Ago History ~08/20/19 Losartan [Cozaar] 50 mg PO HS 10/06/16 08/21/19 1 Day Ago History ~08/20/19 Spironolactone 25 mg PO QHS 10/06/16 08/21/19 08/21/19 History Hydroxyzine [Atarax] 25 mg PO QHS 03/04/18 08/21/19 1 Day Ago History ~08/20/19 Insulin Aspart [Novolog] 30 unit SQ BID 03/04/18 08/21/19 08/21/19 History Mometasone Furoate 220 Mcg INH 0.5 inhaler INH BID 03/04/18 08/21/19 08/21/19 History [Asmanex 220 Microgm Inhaler] Morphine Sulfate 30 mg PO TID 03/04/18 08/21/19 08/21/19 History Apixaban [Eliquis] 5 mg PO BID 05/19/18 08/21/19 08/21/19 History Furosemide [Lasix] 80 mg PO QAM 05/19/18 08/21/19 08/21/19 History Insulin Detemir [Levemir] 62 unit SUBQ BID 05/19/18 08/21/19 08/21/19 History Pantoprazole [Protonix] 40 mg PO QHS 05/19/18 08/21/19 1 Day Ago History ~08/20/19 Tiotropium [place] [Spiriva 18 mcg IH DAILY 06/29/18 08/21/19 08/21/19 History Respimat] Linaclotide [Linzess] 145 mcg PO DAILY 09/22/18 08/21/19 08/21/19 History Guaifenesin [Mucinex] 1,200 mg PO Q12H #14 tab.er.12h 05/16/19 08/21/19 08/21/19 Rx Furosemide [Lasix] 120 mg PO HS 07/19/19 08/21/19 2 Days Ago History ~08/19/19 Calcium Carbonate [Tums Extra 750 mg PO PC + HS PRN PRN tab 07/26/19 08/21/19 1 Day Ago Rx Strength] ~08/20/19 Dulaglutide [Trulicity] 0.75 mg SUBQ Q7D 07/26/19 08/21/19 1 Week Ago Rx ~08/14/19 Potassium Chloride 10 meq PO QAM 08/21/19 08/21/19 08/21/19 History - History of Present Illness -Gen Adult Nature of Presenting Problems: 69yo male pressents with CC of shortness of breath and cough. The patient rep orts that he was seen by Dr. Downs ABBY today for follow up from hospitalized PNA infection and was sent to the ED for evaluation. The patient reports that he has had productive cough and shortness of breath. The patient is baseline on 4L, and has not been increasing his requirements. The patient is not currently on abx, but per Dr. Downs office completed 10 day course following admission for ESBL ecoli in the lungs. The patient does report some chills and generalized feeling ill. Location of Pain/Injury: reports: none Pain Radiation: reports: no radiation Quality of Pain: reports: none Onset/Duration: reports: 4 days ago Context/Activities at Onset: reports: none, other (hx of chronic recurrent PNA) Modifying Factors: improves with: nothing, other (on O2 without improvement) Associated Symptoms: reports: cough, fever/chills, shortness of breath, weakness Similar Symptoms Previously?: Yes (Hx of Pneumonia) Recently seen or treated by another doctor?: Yes (See by Dr. Downs [facility] and sent in to be evaluated) Review of Systems - Adult - REVIEW OF SYSTEMS - ADULT Constitutional: reports: no symptoms reported, chills Eyes: reports: no symptoms reported. denies: eye pain Ears, Nose, Mouth & Throat: reports: no symptoms reported. denies: throat pain Cardiovascular: reports: no symptoms reported, edema. denies: chest pain Respiratory: reports: cough, excessive sputum production, shortness of breath Gastrointestinal: denies: abdominal pain Genitourinary: reports: no symptoms reported Musculoskeletal: reports: muscle weakness Integumentary: reports: no symptoms reported Neurological: reports: no symptoms reported Psychiatric: reports: no symptoms reported Endocrine: reports: no symptoms reported Hematologic/Lymphatic: reports: no symptoms reported, other (no bleeding) Allergic/Immunologic: reports: no symptoms reported, other (no swelling) Past History - Adult - PAST MEDICAL HISTORY-ADULT Review of Records: reports: Old Records Reviewed Major Childhood Illnesses: reports: denies history Cardiovascular: reports: A-Fib, arrhythmia (with cardiac ablation), CAD, HTN, hyperlipidemia, [place] Respiratory: reports: asthma, COPD (on 4 Liters NC), pneumonia Gastrointestinal: reports: denies history Obstetrical/Gynecological: reports: denies history Genitourinary: reports: kidney stones Musculoskeletal: reports: denies history Neurological: reports: denies history Endocrine/Immune: reports: Diabetes Other Conditions: reports: other (sleep apnea) - PRIOR SURGERIES/PROCEDURES Surgical/Procedure History: reports: CABG, pacemaker, other (ablation) - IMMUNIZATION STATUS Childhood Immunizations: See Nurse Assessment Flu Vaccine: See Nurse Assessment - FAMILY HISTORY Family History: reviewed, not pertinent Physical Exam-General - PHYSICAL EXAM-ADULT Initial Vital Signs Reviewed: Yes - CONSTITUTIONAL General Appearance: appears well, alert, no apparent distress - EYES Eyes: negative: conjuctival exudate, photophobia, sclera injected, scleral icterus - HEAD, EARS, NOSE, MOUTH & THROAT HENMT: normocephalic/atraumatic, moist mucous membranes. negative: pharynx normal, hearing deficit, pharyngeal erythema - NECK Neck: non-tender, supple - RESPIRATORY Respiratory: no respiratory distress - CARDIOVASCULAR Cardiovascular: regular rate, rhythm - GASTROINTESTINAL (ABDOMEN) Abdominal Exam: non tender, soft. negative: guarding, rigid - MUSCULOSKELETAL Extremity: non-tender - SKIN Integumentary: normal color, warm/dry - NEUROLOGIC Neurologic: grossly normal - PSYCHIATRIC Psych/Mental Status: normal mood/affect, normal thought content, normal thought process Progress - PLAN OF CARE/RESULTS Progress/Plan/Lab Results: Vital Signs - 8 hr 08/21/19 11:06 Temperature 97.8 F Pulse Rate 87 Respiratory Rate 22 Blood Pressure 111/68 O2 Sat by Pulse Oximetry 89 L Orders Category Date Time Status Saline Loc NOW Care 08/21/19 11:04 Active CHEST-PORTABLE [RAD] Stat Exams 08/21/19 11:04 Completed BLOOD CULTURE [BLDCUL] Stat Lab 08/21/19 11:04 Uncollected CBC WITH DIFF [HEME] Stat Lab 08/21/19 11:04 Uncollected COMPREHENSIVE METABOLIC PANEL [CHEM] Stat Lab 08/21/19 11:04 Uncollected LACTATE, PLASMA [CHEM] Stat Lab 08/21/19 11:03 Uncollected PRO B-NATRIURETIC PEPTIDE Stat Lab 08/21/19 11:04 Uncollected TROPONIN T Stat Lab 08/21/19 11:05 Uncollected Pulse Oximetry Stat Oth 08/21/19 11:04 Active Result Diagrams: 08/21/19 12:35 08/21/19 12:35 - REASSESSMENT Reassessment #1 Status: other (Patient without increased WBC and low BNP, given hypoxia and reported dypsnea with increased O2 needs at home and high risk PNA and COPD patient will admit for COPDE with steriods and Abx to cover pseudomonas. Discussed case with the hospitalist team who has accepted the patient.) - XRAY 1 XRAY Study: Chest Impression: See EMR Report ( CHEST-PORTABLE - 08/21/2019 INDICATION: cough COMPARISON: 07/24/2019 FINDINGS: Stable COPD. Stable right chest port and left pacemaker. Stable CABG changes. Stable mild cardiomegaly and pulmonary vascular congestion. There is been decrease in the patchy infiltrates or atelectasis in the lung bases. No large pleural effusion. IMPRESSION: Improvement from prior. COPD. Persistent cardiomegaly and pulmonary vascular congestion. Electronically signed by Brandon Gauthier 08/21/2019 11:37 AM 08/21/19 1137 Interpreting Physician: Brandon Gauthier MD Dictated Date/Time: 08/21/19 1137 cc: Beth Moss MD; Jennifer Jean Baptiste MD) Departure - Departure Date of Disposition Decision: 08/21/19 Time of Disposition Decision: 15:14 DIAGNOSIS: COPD (chronic obstructive pulmonary disease) Qualifiers: COPD type: COPD with acute exacerbation Qualified Code(s): J44.1 - Chronic obstructive pulmonary disease with (acute) exacerbation Disposition: ADMITTED INPATIENT 09 Certified Medical Emergency: Emergent Condition: Fair Referrals and Follow-Ups: Jennifer Jean Baptiste MD [Primary Care Provider] - - Critical Care Note This patient required my direct & personal management of CC.: No Attestation - Physician/ ABBY Attestation Patient care was provided by Advanced Practice Provider:: No The physician spent face to face time with patient:: Yes Advanced Practice Provider documentation review:: Supervising physician onsite and consulted in the evaluation and care of this patient. The physician did have a face to face encounter with the patient.
[2019-08-21 12:51] LABS: BASO# 0.03 X1000 (0.0-0.2); BASO% 0.3 % (0.0-0.8); EOS% 0.9 % (0.0-10.0); HEMATOCRIT 36.1 % (42.0-52.0); HEMOGLOBIN 11.3 g/dL (14.0-18.0); IMM GRAN# 0.02 X1000 (0.0-0.04); IMM GRAN% 0.2 % (0.0-0.5); LYMPH# 0.97 X1000 (1.2-3.4); LYMPH% 9.1 % (20.5-51.1); MCH 24.8 PG (27-31); MCHC 31.3 g/dL (33-37); MCV 79.2 FL (81-99); MONO# 0.76 X1000 (0.11-0.59); MONO% 7.1 % (1.7-9.3); MPV 10.8 FL (7.4-10.4); NEUT# 8.83 X1000 (1.4-6.5); NEUT% 82.4 % (42.2-75.2); PLT 102 X1000 (130-400); RBC 4.56 XMIL (4.7-6.1); RDW 14.4 % (11.5-14.5); WBC 10.71 X1000 (4.8-10.8)
[2019-08-21 13:27] LABS: AGAP 10; ALB/GLOB RATIO 1.3; ALBUMIN 3.4 g/dL (3.5-5.0); ALKALINE PHOSPHATASE 95 U/L (32-122); BUN 15 mg/dL (8-22); CALCIUM 9.3 mg/dL (8.8-10.2); CHLORIDE 96 mmol/L (98-107); COSMO 286; CREATININE 0.9 mg/dL (0.7-1.2); ESTIMATED GFR > 60; GLUCOSE 263 mg/dL (70-104); GOT 11 U/L (10-34); GPT 7 U/L (10-44); POTASSIUM 3.7 mmol/L (3.5-5.1); SODIUM 138 mmol/L (136-145); TCO2 32 mmol/L (25-35); TOTAL BILIRUBIN 0.41 mg/dL (0.20-1.00)
[2019-08-21] MEDS ORDERED: PREDNISONE PO ONE (15:05)
[2019-08-21] MEDS ORDERED: TYLENOL PO PRN (15:32)
[2019-08-21] MEDS ORDERED: ZOFRAN IV PRN (15:32)
[2019-08-21] MEDS ORDERED: DUONEB (A & A) INH PRN (15:36)
[2019-08-21] MEDS: SOLU-MEDROL IV SCH ×3 (15:45→23:00)
[2019-08-21] MEDS ORDERED: ZOSYN 4.5 GM in NS 100 ML IV SCH (16:00)
[2019-08-21] MEDS: DUONEB (A & A) INH SCH ×3 (16:11→22:36)
[2019-08-21] MEDS ORDERED: CALMOSEPTINE OINTMENT TOP ONE (18:15)
[2019-08-21] MEDS ORDERED: TUMS EXTRA STRENGTH PO PRN (18:34)
[2019-08-21] MEDS: HUMALOG SUBQ SCH ×2 (18:47→21:43)
--- NOTE | 2019-08-21 19:53 | HISTORY AND PHYSICAL ---
CHIEF COMPLAINT: Shortness of breath. HISTORY OF PRESENT ILLNESS: This is a morbidly obese, 69-year-old gentleman with a history of COPD, ischemic cardiomyopathy with an ejection fraction of 60% in August 2018, with recent ESBL positive E coli pneumonia in June 2019, with subsequent IV Invanz home antibiotic therapy. He comes today complaining of increasing shortness of breath, pain on inspiration, and coughing up brown secretions x4 days. He states that he has not had a bowel movement in over a week. He did have some diarrhea for which he took Imodium, and over this last 3 to 4 days, he has felt bloated, nauseated. He feels like his abdomen is pushing up into his chest, making it hard for him to breathe. He denied any chest pain or palpitations. PAST MEDICAL HISTORY: 1. Chronic obstructive pulmonary disease, on home O2 at 4 L per nasal cannula. 2. Chronic hypoxic respiratory failure. 3. Gastroesophageal reflux disease. 4. Chronic atrial fibrillation, on Eliquis. 5. Ischemic cardiomyopathy, with an ejection fraction of 60% in August 2018. 6. Coronary artery disease. 7. Obstructive sleep apnea. The patient does not wear CPAP. 8. Morbid obesity. 9. Diabetes mellitus type 2. 10. Hypertension. 11. Hyperlipidemia. 12. History of exposure to asbestos and Agent Crisp. PAST SURGICAL HISTORY: 1. Coronary artery bypass grafting. 2. Permanent pacemaker in 2004, secondary to bradycardia. 3. Bilateral leg surgery. 4. Lumbar spine surgery. 5. Lithotripsy in 2018. SOCIAL HISTORY: He smokes 3 packs a day from the age of 13 to the age of 59. He did stop in 1989. He denies any alcohol or illicit drug use. FAMILY HISTORY: Positive for his mother who had lung cancer as well as his grandmother. Father of a heart attack at age 68. He has 3 brothers, had heart disease. ALLERGIES: No known drug allergies. HOME MEDICATIONS: A list will be obtained by the nursing staff. Once verified and reviewed, will restart as appropriate. REVIEW OF SYSTEMS: Discussed with the patient with pertinent positives stated in the HPI. He denied any syncope or dizziness, any palpitations, any fevers, any hemoptysis, any vomiting, any black or bloody vomitus or stools, hematuria, dysuria, frequency, urgency. PHYSICAL EXAMINATION: GENERAL: This is a very pleasant 69-year-old gentleman who is sitting up in the chair in the emergency room in no distress. VITAL SIGNS: Blood pressure is 138/73 with a heart rate of 77, respirations are 20, temperature is 98.6 degrees oral, with O2 saturations 95 to 96 percent on 4 L nasal cannula. EYES: Pupils are equal, round, react to light. EOMs are intact. Sclerae are anicteric. HEENT: Head is normocephalic, atraumatic. Mucous membranes are moist. NECK: Supple, with trachea midline. CARDIOVASCULAR: Regular rate and rhythm. He is tachycardic. S1 and S2 are appreciated. CHEST: Rises and falls symmetrically with respiration. Calves are nontender bilateral. PULMONARY: Breath sounds with expiratory wheezes and rhonchi that do not clear to cough throughout. Chest does rise and fall symmetrically with respiration. GASTROINTESTINAL: Abdomen is large, soft, nontender, nondistended with bowel sounds in all 4 quadrants. GENITOURINARY: No CVA or suprapubic tenderness. NEUROLOGIC: He is alert and oriented x3. SKIN: Warm and dry. LABS: WBC is 10.7 with hemoglobin 11.3, hematocrit 36.1, platelets 102,000. Sodium 138, potassium 3.7, BUN 15, creatinine 0.9 with a glucose of 263. Troponin is negative. Blood cultures and sputum culture are pending. Chest x-ray revealed COPD, persistent cardiomegaly, and pulmonary vascular congestion, with a decrease in the patchy infiltrates in the lungs compared to 07/24/2019. EKG is ventricular paced at a rate of 118. ASSESSMENT AND PLAN: 1. Chronic obstructive pulmonary disease, acute exacerbation. 2. Acute hypoxic respiratory failure with an oxygen saturation of 88% on 4 L nasal cannula. 3. Productive cough, in a patient who had extended-spectrum beta lactamase positive Escherichia coli pneumonia. 4. Gastroesophageal reflux disease. 5. History of chronic atrial fibrillation, on anticoagulation with Eliquis. The patient is currently 100% paced. 6. Ischemic cardiomyopathy, with an ejection fraction of 60% in August 2018. 7. Diabetes mellitus type 2, insulin dependent. 8. History of asbestosis. 9. History of deep venous thrombosis and pulmonary embolism. 10. Constipation. PLAN: 1. The patient will be admitted to the medical floor. He will be placed on telemetry. 2. We will continue with supplemental oxygen with DuoNebs q.4 hours with q.2 hours p.r.n. and steroids to taper. 3. We will obtain a sputum specimen. 4. Blood cultures have been obtained. 5. We will start antibiotic coverage with Zosyn and further antibiotics will be culture driven. 6. He will be placed on patterned blood glucose with sliding scale insulin. 7. Start incentive spirometer. 8. Order for the patient to be up in the chair with meals and p.r.n. 9. Will identify his home medications and continue these as is appropriate. 10. Start lactulose 30 mL p.o. b.i.d. 11. Placed on strict intake and output with daily weights. 12. We will continue Eliquis. Plan was discussed with Dr Downing Further treatments pending hospital course. Dictated by HORTENCIA Deng for Blair Rivas MD cc: HORTENCIA Deng MD [facility]
[2019-08-21] MEDS: ASMANEX 220 MICROGM INHALER INH SCH (20:20)
[2019-08-21] MEDS: LACTULOSE PO SCH (20:24)
[2019-08-21] MEDS: COZAAR PO SCH (20:24)
[2019-08-21] MEDS: PROTONIX PO SCH (20:24)
[2019-08-21] MEDS: MUCINEX PO SCH (20:24)
[2019-08-21] MEDS: COREG PO SCH (20:25)
[2019-08-21] MEDS: ATARAX PO SCH (20:25)
[2019-08-21] MEDS: LASIX PO SCH (20:25)
[2019-08-21] MEDS: IMDUR PO SCH (20:25)
[2019-08-21] MEDS: ELIQUIS PO SCH (20:25)
[2019-08-21] MEDS: ALDACTONE PO SCH (20:25)
[2019-08-21] MEDS: BUSPAR PO SCH (20:25)
[2019-08-21] MEDS: MS CONTIN PO SCH (20:25)
[2019-08-21] MEDS: LEVEMIR SUBQ SCH (20:26)
[2019-08-21] MEDS ORDERED: INSULIN PEN NEEDLES ONE (20:41)
--- NOTE | 2019-08-21 20:42 | HISTORY AND PHYSICAL ---
HISTORY OF PRESENT ILLNESS: ADDENDUM: The patient seen and examined by me [id number] all the laboratory, vital signs and images were reviewed. This patient has been recently discharged due to ESBL E coli pneumonia actually last month. He has multiple comorbidities including COPD, hypoxia, GERD, atrial fibrillation on anticoagulation, ischemic cardiomyopathy, coronary artery disease, obstructive sleep apnea, morbid obesity, diabetes, hypertension, hyperlipidemia. Also, he has been follow up by Dr. Vick, I believe, as an outpatient due to an ulcer that he has in the inguinal area. I do believe that it is not infected at this moment. He has been coughing up phlegm. He described that as a yellow-brown phlegm, and he has been feeling bad for the past 3 to 4 days. In the other hand, he has not had any bowel movement for the past week. So, he probably has a pneumonia. He has been placed on Zosyn and also he will receive lactulose twice a day to see if he has a bowel movement. If he does not have a bowel movement, probably we will we will use some suppositories and/or we can also use some enema. I will get wound care to see his inguinal area and make some recommendations. Also, I will ask Physical Therapy to evaluate this patient as soon as we can since the patient has been having problems before with this. I will continue with oxygen supplementation as well. He has been wheezing bilaterally and he has bilateral scattered rhonchi mostly at the bases, he has been placed on breathing treatment and he started receiving also some steroids, which I will probably decrease tomorrow to see how he does. I agree with the rest of the nurse practitioner's assessment and plan. cc: Blair Rivas MD
[2019-08-21] MEDS: ZOSYN 4.5 GM in NS 100 ML IV SCH (23:00)
[2019-08-22] MEDS: DUONEB (A & A) INH SCH ×6 (03:28→23:04)
[2019-08-22] MEDS: MS CONTIN PO SCH ×3 (05:31→17:53)
[2019-08-22] MEDS: BUSPAR PO SCH ×3 (05:32→17:53)
[2019-08-22] MEDS: ZOSYN 4.5 GM in NS 100 ML IV SCH (05:32)
[2019-08-22] MEDS: HUMALOG SUBQ SCH (06:16)
[2019-08-22 07:47] LABS: EOS# 0.04 X1000 (0.0-0.7); EOS% 0.3 % (0.0-10.0); HEMATOCRIT 37.1 % (42.0-52.0); HEMOGLOBIN 11.8 g/dL (14.0-18.0); IMM GRAN# 0.02 X1000 (0.0-0.04); IMM GRAN% 0.2 % (0.0-0.5); LYMPH# 0.42 X1000 (1.2-3.4); LYMPH% 3.3 % (20.5-51.1); MCH 24.9 PG (27-31); MCHC 31.8 g/dL (33-37); MCV 78.4 FL (81-99); MONO# 0.09 X1000 (0.11-0.59); MONO% 0.7 % (1.7-9.3); MPV 11.8 FL (7.4-10.4); NEUT# 12.05 X1000 (1.4-6.5); NEUT% 95.5 % (42.2-75.2); PLT 123 X1000 (130-400); RBC 4.73 XMIL (4.7-6.1); RDW 14.4 % (11.5-14.5); WBC 12.62 X1000 (4.8-10.8)
[2019-08-22 08:09] LABS: AGAP 15; ALB/GLOB RATIO 1.1; ALBUMIN 3.6 g/dL (3.5-5.0); ALKALINE PHOSPHATASE 97 U/L (32-122); BUN 15 mg/dL (8-22); CALCIUM 9.1 mg/dL (8.8-10.2); CHLORIDE 92 mmol/L (98-107); COSMO 286; CREATININE 0.8 mg/dL (0.7-1.2); ESTIMATED GFR > 60; GLUCOSE 344 mg/dL (70-104); GOT 11 U/L (10-34); GPT 7 U/L (10-44); SODIUM 136 mmol/L (136-145); TCO2 29 mmol/L (25-35); TOTAL BILIRUBIN 0.53 mg/dL (0.20-1.00); TOTAL PROTEIN 6.8 g/dL (6.3-8.3)
[2019-08-22] MEDS: SPIRIVA INH SCH (08:18)
[2019-08-22] MEDS: ASMANEX 220 MICROGM INHALER INH SCH ×2 (08:18→19:28)
[2019-08-22 08:32] LABS: BANDS 4 % (0-1); LYMPHS 2 % (21-51); SEGS 94 % (42-75)
[2019-08-22] MEDS: SOLU-MEDROL IV SCH ×2 (09:43→17:51)
[2019-08-22] MEDS: LINZESS PO SCH (09:43)
[2019-08-22] MEDS: MUCINEX PO SCH ×2 (09:43→20:40)
[2019-08-22] MEDS: COREG PO SCH ×2 (09:44→20:40)
[2019-08-22] MEDS: PROZAC PO SCH (09:44)
[2019-08-22] MEDS: ELIQUIS PO SCH ×2 (09:44→20:40)
[2019-08-22] MEDS: LASIX PO SCH ×2 (09:44→20:39)
[2019-08-22] MEDS: LACTULOSE PO SCH (09:44)
[2019-08-22] MEDS: LEVEMIR SUBQ SCH ×2 (09:46→20:37)
[2019-08-22] MEDS: HUMULIN R SUBQ SCH ×4 (11:43→20:42)
[2019-08-22] MEDS: PRIMAXIN 500 MG in NS 100 ML IV SCH ×2 (11:51→19:55)
--- NOTE | 2019-08-22 13:03 | Diag Imaging Result Doc PS360 ---
CT THORAX W/O CONTRAST - 08/22/2019 INDICATION: pneumonia COMPARISON: 11/18/2018 FINDINGS: Stable left-sided pacemaker. Stable CABG changes. Heart size is grossly normal. No adenopathy. No severe COPD. There is some nonspecific multifocal atelectasis or scarring in the lung bases. This is very similar to the CT of 11/18/2018. There are moderate degenerative changes of the spine. No acute or suspicious bony lesion. IMPRESSION: Multifocal linear atelectasis or scarring in the lung bases, stable from prior. This exam was performed using automated exposure control, adjustment of mA or kV according to patient size, and/or use of iterative reconstruction technique Electronically signed by Brandon Gauthier 08/22/2019 1:01 PM
--- NOTE | 2019-08-22 19:37 | PROGRESS NOTE ---
DATE: 08/22/2019 SUBJECTIVE: The patient is resting comfortably. He states that he has been having loose stools. OBJECTIVE: Vital Signs: Temperature 98.3 degrees, blood pressure 152/80, heart rate 93, respirations 18, O2 saturation 94% on 4 L nasal cannula. General: This is a morbidly obese male sitting in bed in no acute distress. Heart: S1, S2 normal. Tachycardic. Lungs: Equal air entry bilaterally. Diminished breath sounds at the bases. Abdomen: Positive bowel sounds. Soft, obese, nontender. Extremities: Trace pedal edema. Neurologic: The patient is alert and oriented x4. LABS: White blood cell count 12, hemoglobin 11, hematocrit 37, platelets 123,000. Sodium 136, potassium 4, chloride 92, CO2 29, BUN 15, creatinine 0.8, glucose 344. IMAGING: CT of the chest shows multifocal linear atelectasis or scarring in the lung bases. ASSESSMENT AND PLAN: 1. Acute on chronic hypoxemic respiratory failure. Aware. Continue with supplemental oxygen. 2. Possible pneumonia. The sputum culture is already growing gram-negative rods. The patient had extended spectrum beta-lactamases Escherichia coli last month for which he was treated with IV Invanz as an outpatient. The patient is currently on imipenem. We will await the results of the sputum culture. Continue with supplemental oxygen and bronchodilator therapy. 3. Poorly controlled insulin-dependent diabetes mellitus. Continue on Levemir and sliding scale insulin. 4. Diarrhea. We will check stool for Clostridium difficile due to the patient's recent antibiotic exposure. 5. Chronic obstructive pulmonary disease. Aware. 6. Chronic diastolic congestive heart failure. Stable. Continue on the current diuretic regimen. The patient has also been counseled about fluid restriction. 7. Morbid obesity. Aware. 8. Hypertension. Continue on the current antihypertensive regimen. 9. Deep vein thrombosis prophylaxis. The patient is on Eliquis. cc: Denia Cordero MD
[2019-08-22] MEDS: IMDUR PO SCH (20:39)
[2019-08-22] MEDS: COZAAR PO SCH (20:39)
[2019-08-22] MEDS: ALDACTONE PO SCH (20:40)
[2019-08-22] MEDS: PROTONIX PO SCH (20:40)
[2019-08-22] MEDS: ATARAX PO SCH (20:40)
[2019-08-22] MEDS ORDERED: HUMULIN R SUBQ ONE (22:55)
[2019-08-23] MEDS: SOLU-MEDROL IV SCH ×2 (00:40→08:37)
[2019-08-23] MEDS: DUONEB (A & A) INH SCH ×6 (03:38→22:43)
[2019-08-23] MEDS: PRIMAXIN 500 MG in NS 100 ML IV SCH (03:58)
[2019-08-23] MEDS: MS CONTIN PO SCH ×3 (05:33→18:04)
[2019-08-23] MEDS: BUSPAR PO SCH ×3 (05:33→18:05)
[2019-08-23] MEDS: HUMULIN R SUBQ SCH ×4 (06:12→22:31)
[2019-08-23 07:43] LABS: HEMATOCRIT 35.3 % (42.0-52.0); HEMOGLOBIN 11.1 g/dL (14.0-18.0); IMM GRAN# 0.04 X1000 (0.0-0.04); IMM GRAN% 0.3 % (0.0-0.5); LYMPH# 0.55 X1000 (1.2-3.4); LYMPH% 4.4 % (20.5-51.1); MCH 24.9 PG (27-31); MCHC 31.4 g/dL (33-37); MCV 79.1 FL (81-99); MONO# 0.71 X1000 (0.11-0.59); MONO% 5.7 % (1.7-9.3); MPV 11.4 FL (7.4-10.4); NEUT# 11.13 X1000 (1.4-6.5); NEUT% 89.6 % (42.2-75.2); PLT 139 X1000 (130-400); RBC 4.46 XMIL (4.7-6.1); RDW 14.6 % (11.5-14.5); WBC 12.43 X1000 (4.8-10.8)
[2019-08-23 08:01] LABS: AGAP 7; BUN 18 mg/dL (8-22); CALCIUM 9.1 mg/dL (8.8-10.2); CHLORIDE 93 mmol/L (98-107); COSMO 282; CREATININE 0.9 mg/dL (0.7-1.2); ESTIMATED GFR > 60; GLUCOSE 348 mg/dL (70-104); POTASSIUM 3.9 mmol/L (3.5-5.1); SODIUM 133 mmol/L (136-145); TCO2 33 mmol/L (25-35)
[2019-08-23 08:04] LABS: LYMPHS 4 % (21-51); MONO 2 % (1-9); SEGS 94 % (42-75)
[2019-08-23] MEDS: SPIRIVA INH SCH (08:25)
[2019-08-23] MEDS: ASMANEX 220 MICROGM INHALER INH SCH ×2 (08:26→19:23)
[2019-08-23] MEDS: PROZAC PO SCH (08:33)
[2019-08-23] MEDS: LASIX PO SCH ×2 (08:33→22:29)
[2019-08-23] MEDS: LINZESS PO SCH (08:33)
[2019-08-23] MEDS: LEVEMIR SUBQ SCH ×2 (08:34→22:30)
[2019-08-23] MEDS: COREG PO SCH ×2 (08:34→22:29)
[2019-08-23] MEDS: ELIQUIS PO SCH ×2 (08:34→22:29)
[2019-08-23] MEDS: MUCINEX PO SCH ×2 (08:34→22:28)
--- NOTE | 2019-08-23 08:56 | INFECTIOUS DISEASE PROGRESS NO ---
DATE: 08/23/2019 PRESENT ILLNESS: The patient is admitted the hospital with severe dyspnea which I think is due to a Serratia bronchitis. The patient is spitting out purulent sputum. RECOMMENDATIONS: I have discontinued Primaxin and placed the patient on Levaquin. Some of the side effects of the antibiotic including rash, diarrhea, seizures, and tendon rupture have been explained to the patient, who agrees with treatment. PHYSICAL EXAMINATION: Vital Signs: Temperature is 97.8 degrees, pulse 80, respirations 18, blood pressure is 134/69. Patient weighs 338 pounds. Generally: This is a morbidly obese, elderly male who at rest did not appear to be short of breath and the patient said that apparently he was in the hospital for 2 days prior to today and the patient said he is breathing much better. Head, eyes, ears, nose, throat: The patient is wearing glasses. He does not have any white patches in his mouth. Neck: No meningismus. Thorax: Increased AP diameter of the chest. The patient has on the left side a pacemaker. The site is not swollen or red. On the right side, he has a Port-A-Cath and that site also is not swollen or erythematous. Neither side had purulent drainage and neither side was tender to palpation. Lungs: There were some rales heard in the right lower lobe. The rest the right lobe and the left lung were clear to auscultation. Cardiovascular: The patient has a history of atrial fibrillation but on auscultation today, his heart rate was regular and the cardiac strips show that the patient has a regular heart rate now and it did sound regular to me also. Abdomen: Soft and nontender. Extremities: Bilateral edema but no erythema. Neurologic: The patient is alert. He can move his extremities. There is no tremor. LAB AND RADIOLOGY: CBC-WBC 12.43, hgb 11.1, platelets 139K. Creatinine-0.9.GFR->60. Sputum culture grew serratia. Chest CT scan showed multifocal linear atelectasis and scarring. COMORBIDITIES: The patient is morbidly obese. He has chronic obstructive pulmonary disease and chronic hypoxic respiratory failure. He also has gastroesophageal reflux disease and diabetes mellitus. He also has a history of exposure to asbestos and Agent [place]. ASSESSMENT AND PLAN: The patient has Serratia bronchitis. I have switched the patient from Primaxin to Levaquin. Some of the side effects of Levaquin including rash, diarrhea, seizures, and tendon rupture have been explained to the patient, who agrees with treatment. cc: Darryl Downs MD [facility]
[2019-08-23] MEDS: LEVAQUIN PO SCH (11:28)
[2019-08-23] MEDS ORDERED: MIRALAX PO ONE (12:11)
[2019-08-23] MEDS ORDERED: NON-FORMULARY MED (Dulaglutide [Trulicity] 0.75 MG) SUBQ SCH (13:00)
[2019-08-23] MEDS ORDERED: HUMULIN R SUBQ ONE (13:59)
--- NOTE | 2019-08-23 15:29 | PROGRESS NOTE ---
DATE: 08/23/2019 SUBJECTIVE: The patient is sitting up in a chair. He states that he feels much better today. He states that he is coughing less. OBJECTIVE: Vital Signs: Temperature 98.6 degrees, blood pressure 125/64, heart rate 76, respirations 19, O2 saturation 96% on 2 L nasal cannula. General: This is a morbidly obese male sitting up in a chair in no acute distress. Heart: S1, S2 normal. Regular rate and rhythm. Lungs: Equal air entry bilaterally. No wheezing. No rales. Abdomen: Positive bowel sounds. Soft, nontender, nondistended. Extremities: 1+ edema. Neurologic: The patient is alert and oriented x4. LABS: White blood cell count 12, hemoglobin 11, hematocrit 35 platelets 139,000. Sodium 133, potassium 3.9, chloride 93, CO2 33, BUN 18, creatinine 0.9, glucose 348. ASSESSMENT AND PLAN: 1. Chronic hypoxemic respiratory failure. Stable. 2. Acute bronchitis secondary to Serratia. The patient has been started on oral Levaquin by Dr. Downs. 3. Poorly controlled insulin-dependent diabetes mellitus. We will restart the patient's insulin regimen. Will also add sliding scale insulin coverage. 4. Constipation. We will start the patient on laxative therapy. Continue on Linzess. 5. Chronic obstructive pulmonary disease. Improved. Continue with bronchodilator therapy and supplemental oxygen. 6. Chronic diastolic congestive heart failure. Stable. Continue on diuretic therapy and fluid restriction. 7. Morbid obesity. Aware. 8. Deep vein thrombosis prophylaxis. Continue on Eliquis. 9. We will consult physical therapy. cc: Denia Cordero MD
[2019-08-23] MEDS ORDERED: LEVEMIR SUBQ SCH (21:00)
[2019-08-23] MEDS: IMDUR PO SCH (22:28)
[2019-08-23] MEDS: ALDACTONE PO SCH (22:29)
[2019-08-23] MEDS: COZAAR PO SCH (22:29)
[2019-08-23] MEDS: PROTONIX PO SCH (22:29)
[2019-08-24] MEDS: DUONEB (A & A) INH SCH ×6 (03:17→23:25)
[2019-08-24] MEDS: MIRALAX PO SCH ×3 (04:02→20:16)
[2019-08-24] MEDS: COLACE PO SCH ×3 (04:02→20:16)
[2019-08-24] MEDS: BUSPAR PO SCH ×3 (05:59→18:01)
[2019-08-24] MEDS: MS CONTIN PO SCH ×3 (05:59→18:01)
[2019-08-24] MEDS: HUMULIN R SUBQ SCH ×4 (06:53→21:17)
[2019-08-24] MEDS ORDERED: SOLU-MEDROL IV SCH (07:00)
[2019-08-24] MEDS: SPIRIVA INH SCH (08:03)
[2019-08-24] MEDS: ASMANEX 220 MICROGM INHALER INH SCH ×2 (08:04→19:35)
[2019-08-24] MEDS: LINZESS PO SCH (08:30)
[2019-08-24] MEDS: MUCINEX PO SCH ×2 (08:30→20:16)
[2019-08-24] MEDS: ELIQUIS PO SCH ×2 (08:30→20:16)
[2019-08-24] MEDS: COREG PO SCH ×2 (08:30→20:16)
[2019-08-24] MEDS: LASIX PO SCH ×2 (08:30→20:16)
[2019-08-24] MEDS: LEVAQUIN PO SCH (08:30)
[2019-08-24] MEDS: PROZAC PO SCH (08:30)
[2019-08-24 08:58] LABS: BASO# 0.01 X1000 (0.0-0.2); BASO% 0.1 % (0.0-0.8); EOS# 0.01 X1000 (0.0-0.7); EOS% 0.1 % (0.0-10.0); HEMOGLOBIN 11.3 g/dL (14.0-18.0); IMM GRAN# 0.04 X1000 (0.0-0.04); IMM GRAN% 0.4 % (0.0-0.5); LYMPH# 1.12 X1000 (1.2-3.4); LYMPH% 10.6 % (20.5-51.1); MCHC 31.4 g/dL (33-37); MCV 79.6 FL (81-99); MONO% 9.5 % (1.7-9.3); NEUT% 79.3 % (42.2-75.2); PLT 149 X1000 (130-400); RBC 4.52 XMIL (4.7-6.1); RDW 14.8 % (11.5-14.5); WBC 10.58 X1000 (4.8-10.8)
[2019-08-24 09:31] LABS: AGAP 10; BUN 20 mg/dL (8-22); CALCIUM 9.2 mg/dL (8.8-10.2); CHLORIDE 96 mmol/L (98-107); COSMO 280; CREATININE 0.9 mg/dL (0.7-1.2); ESTIMATED GFR > 60; GLUCOSE 171 mg/dL (70-104); POTASSIUM 3.8 mmol/L (3.5-5.1); SODIUM 137 mmol/L (136-145); TCO2 31 mmol/L (25-35)
[2019-08-24] MEDS: LEVEMIR SUBQ SCH ×2 (10:52→21:16)
[2019-08-24] MEDS: DULCOLAX PR PRN (10:52)
[2019-08-24] MEDS ORDERED: CITRATE OF MAGNESIA PO ONE (11:04)
[2019-08-24] MEDS: LACTULOSE PO SCH ×3 (11:46→18:36)
--- NOTE | 2019-08-24 12:11 | Diag Imaging Result Doc PS360 ---
EXAM: CHEST-1 VIEW HISTORY: dyspnea TECHNIQUE: Single view COMPARISON: 08/21/2019 FINDINGS: The lungs are well expanded. The heart is not enlarged. There are sternal wires and surgical clips. No change in the right jugular portacatheter or left pacemaker. The vessels are not distended. There are no infiltrates. No effusion identified. IMPRESSION: Stable chest Electronically signed by Ramses Stanton 08/24/2019 12:09 PM
--- NOTE | 2019-08-24 15:02 | INFECTIOUS DISEASE PROGRESS NO ---
DATE: 08/24/2019 PRESENT ILLNESS: The patient has a Serratia bronchitis. MEDICATIONS: The patient is receiving Levaquin 750 mg p.o. daily. PHYSICAL EXAMINATION: Vital Signs: Temperature is 98.5 degrees, pulse 84, respirations 19, blood pressure 153/93. General: This is a morbidly obese, chronically ill-appearing, elderly male. He looks much less dyspneic than he did when he came in. Head/eyes/ears/nose/throat: He can hear my spoken words and see near objects. He does not have any white coating on his tongue. Neck: No pain with movement. Thorax: Increased AP diameter of the chest. Down the left side, the patient has a pacemaker. The site is not swollen or tender. On the right side, he has a Port-A- Cath and that site too is not red or tender. Lungs: Clear to auscultation. Cardiovascular: Heart rate is regular. Abdomen: Soft and nontender. Neurologic: The patient is alert. He can move his extremities. There is no tremor. LAB AND X-RAY: The patient's CBC shows a white count of 10,580, hemoglobin 11.3, and platelet count 149,000. Creatinine is 0.9. GFR is greater than 60. Procalcitonin level is less than 0.1, which translates into that it is very unlikely that the patient has pneumonia. Chest x-ray shows no infiltrate. Sputum culture grew Serratia. ASSESSMENT AND PLAN: The patient has Serratia bronchitis. The plan is to continue Levaquin. I have discussed the patient's case with the patient and Dr. Cordero, and we all agree on sending the patient home tomorrow on Levaquin 750 mg p.o. for another 10 days. Some of the side effects of Levaquin including rash, diarrhea, seizures, and tendon rupture were again explained to the patient. He agrees with treatment. COMORBIDITIES: The patient has very severe underlying lung disease, which he got during the [place] from Agent [place] while he was in [place]. The patient also has a history of cigarette smoking, but he stopped many years ago. cc: Darryl Downs MD
[2019-08-24] MEDS: ALDACTONE PO SCH (20:16)
[2019-08-24] MEDS: IMDUR PO SCH (20:16)
[2019-08-24] MEDS: COZAAR PO SCH (20:16)
[2019-08-24] MEDS: PROTONIX PO SCH (20:16)
[2019-08-25] MEDS: DUONEB (A & A) INH SCH ×3 (03:35→11:16)
--- NOTE | 2019-08-25 03:48 | PROGRESS NOTE ---
DATE: 08/24/2019 SUBJECTIVE: The patient states that he was having difficulty having a bowel movement. He has since had a bowel movement. OBJECTIVE: Vital Signs: Temperature 98.3 degrees, blood pressure 132/71, heart rate 80, respirations 19, O2 saturation 98% on 4 L nasal cannula. General: This is a morbidly obese male sitting in a chair in no acute distress. Heart: S1, S2 normal. Regular rate and rhythm. Lungs: Equal air entry bilaterally. No wheezing. No rales. Abdomen: Positive bowel sounds. Soft, nontender, nondistended. Extremities: Trace pedal edema. Neurologic: The patient is alert and oriented x3. LABS: White blood cell count 10, hemoglobin 11, hematocrit 36, platelets 149,000. Sodium 137, potassium 3.8, chloride 96, CO2 31, BUN 20, creatinine 0.9, glucose 171. Chest x-ray shows a stable chest. ASSESSMENT AND PLAN: 1. Chronic hypoxemic respiratory failure. Stable. 2. Acute bronchitis, secondary to Serratia. Continue on oral Levaquin. 3. Poorly controlled insulin-dependent diabetes mellitus. Continue on the current insulin regimen. 4. Constipation. Continue with scheduled laxative therapy. 5. Chronic obstructive pulmonary disease. Stable. 6. Chronic diastolic congestive heart failure. Stable. 7. Morbid obesity. Aware. 8. Deep vein thrombosis prophylaxis. The patient is on Eliquis. 9. Disposition. The patient will be discharged home tomorrow. cc: Denia Cordero MD
[2019-08-25] MEDS: LACTULOSE PO SCH ×2 (03:50→12:12)
[2019-08-25] MEDS: MS CONTIN PO SCH ×2 (06:08→12:13)
[2019-08-25] MEDS: BUSPAR PO SCH ×2 (06:08→12:14)
[2019-08-25] MEDS: HUMULIN R SUBQ SCH ×2 (06:08→12:15)
[2019-08-25 07:32] VITALS: BP 134/70
[2019-08-25 08:04] LABS: AGAP 10; BUN 20 mg/dL (8-22); CALCIUM 8.9 mg/dL (8.8-10.2); CHLORIDE 94 mmol/L (98-107); COSMO 281; ESTIMATED GFR > 60; GLUCOSE 208 mg/dL (70-104); POTASSIUM 3.9 mmol/L (3.5-5.1); SODIUM 136 mmol/L (136-145); TCO2 32 mmol/L (25-35)
[2019-08-25] MEDS: ASMANEX 220 MICROGM INHALER INH SCH (08:10)
[2019-08-25] MEDS: SPIRIVA INH SCH (08:10)
[2019-08-25] MEDS: LEVEMIR SUBQ SCH (09:14)
[2019-08-25] MEDS: MUCINEX PO SCH (09:16)
[2019-08-25] MEDS: COREG PO SCH (09:17)
[2019-08-25] MEDS: LEVAQUIN PO SCH (09:17)
[2019-08-25] MEDS: LASIX PO SCH (09:17)
[2019-08-25] MEDS: MIRALAX PO SCH (09:18)
[2019-08-25] MEDS: ELIQUIS PO SCH (09:18)
[2019-08-25] MEDS: COLACE PO SCH (09:18)
[2019-08-25] MEDS: PROZAC PO SCH (09:18)
[2019-08-25] MEDS: DULCOLAX PR PRN (09:18)
[2019-08-25] MEDS: LINZESS PO SCH (09:18)
[2019-08-25] MEDS ORDERED: FLU VACCINE IM ONE (12:01)
--- NOTE | 2019-09-05 11:47 | DISCHARGE SUMMARY ---
ADMISSION DATE: 08/21/2019 DISCHARGE DATE: 08/25/2019 FINAL DISCHARGE DIAGNOSES: 1. Chronic hypoxemic respiratory failure. 2. Acute bronchitis secondary to Serratia. 3. Poorly controlled insulin-dependent diabetes mellitus. 4. Chronic constipation. 5. Chronic obstructive pulmonary disease. 6. Chronic diastolic congestive heart failure. 7. Morbid obesity. 8. Hypertension. 9. Anemia. CONSULTATIONS: ID consultation with Dr. Downs. HOSPITAL COURSE: Mr. Bell is a 69-year-old male with a history of multiple medical problems who presented to the ER with a chief complaint of shortness of breath. On admission, a chest x-ray was done that was noted to be unremarkable. The patient was admitted with a tentative diagnosis of acute bronchitis. Blood and sputum cultures were obtained. The patient was started on antibiotic therapy. A CT of the chest without contrast was performed that revealed linear atelectasis and scarring at the lung bases. Infectious disease was consulted due to the sputum culture results that revealed Serratia. It was recommended by Dr. Downs that the patient be treated with Levaquin 750 mg oral daily for 10 days. The patient had also improved clinically. The patient continued to improve and was cleared for discharge home on 08/25/2019. DISCHARGE MEDICATIONS: 1. Levaquin 750 mg oral daily x10 days. 2. BuSpar 20 mg oral 3 times a day. 3. Aldactone 25 mg oral at bedtime. 4. Cozaar 50 mg oral at bedtime. 5. Imdur 60 mg oral at bedtime. 6. Prozac 20 mg oral daily. 7. Coreg 12.5 mg oral twice a day. 8. Morphine sulfate 30 mg oral 3 times a day. 9. Mometasone 1 inhalation twice a day. 10. NovoLog 30 units subcutaneous twice a day. 11. Eliquis 5 mg oral twice a day. 12. Protonix 40 mg oral at bedtime. 13. Levemir 62 units subcutaneous twice a day. 14. Lasix 80 mg in the morning and 120 mg in the evening. 15. Spiriva 18 mcg inhaled daily. 16. Linzess 145 mcg oral daily. 17. KCl 10 mEq oral every morning. 18. Trulicity 0.75 mg subcutaneous once a week. DISCHARGE DIET: An 1800, ADA diet. ACTIVITY: As tolerated. FOLLOWUP INSTRUCTIONS: The patient will need to follow up with Dr. Downs as scheduled by his clinic. The patient will also need to follow up with Dr. Jennifer Jean Baptiste in 1 to 2 weeks. cc: Denia Cordero MD
== END 2019-08-25 12:43 | disposition home or self-care (01) | DRG 202 ==
LOC: ED 11:02 → 3N 16:12 → SUATTDRO 16:12 → 3N 16:23
PROVIDERS: ATTEND Internal Medicine

== ENCOUNTER 2019-09-14 13:40 | Inpatient (IN) ==
[2019-09-14 17:24] LABS: BASO# 0.03 X1000 (0.0-0.2); BASO% 0.2 % (0.0-0.8); EOS% 0.7 % (0.0-10.0); HEMATOCRIT 35.2 % (42.0-52.0); HEMOGLOBIN 11.1 g/dL (14.0-18.0); IMM GRAN# 0.03 X1000 (0.0-0.04); IMM GRAN% 0.2 % (0.0-0.5); LYMPH# 1.09 X1000 (1.2-3.4); LYMPH% 7.8 % (20.5-51.1); MCH 24.7 PG (27-31); MCHC 31.5 g/dL (33-37); MCV 78.2 FL (81-99); MONO% 7.1 % (1.7-9.3); MPV 11.3 FL (7.4-10.4); NEUT# 11.74 X1000 (1.4-6.5); PLT 121 X1000 (130-400); RDW 14.6 % (11.5-14.5); WBC 13.99 X1000 (4.8-10.8)
[2019-09-14 18:08] LABS: AGAP 12; BUN 20 mg/dL (8-22); CALCIUM 8.7 mg/dL (8.8-10.2); CHLORIDE 97 mmol/L (98-107); COSMO 282; CREATININE 0.9 mg/dL (0.7-1.2); ESTIMATED GFR > 60; GLUCOSE 302 mg/dL (70-104); SODIUM 134 mmol/L (136-145); TCO2 25 mmol/L (25-35)
--- NOTE | 2019-09-14 19:01 | Diag Imaging Result Doc PS360 ---
EXAM: CT THORAX W/O CONTRAST INDICATION: Cough/PN TECHNIQUE: This exam was performed using automated exposure control, adjustment of mA or kV according to patient size, and/or use of iterative reconstruction technique. COMPARISON: 08/22/2019 FINDINGS: There has been interval development of fairly dense airspace consolidation in the right lower lobe and milder airspace consolidation in the posterior inferior right upper lobe consistent with pneumonia. There is also stable linear scarring as well as some atelectasis at both lung bases and the left upper lobe. There is no pleural fluid collection and no pneumothorax. There is no new mediastinal or hilar lymphadenopathy. There is no cardiomegaly. Limited views of the upper abdomen are essentially unremarkable. IMPRESSION: Interval development of airspace consolidation in the right lower lobe and, to a lesser degree, the right upper lobe consistent with pneumonia. Electronically signed by Jose Harkins 09/14/2019 6:59 PM
[2019-09-14] MEDS ORDERED: ZOFRAN IV PRN (19:07)
[2019-09-14] MEDS ORDERED: VANCOMYCIN IV PER PHARMACY MISC SCH (19:15)
[2019-09-14] MEDS: MAXIPIME 1 GM in NS 50 ML IV SCH (20:17)
[2019-09-14] MEDS: DUONEB (A & A) INH SCH (20:30)
--- NOTE | 2019-09-14 21:24 | HISTORY AND PHYSICAL ---
PRIMARY CARE PHYSICIAN: Dr. Jennifer Jean Baptiste. CHIEF COMPLAINT: Called by patient primary care physician after he had some blood work and a chest x-ray, and primary care was concerned of a recurrent pneumonia with failed outpatient treatment. HISTORY OF PRESENTING ILLNESS: This is a 69-year-old male who presents to [facility] as a direct admit from his primary care physician's office after he had had some blood work and a chest x-ray, and the primary care physician was concerned that he had a recurrent pneumonia, failed outpatient treatment. It is noted that he was in the hospital for a COPD exacerbation and am ESBL-positive E coli pneumonia from 08/21/2019 through 09/04/2019. He has chronic hypoxic respiratory failure and uses O2 at 4 L via nasal cannula continuously. He had a chest x-ray done today on an outpatient basis here that showed mild bilateral subsegmental atelectasis but no definite acute pathology by plain radiograph otherwise. He states that he has had some chills. No fever. He does have a productive cough, so he is being admitted under observation status for further evaluation and treatment. PAST MEDICAL HISTORY: COPD on home O2 at 4 L via nasal cannula, chronic hypoxic respiratory failure, GERD, chronic atrial fibrillation on Eliquis, ischemic cardiomyopathy with an ejection fraction of 60% in August 2018, coronary artery disease, obstructive sleep apnea but does not wear a CPAP, morbid obesity, diabetes type 2, hypertension, hyperlipidemia, and a history of exposure to asbestos and Agent [place]. PAST SURGICAL HISTORY: Coronary artery bypass grafting, permanent pacemaker in 2004 secondary to bradycardia, bilateral leg surgery, lumbar spine surgery and lithotripsy in 2018. FAMILY HISTORY: Positive for his mother who had lung cancer as well as his grandmother, and his father of a heart attack at the age of 68. He has 3 brothers who have heart disease. SOCIAL HISTORY: He smoked 3 packs of cigarettes a day from the age of 13 to the age of 59. He did stop in 1989. Denies any alcohol or illicit drug use. ALLERGIES: He has no known drug allergies. HOME MEDICATIONS: Will need to obtain a current list, reconcile, review and restart as appropriate. We will place an order for nursing to update and confirm his home medications. LABORATORY DATA: We are obtaining a stat CT of the chest without contrast, a CBC and a BMP. He did have an outpatient chest x-ray done today that showed mild bilateral subsegmental atelectasis but no definite acute pathology by plain radiograph otherwise. REVIEW OF SYSTEMS: He denied any fever. He was positive for some chills. Denied any blurred vision, dizziness, chest pain. He has had a productive cough of thick sputum. Denies any abdominal pain, constipation, diarrhea, burning or hurting with urination. He has shortness of breath that is improved with his home O2 at 4 L via nasal cannula. PHYSICAL EXAMINATION: This is a 69-year-old male who is lying in the bed. Answers questions appropriately. HEENT: Normocephalic, atraumatic. Normal ENT inspection. Oropharynx and nares are clear. EYES: Pupils are equal, round, and reactive to light and accommodation. Extraocular movements are intact. NECK: Normal inspection, normal range of motion. LUNGS: With decreased breath sounds throughout entire posterior lung ann. Equal lung expansion. Chest wall movement noted. O2 via nasal cannula currently in use. HEART: Regular rate and rhythm. No murmurs, rubs, or gallops. ABDOMEN: Soft, nontender, nondistended. Bowel sounds are present x4 quadrants. MUSCULOSKELETAL: He had 5/5 strength x4 extremities. NEUROLOGICAL: The cranial nerves II-XII appear grossly intact. SKIN: He is noted to have a stage II decubitus to the coccyx area that has a dressing that is dry and intact. [facility]. ASSESSMENT: 1. A possible pneumonia. 2. History of chronic obstructive pulmonary disease. 3. Gastroesophageal reflux disease. 4. History of chronic atrial fibrillation, on anticoagulation with Eliquis. 5. Ischemic cardiomyopathy with ejection fraction of 60% in August 2018. 6. Diabetes type 2, history of. 7. History of asbestos and Agent [place]. PLAN: He will be admitted under observation at this time. We are going to check a stat CT of the thorax without contrast, a CBC and BMP, and get some baseline for whether not he does have a pneumonia or not. His initial chest x-ray does not appear to have any, and shows no definite acute pathology by plain radiograph. So, we will review these and then further orders to follow Further orders after seen by attending. Dictated by HORTENCIA Gonzalez for Alams Fountain MD cc: HORTENCIA Gonzalez Jean Baptiste Patient with chronic hypoxic respiratory and chronic dyspnea. sent by pcp for concern of pneumonia. respiratory status pretty stable on his home 4L of oxygen. on exam, breath sounds are diminished, possibly from very slight crackles at the bases. no wheezing currently. xray didn't show much but chest CT does show new pneumonia so patient admitted to inpatient, placed on broad spectrum antibiotics for HCAP, get cultures. does NOT appear to have sepsis at this time. ISI
[2019-09-14] MEDS ORDERED: VANCOMYCIN 2,000 MG in NS 500 ML IV ONE (22:00)
[2019-09-15] MEDS: DUONEB (A & A) INH SCH ×7 (03:35→22:53)
--- NOTE | 2019-09-15 06:32 | Diag Imaging Result Doc PS360 ---
EXAM: CHEST-PORTABLE HISTORY: pneumonia, TECHNIQUE: Single view COMPARISON: 09/14/2019 FINDINGS: Poor inspiratory effort. There are sternal wires and surgical clips in the left-sided pacemaker. There is a right jugular portacatheter. Small basilar infiltrates and/or atelectasis. IMPRESSION: Mild interval worsening Electronically signed by Ramses Stanton 09/15/2019 6:30 AM
[2019-09-15 07:45] LABS: BASO# 0.03 X1000 (0.0-0.2); BASO% 0.3 % (0.0-0.8); EOS# 0.14 X1000 (0.0-0.7); EOS% 1.3 % (0.0-10.0); HEMATOCRIT 35.6 % (42.0-52.0); HEMOGLOBIN 11.1 g/dL (14.0-18.0); IMM GRAN# 0.02 X1000 (0.0-0.04); IMM GRAN% 0.2 % (0.0-0.5); LYMPH# 1.04 X1000 (1.2-3.4); LYMPH% 9.8 % (20.5-51.1); MCH 24.6 PG (27-31); MCHC 31.2 g/dL (33-37); MCV 78.8 FL (81-99); MONO# 0.97 X1000 (0.11-0.59); MONO% 9.1 % (1.7-9.3); MPV 11.5 FL (7.4-10.4); NEUT# 8.45 X1000 (1.4-6.5); NEUT% 79.3 % (42.2-75.2); PLT 116 X1000 (130-400); RBC 4.52 XMIL (4.7-6.1); RDW 14.9 % (11.5-14.5); WBC 10.65 X1000 (4.8-10.8)
[2019-09-15 07:59] LABS: AGAP 11; BUN 15 mg/dL (8-22); CHLORIDE 98 mmol/L (98-107); COSMO 284; CREATININE 0.8 mg/dL (0.7-1.2); ESTIMATED GFR > 60; GLUCOSE 262 mg/dL (70-104); POTASSIUM 4.2 mmol/L (3.5-5.1); SODIUM 137 mmol/L (136-145); TCO2 28 mmol/L (25-35)
[2019-09-15] MEDS: MAXIPIME 1 GM in NS 50 ML IV SCH ×2 (08:10→21:08)
[2019-09-15] MEDS ORDERED: CARVEDILOL 37.5 MG PO SCH (11:15)
[2019-09-15] MEDS ORDERED: LEVEMIR SUBQ SCH (11:15)
[2019-09-15] MEDS: VANCOMYCIN 1,750 MG in NS 250 ML IV SCH ×2 (11:54→22:10)
[2019-09-15] MEDS: PROZAC PO SCH (14:38)
[2019-09-15] MEDS: BUSPAR PO SCH ×3 (14:38→21:07)
[2019-09-15] MEDS: IMDUR PO SCH (14:38)
[2019-09-15] MEDS: MORPHINE IR PO PRN ×2 (14:49→21:07)
--- NOTE | 2019-09-15 17:11 | PROGRESS NOTE ---
DATE: 09/15/2019 INTERVAL HISTORY: The patient still with cough productive of dark yellow sputum. He is still with dyspnea on minimal exertion. Remains afebrile. Oxygenation approximately stable. No new complaints. No acute events overnight. The patient with preliminary positive blood cultures, gram-positive cocci. Also reported outpatient sputum culture with methicillin-resistant Staphylococcus aureus. REVIEW OF SYSTEMS: Twelve point review of systems negative except as per interval history. LABS: WBC 10.6, hemoglobin 11.1, hematocrit 35.6, platelets 116,000. Sodium 137, potassium 4.2, BUN 15, creatinine 0.8, glucose 241 to 311. PHYSICAL EXAMINATION: Vital Signs: T-max 98.2 degrees, pulse 94, respirations 20, blood pressure 140/80, O2 saturation 98% on 4 L by nasal cannula. General: No acute distress, morbidly obese, chronically ill-appearing. HEENT: Normocephalic, atraumatic. Moist mucous membranes. Cardiovascular: Regular rate and rhythm. No murmurs noted. Pulmonary: Mildly decreased throughout. Faint expiratory wheeze improved from yesterday. Abdomen: Soft, nontender, nondistended. Bowel sounds positive. Extremities: Peripheral pulses intact. No clubbing or cyanosis. Trace lower extremity edema bilaterally. Neurologic: Cranial nerves grossly intact. No focal deficits identified. Psychiatric: Normal mood and affect. Awake, alert, oriented x3. Skin: Small decubitus ulcer on buttocks/thighs remains bandaged. ASSESSMENT AND PLAN: 1. Pneumonia. Patient is sent to hospital by primary care physician for suspicion of pneumonia. X-ray did not show much, but CT of the chest does confirm right lower lobe and to a lesser extent right upper lobe pneumonia. Recheck x-ray today approximately stable, though read as minimally worse by Radiology. Oxygenation stable from baseline on 4 L which he is on at home, but still with pretty significant productive cough and now with positive blood cultures. On vancomycin and cefepime, which we will continue for now, but if he does not improve by tomorrow, we will likely get Infectious Disease involved. 2. Chronic hypoxic respiratory failure. Patient on 4 L oxygen at home which we have had him on here and he seems to be doing fairly well on. 3. Bacteremia. The patient initial blood cultures positive for gram-positive cocci. Not certain yet whether this is real, but we will continue antibiotics as above and repeat blood cultures in the morning. If they are confirmed positive, then we will likely need to get Infectious Disease involved. 4. Chronic diastolic congestive heart failure, stable. Continue on oral Lasix and monitor. 5. Morbid obesity. The patient has been counseled on diet and weight loss and has actually lost some weight at home. 6. Coronary artery disease, aware. 7. Chronic thigh/buttock wounds bandaged and stable. 8. Chronic obstructive pulmonary disease with possible mild exacerbation. Patient with reasonable air entry, but a little bit of minimal wheezing. Continue DuoNebs and mometasone inhaler. 9. Anemia of chronic disease, stable. Monitor. 10. Diabetes. Control not ideal. We will start back some long-acting insulin. Continue sliding scale and monitor. 11. Hyponatremia, resolved. Monitor.
[2019-09-15] MEDS: HUMALOG SUBQ SCH ×2 (17:20→21:08)
[2019-09-15] MEDS ORDERED: LASIX PO SCH ×2 (18:00)
[2019-09-15] MEDS: ASMANEX 220 MICROGM INHALER INH SCH (19:48)
[2019-09-15] MEDS: PROTONIX PO SCH (21:07)
[2019-09-15] MEDS: ELIQUIS PO SCH (21:07)
[2019-09-16] MEDS: DUONEB (A & A) INH SCH ×5 (03:45→20:43)
[2019-09-16] MEDS: HUMALOG SUBQ SCH ×5 (06:29→22:34)
[2019-09-16 07:18] LABS: BASO# 0.03 X1000 (0.0-0.2); BASO% 0.4 % (0.0-0.8); EOS# 0.12 X1000 (0.0-0.7); EOS% 1.6 % (0.0-10.0); HEMATOCRIT 32.4 % (42.0-52.0); HEMOGLOBIN 10.2 g/dL (14.0-18.0); IMM GRAN# 0.03 X1000 (0.0-0.04); IMM GRAN% 0.4 % (0.0-0.5); LYMPH# 1.05 X1000 (1.2-3.4); LYMPH% 14.3 % (20.5-51.1); MCH 24.8 PG (27-31); MCHC 31.5 g/dL (33-37); MCV 78.6 FL (81-99); MONO# 0.77 X1000 (0.11-0.59); MONO% 10.5 % (1.7-9.3); MPV 10.9 FL (7.4-10.4); NEUT# 5.36 X1000 (1.4-6.5); NEUT% 72.8 % (42.2-75.2); PLT 104 X1000 (130-400); RBC 4.12 XMIL (4.7-6.1); RDW 14.5 % (11.5-14.5); WBC 7.36 X1000 (4.8-10.8)
[2019-09-16 07:35] LABS: AGAP 10; BUN 11 mg/dL (8-22); CALCIUM 8.6 mg/dL (8.8-10.2); CHLORIDE 98 mmol/L (98-107); COSMO 277; CREATININE 0.8 mg/dL (0.7-1.2); ESTIMATED GFR > 60; GLUCOSE 262 mg/dL (70-104); POTASSIUM 3.6 mmol/L (3.5-5.1); SODIUM 134 mmol/L (136-145); TCO2 26 mmol/L (25-35)
[2019-09-16] MEDS: ASMANEX 220 MICROGM INHALER INH SCH ×2 (08:33→20:22)
[2019-09-16] MEDS ORDERED: LASIX PO SCH (09:00)
[2019-09-16] MEDS: MAXIPIME 1 GM in NS 50 ML IV SCH (09:31)
[2019-09-16] MEDS: IMDUR PO SCH (09:31)
[2019-09-16] MEDS: ELIQUIS PO SCH ×2 (09:32→21:57)
[2019-09-16] MEDS: COZAAR PO SCH (09:32)
[2019-09-16] MEDS: PROZAC PO SCH (09:32)
[2019-09-16] MEDS: BUSPAR PO SCH ×3 (09:32→21:57)
[2019-09-16] MEDS: LASIX PO SCH ×2 (09:32→17:16)
[2019-09-16] MEDS: LEVEMIR SUBQ SCH ×2 (09:33→22:35)
[2019-09-16] MEDS: MORPHINE IR PO PRN ×2 (09:35→16:55)
[2019-09-16] MEDS: VANCOMYCIN 1,750 MG in NS 250 ML IV SCH ×2 (10:21→23:41)
--- NOTE | 2019-09-16 15:33 | PROGRESS NOTE ---
DATE: 09/16/2019 INTERVAL HISTORY: Mr. Bell did develop significant hyperglycemia and he was resumed on his home insulin regimen which included long-acting insulin 62 units twice a day and short-acting insulin 40 units with breakfast and dinner and 20 units with lunch. His sputum is growing presumptively MRSA and his antibiotic has been changed to vancomycin only and cefepime has been discontinued. SUBJECTIVE: Mr. Bell is feeling better than on presentation. He is still feeling short of breath. We discussed about his pneumonia. I answered all of his questions. He continues to have cough, shortness of breath with minimal physical exertion. He states he is working on weight reduction. VITALS: Temperature of 98 degrees, pulse 103, respiratory 21, blood pressure 129/69, saturating 98% on 4 L nasal cannula. PHYSICAL EXAMINATION: Morbidly obese, not in any acute distress. Oral cavity is moist.Lungs: Air entry bilaterally equal. No wheeze or rhonchi. Mild crackles, infrascapular region bilaterally, S1, S2 normal. No murmur, rub, or gallop. Abdomen: Obese, soft, has abdominal hernia, nontender. Active bowel sounds. Extremities: He has bilateral lower extremity edema. He is alert and oriented x3. He on previous documentation has small decubitus ulcer on buttocks and thigh. Input and output suggest -3 L since admission, though not charted appropriately. LABS: Suggestive of microcytic anemia, mild thrombocytopenia, normal kidney function, hyperglycemia. Blood culture remained negative. No new imaging. ASSESSMENT AND PLAN: 1. Right lung pneumonia due to MRSA with prior history of multiple episodes of pneumonia including ESBL E. coli pneumonia. Considering he has positive sputum with MRSA, I will stop cefepime and continue him on intravenous vancomycin with close monitoring of his BMP. 2. History of chronic obstructive pulmonary disease and chronic hypoxic respiratory failure. Does not appear to be in any exacerbation. Continue 4 L oxygen, which is his home, and inhaled bronchodilators. 3. History of chronic diastolic congestive heart failure. Continue his home furosemide and losartan. 4. History of insulin-dependent diabetes mellitus with uncontrolled hyperglycemia. I will resume his home insulin regimen of long-acting and mealtime insulin and we will also keep him on sliding scale insulin on top of that. He is also on isosorbide for his congestive heart failure. 5. History of chronic atrial fibrillation and sick sinus syndrome status post pacemaker. Continue his home Eliquis. His heart rate is well controlled. DISPOSITION: I will currently monitor patient inside the hospital. He would eventually need IV antibiotics at the time of discharge. He has a right-sided chest port. His current heart rhythm appears to be paced. Plan of care discussed with him. His questions have been answered. cc: Larry Wilson MD
[2019-09-16] MEDS ORDERED: INSULIN PEN NEEDLES ONE (21:54)
[2019-09-16] MEDS: PROTONIX PO SCH (21:57)
[2019-09-17] MEDS: DUONEB (A & A) INH SCH ×7 (00:28→22:51)
[2019-09-17] MEDS: MORPHINE IR PO PRN ×2 (02:16→17:16)
[2019-09-17] MEDS: HUMALOG SUBQ SCH ×6 (06:30→17:13)
[2019-09-17] MEDS: LASIX PO SCH ×2 (08:12→17:12)
[2019-09-17] MEDS: ELIQUIS PO SCH ×2 (08:13→21:54)
[2019-09-17] MEDS: BUSPAR PO SCH ×3 (08:13→21:54)
[2019-09-17] MEDS: PROZAC PO SCH (08:13)
[2019-09-17] MEDS: IMDUR PO SCH (08:14)
[2019-09-17] MEDS: COZAAR PO SCH (08:14)
[2019-09-17] MEDS: LEVEMIR SUBQ SCH ×2 (08:14→21:54)
[2019-09-17] MEDS: ASMANEX 220 MICROGM INHALER INH SCH ×2 (08:24→19:39)
[2019-09-17 08:44] LABS: AGAP 14; BUN 13 mg/dL (8-22); CALCIUM 9.5 mg/dL (8.8-10.2); CHLORIDE 98 mmol/L (98-107); COSMO 283; ESTIMATED GFR > 60; GLUCOSE 198 mg/dL (70-104); SODIUM 139 mmol/L (136-145); TCO2 27 mmol/L (25-35)
[2019-09-17 08:47] LABS: BASO# 0.04 X1000 (0.0-0.2); BASO% 0.4 % (0.0-0.8); EOS% 3.8 % (0.0-10.0); HEMATOCRIT 38.5 % (42.0-52.0); IMM GRAN# 0.04 X1000 (0.0-0.04); IMM GRAN% 0.4 % (0.0-0.5); LYMPH# 1.96 X1000 (1.2-3.4); LYMPH% 18.4 % (20.5-51.1); MCH 24.5 PG (27-31); MCHC 31.2 g/dL (33-37); MCV 78.7 FL (81-99); MONO# 0.87 X1000 (0.11-0.59); MONO% 8.2 % (1.7-9.3); MPV 11.3 FL (7.4-10.4); NEUT# 7.32 X1000 (1.4-6.5); NEUT% 68.8 % (42.2-75.2); PLT 127 X1000 (130-400); RBC 4.89 XMIL (4.7-6.1); RDW 14.9 % (11.5-14.5); WBC 10.63 X1000 (4.8-10.8)
[2019-09-17] MEDS: VANCOMYCIN 1,750 MG in NS 250 ML IV SCH ×2 (10:56→23:37)
[2019-09-17] MEDS: LINZESS PO SCH (15:11)
[2019-09-17] MEDS ORDERED: MAALOX PLUS LIQUID PO ONE (15:13)
--- NOTE | 2019-09-17 15:48 | PROGRESS NOTE ---
DATE: 09/17/2019 RECENT HISTORY: His blood glucose was better controlled after starting him on his home insulin regimen. He did not have any other acute overnight events. His vitals were largely unremarkable except tachycardia. Bedside monitor had a paced rhythm. We discussed about microcytic anemia. We discussed about following up outpatient and having a discussion with outpatient provider about upper and lower endoscopy as appropriate. He states he never had GI bleed, though previously had polyps removed. SUBJECTIVE: Denies any chest pain. He has occasional shortness of breath and cough with expectoration. He says because of his cough he is not feeling well today. He denies any nausea, vomiting, abdominal pain. VITALS: Temperature 98 degrees, pulse 103, respiratory 19, blood pressure 137/80, saturating 100% on 4 L nasal cannula. PHYSICAL EXAMINATION: He does appear morbidly obese. Oral cavity is moist. Not in acute distress.Lungs: Air entry bilaterally equal. No wheeze or rhonchi. Mild crackles, infrascapular region. Cardiovascular: S1, S2 normal. No murmur, rub, or gallop. Abdomen: Obese, soft, nontender. Active bowel sounds. Extremity: He has bilateral lower extremity edema, which is extending up to upper coley levels. He has a right-sided chest port. Input and output suggests - 1.6 L yesterday, -1.1 L so far today. LABS: Suggestive of no leukocytosis, microcytic anemia, improving thrombocytopenia, normal kidney function. Blood cultures drawn on September 16 are in lab. One of the 2 blood cultures on September 14 is growing Staph Streptococcus oralis. No new imaging. ASSESSMENT AND PLAN: 1. Right lung pneumonia due to MRSA with prior history of multiple episodes of pneumonia including ESBL E. coli. Continue intravenous vancomycin with close monitoring of his BMP. Infectious Disease team has been consulted for long-term antibiotic plan. 2. History of chronic obstructive pulmonary disease and chronic hypoxic respiratory failure, currently not in acute exacerbation. Continue home 4 L oxygen, inhaled bronchodilators, home tiotropium, home mometasone inhalers. 3. History of chronic diastolic congestive heart failure without any acute exacerbation. Continue his home furosemide, spironolactone, losartan, isosorbide. 4. History of insulin-dependent diabetes mellitus with uncontrolled hyperglycemia. Continue his home regimen of Lantus, short-acting mealtime insulin, and sliding scale insulin on top of that. 5. History of chronic atrial fibrillation and sick sinus syndrome status post pacemaker. Continue his home Eliquis. 6. Others. Continue home fluoxetine, buspirone for anxiety; morphine for chronic pain. DISPOSITION: I will continue to monitor patient inside the hospital as he is still not feeling better and is complaining of subjective shortness of breath. I will keep him on intravenous antibiotics. I will appreciate further Infectious Disease team input. Depending on his clinical status, I would anticipate discharge on home intravenous antibiotics through right-sided chest port in next 24 to 48 hours. Plan of care discussed with the patient. His questions have been answered. cc: Larry Wilson MD
[2019-09-17] MEDS: SPIRIVA INH SCH (15:49)
--- NOTE | 2019-09-17 15:56 | INFECTIOUS DISEASE PROGRESS NO ---
DATE: 09/17/2019 PRESENT ILLNESS: The patient has a methicillin-resistant Staph aureus pneumonia. He also has 1 of 2 blood cultures growing Streptococcus mitis. This could be a contaminant or it could be a pathogen that may have originated from his Port-A-Cath. MEDICATIONS: The patient currently is getting vancomycin intravenously. Some of the side effects of the antibiotic including rash, renal toxicity, and ototoxicity have been explained to the patient, who agrees with treatment. PHYSICAL EXAMINATION: Vital Signs: Temperature is 98 degrees, pulse 103, respirations 19, blood pressure is 137/83. General: This is an obese, elderly male. He is in no acute distress. Head/eyes/ears/nose/throat: He can hear my spoken words and see near objects. He does not have any white coating on his tongue. Neck: No meningismus. Thorax: Patient has a Port-A-Cath present on the right upper chest. The site is not erythematous or purulent. Lungs: Have bilateral wheezes and rhonchi. Cardiovascular: Heart rate is regular. I did not hear a murmur. Abdomen: Soft and not tender. Extremities: The patient has bilateral leg edema. Neurologic: Patient is alert. He can move his extremities. There is no tremor. LAB AND X-RAY: Chest x-ray shows bibasilar infiltrates. Sputum is growing methicillin-resistant Staph aureus. 1 of 2 blood cultures is growing a Streptococcus mitis. Chest x-ray has bibasilar infiltrates. ASSESSMENT AND PLAN: The patient has a methicillin-resistant Staph aureus pneumonia. He has 1/2 blood cultures growing a Streptococcus mitis. This could be a contaminant or it could be a pathogen originating from the patient's Port-A-Cath. My plan would be to continue vancomycin for 2 weeks. If the 2nd blood culture isn't positive, then the Strep mitis in only one blood culture is a contaminant. If both are positive for Streptococcus mitis, then the patient has a true bacteremia which most likely originates from his Port-A-Cath. The vancomycin that the patient will be on for his methicillin-resistant Staph aureus pneumonia also will have good activity against the Streptococcus. Streptococcus mitis is one of the organisms that it is worthwhile trying to clear it without removing the Port-A-Cath, but if it comes back again, then the patient's Port-A-Cath will need to be removed. the patient has a pacemaker present on the left side. The site is not erythematous or swollen. COMORBIDITIES: The patient is elderly. He has very severe chronic lung disease. He also has congestive heart failure with bilateral leg edema. The patient also has anemia of chronic disease and diabetes mellitus. cc: Darryl Downs MD
[2019-09-17] MEDS ORDERED: ASMANEX 220 MICROGM INHALER INH SCH (21:00)
[2019-09-17] MEDS ORDERED: LASIX PO SCH (21:00)
[2019-09-17] MEDS: PROTONIX PO SCH (21:54)
[2019-09-17] MEDS: TUMS PO SCH (21:54)
[2019-09-17] MEDS: LIORESAL PO SCH (21:54)
[2019-09-18] MEDS: DUONEB (A & A) INH SCH ×6 (03:30→23:36)
[2019-09-18] MEDS: HUMALOG SUBQ SCH ×8 (03:36→22:19)
[2019-09-18] MEDS: ASMANEX 220 MICROGM INHALER INH SCH ×2 (08:07→19:51)
[2019-09-18] MEDS: SPIRIVA INH SCH (08:08)
[2019-09-18 08:25] LABS: AGAP 10; BUN 11 mg/dL (8-22); CALCIUM 9.4 mg/dL (8.8-10.2); CHLORIDE 98 mmol/L (98-107); COSMO 282; CREATININE 0.8 mg/dL (0.7-1.2); ESTIMATED GFR > 60; GLUCOSE 224 mg/dL (70-104); POTASSIUM 3.8 mmol/L (3.5-5.1); SODIUM 138 mmol/L (136-145); TCO2 30 mmol/L (25-35)
[2019-09-18] MEDS: VANCOMYCIN 1,750 MG in NS 250 ML IV SCH (09:53)
[2019-09-18] MEDS: LIORESAL PO SCH ×2 (09:53→20:20)
[2019-09-18] MEDS: IMDUR PO SCH (09:53)
[2019-09-18] MEDS: LINZESS PO SCH (09:53)
[2019-09-18] MEDS: BUSPAR PO SCH ×3 (09:53→20:20)
[2019-09-18] MEDS: ALDACTONE PO SCH (09:54)
[2019-09-18] MEDS: ELIQUIS PO SCH ×2 (09:54→20:20)
[2019-09-18] MEDS: TUMS PO SCH ×2 (09:54→20:20)
[2019-09-18] MEDS: COZAAR PO SCH (09:54)
[2019-09-18] MEDS: LASIX PO SCH ×2 (09:54→17:51)
[2019-09-18] MEDS: PROZAC PO SCH (09:54)
[2019-09-18] MEDS: LEVEMIR SUBQ SCH ×2 (09:55→20:21)
[2019-09-18] MEDS: MORPHINE IR PO PRN ×2 (09:57→14:53)
--- NOTE | 2019-09-18 16:40 | INFECTIOUS DISEASE PROGRESS NO ---
DATE: 09/18/2019 PRESENT ILLNESS: The patient has a methicillin-resistant Staph aureus pneumonia. 1/ blood cultures is growing a Strep mitis. This is a contaminant and does not require treatment. MEDICATIONS: The patient is on vancomycin to treat his Staph aureus pneumonia. As mentioned above, the blood culture positive for Streptococcus mitis is a contaminant and does not merit antibiotic treatment. PHYSICAL EXAMINATION: Vital Signs: Temperature is 97.5 degrees, pulse 109, respirations 20, blood pressure 113/75. General: This is an obese, elderly male. He is in no acute distress at this time. Head/eyes/ears/nose/throat: He can hear my spoken words and see near objects. He does not have any white patches in his mouth. Neck: No pain with movement of his neck Thorax: The patient has a Port-A-Cath present on the right side. The site is not erythematous or purulent. On the right side of his chest he has a Port-A-Cath and that site also is not erythematous or purulent. Abdomen: Soft and not tender. Neurologic: The patient is alert. He can move his extremities. He is able to walk. There is no tremor. Extremities: Patient has bilateral leg edema. LAB AND X-RAY: There is no new radiographic study. Creatinine is 0.8. GFR is greater than 60. CBC shows a white count of 10,630, hemoglobin 12 and platelet count 127,000. ASSESSMENT AND PLAN: Patient has methicillin-resistant Staph aureus pneumonia. He will be going home on intravenous vancomycin. As mentioned before, the Strep mitis is a contaminant and does not need treatment with antibiotics. COMORBIDITIES: The patient is elderly. He has very severe chronic lung disease. He also has congestive heart failure and bilateral leg edema. He has anemia of chronic disease and diabetes mellitus as well. cc: Darryl Downs MD MTDD
--- NOTE | 2019-09-18 18:44 | PROGRESS NOTE ---
DATE: 09/18/2019 INTERVAL HISTORY: No acute events overnight. SUBJECTIVE: Mr. Bell feeling better than yesterday. He still continues to have a cough with expectoration and he states that he had a discussion with infectious disease doctor about being in the hospital for another day and possibly discharging tomorrow. We discussed about decreasing his oxygen level since he has been on 4 L and saturating 100%. VITAL SIGNS: Temperature 97.5 degrees , pulse 109, respiratory 14, blood pressure 113/75, he is saturating 100% on 4 L nasal cannula. PHYSICAL EXAMINATION: Morbidly obese not in acute distress, oral cavity is moist. Air entry bilateral equal no wheeze, rhonchi, crackles. S1, S2 normal no murmur or gallop. Abdomen: Soft nontender. Bilateral lower extremity edema. He is alert oriented x3. Input and output suggest -2.7 L yesterday. LABS: No CBC today. BMP essentially unremarkable glucose within acceptable range, no microbiological or new imaging data. ASSESSMENT AND PLAN: 1. Right lung multifocal pneumonia due to methicillin-resistant Staphylococcus aureus based on positive sputum culture outpatient with history of multiple episodes of pneumonia including extended spectrum beta-lactamase Escherichia coli . 2. History of chronic obstructive pulmonary disease and chronic hypoxic respiratory failure on home 2 to 4 L of nasal cannula oxygen . 3. History of chronic diastolic congestive heart failure without an acute exacerbation. 4. History of insulin-dependent diabetes mellitus with uncontrolled hyperglycemia. 5. History of chronic atrial fibrillation sick sinus syndrome status post pacemaker. PLAN: Continue intravenous vancomycin, plan is to discharge patient on 09/19/2019 on home intravenous antibiotic infusion, infectious disease team on board for setting up home antibiotics, meanwhile I will continue him on inhaled bronchodilators, home tiotropium and mometasone inhalers, I am also keeping him on his furosemide, spironolactone, losartan isosorbide for his chronic diastolic congestive heart failure. His blood glucose are currently in acceptable control on his home regimen of Lantus and mealtime insulin, I will keep him on sliding scale insulin as well. Plan of care discussed with him his questions have been answered. cc: Larry Wilson MD
[2019-09-18] MEDS: PROTONIX PO SCH (20:20)
[2019-09-19] MEDS: DUONEB (A & A) INH SCH ×6 (03:42→23:20)
[2019-09-19] MEDS: HUMALOG SUBQ SCH ×6 (06:12→21:21)
[2019-09-19] MEDS: ASMANEX 220 MICROGM INHALER INH SCH ×2 (08:51→19:39)
[2019-09-19] MEDS: SPIRIVA INH SCH (08:51)
[2019-09-19] MEDS: LINZESS PO SCH (09:00)
[2019-09-19] MEDS: LIORESAL PO SCH ×2 (09:00→21:20)
[2019-09-19] MEDS: ELIQUIS PO SCH ×2 (09:00→21:20)
[2019-09-19] MEDS: BUSPAR PO SCH ×3 (09:00→21:20)
[2019-09-19] MEDS: COZAAR PO SCH (09:01)
[2019-09-19] MEDS: TUMS PO SCH ×2 (09:01→21:20)
[2019-09-19] MEDS: MORPHINE IR PO PRN ×3 (09:01→21:00)
[2019-09-19] MEDS: PROZAC PO SCH (09:01)
[2019-09-19] MEDS: ALDACTONE PO SCH (09:01)
[2019-09-19] MEDS: LASIX PO SCH ×2 (09:01→17:28)
[2019-09-19] MEDS: IMDUR PO SCH (09:01)
[2019-09-19] MEDS: LEVEMIR SUBQ SCH ×2 (09:07→21:20)
[2019-09-19] MEDS ORDERED: INSULIN PEN NEEDLES ONE (10:07)
--- NOTE | 2019-09-19 13:35 | Diag Imaging Result Doc PS360 ---
EXAM: CHEST-1 VIEW INDICATION: pneumonia TECHNIQUE: One view COMPARISON: 09/15/2019 FINDINGS: The right chest port is in stable position. The mild bibasilar infiltrates have decreased in density, especially on the right. No new consolidation is identified. Cardiac silhouette is stable. IMPRESSION: Interval improvement. Electronically signed by Jose Harkins 09/19/2019 1:33 PM
--- NOTE | 2019-09-19 17:32 | PROGRESS NOTE ---
DATE: 09/19/2019 SUBJECTIVE: The patient states that he does not feel well today. He has been coughing up more sputum today and states that he does not feel up to going home. OBJECTIVE: Vital Signs: Temperature 97.3 degrees, blood pressure 125/74, heart rate 100, respirations 18, O2 saturation 96% on 4 L nasal cannula. General: This is a morbidly obese male sitting up in a chair in no acute distress. Heart: S1, S2 normal. Tachycardic. Lungs: Diminished breath sounds bilaterally. Abdomen: Positive bowel sounds. Soft, obese, nontender, nondistended. Extremities: 1+ edema bilaterally. Neurologic: The patient is alert and oriented x4. LABS: None. ASSESSMENT AND PLAN: 1. Chronic hypoxemic respiratory failure. Stable. 2. Bilateral lobe pneumonia secondary to methicillin-resistant Staphylococcus aureus. Continue on vancomycin as directed by Dr. Downs. Arrangements have been made for the patient to receive antibiotics as outpatient. The x-ray done today shows improvement in the pneumonia. 3. Chronic obstructive pulmonary disease. Stable. 4. Morbid obesity. Aware. 5. Chronic atrial fibrillation status post pacemaker. Aware. 6. Chronic diastolic congestive heart failure. Stable. Continue on the current cardiac medications. 7. Hypertension. Continue on the current antihypertensive regimen. 8. Poorly controlled insulin-dependent diabetes mellitus. Continue on the current insulin regimen. 9. Disposition. We will plan to discharge the patient home tomorrow since he does not feel up to it today. cc: Denia Cordero MD MTDD
[2019-09-19] MEDS: VANCOMYCIN 2,500 MG in NS 500 ML IV SCH (18:04)
[2019-09-19] MEDS ORDERED: CHLORASEPTIC SORE THROAT LOZENGE MT PRN (20:51)
[2019-09-19] MEDS: PROTONIX PO SCH (21:20)
[2019-09-20] MEDS: DUONEB (A & A) INH SCH ×5 (03:25→21:17)
[2019-09-20] MEDS: HUMALOG SUBQ SCH ×6 (06:14→16:32)
[2019-09-20] MEDS: ASMANEX 220 MICROGM INHALER INH SCH ×2 (08:11→21:17)
[2019-09-20] MEDS: SPIRIVA INH SCH (08:12)
[2019-09-20] MEDS: BUSPAR PO SCH ×2 (09:17→14:54)
[2019-09-20] MEDS: COZAAR PO SCH (09:17)
[2019-09-20] MEDS: MORPHINE IR PO PRN ×2 (09:17→14:54)
[2019-09-20] MEDS: PROZAC PO SCH (09:18)
[2019-09-20] MEDS: LIORESAL PO SCH (09:18)
[2019-09-20] MEDS: LINZESS PO SCH (09:18)
[2019-09-20] MEDS: ELIQUIS PO SCH (09:18)
[2019-09-20] MEDS: ALDACTONE PO SCH (09:18)
[2019-09-20] MEDS: TUMS PO SCH (09:18)
[2019-09-20] MEDS: LASIX PO SCH ×2 (09:18→18:03)
[2019-09-20] MEDS: IMDUR PO SCH (09:18)
[2019-09-20] MEDS: LEVEMIR SUBQ SCH (09:19)
[2019-09-20] MEDS ORDERED: TYLENOL PO PRN (15:03)
[2019-09-20] MEDS: VANCOMYCIN 2,500 MG in NS 500 ML IV SCH ×2 (16:30→18:06)
[2019-09-20 20:44] VITALS: BP 115/69
--- NOTE | 2019-09-20 20:56 | INFECTIOUS DISEASE PROGRESS NO ---
DATE: 09/20/2019 PRESENT ILLNESS: Mr. Bell is being treated for a methicillin-resistant Staphylococcus aureus pneumonia. MEDICATIONS: He is receiving IV vancomycin per pharmacy dosing. Today is day 6 of vancomycin. PHYSICAL EXAMINATION: Vital Signs: Temperature is 98 degrees, pulse rate 111, respiratory rate 20, blood pressure 119/67, O2 saturation is 96% on 4 L nasal cannula. General: This is a chronically ill-appearing, elderly gentleman. He is sitting up in the chair currently in no acute distress. HEENT: Atraumatic, normocephalic. Oral mucous membranes are pink and moist. Conjunctivae are pink. Neck: Supple. Trachea is midline. Cardiovascular: Heart rate and rhythm are regular and paced on the monitor. Respiratory: Lung sounds have bilateral coarse wheezes and rhonchi. Abdomen: Soft, obese and nontender. Bowel sounds are active. Integumentary: There is a Port-A-Cath in place to the right chest site without edema, erythema, or drainage. Neurologic: He is awake, alert, oriented, able to ambulate with assistance. LABORATORY AND X-RAY: None available today. ASSESSMENT AND PLAN: Mr. Bell is being treated for methicillin-resistant Staph aureus pneumonia and has had 6 days of vancomycin. The plan is to send him home this afternoon with 10 more days of IV vancomycin after which time we will follow up with him in the office to recheck his chest x- ray. I have spoken with Dr. Cordero, and the patient is in agreement. These plans have been discussed with and recommended by Dr. Downs. COMORBIDITIES: For Mr. Bell include that he is elderly with chronic lung disease, congestive heart failure, chronic lower extremity edema, diabetes mellitus and anemia of chronic disease. Dictated by HORTENCIA Samuel for Darryl Downs MD cc: Darryl Downs MD
[2019-09-20] MEDS ORDERED: LOTRIMIN 1% CREAM TOP SCH (21:00)
--- NOTE | 2019-09-21 19:48 | DISCHARGE SUMMARY ---
ADMISSION DATE: 09/14/2019 DISCHARGE DATE: 09/20/2019 FINAL DISCHARGE DIAGNOSES: 1. Chronic hypoxemic respiratory failure. 2. Bilateral lobe pneumonia secondary to methicillin-resistant Staphylococcus aureus. 3. Chronic obstructive pulmonary disease. 4. Morbid obesity. 5. Chronic atrial fibrillation. 6. Status post pacemaker. 7. Chronic diastolic congestive heart failure. 8. Hypertension. 9. Poorly controlled insulin-dependent diabetes mellitus. 10. Chronic constipation. CONSULTATIONS: Infectious Disease consultation with Dr. Downs. HOSPITAL COURSE: Mr. Bell is a 69-year-old male with a history of multiple medical problems who initially presented to the ER with a chief complaint of pneumonia. The patient was sent by his primary care physician because he had failed outpatient treatment of pneumonia. The patient was admitted to the hospitalist service and blood cultures and sputum cultures were obtained. The sputum culture grew out the MRSA an strep mitis. It was determined that the Streptococcus portion was a contaminant. The patient was treated with IV vancomycin throughout his hospitalization. A repeat chest x-ray done on 09/19/2019 showed improvement in the infiltrative process in the lung. Also, the patient had improved clinically. The patient was ultimately cleared for discharge home on 09/20/2019. DISCHARGE MEDICATIONS: 1. Vancomycin 1.75 g IV every 12 hours x2 weeks. 2. The BuSpar 20 mg oral 3 times a day. 3. Aldactone 25 mg oral daily. 4. Cozaar 50 mg p.o. daily. 5. Imdur 180 mg p.o. daily. 6. Prozac 20 mg p.o. daily. 7. Coreg 37.5 mg oral twice a day. 8. Morphine sulfate 30 mg oral 3 times a day. 9. Asmanex 0.5 inhaled twice daily. 10. NovoLog 30 units subcutaneous twice a day. 11. Atarax 25 mg oral at bedtime. 12. Eliquis 5 mg oral twice a day. 13. Protonix 40 mg p.o. at bedtime. 14. Levemir 62 units subcutaneous twice a day. 15. Lasix 80 mg p.o. every morning. 16. Linzess 145 mcg oral daily. 17. Lasix 120 mg oral at bedtime. 18. Trulicity 0.75 mg subcutaneous every 7 days. 19. ProAir 2 puffs inhaled 4 times a day p.r.n. for shortness of breath. 20. Baclofen 10 mg p.o. twice a day. 21. Mometasone 1 puff inhaled twice a day. DISCHARGE DIET: 1800 ADA diet, low-sodium diet. ACTIVITY: As tolerated. FOLLOW UP INSTRUCTIONS: Dr. Downs has arranged for the patient to continue with IV antibiotics through [facility]. The patient will be on vancomycin for a total of 2 more weeks. The patient is scheduled to follow up with Dr. Darryl Downs on 10/02/2019 at 8:15 a.m. The patient will need to follow up with Dr. Jennifer Jean Baptiste on 09/27/2019 at 3 p.m. cc: MD Jennifer Celestin
== END 2019-09-20 21:45 | disposition home health service (06) | DRG 178 ==
LOC: SUATTDRO 13:40 → DIRADM 13:40 → EDIPHOLD 16:39 → 3N 21:15
PROVIDERS: ATTEND Internal Medicine

== ENCOUNTER 2019-09-22 04:27 | Inpatient (IN) ==
[2019-09-22] MEDS ORDERED: DUONEB (A & A) INH ONE ×2 (04:45→09:49)
[2019-09-22] MEDS ORDERED: LASIX IV ONE (04:48)
--- NOTE | 2019-09-22 04:52 | PROVIDER DOCUMENTATION ---
HPI-Respiratory General - General Chief Complaint: Shortness of Breath Stated Complaint: KIDNEY/COLD SX Time Seen by Provider: 09/22/19 04:35 Allergies/Adverse Reactions: Patient Allergies Allergy/AdvReac Type Severity Reaction Status Date / Time No Known Allergies Allergy Verified 09/22/19 04:48 Home Medications: Home Medication List Medication Instructions Recorded Confirmed Last Taken Type Buspirone [Buspar] 20 mg PO TID 10/06/16 09/22/19 09/14/19 07:00 History Carvedilol 37.5 mg PO BID 10/06/16 09/22/19 09/14/19 07:00 History Fluoxetine [Prozac] 20 mg PO DAILY 10/06/16 09/22/19 09/14/19 07:00 History Isosorbide Mononitrate [Imdur] 180 mg PO DAILY 10/06/16 09/22/19 09/14/19 07:00 History Losartan [Cozaar] 50 mg PO DAILY 10/06/16 09/22/19 09/14/19 07:00 History Spironolactone 25 mg PO DAILY 10/06/16 09/22/19 09/14/19 07:00 History Insulin Aspart [Novolog] 30 unit SQ BID 03/04/18 09/22/19 09/14/19 12:00 History Mometasone Furoate 220 Mcg INH 0.5 inhaler INH BID 03/04/18 09/22/19 08/21/19 History [Asmanex 220 Microgm Inhaler] Morphine Sulfate 30 mg PO TID 03/04/18 09/22/19 09/14/19 12:00 History Apixaban [Eliquis] 5 mg PO BID 05/19/18 09/22/19 09/14/19 07:00 History Furosemide [Lasix] 80 mg PO QAM 05/19/18 09/22/19 09/14/19 07:00 History Insulin Detemir [Levemir] 62 unit SUBQ BID 05/19/18 09/22/19 09/14/19 07:00 History Pantoprazole [Protonix] 40 mg PO QHS 05/19/18 09/22/19 09/14/19 07:00 History Linaclotide [Linzess] 145 mcg PO DAILY 09/22/18 09/22/19 09/14/19 07:00 History Furosemide [Lasix] 120 mg PO HS 07/19/19 09/22/19 09/13/19 20:00 History Dulaglutide [Trulicity] 0.75 mg SUBQ Q7D 07/26/19 09/22/19 1 Week Ago Rx ~08/14/19 Albuterol Sulfate [Proair Hfa] 2 puff INH 4XDAY PRN PRN 09/14/19 09/22/19 09/14/19 07:00 History Baclofen [Lioresal] 10 mg PO BID 09/14/19 09/22/19 09/14/19 07:00 History Mometasone Furoate 220 Mcg INH 1 puff INH BID 09/14/19 09/22/19 09/14/19 07:00 History [Asmanex 220 Microgm Inhaler] Olodaterol HCl [Striverdi Respimat] 1 puff INH BID 09/14/19 09/22/19 09/14/19 07:00 History Vancomycin HCl in Water 1.75 gm IV Q12H #1 vial 09/20/19 09/22/19 Unknown Rx [Vancomycin 1,750 mg/17.5 ml Vl] - History of Present Illness-Resp Nature of Presenting Problem: Just d/c from inpatient floor 2 nights ago, returns with worsening of sob and rojas tonight. Stats "I can't breath, I'm smothering." States it has never been this bad. States he has cough productive of yellow sputum, copious clear rhinorrhea, body aches, back pain, and leg swelling. Patient is on home IV Vancomycin treatment through a port. Seen by Dr. Downs on 09/20 for MRSA pneumonia. Denies fever/chills. Sats 88% on 4L by OK at triage. States called the home health nurse ulices, and they told him to come to ER. Quality of Pain: reports: aching Severity in ED: reports: moderate Onset/Duration: reports: gradual, last night Timing: reports: still present, constant Context: reports: multiple patients with similar complaints, recent URI Exposure: reports: illness exposure Cough Quality/Degree: reports: moderate, productive cough. denies: blood streaked sputum Episode Frequency: frequent episodes Current Respiratory Medication Therapy: Initiated A/A nebulizer Modifying Factors: improves with: rest, sitting upright. worse with: exertion, lying down Associated Symptoms: reports: chest pain/soreness, cough, fever/chills, flu-like symptoms, muscle/bodyaches, nasal drainage, shortness of breath, short of breath , sweaty, wheezing Similar Symptoms Previously?: Yes Recently seen or treated by another doctor?: Yes (Hospitalist service and Dr. Downs 09/20/19) Review of Systems - Adult - REVIEW OF SYSTEMS - ADULT Constitutional: reports: see HPI, chills, fatique, weight gain Eyes: reports: no symptoms reported Ears, Nose, Mouth & Throat: reports: see HPI, sinus problem Cardiovascular: reports: see HPI, chest pain, edema, orthopnea, PND Respiratory: reports: see HPI, chronic cough, dyspnea on exertion, excessive sputum production, shortness of breath, wheezing. denies: hemoptysis, pleurisy Gastrointestinal: reports: no symptoms reported Genitourinary: reports: no symptoms reported Musculoskeletal: reports: no symptoms reported Integumentary: reports: no symptoms reported Neurological: reports: no symptoms reported Psychiatric: reports: no symptoms reported Endocrine: reports: no symptoms reported Hematologic/Lymphatic: reports: no symptoms reported Allergic/Immunologic: reports: no symptoms reported All Other Systems: Reviewed and Negative Past History - Adult - PAST MEDICAL HISTORY-ADULT Review of Records: reports: Old Records Reviewed (copious volumes of medical records, discharge summary from 09/20/19 reviewed as welll), Nursing Assessment Review, Medications Reviewed, Social history reviewed & non-contributory. Major Childhood Illnesses: reports: denies history Cardiovascular: reports: A-Fib, arrhythmia (with cardiac ablation), CAD, HTN, hyperlipidemia, [place] Respiratory: reports: asthma, COPD (on 4 Liters NC), pneumonia Gastrointestinal: reports: denies history Obstetrical/Gynecological: reports: denies history Genitourinary: reports: kidney stones Musculoskeletal: reports: denies history Neurological: reports: denies history Psychiatric: reports: anxiety Endocrine/Immune: reports: Diabetes Diabetes Type: Type 2 Diabetes controlled by:: Insulin Dependent Other Conditions: reports: other (sleep apnea) - PRIOR SURGERIES/PROCEDURES Surgical/Procedure History: reports: CABG, pacemaker, other (ablation) - IMMUNIZATION STATUS Childhood Immunizations: See Nurse Assessment Flu Vaccine: See Nurse Assessment - FAMILY HISTORY Family History: reviewed, not pertinent - SOCIAL HISTORY Smoking: quit greater than 1 year, cigarettes, greater than 1 pack/day Substance Use: none/never Alcohol Use Frequency: never Living Situation: family Physical Exam-General - PHYSICAL EXAM-ADULT Initial Vital Signs Reviewed: Yes (VSSAF, sl tachyneic, hypoxic on supplemental O2) - CONSTITUTIONAL General Appearance: mild distress, obese, other (chronically ill apearing) - EYES Eyes: PERRL/EOMI, pink conjunctivae - HEAD, EARS, NOSE, MOUTH & THROAT HENMT: normocephalic/atraumatic, moist mucous membranes, normal ENT inspection, hearing deficit - NECK Neck: full range of motion, supple, normal inspection - RESPIRATORY Respiratory: chest non-tender, no pleuratic chest pain, no accessory muscle use, respiratory distress (mild), decreased breath sounds, rhonchi, wheezing, dull on percussion, increased rate - CARDIOVASCULAR Cardiovascular: normal peripheral pulses, regular rate, rhythm, no JVD, gallop/S3 - CHEST (BREASTS) Chest/Breast: no masses/lumps, no tenderness, other (port right upper chest wall, accessed) - GASTROINTESTINAL (ABDOMEN) Abdominal Exam: non tender, soft - LYMPHATIC Lymphatic: no adenopathy - MUSCULOSKELETAL Back Exam: no vertebral tenderness, decreased range of motion Extremity: normal capillary refill, pedal edema (4+), swelling, tenderness - HEART Score HEART Score: History: Slightly Suspicious HEART Score: ECG: Non-Specific Repolarization Disturbance/LBBB/PM HEART Score: Age: > or = 65 Years HEART Score: Risk Factors for Atherosclerotic Disease: > or = 3 Risk Factors or History of Atherosclerotic Disease Progress - PLAN OF CARE/RESULTS Progress/Plan/Lab Results: Vital Signs - 8 hr 09/22/19 04:33 09/22/19 04:48 09/22/19 05:00 Temperature 97.8 F Pulse Rate 84 78 Respiratory Rate 21 Blood Pressure 122/62 126/75 145/75 O2 Sat by Pulse Oximetry 88 L 94 L 92 L 09/22/19 05:02 09/22/19 05:16 09/22/19 05:31 Temperature Pulse Rate 77 77 76 Respiratory Rate 17 Blood Pressure 145/86 142/84 O2 Sat by Pulse Oximetry 93 L 96 93 L 09/22/19 05:46 09/22/19 06:06 09/22/19 07:10 Temperature Pulse Rate 87 88 76 Respiratory Rate 18 Blood Pressure 153/84 122/78 124/61 O2 Sat by Pulse Oximetry 96 93 L 99 09/22/19 10:02 Temperature Pulse Rate 83 Respiratory Rate 20 Blood Pressure O2 Sat by Pulse Oximetry 90 L 09/22/19 05:13 - Final Sputum 09/22/19 05:38 Influenza Screen - Final Nasopharyngeal Laboratory Results - last 24 hr 09/22/19 09/22/19 09/22/19 05:03 05:03 05:03 WBC 7.19 RBC 4.15 L Hgb 10.2 L Hct 33.2 L MCV 80.0 L MCH 24.6 L MCHC 30.7 L RDW Std Deviation 14.7 H Plt Count 41 L MPV 12.2 H Immature Gran % (Auto) 0.3 Neut % (Auto) 74.0 Lymph % (Auto) 10.3 L [place] % (Auto) 11.4 H Eos % (Auto) 3.2 Baso % (Auto) 0.8 Immature Gran # (Auto) 0.02 Neut # (Auto) 5.32 Lymph # (Auto) 0.74 L [place] # (Auto) 0.82 H Eos # (Auto) 0.23 Baso # (Auto) 0.06 PT INR PTT (Actin FS) Specimen Type ARTERIAL Sample Site R RADIAL pH 7.45 pCO2 45 pO2 69 HCO3 29.9 H Base Excess 6.5 H Oxyhemoglobin 93.6 L ABG O2 Sat (Calculated) 13.7 L ABG O2 Saturation 97.7 ABG Carboxyhemoglobin 3.10 H ABG Methemoglobin 1.1 Dom[place]uez Test YES A-a O2 Difference 131.0 Total Hemoglobin 10.4 L Lactate 0.90 Liter Flow 4.0 Blood Gas Modality CANNULA FiO2 % 36.0 Sodium 142 Potassium 3.9 Chloride 103 Carbon Dioxide 29 Anion Gap 11 BUN 17 Creatinine 1.0 Estimated GFR/1.73 m2 > 60 BUN/Creatinine Ratio 17 Glucose 170 H Calculated Osmolality 288 Calcium 9.1 Magnesium 2.2 Total Bilirubin 0.28 AST 17 ALT 12 Alkaline Phosphatase 87 Creatine Kinase 57 Troponin T High Sens Xmr-Q-Gxusypcceol Pept Total Protein 6.0 L Albumin 3.5 Globulin 2.5 Albumin/Globulin Ratio 1.4 Plasma Lactate Urine Source Urine Color Urine Turbidity Urine pH Ur Specific [place] Urine Protein Ur Glucose (Stick) Ur Ketones (Stick) Urine Blood Urine Nitrite Urine Bilirubin Urobilinogen Dipstick Urine Leukocytes Urine WBC (Auto) Urine RBC (Auto) U Epithel Cells (Auto) Urine Bacteria (Auto) Random Vancomycin 14.40 Acetone Level NEGATIVE 09/22/19 09/22/19 09/22/19 05:03 05:03 05:03 WBC RBC Hgb Hct MCV MCH MCHC RDW Std Deviation Plt Count MPV Immature Gran % (Auto) Neut % (Auto) Lymph % (Auto) [place] % (Auto) Eos % (Auto) Baso % (Auto) Immature Gran # (Auto) Neut # (Auto) Lymph # (Auto) [place] # (Auto) Eos # (Auto) Baso # (Auto) PT 16.3 H INR 1.29 PTT (Actin FS) 93.2 H Specimen Type Sample Site pH pCO2 pO2 HCO3 Base Excess Oxyhemoglobin ABG O2 Sat (Calculated) ABG O2 Saturation ABG Carboxyhemoglobin ABG Methemoglobin Dominguez Test A-a O2 Difference Total Hemoglobin Lactate Liter Flow Blood Gas Modality FiO2 % Sodium Potassium Chloride Carbon Dioxide Anion Gap BUN Creatinine Estimated GFR/1.73 m2 BUN/Creatinine Ratio Glucose Calculated Osmolality Calcium Magnesium Total Bilirubin AST ALT Alkaline Phosphatase Creatine Kinase Troponin T High Sens 28 H Prz-D-Thftdhgardl Pept 616 H Total Protein Albumin Globulin Albumin/Globulin Ratio Plasma Lactate Urine Source Urine Color Urine Turbidity Urine pH Ur Specific [place] Urine Protein Ur Glucose (Stick) Ur Ketones (Stick) Urine Blood Urine Nitrite Urine Bilirubin Urobilinogen Dipstick Urine Leukocytes Urine WBC (Auto) Urine RBC (Auto) U Epithel Cells (Auto) Urine Bacteria (Auto) Random Vancomycin Acetone Level 09/22/19 09/22/19 09/22/19 05:03 08:00 08:33 WBC RBC Hgb Hct MCV MCH MCHC RDW Std Deviation Plt Count MPV Immature Gran % (Auto) Neut % (Auto) Lymph % (Auto) [place] % (Auto) Eos % (Auto) Baso % (Auto) Immature Gran # (Auto) Neut # (Auto) Lymph # (Auto) [place] # (Auto) Eos # (Auto) Baso # (Auto) PT INR PTT (Actin FS) Specimen Type Sample Site pH pCO2 pO2 HCO3 Base Excess Oxyhemoglobin ABG O2 Sat (Calculated) ABG O2 Saturation ABG Carboxyhemoglobin ABG Methemoglobin Dominguez Test A-a O2 Difference Total Hemoglobin Lactate Liter Flow Blood Gas Modality FiO2 % Sodium Potassium Chloride Carbon Dioxide Anion Gap BUN Creatinine Estimated GFR/1.73 m2 BUN/Creatinine Ratio Glucose Calculated Osmolality Calcium Magnesium Total Bilirubin AST ALT Alkaline Phosphatase Creatine Kinase Troponin T High Sens Kas-T-Xtjihknrzhs Pept Total Protein Albumin Globulin Albumin/Globulin Ratio Plasma Lactate 0.9 1.0 Urine Source CLEAN CATCH Urine Color YELLOW Urine Turbidity CLEAR Urine pH 6.5 Ur Specific [place] 1.010 Urine Protein NEGATIVE Ur Glucose (Stick) NEGATIVE Ur Ketones (Stick) NEGATIVE Urine Blood NEGATIVE Urine Nitrite NEGATIVE Urine Bilirubin NEGATIVE Urobilinogen Dipstick NORMAL Urine Leukocytes NEGATIVE Urine WBC (Auto) <10 Urine RBC (Auto) <10 U Epithel Cells (Auto) <10 Urine Bacteria (Auto) NEGATIVE Random Vancomycin Acetone Level Orders Category Date Time Status Cardiac Monitoring DIRECTED Care 09/22/19 04:44 Active IV Insertion ORDERED Care 09/22/19 04:44 Completed Nursing- Obtain EKG once Care 09/22/19 04:45 Active CHEST-1 VIEW [RAD] Stat Exams 09/22/19 04:44 Completed ABG [RESP] Routine Lab 09/22/19 05:03 Completed ACETONE SERUM [CHEM] Stat Lab 09/22/19 05:03 Completed BLOOD CULTURE [BLDCUL] Stat Lab 09/22/19 05:13 Results CBC WITH DIFF [HEME] Stat Lab 09/22/19 05:03 Completed CK PROFILE [SP CHEM] Stat Lab 09/22/19 05:03 Completed COMPREHENSIVE METABOLIC PANEL [CHEM] Stat Lab 09/22/19 05:03 Completed INFLUENZA SCREEN A/B Stat Lab 09/22/19 05:38 Completed LACTATE, PLASMA [CHEM] Q3H Lab 09/22/19 05:03 Completed LACTATE, PLASMA [CHEM] Q3H Lab 09/22/19 08:33 Completed LACTATE, PLASMA [CHEM] Q3H Lab 09/22/19 10:45 Uncollected MAGNESIUM [CHEM] Stat Lab 09/22/19 05:03 Completed PRO B-NATRIURETIC PEPTIDE Stat Lab 09/22/19 05:03 Completed PROTIME WITH INR [COAG] Stat Lab 09/22/19 05:03 Completed PTT [COAG] Stat Lab 09/22/19 05:03 Completed RANDOM VANCOMYCIN [TDM] Stat Lab 09/22/19 05:03 Completed SPUTUM CULTURE WITH GRAM STAIN [RM] Routine Lab 09/22/19 05:13 Results TROPONIN T HIGH SENSITIVITY Stat Lab 09/22/19 05:03 Completed URINALYSIS W/POSS RFLX CULT [URINALYSIS] Stat Lab 09/22/19 08:00 Completed Albuterol 2.5MG/Ipratrop 0.5MG [Duoneb (A & A)] Med 09/22/19 04:45 Discontinued 3 ml INH NOW ONE Albuterol 2.5MG/Ipratrop 0.5MG [Duoneb (A & A)] Med 09/22/19 09:49 Discontinued 3 ml INH NOW ONE Furosemide [Lasix] Med 09/22/19 04:48 Discontinued 80 mg IV NOW ONE Oseltamivir [Tamiflu] Med 09/22/19 06:52 Discontinued 75 mg PO NOW ONE Aerosol Treatments Routine Oth 09/22/19 04:46 Completed Aerosol Treatments Routine Oth 09/22/19 09:49 Completed Aerosol Treatments Stat Oth 09/22/19 04:46 Completed Aerosol Treatments Stat Oth 09/22/19 09:49 Completed Oxygen Device Stat Oth 09/22/19 04:44 Completed EKG [EKG] Stat Ther 09/22/19 04:45 Draft Result Diagrams: 09/22/19 05:03 09/22/19 05:03 - REASSESSMENT Reassessment #1 Time Reassessed: 09:54 Status: unchanged (pt w/ recent MRSA on home IV Vanc returns failing OP Rx, found to have new/concomitant influenza (Tamiflu given this a.m. dose #1). Dr. Mccabe had hoped for placement in rehab but per case mgmt, Rehab says he doesn't qualify at this time. Pt feels too ill to go home. RN notes w/ any activity on his baseline 4L NC, his sates fall to mid '80s. will consult Hospitalist.) - EKG 1 Time of EKG reading by physician:: 04:50 EKG Read and Signed by:: Calixto Mccabe EKG Interpretation (*Must complete 3 of following elements*): Abnormal Rate: 79 Rhythm: ventricular paced rhythm Zeigler: normal QRS: other (wide complex) MI Interval: normal ST Wave: non-specific ST changes Prior EKG Comparison: unchanged from prior (07/26/19) - XRAY 1 XRAY Study: Chest Impression: Abnormal (no acute changes), See EMR Report ( EXAM: CHEST-1 VIEW HISTORY: SOB, recent pneumonia TECHNIQUE: Single view COMPARISON: 09/19/2019 FINDINGS: The lungs are well expanded. No change in the right jugular portacatheter or left-sided pacemaker. Sternal wires and surgical clips. The heart is enlarged. Mild increased interstitial markings throughout both lungs similar to the prior exam. No consolidation. No pleural effusions identified. IMPRESSION: Stable chest Electronically signed by Ramses Stanton 09/22/2019 6:01 AM 09/22/19 0601 Interpreting Physician: Ramses Stanton MD Dictated Date/Time: 09/22/19 0600 cc: Calixot Mccabe MD; Jennifer Jean Baptiste MD) - CONSULTS/PCP/HOSPITALIST Notification #1 *Consult/PCP/Hospitalist*: Zahraa Pierson Time Discussed: 10:25 Consult Disposition: Admit - CHANGE OF SHIFT REPORT (ED Provider) 1 Report Given and Care Transferred to:: Dr. Elias Items Pending: Labs, Other (decision for disposition) Departure - Departure Date of Disposition Decision: 09/22/19 Time of Disposition Decision: 10:25 DIAGNOSIS: COPD exacerbation, MRSA pneumonia, Influenza A Disposition: ADMITTED INPATIENT 09 Certified Medical Emergency: Emergent Condition: Fair Referrals and Follow-Ups: Jennifer Jean Baptiste MD [Primary Care Provider] - - Critical Care Note This patient required my direct & personal management of CC.: No Attestation - Physician/ ABBY Attestation The physician spent face to face time with patient:: Yes Advanced Practice Provider documentation review:: Supervising physician onsite and consulted in the evaluation and care of this patient. The physician did have a face to face encounter with the patient.
[2019-09-22 05:12] LABS: ALLEN TEST YES; BE 6.5 mmoll (-3.0-3.0); BLOOD TYPE ARTERIAL; HCO3-(ACT) 29.9 mmoll (20.0-26.0); METHB 1.1 % (0.0-1.5); O2(CT) 13.7 mL/dL (15.0-23.0); O2HB 93.6 % (95.0-99.0); PCO2(98.6) 45 mmHg (35-45); PO2(98.6) 69 mmHg (60-100); SAMPLE BLOOD; SAO2 97.7 % (95.0-100.0); THB 10.4 g/dL (11.5-17.4); pH(98.6) 7.45 (7.35-7.45)
[2019-09-22 05:13] LABS: MODALITY CANNULA
[2019-09-22 06:00] LABS: BASO# 0.06 X1000 (0.0-0.2); BASO% 0.8 % (0.0-0.8); EOS# 0.23 X1000 (0.0-0.7); EOS% 3.2 % (0.0-10.0); HEMATOCRIT 33.2 % (42.0-52.0); HEMOGLOBIN 10.2 g/dL (14.0-18.0); IMM GRAN# 0.02 X1000 (0.0-0.04); IMM GRAN% 0.3 % (0.0-0.5); LYMPH# 0.74 X1000 (1.2-3.4); LYMPH% 10.3 % (20.5-51.1); MCH 24.6 PG (27-31); MCHC 30.7 g/dL (33-37); MONO# 0.82 X1000 (0.11-0.59); MONO% 11.4 % (1.7-9.3); MPV 12.2 FL (7.4-10.4); NEUT# 5.32 X1000 (1.4-6.5); PLT 41 X1000 (130-400); RBC 4.15 XMIL (4.7-6.1); RDW 14.7 % (11.5-14.5); WBC 7.19 X1000 (4.8-10.8)
[2019-09-22 06:02] LABS: INR 1.29; PROTIME 16.3 Seconds (11.0-16.0)
--- NOTE | 2019-09-22 06:03 | Diag Imaging Result Doc PS360 ---
EXAM: CHEST-1 VIEW HISTORY: SOB, recent pneumonia TECHNIQUE: Single view COMPARISON: 09/19/2019 FINDINGS: The lungs are well expanded. No change in the right jugular portacatheter or left-sided pacemaker. Sternal wires and surgical clips. The heart is enlarged. Mild increased interstitial markings throughout both lungs similar to the prior exam. No consolidation. No pleural effusions identified. IMPRESSION: Stable chest Electronically signed by Ramses Stanton 09/22/2019 6:01 AM
[2019-09-22 06:37] LABS: PTT 93.2 Seconds (22.3-41.8)
[2019-09-22 06:44] LABS: AGAP 11; CHLORIDE 103 mmol/L (98-107); COSMO 288; POTASSIUM 3.9 mmol/L (3.5-5.1); SODIUM 142 mmol/L (136-145)
[2019-09-22 06:45] LABS: ACETONE SERUM NEGATIVE (NEGATIVE)
[2019-09-22] MEDS ORDERED: TAMIFLU PO ONE (06:52)
--- NOTE | 2019-09-22 06:52 | EKG Report ---
Test Performed on : 09/22/2019 04:45:33 AM Test Reason : SOB Blood Pressure : / mmHG Vent. Rate : 079 BPM Atrial Rate : 079 BPM P-R Int : 180 ms QRS Dur : 210 ms QT Int : 462 ms P-R-T Axes : 080 -73 094 degrees QTc Int : 529 ms Atrial-sensed ventricular-paced rhythm Abnormal ECG When compared with ECG of 18-JUL-2019 13:18, (Unconfirmed) Vent. rate has decreased BY 39 BPM Unconfirmed Result
[2019-09-22 07:05] LABS: ALB/GLOB RATIO 1.4; ALBUMIN 3.5 g/dL (3.5-5.0); ALKALINE PHOSPHATASE 87 U/L (32-122); BUN 17 mg/dL (8-22); CALCIUM 9.1 mg/dL (8.8-10.2); CK PROFILE 57 U/L (24-204); ESTIMATED GFR > 60; GLUCOSE 170 mg/dL (70-104); GOT 17 U/L (10-34); GPT 12 U/L (10-44); MAGNESIUM 2.2 mg/dL (1.5-2.7); TCO2 29 mmol/L (25-35); TOTAL BILIRUBIN 0.28 mg/dL (0.20-1.00)
[2019-09-22 08:21] LABS: URINE SOURCE CLEAN CATCH
[2019-09-22 08:28] LABS: BILIRUBIN URINE NEGATIVE (NEGATIVE); BLOOD URINE NEGATIVE (NEGATIVE); COLOR YELLOW; GLUCOSE URINE NEGATIVE (NEGATIVE); KETONE URINE NEGATIVE (NEGATIVE); LEUKOCYTES URINE NEGATIVE (NEGATIVE); NITRITE URINE NEGATIVE (NEGATIVE); PH URINE 6.5; PROTEIN URINE NEGATIVE (NEGATIVE); TURBIDITY URINE CLEAR (CLEAR); UROBILINOGEN URINE NORMAL (NORMAL)
[2019-09-22 08:29] LABS: UR EPITHELIAL CELLS <10 /HPF (<10); URINE BACTERIA NEGATIVE /HPF; URINE RBC <10 /HPF (<10); URINE WBC <10 /HPF (<10)
[2019-09-22] MEDS ORDERED: MS CONTIN PO SCH (13:00)
[2019-09-22] MEDS ORDERED: DUONEB (A & A) INH PRN (13:11)
[2019-09-22] MEDS ORDERED: VANCOMYCIN IV PER PHARMACY MISC SCH (13:15)
[2019-09-22] MEDS: BUSPAR PO SCH ×2 (15:00→21:36)
[2019-09-22] MEDS: DUONEB (A & A) INH SCH ×3 (16:28→23:22)
[2019-09-22] MEDS ORDERED: HALL'S COUGH LOZENGE MT PRN (16:50)
[2019-09-22] MEDS: HUMALOG SUBQ SCH ×2 (17:16→21:37)
[2019-09-22] MEDS: VANCOMYCIN 1,750 MG in NS 250 ML IV SCH (18:35)
[2019-09-22] MEDS: COREG PO SCH (20:30)
[2019-09-22] MEDS: ELIQUIS PO SCH (21:36)
[2019-09-22] MEDS: PROTONIX PO SCH (21:36)
[2019-09-22] MEDS: TAMIFLU PO SCH (21:36)
[2019-09-22] MEDS: LIORESAL PO SCH (21:37)
[2019-09-22] MEDS: MS CONTIN PO SCH (21:37)
[2019-09-22] MEDS: LOTRIMIN 1% CREAM TOP SCH (21:39)
--- NOTE | 2019-09-22 22:17 | HISTORY AND PHYSICAL ---
ADDENDUM: Patient seen and examined by me face to face. All the laboratory, vital signs and images were reviewed. Patient presented to the emergency department complaining of worsening shortness of breath that actually began yesterday and has been getting worse, we did some lab work and it turns out that this patient has influenza A positive. He has been treated for MRSA pneumonia with vancomycin which we will continue, he is still coughing up some phlegm which is yellowish, he is short of breath so he has been placed on breathing treatment, oxygen supplementation. Continue with antibiotics and Tamiflu. He received a dose today and I will continue with that twice a day. He has on top of that an inguinal rash that it looks that is secondary to a fungal infection so I will put this patient on clotrimazole cream. On physical exam he has bilateral rhonchi and some crepitus, decreased breath sounds globally though, the rest of the physical exam is basically exactly like the previous hospitalization including a ulcer in his buttock. I agree with the rest of the nurse practitioner's assessment and plan. We will ask for wound care evaluation. cc: Blair Rivas MD
--- NOTE | 2019-09-22 22:32 | HISTORY AND PHYSICAL ---
CHIEF COMPLAINT: Shortness of breath, smothering. HISTORY OF PRESENT ILLNESS: This is a 69-year-old gentleman who presented to the emergency room complaining of shortness of breath and smothering stating that he has never been this bad. He complains of a productive cough with yellow sputum, copious clear nasal drainage, body aches. The patient did present with O2 saturation of 88% on 4 L nasal cannula. Mr. Bell was hospitalized from September 14 to September 20 with bilateral lower lobe pneumonia secondary to methicillin-resistant Staphylococcus aureus and chronic hypoxemic respiratory failure. He was discharged on the to be followed through [facility] receiving IV vancomycin b.i.d. He stated that the 1st night home that he felt better. He actually felt like he was walking better. When he walked from the bed to the bathroom during the day yesterday and during the night last night, he states that he had progressive shortness of breath and smothering prompting his return to the emergency room. PAST MEDICAL HISTORY: 1. COPD on home O2 at 4 L via nasal cannula. 2. Chronic hypoxic respiratory failure. 3. Chronic atrial fibrillation on Eliquis. 4. Ischemic cardiomyopathy with a preserved ejection fraction of 60% for August 2018. 5. Obstructive sleep apnea but does not wear CPAP. 6. Morbid obesity. 7. Diabetes type 2. 8. Hypertension. 9. History of exposure to asbestos and agent orange. 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 FAMILY HISTORY: Positive for mother who had lung cancer. Grandmother who had lung cancer. Father of a heart attack. He has 3 brothers who have heart disease. SOCIAL HISTORY: He smoked 3 packs of cigarettes a day from the age 13 to 59. He stopped in 1989. He denies alcohol or illicit drug use. ALLERGIES: No known drug allergies. HOME MEDICATIONS: A list will be obtained, and once verified, we will review and restart as appropriate. REVIEW OF SYSTEMS: Discussed with patient with pertinent positives stated in the HPI. He denied any syncope or dizziness, any chest pain, palpitations, any nausea, vomiting, diarrhea, constipation, black or bloody vomitus or stools, any hematuria, dysuria, frequency or urgency. PHYSICAL EXAMINATION: GENERAL: This is a morbidly obese, 69-year-old gentleman who is sitting up in the chair in the emergency room in no distress. EYES: Pupils are equal, round, react to light. EOMs are intact. Sclerae are anicteric. Mucous membranes are moist. NECK: Supple with trachea midline. CARDIOVASCULAR: Regular rate and rhythm. S1 and S2 appreciated. No murmur. PULMONARY: Breath sounds with rhonchi, scattered wheezing. Chest rises and falls symmetric with respiration. Chest wall is nontender to palpation. GASTROINTESTINAL: Abdomen is large, soft, nondistended with bowel sounds in all 4 quadrants. NEUROLOGIC: He is alert and oriented x3. SKIN: Warm and dry. EXTREMITIES: He has bilateral lower extremity edema, 4+. Calves are nontender. LABORATORY DATA: WBC is 7.1 with hemoglobin 10.2, hematocrit 33.2, and platelets of 41,000. Sodium is 142, potassium 3.9, BUN 17, creatinine 1 with a glucose of 170. Urinalysis is essentially negative. Acetone is negative. Random vancomycin is 14.4. Blood cultures and sputum culture have been obtained. Influenza A is positive, influenza B is negative. IMAGING: Chest x-ray reveals lungs are well expanded. No change in right jugular Port-A-Cath or left-sided pacemaker. Sternal wires and surgical clips. Heart is enlarged. Mild increased interstitial markings throughout both lungs similar to prior. No consolidation, no pleural effusions, compared to 09/19/2019. ASSESSMENT: 1. Acute hypoxemic respiratory failure. His saturations did go down to 88 with 4 L nasal cannula with activity. 2. Chronic hypoxemic respiratory failure. 3. History of bilateral lobe pneumonia secondary to methicillin-resistant Staphylococcus aureus. 4. Chronic obstructive pulmonary disease exacerbation. 5. Morbid obesity. 6. Chronic atrial fibrillation. 7. Chronic diastolic congestive heart failure. 8. Insulin-dependent diabetes mellitus. 9. Thrombocytopenia. PLAN: The patient will be admitted to the hospital and will be placed on telemetry. We will continue supplemental oxygen with DuoNeb q.4 hours with q.2 hours p.r.n. We will identify his home medications and continue these as appropriate. He will be placed on pattern blood glucose with sliding scale insulin, will have vancomycin per pharmacy. Tamiflu was started in the emergency room. We will continue this b.i.d. Consult physical therapy. Further treatments pending hospital course. Plan was discussed with Dr. Downing. Dictated by HORTENCIA Deng for Blair Rivas MD cc: HORTENCIA Deng MD
[2019-09-23] MEDS: DUONEB (A & A) INH SCH ×6 (03:42→23:30)
[2019-09-23] MEDS: VANCOMYCIN 1,750 MG in NS 250 ML IV SCH ×2 (04:39→17:16)
[2019-09-23] MEDS: HUMALOG SUBQ SCH ×5 (06:34→22:02)
[2019-09-23 08:37] LABS: BASO# 0.04 X1000 (0.0-0.2); BASO% 0.5 % (0.0-0.8); EOS# 0.18 X1000 (0.0-0.7); EOS% 2.3 % (0.0-10.0); HEMATOCRIT 33.6 % (42.0-52.0); HEMOGLOBIN 10.3 g/dL (14.0-18.0); IMM GRAN# 0.02 X1000 (0.0-0.04); IMM GRAN% 0.3 % (0.0-0.5); LYMPH% 11.6 % (20.5-51.1); MCH 24.3 PG (27-31); MCHC 30.7 g/dL (33-37); MCV 79.4 FL (81-99); MONO# 0.65 X1000 (0.11-0.59); MONO% 8.4 % (1.7-9.3); NEUT# 5.96 X1000 (1.4-6.5); NEUT% 76.9 % (42.2-75.2); PLT 52 X1000 (130-400); RBC 4.23 XMIL (4.7-6.1); RDW 14.6 % (11.5-14.5); WBC 7.75 X1000 (4.8-10.8)
[2019-09-23] MEDS: LINZESS PO SCH (08:58)
[2019-09-23] MEDS: TAMIFLU PO SCH ×2 (08:58→22:01)
[2019-09-23] MEDS: ALDACTONE PO SCH (08:58)
[2019-09-23] MEDS: COZAAR PO SCH (08:59)
[2019-09-23] MEDS: PROZAC PO SCH (08:59)
[2019-09-23] MEDS: BUSPAR PO SCH ×3 (08:59→22:00)
[2019-09-23] MEDS: ELIQUIS PO SCH ×2 (08:59→22:02)
[2019-09-23] MEDS: MS CONTIN PO SCH ×3 (08:59→22:02)
[2019-09-23] MEDS: LIORESAL PO SCH ×2 (08:59→22:01)
[2019-09-23] MEDS: IMDUR PO SCH (09:00)
[2019-09-23] MEDS: LOTRIMIN 1% CREAM TOP SCH ×2 (09:01→22:08)
[2019-09-23] MEDS: COREG PO SCH ×2 (09:01→22:01)
[2019-09-23] MEDS: MAXIPIME 2 GM/NS 2 GM/100 ML IVPB IV SCH ×2 (09:01→21:55)
[2019-09-23 09:12] LABS: ESTIMATED GFR > 60
[2019-09-23 09:15] LABS: AGAP 10; ALB/GLOB RATIO 0.8; ALBUMIN 2.7 g/dL (3.5-5.0); ALKALINE PHOSPHATASE 76 U/L (32-122); BUN 13 mg/dL (8-22); CALCIUM 8.5 mg/dL (8.8-10.2); CHLORIDE 97 mmol/L (98-107); COSMO 276; CREATININE 0.8 mg/dL (0.7-1.2); GLUCOSE 208 mg/dL (70-104); GOT 13 U/L (10-34); GPT < 5 U/L (10-44); POTASSIUM 3.6 mmol/L (3.5-5.1); SODIUM 135 mmol/L (136-145); TCO2 28 mmol/L (25-35); TOTAL BILIRUBIN 0.32 mg/dL (0.20-1.00); TOTAL PROTEIN 6.1 g/dL (6.3-8.3)
--- NOTE | 2019-09-23 13:35 | PROGRESS NOTE ---
DATE: 09/23/2019 SUBJECTIVE: This patient is still complaining of shortness of breath, and he feels worse compared with yesterday. We have a positive blood culture now that showed gram-positive cocci and gram- negative rods. He has been placed on vancomycin already and I will add cefepime to his medications. I will consult the Infectious Disease doctor to evaluate this patient. OBJECTIVE: Vital Signs: Temperature 97.9 degrees, pulse 86, respiratory rate 24, blood pressure 145/74, oxygen saturation 92 on 5 L nasal cannula. HEENT: Head normocephalic, no trauma. PERRLA. Neck: Supple. No JVD. No masses. Central trachea. Chest: Decreased breath sounds globally with coarse breath sounds and bilateral rhonchi and crepitus. Abdomen: Soft, nontender, nondistended. No hepatosplenomegaly. Extremities: He does have 3+ edema. No clubbing. No cyanosis. He has a lesion on his gluteal area, which is chronic. Neurological examination: The patient is awake, alert, he is oriented x3. LABORATORY: WBC 7.7, hemoglobin 10.3, hematocrit 33.6, platelets 52. Sodium 135, potassium 3.6, chloride 97, bicarbonate 28. BUN 13, creatinine 0.8, glucose 208, calcium 8.5, albumin 2.7. ASSESSMENT AND PLAN: 1. Acute on chronic hypoxemic respiratory failure. Continue with oxygen supplementation likely due to pneumonia, influenza. 2. Bilateral pneumonia secondary to methicillin-resistant Staphylococcus aureus. Continue with antibiotics. 3. Bacteremia due to gram-positive cocci and gram-negative rods. I will add cefepime to his medications. He is already on vancomycin. I will ask also Infectious Disease Department to evaluate this patient. 4. Chronic obstructive pulmonary disease exacerbation. Continue breathing treatment. 5. Morbid obesity. Aware. 6. Chronic atrial fibrillation. Continue with same management. 7. Type 2 diabetes. Continue with the same treatment. 8. Thrombocytopenia. Aware. We will monitor for now. 9. Chronic diastolic heart failure. He seems to be stable. Advanced Directive has been discussed with the patient for around 15 minutes given his situation, but he has decided to be full code. cc: Blair Rivas MD
[2019-09-23] MEDS ORDERED: INSULIN PEN NEEDLES ONE (21:32)
[2019-09-23] MEDS: PROTONIX PO SCH (22:02)
[2019-09-23] MEDS: LEVEMIR SUBQ SCH (22:03)
[2019-09-24] MEDS: DUONEB (A & A) INH SCH ×6 (03:39→23:18)
[2019-09-24] MEDS: VANCOMYCIN 1,750 MG in NS 250 ML IV SCH ×2 (04:53→15:52)
[2019-09-24] MEDS: HUMALOG SUBQ SCH ×4 (06:04→22:15)
--- NOTE | 2019-09-24 07:29 | Diag Imaging Result Doc PS360 ---
CHEST-PORTABLE - 09/24/2019 INDICATION: dyspnea COMPARISON: 09/22/2019 FINDINGS: Stable chest port and pacemaker. Stable sternotomy wires. Stable cardiomegaly and pulmonary vascular congestion. There is slight worsening hazy infiltrate or atelectasis in the right lung base. No pneumothorax or pleural effusion. No diffuse pulmonary edema. IMPRESSION: Slight worsening hazy infiltrate or atelectasis in the right lung base. Electronically signed by Brandon Gauthier 09/24/2019 7:27 AM
[2019-09-24 08:06] LABS: BASO# 0.04 X1000 (0.0-0.2); BASO% 0.6 % (0.0-0.8); EOS# 0.16 X1000 (0.0-0.7); EOS% 2.5 % (0.0-10.0); HEMATOCRIT 29.7 % (42.0-52.0); IMM GRAN# 0.02 X1000 (0.0-0.04); IMM GRAN% 0.3 % (0.0-0.5); LYMPH# 1.08 X1000 (1.2-3.4); MCH 24.1 PG (27-31); MCHC 30.3 g/dL (33-37); MCV 79.6 FL (81-99); MONO# 0.56 X1000 (0.11-0.59); MONO% 8.8 % (1.7-9.3); MPV 11.9 FL (7.4-10.4); NEUT# 4.49 X1000 (1.4-6.5); NEUT% 70.8 % (42.2-75.2); PLT 50 X1000 (130-400); RBC 3.73 XMIL (4.7-6.1); RDW 14.4 % (11.5-14.5); WBC 6.35 X1000 (4.8-10.8)
[2019-09-24 08:10] LABS: AGAP 7; ALB/GLOB RATIO 0.9; ALBUMIN 2.7 g/dL (3.5-5.0); ALKALINE PHOSPHATASE 70 U/L (32-122); BUN 12 mg/dL (8-22); CALCIUM 8.8 mg/dL (8.8-10.2); CHLORIDE 99 mmol/L (98-107); COSMO 277; CREATININE 0.9 mg/dL (0.7-1.2); ESTIMATED GFR > 60; GLUCOSE 130 mg/dL (70-104); GOT 10 U/L (10-34); GPT 7 U/L (10-44); POTASSIUM 3.7 mmol/L (3.5-5.1); SODIUM 138 mmol/L (136-145); TCO2 32 mmol/L (25-35); TOTAL BILIRUBIN 0.27 mg/dL (0.20-1.00); TOTAL PROTEIN 5.6 g/dL (6.3-8.3)
[2019-09-24] MEDS: MS CONTIN PO SCH ×3 (09:51→22:07)
[2019-09-24] MEDS: MAXIPIME 2 GM/NS 2 GM/100 ML IVPB IV SCH ×2 (09:53→22:11)
[2019-09-24] MEDS: PROZAC PO SCH (09:53)
[2019-09-24] MEDS: COREG PO SCH ×2 (09:54→22:08)
[2019-09-24] MEDS: ELIQUIS PO SCH ×2 (09:54→22:07)
[2019-09-24] MEDS: IMDUR PO SCH (09:54)
[2019-09-24] MEDS: ALDACTONE PO SCH (09:55)
[2019-09-24] MEDS: BUSPAR PO SCH ×3 (09:55→22:09)
[2019-09-24] MEDS: COZAAR PO SCH (09:55)
[2019-09-24] MEDS: LEVEMIR SUBQ SCH ×2 (09:55→22:14)
[2019-09-24] MEDS: LINZESS PO SCH (09:56)
[2019-09-24] MEDS: TAMIFLU PO SCH ×2 (09:56→22:09)
[2019-09-24] MEDS: LIORESAL PO SCH ×2 (09:56→22:09)
[2019-09-24] MEDS: LOTRIMIN 1% CREAM TOP SCH ×2 (09:56→22:15)
--- NOTE | 2019-09-24 13:36 | PROGRESS NOTE ---
DATE: 09/24/2019 SUBJECTIVE: The patient seems to be feeling a little bit better compared with yesterday but still short of breath. X-ray looks a bit worse also. He has a positive blood culture that showed gram- positive cocci and gram-negative rods. He has been placed on antibiotics, both vancomycin and cefepime. Also, I have requested an evaluation by infectious disease department and pulmonary department. OBJECTIVE: Vital Signs: Temperature 97.8 degrees, pulse 80, respiratory rate 16, blood pressure 149/74, oxygen saturation 98 on 3 L of nasal cannula. HEENT: Head normocephalic. No trauma. PERRLA. Neck: Supple. No JVD. No masses. Central trachea. Chest: Decreased breath sounds globally with coarse breath sounds and bilateral rhonchi with crepitus. Abdomen: Soft, nontender, nondistended. No hepatosplenomegaly. Extremities: There is 2 to 3+ lower extremity edema. No clubbing. No cyanosis. He has a lesion/ulcer in the gluteal area which is chronic and is covered. Neurological Examination: The patient is awake and alert. He is oriented x3. No focal deficits. Laboratory: WBCs 6.3, hemoglobin 9, hematocrit 29.7, platelets 50,000. Sodium 138, potassium 3.7, chloride 99, bicarbonate 32, BUN 12, creatinine 0.9, glucose 130, calcium 8.8. ASSESSMENT AND PLAN: 1. Acute on chronic hypoxemic respiratory failure. Continue oxygen supplementation. Likely due to pneumonia and influenza. 2. Bilateral pneumonia secondary to methicillin-resistant Staphylococcus aureus. Continue with antibiotics. 3. Bacteremia due to gram-positive cocci and gram-negative rods. I added cefepime to his medications. Already on vancomycin. Infectious disease department will evaluate this patient. 4. Chronic obstructive pulmonary disease exacerbation. Continue with breathing treatments. 5. Morbid obesity. Aware. 6. Chronic atrial fibrillation. Continue with the same management. 7. Type 2 diabetes, stable. 8. Thrombocytopenia. Aware. We will monitor for now. 9. Chronic diastolic heart failure, seems to be stable. cc: Blair Rivas MD
--- NOTE | 2019-09-24 16:08 | INFECTIOUS DISEASE PROGRESS NO ---
DATE: 09/24/2019 PRESENT ILLNESS: The patient was sent home on IV vancomycin for methicillin-resistant Staph aureus pneumonia. He had been improving in the hospital and for the 1st 2 days at home, he was doing well. Two days after being discharged he had a sudden onset of dyspnea and cough. He came to the emergency room. It was found that he had influenza A. Also it has been discovered that the patient has 1 of 2 blood cultures positive for a gram-positive coccus and gram-negative sohail. MEDICATIONS: The patient continues to receive vancomycin, cefepime has been started to cover the patient's gram-negative rods growing from the blood and finally, the patient is on Tamiflu for influenza A. PHYSICAL EXAMINATION: Vital Signs: Temperature is 97.8 degrees, pulse 80, respirations 16, blood pressure 149/74. General: This is a chronically ill and obese, elderly male. He is dyspneic at rest. Head/eyes/ears/nose/throat: He wears glasses. He can hear my spoken words and see near objects. There is no drainage from his nose or ears. Neck: No pain with movement. Lungs: There were bilateral rhonchi. Cardiovascular: Heart rate is regular. Abdomen: Soft and nontender. Thorax: Patient has a Port-A-Cath on the right side of his chest. The site is not erythematous or tender. On the left side, he has a permanent pacemaker. That site also is not erythematous or swollen or tender. Neurologic: The patient is awake. He can move his extremities. There is no tremor. Extremities: Patient has bilateral leg edema. He is wearing compression hose around his legs. LAB AND X-RAY: Chest x-ray shows worsening of the right basilar infiltrate. The patient's influenza screen is positive for influenza A. One of two blood cultures is growing a gram-negative sohail and a gram-positive coccus. Urinalysis shows no white cells or bacteria. Liver function studies are normal. CBC shows a white count of 6350, hemoglobin 9, platelet count 50,000. Creatinine is 0.9, GFR is greater than 60. ASSESSMENT AND PLAN: The patient has methicillin-resistant Staph aureus pneumonia, influenza A and a bacteremia with gram-negative rods and gram-positive cocci. My plan would be to continue his current medications including cefepime, vancomycin and Tamiflu. COMORBIDITIES: The patient is morbidly obese. He has chronic lung disease, congestive heart failure, chronic leg edema, diabetes mellitus and anemia of chronic disease. cc: Darryl Downs MD
--- NOTE | 2019-09-24 20:40 | CONSULTATION ---
DATE OF CONSULTATION: 09/24/2019 CHIEF COMPLAINT: Shortness of breath. HISTORY OF PRESENT ILLNESS: This is a 69-year-old male who was recently hospitalized for pneumonia secondary to MRSA and chronic hypoxemic respiratory failure. He was discharged to receive IV vancomycin. He states that he was having progressive shortness of breath and returned back to the emergency department. Recent chest x-ray reveals stable cardiomegaly and pulmonary vascular congestion. There is slight worsening hazy infiltrate or atelectasis in the right lung base. PAST MEDICAL HISTORY: 1. COPD. He is on home supplemental O2 at 4 L per nasal cannula. 2. Chronic hypoxic respiratory failure. 3. Atrial fibrillation. He is on Eliquis. 4. Morbid obesity. 5. Diabetes type 2. 6. Hypertension. 7. Ischemic cardiomyopathy with preserved ejection fraction of 60%. 8. History of exposure of asbestos and Agent [place]. PAST SURGICAL HISTORY: Coronary artery bypass graft. He has a pacemaker for bradycardia. FAMILY HISTORY: Mother and grandmother had lung cancer. Father of heart attack and he has 3 brothers who have heart disease. SOCIAL HISTORY: Three pack per day smoker of cigarettes. Quit smoking in 1989. He denies alcohol and illicit drug use. ALLERGIES: No known drug allergies. HOME MEDICATIONS: Please see home reconciliation list. REVIEW OF SYSTEMS: A 10-point review of systems was obtained and the pertinent is listed within the HPI, otherwise noncontributory. PHYSICAL EXAMINATION: General: This is a morbid obese 69-year-old male sitting in chair in no acute distress at the present time. Vital Signs: Blood pressure 98/50, temperature 97.9, pulse 66, respirations 16. O2 saturation 100% per nasal cannula at 3 L. HEENT: Head is atraumatic, normocephalic. Pupils are reactive. Moist mucous membranes. Neck: Trachea midline, supple. Respiratory: Inspiratory and expiratory wheezes throughout lung ann bilaterally. Nonlabored breathing. Cardiovascular: S1 and S2 auscultated. No gallops, murmurs or rubs. Plus- 3 edema. Gastrointestinal: Abdomen soft, nondistended. Bowel sounds present in all 4 quadrants. Neurologic: Alert and oriented times 3. Skin: Warm and dry. LABORATORY DATA: White blood cells 6.35. Red blood cells 3.73. Hemoglobin 9.0. Hematocrit 29.7. Platelets 50. Sodium 138. Potassium 3.7. Chloride 99. Carbon dioxide 32. BUN 12. Creatinine 0.9. Glucose 130. Albumin 2.7. AST 10. ALT 7. DIAGNOSTIC DATA: Mentioned in HPI. ASSESSMENT AND PLAN: 1. Acute on chronic hypoxemic respiratory failure. Continue supplemental oxygen. We will continue to monitor with ABGs. 2. Methicillin-resistant Staphylococcus aureus pneumonia. Continue current antibiotics as prescribed. 3. Bacteremia. Gram cocci and gram-negative rods. Infectious Disease following. 4. Chronic obstructive pulmonary disease exacerbation. Continue bronchodilators as prescribed. 5. Type 2 diabetes mellitus. Continue sliding scale insulin as prescribed. 6. Continue gastrointestinal prophylaxis with Protonix 40 mg p.o. every bedtime. Thank you for the courtesy of this consult. Dictated by HORTENCIA Khalil for Marco A Campo MD cc: HORTENCIA Khalil MD
[2019-09-24] MEDS: PROTONIX PO SCH (22:09)
[2019-09-25] MEDS: DUONEB (A & A) INH SCH ×6 (02:57→23:12)
[2019-09-25 05:02] LABS: HEMATOCRIT 32.4 % (42.0-52.0); HEMOGLOBIN 9.9 g/dL (14.0-18.0)
[2019-09-25 05:22] LABS: AGAP 9; BUN 12 mg/dL (8-22); CHLORIDE 98 mmol/L (98-107); COSMO 274; CREATININE 1.1 mg/dL (0.7-1.2); ESTIMATED GFR > 60; GLUCOSE 133 mg/dL (70-104); POTASSIUM 3.9 mmol/L (3.5-5.1); SODIUM 136 mmol/L (136-145); TCO2 29 mmol/L (25-35)
[2019-09-25] MEDS: HUMALOG SUBQ SCH ×4 (06:26→22:56)
[2019-09-25] MEDS: MS CONTIN PO SCH ×3 (10:18→22:58)
[2019-09-25] MEDS: VANCOMYCIN 1,750 MG in NS 250 ML IV SCH ×2 (10:18→22:55)
[2019-09-25] MEDS: ELIQUIS PO SCH ×2 (10:22→22:58)
[2019-09-25] MEDS: BUSPAR PO SCH ×3 (10:22→22:58)
[2019-09-25] MEDS: ALDACTONE PO SCH (10:23)
[2019-09-25] MEDS: LIORESAL PO SCH ×2 (10:23→22:59)
[2019-09-25] MEDS: PROZAC PO SCH (10:23)
[2019-09-25] MEDS: COZAAR PO SCH (10:23)
[2019-09-25] MEDS: TAMIFLU PO SCH ×2 (10:23→22:59)
[2019-09-25] MEDS: COREG PO SCH ×2 (10:23→22:58)
[2019-09-25] MEDS: LINZESS PO SCH (10:24)
[2019-09-25] MEDS: IMDUR PO SCH (10:24)
[2019-09-25] MEDS: LOTRIMIN 1% CREAM TOP SCH ×2 (10:34→23:04)
[2019-09-25] MEDS: MAXIPIME 2 GM/NS 2 GM/100 ML IVPB IV SCH (10:34)
[2019-09-25] MEDS: LEVEMIR SUBQ SCH ×2 (10:34→22:59)
--- NOTE | 2019-09-25 13:17 | PROVIDER PROGRESS NOTE ---
Progress Note Dr. Campo Progress Note/Pulmonary and or critical care We appreciated progress of care, Complications, change in diagnosis, and instructions to patient. Subjective: We note the level of consciousness, bed (chair) position, family presence (if any), level of lethargy, feeling of symptoms, and changes from baseline condition/symptom. The patient is sitting on the bedside table and having his lunch. He is on a NC at 5L. He states he is feeling a little better. He still has some audible rattle noise, productive cough and SOB with activities. He does have difficulty hearing, too. Objective: Vital Signs: We reviewed EMR current values for Pulse rate, Blood pressure, Pulse rate, respiratory rate and Pulse oximetry. Also noted other values and trends if present (e.g. I/O, CVP). Vital Signs 09/24/19 16:00 09/24/19 19:34 09/24/19 20:00 Temperature 97.9 F 98.5 F Pulse Rate 66 64 75 Respiratory Rate 16 18 18 Blood Pressure 98/50 123/60 O2 Sat by Pulse Oximetry 100 97 96 09/25/19 00:00 09/25/19 03:41 09/25/19 07:45 Temperature 98.3 F 98.4 F 97.7 F Pulse Rate 74 67 69 Respiratory Rate 20 17 18 Blood Pressure 138/72 113/55 134/59 O2 Sat by Pulse Oximetry 95 94 L 97 09/25/19 08:00 Temperature Pulse Rate 74 Respiratory Rate 19 Blood Pressure O2 Sat by Pulse Oximetry 96 Intake & Output 09/24/19 09/25/19 09/25/19 19:59 07:59 19:59 Intake Total 240 / 1102 862 / 1102 240 / 240 Output Total 1300 / 3300 1999 3300 Balance -1060 / -2198 -1138 / -2198 240 / 240 Intake: Intake, Oral Amount 240 / 1102 862 / 1102 240 / 240 Output: Output, Urine Void Amount 1300 / 3300 19990 Other: Percent of Meal Consumed 100% 100% Number of Bowel Movements 0 Physical Examination: General: Morbidly obese. Sitting on the bedside chair and having his lunch with no acute distress noted. HEENT: Atraumatic. Normocephalic. Trachea midline. Mucosa pink and moist. Chest: Even and unlabored. Symmetrical excursion. Auscultation reveals rhonchi and wheezing bilaterally. CVS: Regular rate and rhythm with S1 and S2 appreciated. Abdomen: Protuberant. Non-tender. Soft. Normoactive bowel sounds in all 4 quadrants. Extremities: BLE pitting edema 3-4+. No cyanosis. No clubbing. Dorsalis pedis diminished bilaterally. Neuro: A/O x3. Speech fluent. Follow commands. Weakness present. Labs and Radiology: Reviewed available labs and radiology values available at time of EMR review. Laboratory Results 09/24/19 09/24/19 09/25/19 16:00 19:38 04:10 Hgb Hct Sodium 136 Potassium 3.9 Chloride 98 Carbon Dioxide 29 Anion Gap 9 BUN 12 Creatinine 1.1 Estimated GFR/1.73 m2 > 60 BUN/Creatinine Ratio 11 Glucose 133 H POC Glucose 259 H 191 H Calculated Osmolality 274 Calcium 9.0 Random Vancomycin 09/25/19 09/25/19 09/25/19 04:10 04:10 06:13 Hgb 9.9 L Hct 32.4 L Sodium Potassium Chloride Carbon Dioxide Anion Gap BUN Creatinine Estimated GFR/1.73 m2 BUN/Creatinine Ratio Glucose POC Glucose 131 H Calculated Osmolality Calcium Random Vancomycin 18.40 09/25/19 10:23 Hgb Hct Sodium Potassium Chloride Carbon Dioxide Anion Gap BUN Creatinine Estimated GFR/1.73 m2 BUN/Creatinine Ratio Glucose POC Glucose 308 H D Calculated Osmolality Calcium Random Vancomycin Assessment: Acute on chronic hypoxemic respiratory failure. COPD exacerbation. Methicillin-resistant Staph aureus pneumonia. Influenza A. Bacteremia with gram-negative rods and gram-positive cocci. Morbid obesity. Chronic diastolic congestive heart failure. Stable. Thrombocytopenia. Plan: Continue current treatment and supportive care per admitting and other teams on the case. Antibiotics including cefepime and vancomycin. Tamiflu. Bronchodilators. Will need out patient sleep study also. Appropriate DVT and GI prophylaxis. Input was appreciated from Admitting MD and other teams on the case. Evaluation time in minutes: 15 minutes.
--- NOTE | 2019-09-25 14:08 | PROGRESS NOTE ---
DATE: 09/25/2019 SUBJECTIVE: The patient is feeling about the same compared with yesterday. He is still short of breath. I will continue with the antibiotics. I want this patient to start working with physical therapy and occupational therapy as well. Vital signs are stable, as well as the laboratory. Pulmonary Department and Infectious Disease Department on board. OBJECTIVE: Vital Signs: Temperature 97.7 degrees, pulse 74, respiratory rate 19, blood pressure 134/59, oxygen saturation 96 on 5 L nasal cannula. HEENT: Head normocephalic, no trauma. PERRLA. Neck: Supple. No JVD. No masses. Central trachea. Chest: Decreased breath sounds globally with coarse breath sounds and bilateral rhonchi with crepitus. Abdomen: Soft, nontender, nondistended. No hepatosplenomegaly. Extremities: There is 2+ to 3+ lower extremity edema. No clubbing. No cyanosis. He has a lesion/ulcer in the left gluteal area, which is chronic and covered. Neurological examination: The patient is awake, alert. He is oriented x3. No focal deficits. LABORATORY: Hemoglobin 9.9, hematocrit 32.4. Sodium 136, potassium 3.9, chloride 98, bicarbonate 29. BUN 12, creatinine 1.1, glucose 133, calcium 9. ASSESSMENT AND PLAN: 1. Acute on chronic hypoxemic respiratory failure. Continue with oxygen supplementation likely due to pneumonia and influenza. 2. Bilateral pneumonia secondary to methicillin-resistant Staphylococcus aureus. Continue with antibiotics per Infectious Disease Department. 3. Bacteremia due to gram-positive cocci and gram-negative rods. Continue with the same management. Infectious Disease Department on board and taking care of the medications. 4. Chronic obstructive pulmonary disease exacerbation. Continue breathing treatment. 5. Morbid obesity aware. 6. Chronic left gluteal ulcer. Wound Care on board. 7. Chronic atrial fibrillation. Continue with the same treatment. 8. Type 2 diabetes. Continue home medication. 9. Thrombocytopenia. Aware. We will continue to monitor for now. 10. Chronic diastolic heart failure, seems to be stable. cc: Blair Rivas MD
--- NOTE | 2019-09-25 15:04 | INFECTIOUS DISEASE PROGRESS NO ---
DATE: 09/25/2019 PRESENT ILLNESS: The patient has a methicillin-resistant Staph aureus pneumonia, influenza and 1/2 blood cultures growing a gram-negative sohail and Staph epidermidis. MEDICATIONS: The patient is receiving a combination of vancomycin, cefepime and Tamiflu. PHYSICAL EXAMINATION: Vital Signs: Temperature is 97.7 degrees, pulse 74, respirations 19, blood pressure is 134/59. General: This is a chronically ill and obese, elderly male. He is dyspneic at rest and he is producing some mucoid secretions. Head, eyes, ears, nose and throat: He wears glasses. I did not see any white patches in his mouth. There is no drainage from his nose or ears. Neck: No pain with movement. Thorax: Patient has a Port-A-Cath on the right side of his chest. The site is not erythematous or swollen. The patient on the left side has a permanent pacemaker likely Port-A-Cath. The site is not erythematous or swollen. Lungs: Bilateral rhonchi. Cardiovascular: Heart rate is regular. Abdomen: Soft and nontender. Legs: Edematous, not erythematous. The patient has elastic wrappings around his legs. Neurologic: The patient is awake. He can move his extremities. There is no tremor. LAB AND X-RAY: There is no new radiographic study. CBC shows a white count of 9900, hematocrit of 32.4. Creatinine is 1.1. GFR is greater than 60. One out of two blood cultures is growing Staphylococcus epidermidis and a gram-negative sohail. ASSESSMENT AND PLAN: Patient has pneumonia, influenza, and bacteremia. My plan is to continue with vancomycin, cefepime and Tamiflu pending further culture results. COMORBIDITIES: The patient is morbidly obese. He has chronic lung disease, congestive heart failure, chronic leg edema, diabetes mellitus, and anemia of chronic disease. cc: Darryl Downs MD
[2019-09-25] MEDS: PROTONIX PO SCH (22:59)
[2019-09-26] MEDS: MAXIPIME 2 GM/NS 2 GM/100 ML IVPB IV SCH ×2 (01:03→20:53)
[2019-09-26] MEDS: DUONEB (A & A) INH SCH ×6 (03:55→23:42)
[2019-09-26] MEDS: HUMALOG SUBQ SCH ×5 (06:25→23:13)
--- NOTE | 2019-09-26 07:46 | Diag Imaging Result Doc PS360 ---
CHEST-1 VIEW - 09/26/2019 INDICATION: SOB COMPARISON: 09/24/2025 FINDINGS: Stable right chest port. Stable left-sided pacemaker. Stable mild cardiomegaly and moderate pulmonary vascular congestion. There has been significant improvement in the bibasilar infiltrates. No new infiltrates or large pleural effusion. IMPRESSION: Significant improvement from prior. Electronically signed by Brandon Gauthier 09/26/2019 7:44 AM
[2019-09-26 08:21] LABS: AGAP 8; ALB/GLOB RATIO 0.9; ALKALINE PHOSPHATASE 77 U/L (32-122); BUN 12 mg/dL (8-22); CALCIUM 8.8 mg/dL (8.8-10.2); CHLORIDE 102 mmol/L (98-107); COSMO 281; CREATININE 0.9 mg/dL (0.7-1.2); ESTIMATED GFR > 60; GLUCOSE 169 mg/dL (70-104); GOT 11 U/L (10-34); GPT 9 U/L (10-44); POTASSIUM 4.1 mmol/L (3.5-5.1); SODIUM 139 mmol/L (136-145); TCO2 29 mmol/L (25-35); TOTAL PROTEIN 6.5 g/dL (6.3-8.3)
[2019-09-26] MEDS: VANCOMYCIN 1,750 MG in NS 250 ML IV SCH ×2 (09:47→21:10)
[2019-09-26] MEDS: PROZAC PO SCH (09:48)
[2019-09-26] MEDS: COREG PO SCH ×2 (09:48→21:00)
[2019-09-26] MEDS: MS CONTIN PO SCH ×3 (09:48→20:59)
[2019-09-26] MEDS: ALDACTONE PO SCH (09:48)
[2019-09-26] MEDS: COZAAR PO SCH (09:48)
[2019-09-26] MEDS: BUSPAR PO SCH ×3 (09:48→21:00)
[2019-09-26] MEDS: LOTRIMIN 1% CREAM TOP SCH ×2 (09:48→21:00)
[2019-09-26] MEDS: LIORESAL PO SCH ×2 (09:49→20:59)
[2019-09-26] MEDS: LEVEMIR SUBQ SCH ×2 (09:49→21:01)
[2019-09-26] MEDS: TAMIFLU PO SCH ×2 (09:49→21:00)
[2019-09-26] MEDS: IMDUR PO SCH (09:49)
[2019-09-26] MEDS: LINZESS PO SCH (09:49)
[2019-09-26] MEDS: ELIQUIS PO SCH ×2 (09:49→20:59)
[2019-09-26] MEDS ORDERED: MIRALAX PO PRN (11:04)
--- NOTE | 2019-09-26 11:59 | PROVIDER PROGRESS NOTE ---
Progress Note Dr. Campo Progress Note/Pulmonary and or critical care We appreciated progress of care, Complications, change in diagnosis, and instructions to patient. Subjective: We note the level of consciousness, bed (chair) position, family presence (if any), level of lethargy, feeling of symptoms, and changes from baseline condition/symptom. The patient is sitting on the bedside chair with no acute distress noted. He is on a NC at 5L. He states he is feeling same as yesterday. He still has some mild expiratory audible rattle noise, productive cough and SOB with any activities. He also complains of constipation with last BM 5 days ago. He reports that he tried prune juice last night, but not helping. Objective: Vital Signs: We reviewed EMR current values for Pulse rate, Blood pressure, Pulse rate, respiratory rate and Pulse oximetry. Also noted other values and trends if present (e.g. I/O, CVP). T 97.6, TN 71, RR 18, BP 131/77 and SaO2 99% on NC 5 L. Physical Examination: General: Morbidly obese. Sitting on the bedside chair with no acute distress noted. HEENT: Atraumatic. Normocephalic. Trachea midline. Mucosa pink and moist. Chest: Even and unlabored with mild expiratory audible rattle noise. Symmetric al excursion. Auscultation reveals prolonged expiratory phase and mild expiratory wheezing bilaterally. CVS: Regular rate and rhythm with S1 and S2 appreciated. Abdomen: Protuberant. Non-tender. Soft. Normoactive bowel sounds in all 4 quadrants. Extremities: BLE pitting edema 3-4+ with compression hose on. No cyanosis. No clubbing. Neuro: A/O x3. Speech fluent. Follow commands. Weakness present. Labs and Radiology: Reviewed available labs and radiology values available at time of EMR review. BMP: Nonsignficant except elevated glucose and slightly decreased albumin. CXR: Significant improvement from prior. Assessment: Acute on chronic hypoxemic respiratory failure. COPD exacerbation. Methicillin-resistant Staph aureus pneumonia. Improving. Influenza A. Bacteremia with gram-negative rods and gram-positive cocci. Morbid obesity. Chronic diastolic congestive heart failure. Stable. Chronic atrial fibrillation. Thrombocytopenia. Plan: Continue current treatment and supportive care per admitting and other teams on the case. Weaning oxygen therapy as tolerated. Antibiotics including cefepime and vancomycin. Tamiflu. Bronchodilators. Will need outpatient sleep study. Start Miralax BID prn. Physical therapy. Encourage incentive spirometer use routinely. Appropriate DVT and GI prophylaxis. Input was appreciated from Admitting MD and other teams on the case.
--- NOTE | 2019-09-26 14:50 | INFECTIOUS DISEASE PROGRESS NO ---
DATE: 09/26/2019 PRESENT ILLNESS: The patient has a methicillin-resistant Staph aureus pneumonia and influenza. The patient has a positive blood culture for a gram-positive coccus and a gram-negative sohail. The optical laboratory mechanic thinks that the gram-negative sohail is going to be Acinetobacter. MEDICATIONS: The patient is on vancomycin, cefepime, and Tamiflu. PHYSICAL EXAMINATION: Vital Signs: Temperature is 97.7 degrees, pulse 76, respirations 24, blood pressure is 145/69. General: This is a chronically ill and obese, elderly male. He is dyspneic at rest, and he sounds congested that you can hear with your ear. HEENT: He is wearing glasses. He does not have any drainage from his ears or nose. Neck: No pain with movement. Lungs: Bilateral rhonchi. Cardiovascular: Heart rate is regular. Thorax: The patient has a Port-A- Cath present on the right side, and a pacemaker present on the left side. Both sites are not erythematous, bleeding, or purulent. Abdomen: Soft and nontender. Extremities: Bilateral leg edema. The patient has elastic wrapping around both of his legs. Neurologic: The patient is alert. He can move his extremities. He is able to walk. He does not have a tremor. LABORATORY DATA: One of the patient's blood cultures is growing a gram-negative sohail, and the gram- positive sohail that was seen on Gram stain is not growing at this time. The hvac refrigeration technician thought that the gram-negative sohail is most likely going to be Acinetobacter. Liver function studies are normal. Creatinine is 0.9. GFR is greater than 60. ASSESSMENT AND PLAN: The patient has pneumonia, influenza, and bacteremia. My plan is to continue the vancomycin and the cefepime, most likely for 6 weeks because not only does the patient have a pneumonia, he has a bacteremia, and his pacemaker and Port-A-Cath could have become infected while the patient was bacteremic. It may well be, as regarding with his Port-A-Cath, that it will have to be removed and not kept in for the 6-week trial. At this time, I think I will try though to leave the two devices in place, and hope that we can sterilize them and not have to remove them. COMORBIDITIES: The patient is morbidly obese. He has chronic lung disease, congestive heart failure, chronic leg edema, diabetes mellitus, and anemia of chronic disease. cc: Darryl Downs MD
--- NOTE | 2019-09-26 15:08 | PROGRESS NOTE ---
DATE: 09/26/2019 SUBJECTIVE: Patient reports still feeling short of breath when he moves some, like for example, going to the bathroom. Denies any other complaints. OBJECTIVE: Vital Signs: Temperature 97.7 degrees, heart rate 76, respiratory rate 24, blood pressure 145/69, O2 saturation 99% on room air. General Examination: This is a 69-year-old, male, morbidly obese and chronically ill-appearing, lying in bed, in no acute distress. Cardiovascular Examination: S1 and S2 heard. No murmurs, gallops, or rubs. Irregularly irregular heart rhythm but not tachycardic. Respiratory Examination: Decreased breath sounds globally with coarse breath sounds and crackles in both pulmonary bases. Patient is not using any accessory muscles or having work of breathing. Abdomen: Soft, obese, nontender to palpation, nondistended. Bowel sounds present. No organomegaly. Extremities: There is 3+ pitting edema in both lower extremities up to both knees. The patient has an ulcer in the left gluteal area, which is chronic and covered by a dressing. Neurological Examination: The patient is alert and oriented x3. Moves 4 extremities. Laboratory Data: Hemoglobin 9.9, hematocrit 32.4. BMP that is normal except glucose of 169. ASSESSMENT AND PLAN: 1. Acute on chronic hypoxemic respiratory failure secondary to pneumonia and influenza. The patient is on vancomycin and cefepime since admission, in this case, it is 4 days and also Tamiflu as well. We will continue with the same management. 2. Bilateral pneumonia secondary to methicillin-resistant Staphylococcus aureus. We will continue with medications recommended by infectious disease. 3. Bacteremia due to gram negative rods and gram-positive cocci. Still awaiting final results of blood cultures. We will continue the current management. 4. Chronic obstructive pulmonary disease exacerbation. We will continue with breathing treatments. He is requiring 5 to 6 L of oxygen now but at home, he requires 4. 5. Chronic atrial fibrillation. We will continue with current medications. 6. Diabetes mellitus type 2. We will continue with sliding scale insulin. Accu-Chek before meals and also at bedtime. 7. Chronic diastolic heart failure. It seems to be stable. We will continue to monitor. 8. Disposition. We will continue to monitor this patient closely. cc: Gagan Escoto MD
[2019-09-26] MEDS ORDERED: INSULIN PEN NEEDLES ONE (20:17)
[2019-09-26] MEDS: PROTONIX PO SCH (21:00)
[2019-09-27] MEDS: DUONEB (A & A) INH SCH ×6 (03:44→23:06)
[2019-09-27] MEDS: MAXIPIME 2 GM/NS 2 GM/100 ML IVPB IV SCH ×3 (03:49→22:36)
[2019-09-27] MEDS: HUMALOG SUBQ SCH ×4 (06:08→22:32)
[2019-09-27] MEDS ORDERED: GOLYTELY PO ONE (08:08)
--- NOTE | 2019-09-27 08:33 | PROGRESS NOTE ---
DATE: 09/27/2019 SUBJECTIVE: Patient reports still feeling short of breath when he tries to walk. Denies any other complaint. OBJECTIVE: Vital Signs: Temperature 97.4 degrees, heart rate 60, respiratory rate 22, blood pressure 130/61, O2 saturation 99% on 5 L nasal cannula. General Examination: This is a chronically ill-appearing and morbidly obese, 69-year-old, male, lying in bed, in no acute distress. Cardiovascular Examination: Irregularly irregular heart rhythm but not tachycardic. No murmurs, gallops, or rubs. Respiratory Examination: Coarse breath sounds noted all over both pulmonary ann with crackles noted in both pulmonary bases. Patient is not using any accessory muscles or having work of breathing. Abdomen: Soft, obese, nontender to palpation, nondistended. Bowel sounds present. No organomegaly. Extremities: There is 3+ pitting edema in both lower extremities up to both knees. Patient has an ulcer in the left gluteal area which is chronic and covered by a dressing. Neurological Examination: The patient is alert and oriented x3. Moves 4 extremities. Laboratory Data: Pending at the time of my dictation. ASSESSMENT AND PLAN: 1. Acute on chronic hypoxemic respiratory failure secondary to pneumonia and influenza. Regarding influenza, the patient is going to finish treatment tonight. Regarding pneumonia, the patient is on vancomycin and cefepime, day #[address] Downs from infectious disease is following this patient. We will follow recommendations. 2. Bilateral pneumonia secondary to methicillin-resistant Staphylococcus aureus. We will continue with the current management. 3. Gram negative sohail and gram positive cocci bacteremia. The results of the blood cultures are still not available. We will call microbiology to see the final sensitivity for dose. 4. Chronic obstructive pulmonary disease exacerbation. We will continue with DuoNeb every 4 hours as scheduled and also antibiotics. He is requiring 5 to 6 L of oxygen currently but at home, he requires 4. We will continue with the same management. 5. Chronic atrial fibrillation. We will continue current medication. 6. Diabetes mellitus type 2. We will continue with sliding scale insulin, and Accu-Chek before meals and also at bedtime. 7. Chronic diastolic heart failure. We will continue with current medications. 8. Disposition. We will continue to monitor this patient closely. The patient reports feeling constipated. We will provide GoLYTELY for him. cc: Gagan Escoto MD
[2019-09-27] MEDS: VANCOMYCIN 1,750 MG in NS 250 ML IV SCH (08:47)
[2019-09-27] MEDS: MS CONTIN PO SCH ×3 (08:48→22:39)
[2019-09-27] MEDS: TAMIFLU PO SCH ×2 (08:51→22:40)
[2019-09-27] MEDS: IMDUR PO SCH (08:51)
[2019-09-27] MEDS: PROZAC PO SCH (08:52)
[2019-09-27] MEDS: ALDACTONE PO SCH (08:52)
[2019-09-27] MEDS: ELIQUIS PO SCH ×2 (08:52→22:39)
[2019-09-27] MEDS: COZAAR PO SCH (08:52)
[2019-09-27] MEDS: BUSPAR PO SCH ×3 (08:52→22:38)
[2019-09-27] MEDS: COREG PO SCH ×2 (08:52→22:40)
[2019-09-27] MEDS: LINZESS PO SCH (08:52)
[2019-09-27] MEDS: LEVEMIR SUBQ SCH ×2 (09:01→22:33)
[2019-09-27] MEDS: LIORESAL PO SCH ×2 (09:05→22:40)
[2019-09-27] MEDS: LOTRIMIN 1% CREAM TOP SCH ×2 (09:49→22:40)
[2019-09-27 10:09] LABS: AGAP 9; ALBUMIN 2.9 g/dL (3.5-5.0); BUN 10 mg/dL (8-22); CALCIUM 8.8 mg/dL (8.8-10.2); CHLORIDE 100 mmol/L (98-107); COSMO 274; CREATININE 0.8 mg/dL (0.7-1.2); ESTIMATED GFR > 60; GLUCOSE 144 mg/dL (70-104); PHOSPHORUS 2.7 mg/dL (2.7-4.5); POTASSIUM 4.4 mmol/L (3.5-5.1); SODIUM 136 mmol/L (136-145); TCO2 27 mmol/L (25-35)
[2019-09-27] MEDS: MUCOMYST 20% INH SCH ×2 (12:28→23:06)
--- NOTE | 2019-09-27 13:08 | PROVIDER PROGRESS NOTE ---
Progress Note Dr. Campo Progress Note/Pulmonary and or critical care We appreciated progress of care, Complications, change in diagnosis, and instructions to patient. Subjective: We note the level of consciousness, bed (chair) position, family presence (if any), level of lethargy, feeling of symptoms, and changes from baseline condition/symptom. The patient is sitting on the bedside chair with no acute distress noted. He is on a NC at 5L. He is still complaining of constipation. His last BM was on last Wednesday. He is taking Golytely at this time. He still has some mild expiratory audible rattle noise, productive cough and SOB with any activities. Objective: Vital Signs: We reviewed EMR current values for Pulse rate, Blood pressure, Pulse rate, respiratory rate and Pulse oximetry. Also noted other values and trends if present (e.g. I/O, CVP). T 97.3, NJ 61, RR 18, BP 131/63 and SaO2 100% on NC 5 L. Physical Examination: General: Morbidly obese. Sitting on the bedside chair with no acute distress noted. HEENT: Atraumatic. Normocephalic. Trachea midline. Mucosa pink and moist. Chest: Even and unlabored with mild expiratory audible rattle noise. Symmetrical excursion. Auscultation reveals prolonged expiratory phase and coarse crackles bilaterally. CVS: Regular rate and rhythm with S1 and S2 appreciated. Abdomen: Protuberant. Non-tender. Soft. Normoactive bowel sounds in all 4 quadrants. Extremities: BLE pitting edema 3-4+ with compression hose on. Neuro: A/O x3. Speech fluent. Follow commands. Weakness present. Labs and Radiology: Reviewed available labs and radiology values available at time of EMR review. BMP: Nonsignficant with elevated glucose and slightly decreased albumin. Assessment: Acute on chronic hypoxemic respiratory failure. COPD exacerbation. Methicillin-resistant Staph aureus pneumonia. Improving. Influenza A. Bacteremia with gram-negative rods and gram-positive cocci. Morbid obesity. Chronic diastolic congestive heart failure. Stable. Chronic atrial fibrillation. Thrombocytopenia. Plan: Continue current treatment and supportive care per admitting and other teams on the case. Weaning oxygen therapy as tolerated. Antibiotics including cefepime and vancomycin. Tamiflu. Bronchodilators. Will need outpatient sleep study. Physical therapy. Encourage incentive spirometer use routinely. Appropriate DVT and GI prophylaxis. Input was appreciated from Admitting MD and other teams on the case.
[2019-09-27 13:12] LABS: BASO# 0.07 X1000 (0.0-0.2); BASO% 0.9 % (0.0-0.8); EOS# 0.22 X1000 (0.0-0.7); EOS% 2.7 % (0.0-10.0); HEMATOCRIT 33.2 % (42.0-52.0); HEMOGLOBIN 9.9 g/dL (14.0-18.0); IMM GRAN# 0.06 X1000 (0.0-0.04); IMM GRAN% 0.7 % (0.0-0.5); LYMPH# 1.02 X1000 (1.2-3.4); LYMPH% 12.7 % (20.5-51.1); MCH 23.9 PG (27-31); MCHC 29.8 g/dL (33-37); MCV 80.2 FL (81-99); MONO# 0.54 X1000 (0.11-0.59); MONO% 6.7 % (1.7-9.3); MPV 11.7 FL (7.4-10.4); NEUT# 6.12 X1000 (1.4-6.5); NEUT% 76.3 % (42.2-75.2); PLT 104 X1000 (130-400); RBC 4.14 XMIL (4.7-6.1); RDW 14.5 % (11.5-14.5); WBC 8.03 X1000 (4.8-10.8)
--- NOTE | 2019-09-27 14:45 | INFECTIOUS DISEASE PROGRESS NO ---
DATE: 09/27/2019 PRESENT ILLNESS: The patient has methicillin-resistant Staph aureus pneumonia and influenza. He has positive blood cultures, which still have not yet been identified that I can see in my computer. MEDICATIONS: The patient is on vancomycin, cefepime, and Tamiflu. PHYSICAL EXAMINATION: Vital Signs: Temperature is 97.3 degrees, pulse 61, respirations 18, blood pressure 131/63. General: This is a chronically ill and obese, elderly male. He seems to be not quite as dyspneic at rest as he has been and he is doing less coughing. Lungs: There were bilateral rhonchi. Cardiovascular: Heart rate is regular. Thorax: The patient has a Port-A- Cath present on the right side and pacemaker present on the left side of the chest. Both sites are not erythematous, swollen, or tender. Abdomen: Soft and nontender. Extremities: Both legs are edematous. The patient has stockings in place on both legs. Neurologic: The patient is alert. He is able to walk. He talks in a coherent fashion. LAB AND X-RAY: There is no new CBC for today. The creatinine is 0.8. GFR is greater than 60. There is no new radiographic study. ASSESSMENT AND PLAN: Patient has pneumonia, influenza, and bacteremia. For right now I am going to continue with vancomycin and cefepime. Tamiflu is scheduled to be discontinued after tonight's dose. COMORBIDITIES: Patient is morbidly obese. He has chronic lung disease, congestive heart failure, chronic leg edema, diabetes mellitus and anemia of chronic disease. cc: Darryl Downs MD
[2019-09-27] MEDS: PROTONIX PO SCH (22:39)
[2019-09-28] MEDS: MAXIPIME 2 GM/NS 2 GM/100 ML IVPB IV SCH ×3 (03:30→22:50)
[2019-09-28] MEDS: DUONEB (A & A) INH SCH ×6 (03:45→23:10)
[2019-09-28] MEDS: VANCOMYCIN 1,750 MG in NS 250 ML IV SCH ×2 (04:10→22:53)
[2019-09-28] MEDS: HUMALOG SUBQ SCH ×4 (06:30→22:43)
--- NOTE | 2019-09-28 08:01 | PROGRESS NOTE ---
DATE: 09/28/2019 SUBJECTIVE: Patient reports feeling less short of breath. He still is noticing some when he tries to walk. No fever or chills. OBJECTIVE: Vital Signs: Temperature 99.2 degrees, heart rate 65, respiratory 19, blood pressure 149/71, O2 saturation 97% on 5 L nasal cannula. General: This is a 69-year-old morbidly obese, chronically ill-appearing male, lying in bed, in no acute distress. Cardiovascular: Irregularly irregular heart rhythm. Not tachycardic. No murmurs, gallops, or rubs noted. Respiratory: Coarse breath sounds noted all over both pulmonary ann with crackles noted in both pulmonary bases. Patient not using any accessory muscles or having work of breathing. Abdomen: Soft, obese, nontender to palpation. Nondistended. Bowel sounds present. No organomegaly. Extremities: 3+ pitting edema in both lower extremities up to both knees. Patient has an ulcer in the left gluteal area which is chronic and covered by dressing. Neurological: Patient is alert and oriented x3. Moves 4 extremities. LABORATORY DATA: Pending at the time of dictation. ASSESSMENT AND PLAN: 1. Acute on chronic hypoxemic respiratory failure secondary to pneumonia and influenza. Influenza has been completely treated with 5 days of Tamiflu so he is not on that medication. Regarding pneumonia patient continues to be on vancomycin and cefepime #[address] Downs from Infectious Disease directing antibiotics. We will continue following recommendations. 2. Bilateral pneumonia secondary to MRSA. We will continue with current management mentioned above. 3. Gram-negative growth and Gram-positive bacteremia. The results of the blood culture showed Staphylococcus epidermidis which could be a contaminant but there is still gram-negative sohail in the blood so we will continue with cefepime by now. ID following this patient. 4. Chronic obstructive pulmonary disease exacerbation. We will continue with DuoNeb every 4 hours and also antibiotics mentioned above. He continues to require 5 to 6 L of oxygen by nasal cannula and at home he uses 3 to 4. We will continue with the same management. 5. Chronic atrial fibrillation. Heart rate is well controlled. We will continue with current medications. 6. Diabetes mellitus type 2. We will continue with sliding scale insulin. Accu-Chek before meals and also at bedtime. 7. Chronic diastolic heart failure. We will continue with current medications. 8. Disposition. We will continue to monitor this patient closely. cc: Gagan Escoto MD [facility]
[2019-09-28] MEDS ORDERED: INSULIN PEN NEEDLES ONE ×2 (08:02→22:46)
[2019-09-28] MEDS: MUCOMYST 20% INH SCH ×2 (08:08→19:33)
[2019-09-28] MEDS: LINZESS PO SCH (08:59)
[2019-09-28] MEDS: MS CONTIN PO SCH ×3 (08:59→22:55)
[2019-09-28] MEDS: ELIQUIS PO SCH ×2 (09:00→22:55)
[2019-09-28] MEDS: COZAAR PO SCH (09:00)
[2019-09-28] MEDS: COREG PO SCH ×2 (09:00→22:55)
[2019-09-28] MEDS: IMDUR PO SCH (09:00)
[2019-09-28] MEDS: LEVEMIR SUBQ SCH ×2 (09:01→22:46)
[2019-09-28] MEDS: BUSPAR PO SCH ×3 (09:01→22:54)
[2019-09-28] MEDS: ALDACTONE PO SCH (09:01)
[2019-09-28] MEDS: PROZAC PO SCH (09:02)
[2019-09-28] MEDS: LOTRIMIN 1% CREAM TOP SCH ×2 (09:02→22:58)
[2019-09-28] MEDS: LIORESAL PO SCH ×2 (09:02→22:58)
[2019-09-28 09:26] LABS: AGAP 7; BUN 10 mg/dL (8-22); CALCIUM 9.3 mg/dL (8.8-10.2); CHLORIDE 101 mmol/L (98-107); COSMO 276; CREATININE 0.7 mg/dL (0.7-1.2); ESTIMATED GFR > 60; GLUCOSE 190 mg/dL (70-104); PHOSPHORUS 2.7 mg/dL (2.7-4.5); POTASSIUM 4.5 mmol/L (3.5-5.1); SODIUM 136 mmol/L (136-145); TCO2 28 mmol/L (25-35)
[2019-09-28 09:40] LABS: BASO# 0.04 X1000 (0.0-0.2); BASO% 0.5 % (0.0-0.8); EOS# 0.15 X1000 (0.0-0.7); HEMATOCRIT 32.3 % (42.0-52.0); HEMOGLOBIN 9.7 g/dL (14.0-18.0); IMM GRAN# 0.03 X1000 (0.0-0.04); IMM GRAN% 0.4 % (0.0-0.5); LYMPH# 0.99 X1000 (1.2-3.4); LYMPH% 13.1 % (20.5-51.1); MCV 79.8 FL (81-99); MONO% 6.6 % (1.7-9.3); MPV 11.5 FL (7.4-10.4); NEUT# 5.84 X1000 (1.4-6.5); NEUT% 77.4 % (42.2-75.2); PLT 97 X1000 (130-400); RBC 4.05 XMIL (4.7-6.1); RDW 14.4 % (11.5-14.5); WBC 7.55 X1000 (4.8-10.8)
--- NOTE | 2019-09-28 14:33 | PROVIDER PROGRESS NOTE ---
Progress Note Dr. Campo Progress Note/Pulmonary and or critical care We appreciated progress of care, Complications, change in diagnosis, and instructions to patient. Subjective: We note the level of consciousness, bed (chair) position, family presence (if any), level of lethargy, feeling of symptoms, and changes from baseline condition/symptom. The patient is sitting on the bedside chair with no acute distress noted. He is still on a NC at 5L. He still has SOB with any activities. He states he is fee ling same as yesterday. Objective: Vital Signs: We reviewed EMR current values for Pulse rate, Blood pressure, Pulse rate, respiratory rate and Pulse oximetry. Also noted other values and trends if present (e.g. I/O, CVP). T 98.2, SC 89, RR 17, BP 138/79 and SaO2 99% on NC 5 L. Physical Examination: General: Morbidly obese. Sitting on the bedside chair with no acute distress noted. HEENT: Atraumatic. Normocephalic. Trachea midline. Mucosa pink and moist. Chest: Even and unlabored with mild expiratory audible rattle noise. Symmetrical excursion. Auscultation reveals prolonged expiratory phase and coarse crackles bilaterally. CVS: Regular rate and rhythm with S1 and S2 appreciated. Abdomen: Protuberant. Non-tender. Soft. Normoactive bowel sounds in all 4 quadrants. Extremities: BLE pitting edema 3-4+ up to knees with compression hose on. Neuro: A/O x3. Speech fluent. Follow commands. Weakness present. Labs and Radiology: Reviewed available labs and radiology values available at time of EMR review. CBC: Microcytic anemia, thrombocytopenia. BMP: Nonsignficant, except elevated glucose and slightly decreased albumin. Assessment: Acute on chronic hypoxemic respiratory failure. COPD exacerbation. Methicillin-resistant Staph aureus pneumonia. Improving. Influenza A. S/P Tamiflu on 09/27/19. Bacteremia with gram-negative rods and gram-positive cocci. Morbid obesity. Chronic diastolic congestive heart failure. Stable. Chronic atrial fibrillation. Thrombocytopenia. Plan: Continue current treatment and supportive care per admitting and other teams on the case. Weaning oxygen therapy as tolerated. Antibiotics including cefepime and vancomycin. Bronchodilators. Will need outpatient sleep study. Physical therapy. Encourage incentive spirometer use routinely. Appropriate DVT and GI prophylaxis. Input was appreciated from Admitting MD and other teams on the case.
--- NOTE | 2019-09-28 15:04 | INFECTIOUS DISEASE PROGRESS NO ---
DATE: 09/28/2019 PRESENT ILLNESS: The patient has methicillin-resistant Staph aureus pneumonia, influenza, and bacteremia with Staph epidermidis and Acinetobacter. The exact origin of the bacteremia is uncertain to me, but I think the patient's Port-A-Cath certainly could be where it is coming from. The patient also has influenza. MEDICATIONS: The patient is on vancomycin, cefepime, and Tamiflu. The Tamiflu has been discontinued because the patient has had his 5 days worth of it. PHYSICAL EXAMINATION: Vital Signs: Temperature is 98.2 degrees, pulse 89, respirations 17, blood pressure 138/79. General: This is a chronically ill-appearing and obese elderly male. He is not quite as dyspneic as he was when he came in, but he still does cough and you hear him rattling which just your ear. Head/eyes/ears/nose/throat: He can hear my spoken words and see near objects. There are no white patches in his mouth. Neck: No meningismus. Lungs: Bilateral rhonchi. Cardiovascular: Heart rate is regular. Thorax: The patient has a Port-A-Cath on the right side and a pacemaker on the left side. Both sites are not erythematous, swollen, or purulent. Abdomen: Soft and not tender. Extremities: Both legs are edematous. The patient is wearing stockings on both of them. Neurologic: Patient is alert, he is able to walk and he can talk in a coherent fashion. LAB AND X-RAY: The patient's blood culture has been isolated as Acinetobacter and Staph epidermidis. His CBC shows a white count of 7550, hemoglobin 9.7, and platelet count 97,000. The patient's creatinine is 0.7, GFR is greater than 60. ASSESSMENT AND PLAN: The patient has pneumonia and bacteremia. His influenza has cleared. For now I am going to continue vancomycin and cefepime. Unfortunately, if the patient's infection arose from his Port-A-Cath, we would have to take it out and then wait until we had negative blood cultures before putting another one in. Also, because of the patient having a pacemaker in place, we would not necessarily take it out unless it looks infected, but the patient will require 6 weeks of IV antibiotics in case the pacemaker became infected while the patient was bacteremic. COMORBIDITIES: The patient is morbidly obese. He has chronic lung disease, congestive heart failure, chronic leg edema, diabetes mellitus, and anemia of chronic disease. cc: Darryl Downs MD
[2019-09-28] MEDS: PROTONIX PO SCH (22:55)
[2019-09-29] MEDS: DUONEB (A & A) INH SCH ×6 (02:45→23:39)
[2019-09-29 03:30] LABS: ALLEN TEST YES; BE 5.5 mmoll (-3.0-3.0); BLOOD TYPE ARTERIAL; HCO3-(ACT) 29.2 mmoll (20.0-26.0); METHB 1.1 % (0.0-1.5); MODALITY VENTIMASK; O2(CT) 13.4 mL/dL (15.0-23.0); O2HB 96.5 % (95.0-99.0); PCO2(98.6) 46 mmHg (35-45); PO2(98.6) 129 mmHg (60-100); SAMPLE BLOOD; SAO2 99.3 % (95.0-100.0); THB 9.7 g/dL (11.5-17.4); pH(98.6) 7.43 (7.35-7.45)
[2019-09-29] MEDS: MAXIPIME 2 GM/NS 2 GM/100 ML IVPB IV SCH (04:59)
[2019-09-29] MEDS: HUMALOG SUBQ SCH ×4 (06:23→21:43)
--- NOTE | 2019-09-29 07:26 | Diag Imaging Result Doc PS360 ---
EXAM: CHEST-1 VIEW HISTORY: SOB TECHNIQUE: Single view COMPARISON: 09/26/2019 FINDINGS: No change in the right jugular portacatheter. The sternal wires and surgical clips in the left-sided pacemaker. The lungs are well expanded. Mild increased interstitial markings in the lung bases. No consolidation. No pleural effusions identified. IMPRESSION: Stable chest Electronically signed by Ramses Stanton 09/29/2019 7:24 AM
[2019-09-29] MEDS: MUCOMYST 20% INH SCH ×2 (08:10→19:55)
[2019-09-29 08:27] LABS: BASO# 0.07 X1000 (0.0-0.2); EOS# 0.14 X1000 (0.0-0.7); EOS% 1.9 % (0.0-10.0); HEMATOCRIT 33.4 % (42.0-52.0); HEMOGLOBIN 10.4 g/dL (14.0-18.0); IMM GRAN# 0.04 X1000 (0.0-0.04); IMM GRAN% 0.6 % (0.0-0.5); LYMPH# 0.81 X1000 (1.2-3.4); LYMPH% 11.3 % (20.5-51.1); MCH 24.6 PG (27-31); MCHC 31.1 g/dL (33-37); MCV 79.1 FL (81-99); MONO# 0.59 X1000 (0.11-0.59); MONO% 8.2 % (1.7-9.3); MPV 11.1 FL (7.4-10.4); NEUT# 5.54 X1000 (1.4-6.5); PLT 89 X1000 (130-400); RBC 4.22 XMIL (4.7-6.1); RDW 14.3 % (11.5-14.5); WBC 7.19 X1000 (4.8-10.8)
[2019-09-29 08:35] LABS: AGAP 9; ALBUMIN 3.1 g/dL (3.5-5.0); BUN 9 mg/dL (8-22); CALCIUM 9.4 mg/dL (8.8-10.2); CHLORIDE 100 mmol/L (98-107); COSMO 278; CREATININE 0.8 mg/dL (0.7-1.2); ESTIMATED GFR > 60; GLUCOSE 189 mg/dL (70-104); PHOSPHORUS 2.8 mg/dL (2.7-4.5); POTASSIUM 4.6 mmol/L (3.5-5.1); SODIUM 137 mmol/L (136-145); TCO2 28 mmol/L (25-35)
--- NOTE | 2019-09-29 08:36 | PROGRESS NOTE ---
DATE: 09/29/2019 SUBJECTIVE: The patient reports continues to report of feeling short of breath. Now his oxygen requirements are getting higher. He is on mask now and asks me he continues to be short of breath. OBJECTIVE: Vital Signs: Temperature 98.5 degrees, heart rate 61, respiratory 17, blood pressure 159/79, O2 saturation 98% on Venturi mask with 15%. General Examination: This is a chronically ill-appearing, morbidly obese, 69-year-old male, lying in bed in no acute distress. Cardiovascular: Irregularly irregular heart rhythm. No murmurs, gallops, or rubs noted. Respiratory: Coarse breath sounds and minimal wheezing noted in both pulmonary ann with crackles in both pulmonary bases as well. Patient is not using any accessory muscles or having work of breathing. Abdomen: Soft. Nontender to palpation. Bowel sounds present. No organomegaly. Extremities: No clubbing, cyanosis. There is 3+ pitting edema in both lower extremities up to both knees. Patient has an ulcer in the left gluteal area which is chronic over the dressing by dressing. Neurological: Patient is alert and oriented x3. Moves 4 extremities. LABORATORY DATA: Pending at the time of my dictation. ASSESSMENT AND PLAN: 1. Acute on chronic hypoxemic respiratory failure secondary to pneumonia and influenza. Clinically, this patient is not getting better. Regarding influenza, he has completed 5 days with Tamiflu, so the medication has been stopped. He is on vancomycin and cefepime as per Dr. Downs recommendation. So far, in blood cultures we have isolated Staphylococcal epidermidis and Acinetobacter Lwoffi. 2. Bilateral pneumonia secondary to MRSA. We will continue with vancomycin as per Dr. Downs recommendation. Considering that he is requiring more oxygen supplementation, we are going to do a CT of the chest today. 3. Acinetobacter bacteremia. We will continue with Cefepime. Considering that he is also positive for Staphylococcus epidermidis, and considering that he has a pacemaker and a port, he is going to receive 6 weeks of IV antibiotics. Considering the length of time that this patient will need antibiotics, we will consider LTAC. 4. Chronic obstructive pulmonary disease exacerbation. We will continue with DuoNeb every 4 hours and antibiotics as mentioned above. 5. Chronic atrial fibrillation. Heart rate is well controlled. We will continue with same management. 6. Diabetes mellitus type 2. We will continue with sliding scale insulin. Accu-Chek before meals and also at bedtime. 7. Chronic diastolic heart failure. We will continue current medications. DISPOSITION: We will continue to monitor this patient closely. We will talk with social work instructor and assistant case manager about sending this patient to LTAC, considering that he is not improving as we were expecting, and she will need 6 weeks of antibiotics as per Dr. Downs recommendation. cc: Gagan Escoto MD [facility]
[2019-09-29] MEDS: PROZAC PO SCH (09:26)
[2019-09-29] MEDS: IMDUR PO SCH (09:26)
[2019-09-29] MEDS: COREG PO SCH ×2 (09:26→21:43)
[2019-09-29] MEDS: ELIQUIS PO SCH (09:26)
[2019-09-29] MEDS: COZAAR PO SCH (09:26)
[2019-09-29] MEDS: LEVAQUIN PO SCH (09:26)
[2019-09-29] MEDS: ALDACTONE PO SCH (09:26)
[2019-09-29] MEDS: LIORESAL PO SCH ×2 (09:26→21:43)
[2019-09-29] MEDS: BUSPAR PO SCH ×3 (09:26→21:43)
[2019-09-29] MEDS: LINZESS PO SCH (09:27)
[2019-09-29] MEDS: MS CONTIN PO SCH ×3 (09:27→21:44)
[2019-09-29] MEDS: LEVEMIR SUBQ SCH ×2 (09:30→22:37)
--- NOTE | 2019-09-29 14:33 | INFECTIOUS DISEASE PROGRESS NO ---
DATE: 09/29/2019 PRESENT ILLNESS: The patient has been treated for a Methicillin-resistant Staph aureus pneumonia and influenza. Both have cleared. The patient does have a Staph epidermidis and Acinetobacter bacteremia, which I think originated from the patient's Port-A-Cath. MEDICATIONS: Currently, the patient is on a combination of vancomycin and Levaquin. Some of the side effects of the antibiotics, including rash, diarrhea, seizures, tendon rupture, ototoxicity, and renal toxicity have been explained to the patient, who agrees with treatment. Day #1 for the treatment with vancomycin and Levaquin for the patient's bacteremia, is the first day that the patient's repeat blood cultures are negative. PHYSICAL EXAMINATION: Vital Signs: Temperature is 98.2 degrees, pulse 74, respirations 17, blood pressure 163/70. General: This is an ill-appearing elderly male. He is still somewhat dyspneic but better than when he came in. Head/eyes/ears/nose/throat: He can hear my spoken words and see near objects. He does not have any white patches in his mouth. Neck: No pain with movement. Lungs: Bilateral rhonchi. Cardiovascular: Heart rate is regular. Thorax: The patient has a Port-A-Cath on the right side and a pacemaker on the left side. Neither site is erythematous, swollen, or purulent. Abdomen: Soft and not tender. Extremities: Both legs are edematous and have support stockings on both of them. Neurologic: Patient is alert, he is able to walk. He talks in a coherent fashion. LAB AND X-RAY: The patient's blood culture is growing Staph epidermidis and Acinetobacter. The patient's CBC shows a white count of 7190, hemoglobin 10.4, and platelet count 89,000. Creatinine is 0.8, GFR is greater than 60. Chest x-ray shows no consolidation. ASSESSMENT AND PLAN: The patient's pneumonia and influenza have cleared. I am going treating the patient's bacteremia with the combination of vancomycin and Levaquin as mentioned above. Since the bacteremia originated, in my opinion, from the Port-A-Cath, it is going to have to be removed, and when repeat blood cultures are negative then another Port-A-Cath be put in. The patient will require six weeks of intravenous antibiotics because his pacemaker present on the left side may have become infected hematogenously when the patient was bacteremic. Therefore, I am going to put in a consult for Surgery to remove the Port-A-Cath and then when the repeat blood cultures are negative, as I mentioned, another new one can be put in. COMORBIDITIES: He is elderly. He is obese. He has chronic lung disease, congestive heart failure, chronic leg edema, diabetes mellitus, and anemia of chronic disease. cc: Darryl Downs MD
[2019-09-29] MEDS: LOTRIMIN 1% CREAM TOP SCH ×2 (15:14→21:46)
[2019-09-29] MEDS: VANCOMYCIN 1,750 MG in NS 250 ML IV SCH (15:28)
--- NOTE | 2019-09-29 17:42 | PROVIDER PROGRESS NOTE ---
Progress Note Dr. Campo Progress Note/Pulmonary and or critical care We appreciated progress of care, Complications, change in diagnosis, and instructions to patient. Subjective: We note the level of consciousness, bed (chair) position, family presence (if any), level of lethargy, feeling of symptoms, and changes from baseline condition/symptom. The patient is lying in bed with no acute distress noted. He is still on a NC at 5L, which actually is close to his baseline oxygen requirement 4 L/min at home. He still has SOB with activities. He had one episode of severe SOB last night and was put on VM 50%. He states he is feeling a little bit better at this time. His constipation is resolved. Objective: Vital Signs: We reviewed EMR current values for Pulse rate, Blood pressure, Pulse rate, respiratory rate and Pulse oximetry. Also noted other values and trends if present (e.g. I/O, CVP). T 98.2 with no fever in last 24 hours, VT 74, RR 17, BP 163/70 and SaO2 100% on NC 5 L. Physical Examination: General: Morbidly obese. Sitting on the bedside chair with no acute distress noted. HEENT: Atraumatic. Normocephalic. Trachea midline. Mucosa pink and moist. Chest: Even and unlabored. Symmetrical excursion. Auscultation reveals prolonged expiratory phase and coarse crackles bilaterally posteriorly. CVS: Regular rate and rhythm with S1 and S2 appreciated. Abdomen: Protuberant. Non-tender. Soft. Normoactive bowel sounds in all 4 quadrants. Extremities: BLE pitting edema 3+ up to knees with compression hose on. Neuro: A/O x3. Speech fluent. Follow commands. Weakness present. Labs and Radiology: Reviewed available labs and radiology values available at time of EMR review. Laboratory Results 09/28/19 09/29/19 09/29/19 19:53 03:20 06:20 WBC RBC Hgb Hct MCV MCH MCHC RDW Std Deviation Plt Count MPV Immature Gran % (Auto) Neut % (Auto) Lymph % (Auto) [place] % (Auto) Eos % (Auto) Baso % (Auto) Immature Gran # (Auto) Neut # (Auto) Lymph # (Auto) [place] # (Auto) Eos # (Auto) Baso # (Auto) Specimen Type ARTERIAL Sample Site R RADIAL pH 7.43 pCO2 46 H pO2 129 H HCO3 29.2 H Base Excess 5.5 H Oxyhemoglobin 96.5 ABG O2 Sat (Calculated) 13.4 L ABG O2 Saturation 99.3 ABG Carboxyhemoglobin 1.70 ABG Methemoglobin 1.1 Dominguez Test YES A-a O2 Difference 170.0 Total Hemoglobin 9.7 L Lactate 1.40 Liter Flow 15.0 Blood Gas Modality VENTIMASK FiO2 % 50.0 Sodium Potassium Chloride Carbon Dioxide Anion Gap BUN Creatinine Estimated GFR/1.73 m2 BUN/Creatinine Ratio Glucose POC Glucose 254 H 130 H Calculated Osmolality Calcium Phosphorus Albumin 09/29/19 09/29/19 09/29/19 08:00 08:00 10:44 WBC 7.19 RBC 4.22 L Hgb 10.4 L Hct 33.4 L MCV 79.1 L MCH 24.6 L MCHC 31.1 L RDW Std Deviation 14.3 Plt Count 89 L MPV 11.1 H Immature Gran % (Auto) 0.6 H Neut % (Auto) 77.0 H Lymph % (Auto) 11.3 L [place] % (Auto) 8.2 Eos % (Auto) 1.9 Baso % (Auto) 1.0 H Immature Gran # (Auto) 0.04 Neut # (Auto) 5.54 Lymph # (Auto) 0.81 L [place] # (Auto) 0.59 Eos # (Auto) 0.14 Baso # (Auto) 0.07 Specimen Type Sample Site pH pCO2 pO2 HCO3 Base Excess Oxyhemoglobin ABG O2 Sat (Calculated) ABG O2 Saturation ABG Carboxyhemoglobin ABG Methemoglobin Dominguez Test A-a O2 Difference Total Hemoglobin Lactate Liter Flow Blood Gas Modality FiO2 % Sodium 137 Potassium 4.6 Chloride 100 Carbon Dioxide 28 Anion Gap 9 BUN 9 Creatinine 0.8 Estimated GFR/1.73 m2 > 60 BUN/Creatinine Ratio 11 Glucose 189 H POC Glucose 221 H D Calculated Osmolality 278 Calcium 9.4 Phosphorus 2.8 Albumin 3.1 L 09/29/19 15:38 WBC RBC Hgb Hct MCV MCH MCHC RDW Std Deviation Plt Count MPV Immature Gran % (Auto) Neut % (Auto) Lymph % (Auto) [place] % (Auto) Eos % (Auto) Baso % (Auto) Immature Gran # (Auto) Neut # (Auto) Lymph # (Auto) [place] # (Auto) Eos # (Auto) Baso # (Auto) Specimen Type Sample Site pH pCO2 pO2 HCO3 Base Excess Oxyhemoglobin ABG O2 Sat (Calculated) ABG O2 Saturation ABG Carboxyhemoglobin ABG Methemoglobin Dominguez Test A-a O2 Difference Total Hemoglobin Lactate Liter Flow Blood Gas Modality FiO2 % Sodium Potassium Chloride Carbon Dioxide Anion Gap BUN Creatinine Estimated GFR/1.73 m2 BUN/Creatinine Ratio Glucose POC Glucose 311 H Calculated Osmolality Calcium Phosphorus Albumin Assessment: Acute on chronic hypoxemic respiratory failure. COPD exacerbation. Methicillin-resistant Staph aureus pneumonia. Improving. Influenza A. S/P Tamiflu on 09/27/19. Bacteremia with gram-negative rods and gram-positive cocci. Morbid obesity. Chronic diastolic congestive heart failure. Stable. Chronic atrial fibrillation. Thrombocytopenia. Plan: Continue current treatment and supportive care per admitting and other teams on the case. Titrate oxygen therapy as needed. Antibiotics including cefepime and vancomycin. Bronchodilators. Will need outpatient sleep study. Physical therapy. Encourage incentive spirometer use routinely. Appropriate DVT and GI prophylaxis. Input was appreciated from Admitting MD and other teams on the case.
--- NOTE | 2019-09-29 20:25 | GENERAL SURGERY CONSULTATION ---
DATE: 09/29/2019 CHIEF COMPLAINT: Bacteremia. HISTORY: This is an obese, 69-year-old gentleman, admitted with respiratory symptoms. He has a history of Port-A-Cath placement for IV access. In hospital, he has developed bacteremia, and I have been asked to remove his port. 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 PAST SURGICAL HISTORY: Includes coronary bypass, pacemaker placement, lumbar spine surgery, and port placement. FAMILY HISTORY: Pertinent for lung cancer, heart attacks. SOCIAL HISTORY: Smokes 3 packs a day, but he has now stopped. He denies alcohol or drug use. MEDICATIONS: Listed. ALLERGIES: No known drug allergies. REVIEW OF SYSTEMS: Negative in the 10 subsystems, except as noted above. PHYSICAL EXAMINATION: He is afebrile. Heart rate 62, respiratory rate 18, blood pressure 150/77. His port is noted on the right upper anterior chest. His pacemaker is on the left. He has breath sounds bilaterally. He is morbidly obese. Abdomen: Nontender. Brawny edema. He is awake, alert, and oriented. ASSESSMENT: Bacteremia with port in place. PLAN: Removal of his port at the request of Dr. Downs. I discussed this with him. He understands and agrees. cc: Cruz Carrasco MD
[2019-09-29] MEDS: PROTONIX PO SCH (21:43)
[2019-09-30] MEDS: DUONEB (A & A) INH SCH ×7 (03:24→23:06)
[2019-09-30] MEDS: HUMALOG SUBQ SCH ×4 (06:33→21:48)
[2019-09-30] MEDS ORDERED: NS 0 ML ONE (07:41)
[2019-09-30] MEDS ORDERED: XYLOCAINE 1%/EPI 1:100,000 ONE (07:41)
[2019-09-30] MEDS ORDERED: KEFZOL ONE (07:41)
--- NOTE | 2019-09-30 07:46 | PROGRESS NOTE ---
DATE: 09/30/2019 SUBJECTIVE: Patient reports feeling not completely well, still short of breath. He is not able to lay in a flat position. OBJECTIVE: Vital Signs: Temperature 97.3 degrees, heart rate 62, respiratory rate 18, blood pressure 130/64, O2 saturation 99% on 6 liters nasal cannula. General examination: This is a chronically ill-appearing, morbidly obese, 69-year-old male, lying in bed in no acute distress. Cardiovascular exam: Irregularly irregular heart rhythm. No murmurs, gallops, or rubs noted. Respiratory exam: Clear breath sounds, although wheezing is still noted in both pulmonary ann. Patient not using any accessory muscles or having work of breathing. Abdomen: Soft, nontender to palpation. Bowel sounds present. No organomegaly. Extremities: No clubbing or cyanosis. There is 3+ pitting edema still in both lower extremities up to both knees. Patient has them also in the left gluteal area which is chronic and is covered by dressing now. Neurologic exam: Patient alert and oriented x3. Moves 4 extremities. LABORATORY DATA: There are no labs from today. Blood sugar has been still higher. ASSESSMENT AND PLAN: 1. Acute on chronic hypoxemic respiratory failure secondary to pneumonia and influenza. The patient has been treated completely for pneumonia. He continues to be on vancomycin and cefepime. As per Infectious Disease recommendations, we will continue to monitor. We will continue with DuoNeb every 4 hours. 2. Bilateral pneumonia secondary to methicillin-resistant Staphylococcus aureus. We will continue with vancomycin considering that he is not improving as we were expecting, A CT of the chest is going to be done today. 3. Acinetobacter bacteremia. We will continue with cefepime. Also because this patient is also positive for Staphylococcus epidermidis, that is the reason why he will need to have his port removed. He has been seen by Dr. Carrasco, and they are planning to do that surgery today. Considering that this patient also has a pacemaker, he will need 6 weeks of antibiotics. 4. Chronic obstructive pulmonary disease exacerbation. We will continue with DuoNeb every 4 hours and antibiotics as mentioned above. 5. History of atrial fibrillation. Rate is well controlled. We will continue with same management. 6. Diabetes mellitus type 2. Blood sugar continues to be higher, so we are going to increase the doses of Levemir from 60 to 75 units twice daily. 7. Chronic diastolic heart failure. We will continue current medications. 8. Disposition: We will continue to monitor this patient closely. He can be a candidate for long-term acute care. dairy feed worker has been consulted. cc: Gagan Escoto MD
[2019-09-30] MEDS ORDERED: DIPRIVAN 1% ONE (07:51)
[2019-09-30] MEDS ORDERED: XYLOCAINE-MPF 2% ONE (07:56)
[2019-09-30] MEDS: MUCOMYST 20% INH SCH ×3 (08:48→20:27)
--- NOTE | 2019-09-30 09:26 | OPERATIVE NOTE ---
PROCEDURE DATE: 09/30/2019 PROCEDURE PERFORMED: Removal of right-sided port. SURGEON: Cruz Carrasco MD. ASSISTANT PROFESSOR OF MATHEMATICS: Cecilia. PREOPERATIVE DIAGNOSIS: Bacteremia. POSTOPERATIVE DIAGNOSIS: Bacteremia. DESCRIPTION OF PROCEDURE: Satisfactory general anesthesia was achieved. The right upper anterior chest was prepped and draped in a sterile fashion. We anesthetized the skin with 1% lidocaine with epinephrine. We incised the skin in the area the old scar. We dissected down to the port. We freed the port by cutting the stitches holding the port to the tissue. We then delivered the port and attached catheter in toto. We placed 3-0 Polysorb in the subcutaneous tissue to achieve complete hemostasis. We then closed the skin with a 4-0 Polysorb subcuticular stitch. Telfa and sterile OpSite was applied. He tolerated it well and was sent to the recovery room in satisfactory condition. cc: Cruz Carrasco MD
[2019-09-30] MEDS: MS CONTIN PO SCH ×3 (11:04→21:47)
[2019-09-30] MEDS: LINZESS PO SCH (11:05)
[2019-09-30] MEDS: IMDUR PO SCH (11:06)
[2019-09-30] MEDS: LIORESAL PO SCH ×2 (11:06→21:47)
[2019-09-30] MEDS: LEVEMIR SUBQ SCH ×2 (11:06→21:48)
[2019-09-30] MEDS: COREG PO SCH ×2 (11:06→21:47)
[2019-09-30] MEDS: BUSPAR PO SCH ×3 (11:06→21:47)
[2019-09-30] MEDS: COZAAR PO SCH (11:06)
[2019-09-30] MEDS: LEVAQUIN PO SCH (11:06)
[2019-09-30] MEDS: LOTRIMIN 1% CREAM TOP SCH ×2 (11:06→21:49)
[2019-09-30] MEDS: PROZAC PO SCH (11:06)
[2019-09-30] MEDS: ALDACTONE PO SCH (11:06)
[2019-09-30 11:25] LABS: AGAP 8; ALBUMIN 3.3 g/dL (3.5-5.0); BUN 10 mg/dL (8-22); CALCIUM 9.2 mg/dL (8.8-10.2); CHLORIDE 97 mmol/L (98-107); COSMO 272; CREATININE 0.8 mg/dL (0.7-1.2); ESTIMATED GFR > 60; GLUCOSE 151 mg/dL (70-104); POTASSIUM 4.7 mmol/L (3.5-5.1); SODIUM 135 mmol/L (136-145); TCO2 30 mmol/L (25-35)
[2019-09-30 11:34] LABS: BASO# 0.04 X1000 (0.0-0.2); BASO% 0.5 % (0.0-0.8); EOS# 0.13 X1000 (0.0-0.7); EOS% 1.7 % (0.0-10.0); HEMOGLOBIN 10.5 g/dL (14.0-18.0); IMM GRAN# 0.03 X1000 (0.0-0.04); IMM GRAN% 0.4 % (0.0-0.5); LYMPH# 0.75 X1000 (1.2-3.4); LYMPH% 10.1 % (20.5-51.1); MCH 24.5 PG (27-31); MCHC 30.9 g/dL (33-37); MCV 79.4 FL (81-99); MONO# 0.59 X1000 (0.11-0.59); MONO% 7.9 % (1.7-9.3); MPV 10.7 FL (7.4-10.4); NEUT# 5.91 X1000 (1.4-6.5); NEUT% 79.4 % (42.2-75.2); PLT 81 X1000 (130-400); RBC 4.28 XMIL (4.7-6.1); RDW 14.1 % (11.5-14.5); WBC 7.45 X1000 (4.8-10.8)
[2019-09-30] MEDS: VANCOMYCIN 1,750 MG in NS 250 ML IV SCH ×2 (15:21→15:22)
--- NOTE | 2019-09-30 16:56 | PROVIDER PROGRESS NOTE ---
Progress Note Dr. Campo Progress Note/Pulmonary and or critical care We appreciated progress of care, Complications, change in diagnosis, and instructions to patient. Subjective: We note the level of consciousness, bed (chair) position, family presence (if any), level of lethargy, feeling of symptoms, and changes from baseline condition/symptom. The patient is lying in bed with no acute distress noted. He is still on a NC at 5L, which actually is close to his baseline oxygen requirement 4 L/min at home. He still has SOB with activities. He states he is feeling better today. He is happy that Dr. Carrasco removed his right-sided port this morning. Objective: Vital Signs: We reviewed EMR current values for Pulse rate, Blood pressure, Pulse rate, respiratory rate and Pulse oximetry. Also noted other values and trends if present (e.g. I/O, CVP). T 97.4 with no fever in last 24 hours, AK 86, RR 16, BP 128/65 and SaO2 98% on NC 5 L. Physical Examination: General: Morbidly obese. Sitting on the bedside chair with no acute distress noted. HEENT: Atraumatic. Normocephalic. Trachea midline. Mucosa pink and moist. Chest: Even and unlabored. Symmetrical excursion. Auscultation reveals prolonged expiratory phase, mild expiratory wheezing bilaterally and coarse crackles bilaterally posteriorly. CVS: Regular rate and rhythm with S1 and S2 appreciated. Abdomen: Protuberant. Non-tender. Soft. Normoactive bowel sounds in all 4 quadrants. Extremities: BLE pitting edema 3+ up to knees with compression hose on. Neuro: A/O x3. Speech fluent. Follow commands. Weakness present. Labs and Radiology: Reviewed available labs and radiology values available at time of EMR review. Laboratory Results 09/29/19 09/30/19 09/30/19 20:07 05:45 10:35 WBC RBC Hgb Hct MCV MCH MCHC RDW Std Deviation Plt Count MPV Immature Gran % (Auto) Neut % (Auto) Lymph % (Auto) [place] % (Auto) Eos % (Auto) Baso % (Auto) Immature Gran # (Auto) Neut # (Auto) Lymph # (Auto) [place] # (Auto) Eos # (Auto) Baso # (Auto) Sodium 135 L Potassium 4.7 Chloride 97 L Carbon Dioxide 30 Anion Gap 8 BUN 10 Creatinine 0.8 Estimated GFR/1.73 m2 > 60 BUN/Creatinine Ratio 13 Glucose 151 H POC Glucose 325 H 208 H Calculated Osmolality 272 Calcium 9.2 Phosphorus 3.0 Albumin 3.3 L Random Vancomycin 09/30/19 09/30/19 09/30/19 10:35 10:35 11:21 WBC 7.45 RBC 4.28 L Hgb 10.5 L Hct 34.0 L MCV 79.4 L MCH 24.5 L MCHC 30.9 L RDW Std Deviation 14.1 Plt Count 81 L MPV 10.7 H Immature Gran % (Auto) 0.4 Neut % (Auto) 79.4 H Lymph % (Auto) 10.1 L [place] % (Auto) 7.9 Eos % (Auto) 1.7 Baso % (Auto) 0.5 Immature Gran # (Auto) 0.03 Neut # (Auto) 5.91 Lymph # (Auto) 0.75 L [place] # (Auto) 0.59 Eos # (Auto) 0.13 Baso # (Auto) 0.04 Sodium Potassium Chloride Carbon Dioxide Anion Gap BUN Creatinine Estimated GFR/1.73 m2 BUN/Creatinine Ratio Glucose POC Glucose 221 H Calculated Osmolality Calcium Phosphorus Albumin Random Vancomycin 12.50 09/30/19 16:40 WBC RBC Hgb Hct MCV MCH MCHC RDW Std Deviation Plt Count MPV Immature Gran % (Auto) Neut % (Auto) Lymph % (Auto) [place] % (Auto) Eos % (Auto) Baso % (Auto) Immature Gran # (Auto) Neut # (Auto) Lymph # (Auto) [place] # (Auto) Eos # (Auto) Baso # (Auto) Sodium Potassium Chloride Carbon Dioxide Anion Gap BUN Creatinine Estimated GFR/1.73 m2 BUN/Creatinine Ratio Glucose POC Glucose 232 H Calculated Osmolality Calcium Phosphorus Albumin Random Vancomycin Assessment: Acute on chronic hypoxemic respiratory failure. COPD exacerbation. Methicillin-resistant Staph aureus pneumonia. Improving. Influenza A. S/P Tamiflu on 09/27/19. Bacteremia with Acinetobacter Lwoffii and Staphylococcus Epidermidis. Port-A-Cath removal by Dr. Carrasco this morning. Morbid obesity. Chronic diastolic congestive heart failure. Stable. Chronic atrial fibrillation. Thrombocytopenia. Plan: Continue current treatment and supportive care per admitting and other teams on the case. Titrate oxygen therapy as needed. Antibiotics including cefepime and vancomycin. Bronchodilators. Will need outpatient sleep study. Physical therapy. Encourage incentive spirometer use routinely. Appropriate DVT and GI prophylaxis. Input was appreciated from Admitting MD and other teams on the case.
--- NOTE | 2019-09-30 21:28 | Diag Imaging Result Doc PS360 ---
EXAM: CT THORAX W/CONTRAST INDICATION: worsening pneumonia suspected TECHNIQUE: This exam was performed using automated exposure control, adjustment of mA or kV according to patient size, and/or use of iterative reconstruction technique. COMPARISON: 09/14/2019 FINDINGS: The right lower lobe airspace consolidation seen on the previous study is again identified. It is somewhat more dense than the previous study. The much milder infiltrate at the posterior inferior aspect of the right upper lobe is approximately stable. There has been development of milder focal infiltrate at the medial left lung base since the previous study. There is also probably a component of atelectasis at both lung bases. No significant pleural fluid is appreciated. There is no evidence of pneumothorax. Small shotty mediastinal lymph nodes are stable. No new lymphadenopathy is appreciated. The heart is unchanged. Limited views of the upper abdomen are stable. IMPRESSION: Slight increase in density of the right lower lobe consolidation and development of mild or consolidation at the medial left lung base. Stable chest, otherwise. Electronically signed by Jose Harkins 09/30/2019 9:25 PM
[2019-09-30] MEDS: PROTONIX PO SCH (21:47)
[2019-10-01] MEDS: DUONEB (A & A) INH SCH ×6 (03:32→22:57)
[2019-10-01] MEDS: VANCOMYCIN 1,750 MG in NS 250 ML IV SCH (05:54)
[2019-10-01] MEDS: HUMALOG SUBQ SCH ×4 (05:59→22:26)
--- NOTE | 2019-10-01 07:36 | PROGRESS NOTE ---
DATE: 10/01/2019 SUBJECTIVE: Patient reports breathing a little bit better, although is still mildly short of breath. He is not able to lay in a flat position, so at night he sleeps in the recliner. OBJECTIVE: Vital Signs: Temperature 97.5 degrees, heart rate 61, respiratory rate 18, blood pressure 134/60, O2 saturation 97% on 6 L nasal cannula. General: This is a chronically ill- looking, morbidly obese, 69-year-old male, lying in bed, in no acute distress. Cardiovascular: Irregularly irregular heart rhythm. No murmurs, gallops, or rubs noted. Respiratory: Clear bilaterally to auscultation with minimal wheezing noted in both pulmonary ann. Patient not using any accessory muscles or having work of breathing. Abdomen: Soft, nontender to palpation. Bowel sounds present. No organomegaly. Extremities: No clubbing, cyanosis. There is 3+ pitting edema still noted in both lower extremities up to both knees. Patient also has a left gluteal area which has a wound that is covered by dressing. Neurological: Patient is alert and oriented x3. Moves 4 extremities. LABORATORY DATA: Pending at the time of dictation. ASSESSMENT AND PLAN: 1. Acute on chronic hypoxemic respiratory failure secondary to pneumonia influenza. The patient has been on vancomycin and cefepime. The patient is on DuoNeb every 4 hours. He is requiring a little bit less oxygen, so at this point, we will continue with the same management. 2. Bilateral pneumonia secondary to methicillin resistant Staphylococcus aureus. We will continue with antibiotics as we mentioned above. CT of the chest actually did show a slight increase in density of the right lower lobe consolidation and development of mild consolidation at the medial left lung base. At this point, we will continue with the same medication. 3. Acinetobacter bacteria. 4. Staphylococcus epidermidis bacteremia. Because of those blood infections, we had to remove the port yesterday. Dr. Carrasco performed that procedure. Help appreciated. Normal culture is pending so as soon as we know that this culture is negative, then we can replace Port-A- Cath if needed. 5. Chronic obstructive pulmonary disease exacerbation. We will continue with DuoNeb every 4 hours. Antibiotics as mentioned above. 6. History of atrial fibrillation. Heart rate continues to be well controlled. We will continue with same management. 7. Diabetes mellitus type 2. We have increased the doses of Levemir to 75 units twice daily. Until then, blood sugars are much better controlled. We will continue with the same management. 8. Chronic diastolic heart failure. We will continue current medications. 9. Disposition. We will continue to monitor this patient closely. I think this patient would benefit from long-term acute care. farmworker diversified crops has been consulted. We will see what happens tomorrow. cc: Gagan Escoto MD
[2019-10-01] MEDS: MUCOMYST 20% INH SCH ×2 (08:21→19:47)
[2019-10-01 08:59] LABS: AGAP 9; ALBUMIN 3.3 g/dL (3.5-5.0); BUN 11 mg/dL (8-22); CALCIUM 9.7 mg/dL (8.8-10.2); CHLORIDE 100 mmol/L (98-107); COSMO 277; CREATININE 0.8 mg/dL (0.7-1.2); ESTIMATED GFR > 60; GLUCOSE 142 mg/dL (70-104); PHOSPHORUS 2.7 mg/dL (2.7-4.5); POTASSIUM 4.4 mmol/L (3.5-5.1); SODIUM 138 mmol/L (136-145); TCO2 29 mmol/L (25-35)
[2019-10-01] MEDS: MS CONTIN PO SCH ×3 (09:17→22:25)
[2019-10-01] MEDS: LEVAQUIN PO SCH (09:17)
[2019-10-01] MEDS: BUSPAR PO SCH ×3 (09:18→22:25)
[2019-10-01] MEDS: IMDUR PO SCH (09:19)
[2019-10-01] MEDS: PROZAC PO SCH (09:19)
[2019-10-01] MEDS: COREG PO SCH ×2 (09:19→22:25)
[2019-10-01] MEDS: ALDACTONE PO SCH (09:20)
[2019-10-01] MEDS: LINZESS PO SCH (09:20)
[2019-10-01] MEDS: COZAAR PO SCH (09:20)
[2019-10-01] MEDS: LOTRIMIN 1% CREAM TOP SCH ×2 (09:25→22:26)
[2019-10-01] MEDS: ELIQUIS PO SCH ×2 (09:29→22:24)
[2019-10-01] MEDS: LEVEMIR SUBQ SCH ×2 (09:30→22:25)
[2019-10-01] MEDS: LIORESAL PO SCH ×2 (09:30→22:26)
--- NOTE | 2019-10-01 16:20 | PROVIDER PROGRESS NOTE ---
Progress Note Dr. Campo Progress Note/Pulmonary and or critical care We appreciated progress of care, Complications, change in diagnosis, and instructions to patient. Subjective: We note the level of consciousness, bed (chair) position, family presence (if any), level of lethargy, feeling of symptoms, and changes from baseline condition/symptom. The patient is sitting on the bedside chair with no acute distress noted. He stays on a NC at 5L, which is close to his baseline oxygen requirement 4 L/min at home. He still has SOB with activities. He states he is feeling a little better. He is happy that Dr. Carrasco removed his right-sided port this morning. Objective: Vital Signs: We reviewed EMR current values for Pulse rate, Blood pressure, Pulse rate, respiratory rate and Pulse oximetry. Also noted other values and trends if present (e.g. I/O, CVP). T 98.0 with no fever in last 24 hours, [place] 81, RR 16, BP 134/61 and SaO2 97% on NC 5 L. Physical Examination: General: Morbidly obese. Sitting on the bedside chair with no acute distress noted. HEENT: Atraumatic. Normocephalic. Trachea midline. Mucosa pink and moist. Chest: Even and unlabored. Symmetrical excursion. Auscultation reveals prolonged expiratory phase, mild expiratory wheezing bilaterally and coarse crackles bilaterally posteriorly. CVS: Regular rate and rhythm with S1 and S2 appreciated. Abdomen: Protuberant. Non-tender. Soft. Normoactive bowel sounds in all 4 quadrants. Extremities: BLE pitting edema 3+ up to knees with compression hose on. Neuro: A/O x3. Speech fluent. Follow commands. Weakness present. Labs and Radiology: Reviewed available labs and radiology values available at time of EMR review. Laboratory Results 09/30/19 10/01/19 10/01/19 20:09 05:51 08:10 Sodium 138 Potassium 4.4 Chloride 100 Carbon Dioxide 29 Anion Gap 9 BUN 11 Creatinine 0.8 Estimated GFR/1.73 m2 > 60 BUN/Creatinine Ratio 14 Glucose 142 H POC Glucose 234 H 168 H Calculated Osmolality 277 Calcium 9.7 Phosphorus 2.7 Albumin 3.3 L 10/01/19 11:02 Sodium Potassium Chloride Carbon Dioxide Anion Gap BUN Creatinine Estimated GFR/1.73 m2 BUN/Creatinine Ratio Glucose POC Glucose 213 H Calculated Osmolality Calcium Phosphorus Albumin Assessment: Acute on chronic hypoxemic respiratory failure. COPD exacerbation. Methicillin-resistant Staph aureus pneumonia. CT on 09/30/19 showed slight increase RLL consolidation and development of mild consolidation at the medial left lung base. Influenza A. S/P Tamiflu on 09/27/19. Bacteremia with Acinetobacter Lwoffii and Staphylococcus Epidermidis. Port-A-Cath removal by Dr. Carrasco this morning. Morbid obesity. Chronic diastolic congestive heart failure. Stable. Chronic atrial fibrillation. Thrombocytopenia. Plan: Continue current treatment and supportive care per admitting and other teams on the case. Titrate oxygen therapy as needed. Antibiotics including levaquin and vancomycin. Bronchodilators. Mucomyst. Will need outpatient sleep study. Physical therapy. CPT. Encourage incentive spirometer use routinely. Appropriate DVT and GI prophylaxis. Input was appreciated from Admitting MD and other teams on the case.
--- NOTE | 2019-10-01 17:24 | INFECTIOUS DISEASE PROGRESS NO ---
DATE: 10/01/2019 PRESENT ILLNESS: The patient is being treated now for a Staph epidermidis and Acinetobacter bacteremia which originated from his Port-A-Cath. These 2 organisms could have infected the patient's pacemaker present on the left side while the patient was bacteremic. In addition, now the most latest chest x-ray does show bilateral consolidations. MEDICATIONS: Currently the patient is on combination of vancomycin and Levaquin. PHYSICAL EXAMINATION: Vital Signs: Temperature is 98 degrees, pulse 81, respirations 16, blood pressure 134/61. General: This is a ill-appearing, obese and dyspneic elderly male. He is in no acute distress. Head/eyes/ears/nose/throat: He can hear my spoken words and see near objects. He does not have any drainage from his nose or ears. He does not have any white coating of his tongue. Neck: No pain with movement. Thorax: The patient's right-sided Port-A-Cath has been removed. The site is not erythematous or purulent. The patient has a pacemaker on the left side. That site also is not erythematous or purulent. Lungs: Had bilateral rhonchi. Cardiovascular: Heart rate is regular. Abdomen: Soft and nontender. Extremities: Both legs are edematous and the patient has support stockings on both legs. Neurologic: The patient is alert. He is able to sit up in a chair and walk with help. LAB AND X-RAY: Chest x-ray shows bilateral consolidations. Creatinine is 0.8. GFR is greater than 60. CBC shows a white count of 7450, hemoglobin 10.5 and platelet count 81,000. Repeat blood cultures are pending. Chest x-ray shows bilateral consolidations. ASSESSMENT AND PLAN: Patient has a Staph epidermidis and Acinetobacter bacteremia and it appears he has possible bilateral pneumonia as well. The plan is to have the Port-A-Cath removed which it was by Dr. Carrasco and treat the patient with combination of vancomycin and Levaquin for 6 weeks because as I mentioned above, the pacemaker could have become infected hematogenously and also now with the patient having bilateral consolidations the antibiotics would treat if those consolidations are pneumonia. COMORBIDITIES: The patient is obese, he is elderly. He has chronic lung disease, congestive heart failure, chronic leg edema, diabetes mellitus and anemia of chronic disease. cc: Darryl Downs MD
[2019-10-01] MEDS: PROTONIX PO SCH (22:24)
[2019-10-02] MEDS: VANCOMYCIN 1,750 MG in NS 250 ML IV SCH (01:19)
[2019-10-02] MEDS: DUONEB (A & A) INH SCH ×6 (03:41→22:56)
[2019-10-02] MEDS: HUMALOG SUBQ SCH ×4 (06:22→22:49)
[2019-10-02] MEDS: MUCOMYST 20% INH SCH ×2 (08:14→19:52)
[2019-10-02] MEDS ORDERED: INSULIN PEN NEEDLES ONE (10:02)
[2019-10-02] MEDS: BUSPAR PO SCH ×3 (10:12→22:48)
[2019-10-02] MEDS: LIORESAL PO SCH ×2 (10:12→22:47)
[2019-10-02] MEDS: MS CONTIN PO SCH ×3 (10:12→22:48)
[2019-10-02] MEDS: ELIQUIS PO SCH ×2 (10:13→22:48)
[2019-10-02] MEDS: COZAAR PO SCH (10:13)
[2019-10-02] MEDS: COREG PO SCH ×2 (10:13→22:47)
[2019-10-02] MEDS: PROZAC PO SCH (10:13)
[2019-10-02] MEDS: IMDUR PO SCH (10:14)
[2019-10-02] MEDS: LINZESS PO SCH (10:14)
[2019-10-02] MEDS: LEVEMIR SUBQ SCH ×2 (10:14→23:08)
[2019-10-02] MEDS: LEVAQUIN PO SCH (10:14)
[2019-10-02] MEDS: ALDACTONE PO SCH (10:15)
[2019-10-02] MEDS: LOTRIMIN 1% CREAM TOP SCH ×2 (10:15→22:55)
[2019-10-02 10:20] LABS: AGAP 11; ALBUMIN 3.2 g/dL (3.5-5.0); BUN 12 mg/dL (8-22); CALCIUM 9.5 mg/dL (8.8-10.2); CHLORIDE 100 mmol/L (98-107); COSMO 277; CREATININE 0.9 mg/dL (0.7-1.2); ESTIMATED GFR > 60; GLUCOSE 133 mg/dL (70-104); PHOSPHORUS 3.2 mg/dL (2.7-4.5); POTASSIUM 4.3 mmol/L (3.5-5.1); SODIUM 138 mmol/L (136-145); TCO2 27 mmol/L (25-35)
[2019-10-02 10:38] LABS: BASO# 0.03 X1000 (0.0-0.2); BASO% 0.5 % (0.0-0.8); EOS# 0.16 X1000 (0.0-0.7); EOS% 2.6 % (0.0-10.0); HEMATOCRIT 34.5 % (42.0-52.0); HEMOGLOBIN 10.5 g/dL (14.0-18.0); IMM GRAN# 0.03 X1000 (0.0-0.04); IMM GRAN% 0.5 % (0.0-0.5); LYMPH% 12.8 % (20.5-51.1); MCH 24.1 PG (27-31); MCHC 30.4 g/dL (33-37); MCV 79.3 FL (81-99); MONO# 0.53 X1000 (0.11-0.59); MONO% 8.5 % (1.7-9.3); MPV 11.6 FL (7.4-10.4); NEUT% 75.1 % (42.2-75.2); PLT 64 X1000 (130-400); RBC 4.35 XMIL (4.7-6.1); RDW 14.5 % (11.5-14.5); WBC 6.25 X1000 (4.8-10.8)
--- NOTE | 2019-10-02 10:44 | PROGRESS NOTE ---
DATE: 10/02/2019 SUBJECTIVE: Patient reports breathing a little bit better. He is requiring 5 L of oxygen by nasal cannula. He is not able to lay flat in the bed so he is sleeping in the recliner. OBJECTIVE: Vital Signs: Temperature 97.4 degrees, heart rate 63, respiratory rate 12, blood pressure 162/75, O2 saturation 100% on 5 L nasal cannula. General Examination: This is a chronically ill-looking and morbidly obese, 69-year-old, male, lying in bed, in no acute distress. Cardiovascular Examination: Irregularly irregular heart rhythm. No murmurs, gallops, or rubs noted. Respiratory Examination: Minimal wheezing noted in both pulmonary ann. Minimal rhonchi is noted as well. Patient is not using any accessory muscles or having work of breathing. Abdomen: Soft, nontender to palpation. Bowel sounds present. No organomegaly. Extremities: No clubbing or cyanosis. There is 3+ pitting edema still noted in both lower extremities up to both knees. Patient has also left gluteal area that has a wound that is covered by a dressing. Neurological Examination: The patient is alert and oriented x3. Moves 4 extremities. Laboratory Data: Those are pending at the time of my dictation. ASSESSMENT AND PLAN: 1. Acute on chronic hypoxemic respiratory failure secondary to pneumonia and influenza. The patient has been treated with Tamiflu for 5 days. The patient continues to be on vancomycin and cefepime, according to Dr. Downs's recommendations. He continues to be on DuoNeb every 4 hours as scheduled. He is requiring a little bit less oxygen in comparing with 3 days ago when he was requiring a Venturi mask. He requires, at home, 4 L of oxygen so he is really getting close to his baseline needs. We will continue to monitor. 2. Bilateral pneumonia secondary to methicillin-resistant Staphylococcus aureus. We will continue with antibiotics as mentioned above. CT of the chest done 2 days ago did show slight increase in density of the right lower lobe consolidation with development of a mild consolidation in the medial left lung base. We will continue with the same management. 3. Acinetobacter bacteremia and Staphylococcus epidermidis bacteremia. We have removed the Port- A-Cath and we have ordered blood cultures. Those are negative day number 2. If those are negative at day number 5 and if we need, we can replace Port-A-Cath again. 4. Chronic obstructive pulmonary disease exacerbation, definitely getting better. Physical examination disclosed less wheezing, definitely almost no wheezing today. We will continue with DuoNeb. 5. History of atrial fibrillation. Heart rate is well controlled. We will continue with the same management. 6. Diabetes mellitus type 2. The patient is receiving 75 units of Levemir twice daily. With those doses, it seems like the blood sugars are much better controlled. 7. Chronic diastolic heart failure. We will continue with current medications. 8. Disposition. We will continue to monitor this patient closely. I think this patient would benefit from a long-term acute care because he will need 6 weeks of antibiotics total to treat this bacteremia considering that he has a pacemaker. [employer] has been consulted. We will see what they have to say today. Addendum: I have talked with Dr. Downs and patient. Patient refused to go to rehab. His blood cultures are sterile so will try to place a Porth a cath tomorrow. After that will try to set up antibiotics, in this case Vancomycin for 6 weeks as well as Levaquin oral. He should be able to go home with home health tomorrow. cc: Gagan Escoto MD MTDD
--- NOTE | 2019-10-02 12:10 | INFECTIOUS DISEASE PROGRESS NO ---
DATE: 10/02/2019 PRESENT ILLNESS: The patient has a Staph epidermidis and Acinetobacter bacteremia which originated from his Port-A-Cath. The Port-A-Cath has been removed. The 2 organisms, namely Staph epidermidis and Acinetobacter, could have infected the patient's pacemaker on the left side while he was bacteremic. Also, it appears the patient could have some pneumonia and most likely the pneumonia is due to hematogenous seeding of the lung while the patient was bacteremic. MEDICATIONS: The patient is on IV vancomycin and p.o. Levaquin. PHYSICAL EXAMINATION: Vital Signs: Temperature is 97.4 degrees, pulse 68, respirations 12, blood pressure 162/75. General: This is an ill-appearing, obese, and dyspneic elderly male. He is in no acute distress at this time, however. Head/eyes/ears/nose/throat: He can hear my spoken words and see near objects. He does not have any white patches on his tongue. Neck: No pain with movement. Thorax: Patient has a pacemaker present on the left side of the chest. He has a site on the right side of the chest where the patient's Port-A-Cath was removed. Lungs: Bilateral rhonchi. Cardiovascular: Heart rate is regular. Abdomen: Soft and nontender. Extremities: Both legs are edematous and both legs have support stockings on them. Neurologic: The patient is alert. She is able to walk and sit. She does not have a tremor. LAB AND X-RAY: CBC shows a white count of 6250, hemoglobin 10.5 and platelet count 64,000. Creatinine is 0.9. GFR is greater than 60. Repeat blood cultures are sterile at 48 hours. ASSESSMENT AND PLAN: The patient has Staph epidermidis and Acinetobacter bacteremia which could have hematogenously infected his Port-A-Cath and caused pneumonia. My plan is to continue both vancomycin and Levaquin for a total of 6 weeks of treatment. I have put in a consult for surgery to put in another Port-A-Cath and also I put in a consult for Social Service to set up home IV antibiotics with [facility]. The patient will be given an appointment to come to my office in 20 days and after that in another 20 days which will end the patient's antibiotics. When I am done treating the patient with his IV antibiotics for 6 weeks, I am not going to put the patient on a low dose of an antibiotic, namely Levaquin, because I think the adverse reactions would outweigh the good that would be to keep the patient on long-term Levaquin. COMORBIDITIES: The patient is obese, and he is elderly. He has chronic lung disease, congestive heart failure, chronic leg edema, diabetes mellitus, and anemia of chronic disease. cc: Darryl Downs MD MTDD
--- NOTE | 2019-10-02 13:59 | Diag Imaging Result Doc PS360 ---
EXAM: CHEST-2 VIEWS HISTORY: pneumonia TECHNIQUE: Three views COMPARISON: 09/29/2019 FINDINGS: The lungs are well expanded. No cardiomegaly. There are sternal wires and surgical clips as well as a left-sided pacemaker. Mild increased markings in the right lung base. Granuloma in the mid left lung. Interval removal of the right jugular catheter. No pneumothorax. No effusions. IMPRESSION: Small infiltrate in the right lower lobe Electronically signed by Ramses Stanton 10/02/2019 1:57 PM
[2019-10-02] MEDS: VANCOMYCIN 1,200 MG in NS 250 ML IV SCH (17:40)
--- NOTE | 2019-10-02 19:06 | PROVIDER PROGRESS NOTE ---
Progress Note Dr. Campo Progress Note/Pulmonary and or critical care We appreciated progress of care, Complications, change in diagnosis, and instructions to patient. Subjective: We note the level of consciousness, bed (chair) position, family presence (if any), level of lethargy, feeling of symptoms, and changes from baseline condition/symptom. The patient is sitting on the bedside chair with no acute distress noted. He stays on a NC at 5L, which is close to his baseline oxygen requirement 4 L/min at home. He appears no trouble to transfer himself from the bedside chair to the wheelchair next to him. He still has SOB with activities. He also has some mild audible bubbling expiratory breathing sounds at this time. He states he is feeling better. Objective: Vital Signs: We reviewed EMR current values for Pulse rate, Blood pressure, Pulse rate, respiratory rate and Pulse oximetry. Also noted other values and trends if present (e.g. I/O, CVP). T 97.8 with no fever in last 24 hours, SD 77, RR 16, BP 123/62 and SaO2 97% on NC 5 L. Physical Examination: General: Morbidly obese. Sitting on the bedside chair with no acute distress noted. HEENT: Atraumatic. Normocephalic. Trachea midline. Mucosa pink and moist. Chest: Even and unlabored. Symmetrical excursion. Auscultation reveals prolonged expiratory phase and coarse crackles bilaterally posteriorly. CVS: Regular rate and rhythm with S1 and S2 appreciated. Abdomen: Protuberant. Non-tender. Soft. Normoactive bowel sounds in all 4 quadrants. Extremities: BLE pitting edema 3+ up to knees with compression hose on. Neuro: A/O x3. Speech fluent. Follow commands. Weakness present. Labs and Radiology: Reviewed available labs and radiology values available at time of EMR review. Laboratory Results 09/30/19 09/30/19 10/01/19 08:58 11:21 21:20 WBC RBC Hgb Hct MCV MCH MCHC RDW Std Deviation Plt Count MPV Immature Gran % (Auto) Neut % (Auto) Lymph % (Auto) [place] % (Auto) Eos % (Auto) Baso % (Auto) Immature Gran # (Auto) Neut # (Auto) Lymph # (Auto) [place] # (Auto) Eos # (Auto) Baso # (Auto) Sodium Potassium Chloride Carbon Dioxide Anion Gap BUN Creatinine Estimated GFR/1.73 m2 BUN/Creatinine Ratio Glucose POC Glucose 149 H 221 H 205 H Calculated Osmolality Calcium Phosphorus Albumin 10/02/19 10/02/19 10/02/19 05:47 08:41 08:41 WBC 6.25 RBC 4.35 L Hgb 10.5 L Hct 34.5 L MCV 79.3 L MCH 24.1 L MCHC 30.4 L RDW Std Deviation 14.5 Plt Count 64 L MPV 11.6 H Immature Gran % (Auto) 0.5 Neut % (Auto) 75.1 Lymph % (Auto) 12.8 L [place] % (Auto) 8.5 Eos % (Auto) 2.6 Baso % (Auto) 0.5 Immature Gran # (Auto) 0.03 Neut # (Auto) 4.70 Lymph # (Auto) 0.80 L [place] # (Auto) 0.53 Eos # (Auto) 0.16 Baso # (Auto) 0.03 Sodium 138 Potassium 4.3 Chloride 100 Carbon Dioxide 27 Anion Gap 11 BUN 12 Creatinine 0.9 Estimated GFR/1.73 m2 > 60 BUN/Creatinine Ratio 13 Glucose 133 H POC Glucose 212 H Calculated Osmolality 277 Calcium 9.5 Phosphorus 3.2 Albumin 3.2 L 10/02/19 10/02/19 10:52 16:18 WBC RBC Hgb Hct MCV MCH MCHC RDW Std Deviation Plt Count MPV Immature Gran % (Auto) Neut % (Auto) Lymph % (Auto) [place] % (Auto) Eos % (Auto) Baso % (Auto) Immature Gran # (Auto) Neut # (Auto) Lymph # (Auto) [place] # (Auto) Eos # (Auto) Baso # (Auto) Sodium Potassium Chloride Carbon Dioxide Anion Gap BUN Creatinine Estimated GFR/1.73 m2 BUN/Creatinine Ratio Glucose POC Glucose 288 H 195 H Calculated Osmolality Calcium Phosphorus Albumin Assessment: Acute on chronic hypoxemic respiratory failure. COPD exacerbation. Methicillin-resistant Staph aureus pneumonia. CT on 09/30/19 showed slight increase RLL consolidation and development of mild consolidation at the medial left lung base. Influenza A. S/P Tamiflu on 09/27/19. Bacteremia with Acinetobacter Lwoffii and Staphylococcus Epidermidis. Morbid obesity. Chronic diastolic congestive heart failure. Stable. Chronic atrial fibrillation. Thrombocytopenia. Plan: Continue current treatment and supportive care per admitting and other teams on the case. Titrate oxygen therapy as needed. Antibiotics including levaquin and vancomycin. Bronchodilators. Mucomyst. Will need outpatient sleep study. Physical therapy. CPT. Encourage incentive spirometer use routinely. Appropriate DVT and GI prophylaxis. Input was appreciated from Admitting MD and other teams on the case.
--- NOTE | 2019-10-02 20:57 | CONSULTATION ---
DATE OF CONSULTATION: 10/02/2019 Mr. Ari Bell is an overweight, 69-year-old white male who has been hospitalized with Staph epidermis and Acinetobacter bacteremia, and his Port-A-Cath was removed Wednesday per Dr. Carrasco. It has been placed years ago by Dr. Vick. He will need 6 weeks of intravenous antibiotics for pneumonia. We are asked to place another port. On exam, Mr. Bell is overweight. He has a wound involving his anterior right chest. He has a pacemaker involving his left chest. We will make sure that his infection involving the right chest is completely resolved prior to placing any other Port-A-Cath. We also can explore PICC line placement for 6 weeks of antibiotics. cc: Palmira Luevano MD
[2019-10-02] MEDS: PROTONIX PO SCH (22:48)
[2019-10-03] MEDS: DUONEB (A & A) INH SCH ×6 (03:18→23:03)
[2019-10-03] MEDS: VANCOMYCIN 1,200 MG in NS 250 ML IV SCH ×2 (06:31→17:52)
[2019-10-03] MEDS: HUMALOG SUBQ SCH ×4 (06:31→22:19)
[2019-10-03] MEDS: MUCOMYST 20% INH SCH ×2 (08:50→19:43)
[2019-10-03] MEDS: LEVEMIR SUBQ SCH ×3 (10:44→22:27)
[2019-10-03] MEDS: LEVAQUIN PO SCH (10:45)
[2019-10-03] MEDS: IMDUR PO SCH (10:45)
[2019-10-03] MEDS: ELIQUIS PO SCH ×2 (10:46→21:49)
[2019-10-03] MEDS: MS CONTIN PO SCH ×3 (10:46→21:49)
[2019-10-03] MEDS: COREG PO SCH ×2 (10:46→21:49)
[2019-10-03] MEDS: BUSPAR PO SCH ×3 (10:46→21:49)
[2019-10-03] MEDS: COZAAR PO SCH (10:46)
[2019-10-03] MEDS: PROZAC PO SCH (10:46)
[2019-10-03] MEDS: LIORESAL PO SCH ×2 (10:47→21:49)
[2019-10-03] MEDS: ALDACTONE PO SCH (10:47)
[2019-10-03] MEDS: LINZESS PO SCH (10:47)
--- NOTE | 2019-10-03 13:24 | INFECTIOUS DISEASE PROGRESS NO ---
DATE: 10/03/2019 SUBJECTIVE: The patient has Staph epidermidis and Acinetobacter bacteremia which originated from his Port-A-Cath. The Port-A-Cath has been removed from the right side. The patient's bacteremia could have hematogenously infected the patient's pacemaker which is on the left side of the chest. The patient also has a pneumonia which would be due to the hematogenous seeding of the lung while the patient was bacteremic. MEDICATIONS: The patient is on vancomycin and p.o. Levaquin. The patient has been on antibiotics for a total of 3 days with day one being the first day that the repeat blood cultures are sterile. PHYSICAL EXAMINATION: Vital Signs: Temperature 99 degrees, pulse 71, respirations 14, and blood pressure 134/67. General: This is an ill-appearing, obese, and dyspneic elderly male. Currently, he is in no acute distress. Head/eyes/ears/nose/throat: He can hear my spoken words and see near objects. He is wearing glasses. He does not have any white coating on his tongue. Neck: No pain with movement. Thorax: The patient has a pacemaker present on the left side. The site is not swollen or red. The patient had a port Port-A-Cath on the right side, but this has been removed. That site is not erythematous or purulent. Lungs: The patient has bilateral rhonchi, but not as many as he had in the past few days. Cardiovascular: Heart rate is regular. Abdomen: Soft and nontender. Extremities: Both legs have support stockings on them. Neurologic: The patient is alert. He is able to ambulate and sit without difficulty. He does not have a tremor. LABORATORY AND X-RAY: There is no new radiographic study. CBC shows a white count of 6250, hemoglobin 10.5, platelet count 64,000, and creatinine is 0.9. GFR is greater than 60. ASSESSMENT AND PLAN: The patient has Staph epidermidis and Acinetobacter bacteremia which could have hematogenously infected his pacemaker and caused his pneumonia. The Staph epidermidis and Acinetobacter bacteremia did originate from the Port-A-Cath as I mentioned above, and it also caused his pneumonia. The plan is to treat the patient with vancomycin and the Levaquin for a total of 6 weeks in order to prevent the patient's pacemaker from getting infected or flaring up and having more of an infection. I am not going to place the patient on long-term Levaquin after the IV antibiotics because I think the ill affects from being on long-term Levaquin out measure the benefit of them. COMORBIDITIES: The patient is obese, and he is elderly. He has chronic lung disease colon, congestive heart failure, chronic leg edema, diabetes mellitus, and anemia of chronic disease. cc: Darryl Downs MD
[2019-10-03] MEDS: LOTRIMIN 1% CREAM TOP SCH ×2 (14:15→22:19)
--- NOTE | 2019-10-03 19:18 | PROVIDER PROGRESS NOTE ---
Progress Note Dr. Campo Progress Note/Pulmonary and or critical care We appreciated progress of care, Complications, change in diagnosis, and instructions to patient. Subjective: We note the level of consciousness, bed (chair) position, family presence (if any), level of lethargy, feeling of symptoms, and changes from baseline condition/symptom. The patient is sitting on the bedside chair with no acute distress noted. He stays on a NC at 5L, which is close to his baseline oxygen requirement 4 L/min at home. He states he is feeling better. He still has SOB with activities. When I ask for deep breathing, some mild audible bubbling expiratory breathing sounds is noted. He is waiting for the port placement. Objective: Vital Signs: We reviewed EMR current values for Pulse rate, Blood pressure, Pulse rate, respiratory rate and Pulse oximetry. Also noted other values and trends if present (e.g. I/O, CVP). T 99.0, CA 71, RR 14, BP 134/67 and SaO2 98% on NC 5 L. Physical Examination: General: Morbidly obese. Sitting on the bedside chair with no acute distress noted. HEENT: Atraumatic. Normocephalic. Trachea midline. Mucosa pink and moist. Chest: Even and unlabored. Audible expiratory bubbling breathing sounds noted with deeth breathing. Symmetrical excursion. Auscultation reveals prolonged expiratory phase and coarse crackles bilaterally posteriorly. CVS: Regular rate and rhythm with S1 and S2 appreciated. Abdomen: Protuberant. Non-tender. Soft. Normoactive bowel sounds in all 4 quadrants. Extremities: BLE pitting edema 3+ up to knees with compression hose on. Neuro: A/O x3. Speech fluent. Follow commands. Weakness present. Labs and Radiology: Reviewed available labs and radiology values available at time of EMR review. Laboratory Results 10/02/19 10/03/19 10/03/19 20:29 05:51 12:30 POC Glucose 206 H 164 H 115 H 10/03/19 10/03/19 12:58 16:41 POC Glucose 110 H 208 H D Assessment: Acute on chronic hypoxemic respiratory failure. COPD exacerbation. Methicillin-resistant Staph aureus pneumonia. CT on 09/30/19 showed slight increase RLL consolidation and development of mild consolidation at the medial left lung base. Influenza A. S/P Tamiflu on 09/27/19. Bacteremia with Acinetobacter Lwoffii and Staphylococcus Epidermidis. Blood cultures on 09/30/19 have no growth after 48 hours. Morbid obesity. Chronic diastolic congestive heart failure. Stable. Chronic atrial fibrillation. Thrombocytopenia. Plan: Continue current treatment and supportive care per admitting and other teams on the case. Titrate oxygen therapy as needed. Antibiotics including levaquin and vancomycin. Bronchodilators. Mucomyst. Will need outpatient sleep study. Physical therapy. CPT. Encourage incentive spirometer use routinely. Appropriate DVT and GI prophylaxis. Input was appreciated from Admitting MD and other teams on the case.
--- NOTE | 2019-10-03 20:36 | PROGRESS NOTE ---
DATE: 10/03/2019 SUBJECTIVE: Today Mr. Bell refers to be doing a lot better. He said he coughed multiple time last night and brought up so many sputum and that has helped him this morning. He is pending a port placement tomorrow. OBJECTIVE: Vitals: Blood pressure is 134/67, pulse of 71, respirations is 14, temperature 99 degrees, patient is saturating 98% on 3 L of nasal cannula. General: Mr. Cisneros is a 69-year-old morbidly obese gentleman. He is in the recliner, no distress. Mucosa is pink and moist. Anicteric. Acyanotic. Neck: Supple. Chest: Good air entry bilateral. There is diffuse rhonchi in both lung ann. Cardiovascular: Irregularly irregular but no murmurs, no rubs, no gallops. Abdomen: Soft, distended but nontender. Extremities: About 2+ pedal edema. SHAREPOINT TRAINER: Patient is awake, alert, and oriented. The lower extremities both have some stasis Dermatopathy, the left 1 is minimally erythematous. LABORATORY DATA: None for today. Glucose is 115. ASSESSMENT: 1. Acute on chronic hypoxemic and hypercarbic respiratory failure. 2. Bilateral methicillin-resistant Staphylococcus aureus pneumonia. Patient is on antimicrobial therapy. 3. Acinetobacter bacteremia and Staph epidermidis bacteremia. Port has been removed. Repeat blood cultures have been negative. Patient is pending a port placement tomorrow. 4. Chronic obstructive pulmonary disease with exacerbation. 5. Chronic atrial fibrillation. 6. Diabetes mellitus. 7. History of chronic diastolic heart failure. So in general I think Mr. Bell is doing well. He is pending a port placement tomorrow and hopefully he will be discharged on IV vancomycin and probably p.o. Levaquin for a total of 6 weeks as per ID documentation. cc: Jed Matthew MD
[2019-10-03] MEDS: PROTONIX PO SCH (21:49)
[2019-10-04] MEDS: DUONEB (A & A) INH SCH ×6 (03:17→23:48)
[2019-10-04] MEDS: VANCOMYCIN 1,200 MG in NS 250 ML IV SCH ×2 (07:36→17:30)
[2019-10-04] MEDS: HUMALOG SUBQ SCH ×4 (07:37→22:54)
[2019-10-04] MEDS: MUCOMYST 20% INH SCH ×2 (07:49→21:45)
[2019-10-04] MEDS: MS CONTIN PO SCH ×3 (09:35→22:39)
[2019-10-04] MEDS: COREG PO SCH ×2 (09:36→22:39)
[2019-10-04] MEDS: ELIQUIS PO SCH ×2 (09:36→22:49)
[2019-10-04] MEDS: ALDACTONE PO SCH (09:36)
[2019-10-04] MEDS: PROZAC PO SCH (09:36)
[2019-10-04] MEDS: IMDUR PO SCH (09:36)
[2019-10-04] MEDS: COZAAR PO SCH (09:36)
[2019-10-04] MEDS: BUSPAR PO SCH ×3 (09:36→22:39)
[2019-10-04] MEDS: LEVAQUIN PO SCH (09:36)
[2019-10-04] MEDS: LIORESAL PO SCH ×2 (09:37→22:40)
[2019-10-04] MEDS: LEVEMIR SUBQ SCH ×2 (09:37→22:50)
[2019-10-04] MEDS: LINZESS PO SCH (09:39)
[2019-10-04] MEDS: LOTRIMIN 1% CREAM TOP SCH ×2 (09:52→22:55)
[2019-10-04] MEDS ORDERED: MEDROL DOSEPAK PO SCH (10:30)
--- NOTE | 2019-10-04 14:15 | PROVIDER PROGRESS NOTE ---
Progress Note Dr. Campo Progress Note/Pulmonary and or critical care We appreciated progress of care, Complications, change in diagnosis, and instructions to patient. Subjective: We note the level of consciousness, bed (chair) position, family presence (if any), level of lethargy, feeling of symptoms, and changes from baseline condition/symptom. The patient is sitting on the bedside chair with no acute distress noted. He is on a NC at 5L. He states he is feeling better. He has some audible wheezing at this time. He still has SOB with activities. Objective: Vital Signs: We reviewed EMR current values for Pulse rate, Blood pressure, Pulse rate, r espiratory rate and Pulse oximetry. Also noted other values and trends if present (e.g. I/O, CVP). T 98.2, IA 63, RR 18, BP 139/71 and SaO2 100% on NC 5 L. Physical Examination: General: Morbidly obese. Sitting on the bedside chair with no acute distress noted. HEENT: Atraumatic. Normocephalic. Trachea midline. Mucosa pink and moist. Chest: Even and unlabored. Audible wheezing noted. Symmetrical excursion. Auscultation reveals prolonged expiratory phase and coarse crackles bilaterally posteriorly. CVS: Regular rate and rhythm with S1 and S2 appreciated. Abdomen: Protuberant. Non-tender. Soft. Normoactive bowel sounds in all 4 quadrants. Extremities: BLE pitting edema 3+ up to knees with compression hose on. Neuro: A/O x3. Speech fluent. Follow commands. Weakness present. Labs and Radiology: Reviewed available labs and radiology values available at time of EMR review. Laboratory Results 10/03/19 10/03/19 10/03/19 05:51 12:30 12:58 POC Glucose 164 H 115 H 110 H Random Vancomycin 10/03/19 10/03/19 10/04/19 16:41 19:53 05:18 POC Glucose 208 H D 240 H Random Vancomycin 14.20 10/04/19 10/04/19 10/04/19 06:01 10:40 11:18 POC Glucose 139 H 108 H 120 H Random Vancomycin 10/04/19 11:20 POC Glucose 107 H Random Vancomycin Assessment: Acute on chronic hypoxemic respiratory failure. COPD exacerbation. Methicillin-resistant Staph aureus pneumonia. CT on 09/30/19 showed slight increase RLL consolidation and development of mild consolidation at the medial left lung base. Influenza A. S/P Tamiflu on 09/27/19. Bacteremia with Acinetobacter Lwoffii and Staphylococcus Epidermidis. Blood cultures on 09/30/19 have no growth after 48 hours. Morbid obesity. Chronic diastolic congestive heart failure. Stable. Chronic atrial fibrillation. Thrombocytopenia. Plan: Continue current treatment and supportive care per admitting and other teams on the case. Titrate oxygen therapy as needed. Antibiotics including levaquin and vancomycin. Bronchodilators. Mucomyst. Will need outpatient sleep study. Physical therapy. CPT. Encourage incentive spirometer use routinely. Appropriate DVT and GI prophylaxis. Input was appreciated from Admitting MD and other teams on the case.
[2019-10-04] MEDS: MEDROL PO SCH ×2 (15:58→22:40)
[2019-10-04] MEDS ORDERED: D50W SYRINGE IV PRN (16:04)
[2019-10-04] MEDS ORDERED: HEPARIN ONE (16:07)
[2019-10-04] MEDS ORDERED: NS 250 ML ONE (16:08)
[2019-10-04] MEDS ORDERED: ZOFRAN ONE (17:24)
[2019-10-04] MEDS: XYLOCAINE 1%/EPI 1:100,000 ONE ×2 (17:24→17:35)
[2019-10-04] MEDS ORDERED: ROBINUL ONE (17:24)
--- NOTE | 2019-10-04 17:30 | PROGRESS NOTE ---
DATE: 10/04/2019 SUBJECTIVE: This morning, Mr. Bell referred to be doing well. Still has some cough with some expectoration. He was pending a port placement and hopefully get discharged. Unfortunately, pulmonary Medicine thinks that the patient still needs inpatient management. OBJECTIVE: Vital signs: Blood pressure is 105/59, pulse of 66, respiration is 18, temperature 97.2 degrees. General: Mr. Bell is a 69-year-old morbidly obese gentleman. He was sitting up in a chair in no distress. Mucosa is pink and moist. Anicteric. Acyanotic. Neck: Supple. Chest: Air entry is bilaterally reduced. There are still some crackles and end expiratory wheezing in both lung ann. Cardiovascular: Irregularly irregular but rate controlled. No murmurs GI: Abdomen is distended but nontender. Bowel sounds present. Extremities: About 1+ pedal edema. KIER DRIER: Patient is awake, alert, and oriented. No focal deficit. LABORATORY DATA: No laboratory data for today. IMAGING STUDIES: None. MEDICATIONS: Have all been reviewed. He has been started on methylprednisolone. He continues to be on vancomycin as well as some Levaquin. ASSESSMENT: 1. Acute on chronic hypoxemic and hypercarbic respiratory failure. 2. Methicillin-resistant Staphylococcus aureus multifocal pneumonia. Patient is on Vancomycin. 3. Acinetobacter lwoffii and Staphylococcus epidermidis bacteremia. Subsequent blood cultures have been negative. 4. Severe chronic obstructive pulmonary disease with moderate to severe exacerbation. 5. Chronic atrial fibrillation, currently rate controlled. 6. Diabetes mellitus on insulin regimen. 7. Chronic diastolic heart failure with mild volume distention. Patient is on diuretic therapy. PLAN: So in general, I think Mr. Bell is fairly stable. He still has some respiratory findings. However, he has very severe COPD and he is normally symptomatic from respiratory standpoint. I think he is down to 3 to 5 L of nasal cannular and he seems to be saturating well. His all other comorbidities seems to be fairly stable. He is getting a port placed in today by surgery. ID has already arranged for his home anti antibiotics. From medical standpoint, whenever Pulmonary Medicine is okay, patient can be discharged. cc: Jed Matthew MD
[2019-10-04] MEDS: MORPHINE ONE ×2 (18:00→18:10)
--- NOTE | 2019-10-04 21:17 | OPERATIVE NOTE ---
PROCEDURE DATE: 10/04/2019 PREOPERATIVE DIAGNOSIS: 1. Pneumonia off and need for long-term IV antibiotics. 2. Poor peripheral venous access. POSTOPERATIVE DIAGNOSES: 1. Pneumonia off and need for long-term IV antibiotics. 2. Poor peripheral venous access. PRINCIPAL PROCEDURE: Right internal jugular Port-A-Cath using ultrasound and fluoroscopy. SURGEON: Palmira Luevano MD. ANESTHESIA: General using an LMA. Estimated blood loss 25 mL. DRAINS: None. INDICATIONS: Mr. Ari Bell is a 69-year-old morbidly obese white male with a hart. He had to have a port removed which was felt to be infected. He needs long-term IV antibiotics. He has poor peripheral venous access and we were asked to place another port. DESCRIPTION OF PROCEDURE: The patient was brought to the operating room, placed supine, received general anesthesia, and was ventilated using an LMA. His right neck, shoulder, and anterior chest were prepped and draped within the sterile field. I used an Ioban on the skin. He was already on IV antibiotics. I began the procedure by using ultrasound and identifying the right internal jugular vein. Using ultrasound guidance, I directed an 18-gauge needle into the vein under direct vision of the ultrasound. Through this needle I placed a guidewire into the right side of the heart. I checked the position of the guidewire using fluoroscopy. The needle was removed. I made a counter incision on the anterior right chest with a 15 blade scalpel, and I created a subcutaneous pocket for the port. I used a blunt tunneler and an 8-[place] catheter and I tunneled the catheter from the chest incision to the neck incision. I placed a dilator and sheath over the guidewire into the superior vena cava. I placed the distal end of our catheter through the sheath after removal of the dilator and guidewire. I directed this catheter into the right atrium under direct vision of the fluoroscopy. The other end of the catheter was hooked to the port. The port was secured in its pocket with two 2-0 silk stitches. It was functioning well. It was flushed with heparin saline. We are also happy with its position using fluoroscopy. We closed our wounds in layers. First layer 3-0 popoff Vicryl stitches closed the subcutaneous tissue. The skin was closed with 4-0 Monocryl subcuticular stitch. Dressings were applied. He tolerated the procedure well with plans for him to go the recovery room and then return to his room on the floor. cc: Palmira Luevano MD
[2019-10-04] MEDS: PROTONIX PO SCH (22:49)
[2019-10-05] MEDS: MEDROL PO SCH ×5 (01:10→22:05)
[2019-10-05] MEDS: DUONEB (A & A) INH SCH ×6 (03:48→23:33)
[2019-10-05] MEDS: HUMALOG SUBQ SCH ×4 (06:37→22:07)
[2019-10-05] MEDS: VANCOMYCIN 1,200 MG in NS 250 ML IV SCH (06:38)
[2019-10-05] MEDS: MUCOMYST 20% INH SCH ×2 (08:40→20:00)
[2019-10-05] MEDS: LINZESS PO SCH (08:54)
[2019-10-05] MEDS: MS CONTIN PO SCH ×3 (08:54→22:03)
[2019-10-05] MEDS: PROZAC PO SCH (08:56)
[2019-10-05] MEDS: ALDACTONE PO SCH (08:58)
[2019-10-05] MEDS: IMDUR PO SCH (08:58)
[2019-10-05] MEDS: COREG PO SCH ×2 (09:00→22:05)
[2019-10-05] MEDS: LIORESAL PO SCH ×2 (09:00→22:04)
[2019-10-05] MEDS: BUSPAR PO SCH ×3 (09:00→22:04)
[2019-10-05] MEDS: LEVAQUIN PO SCH (09:00)
[2019-10-05] MEDS: COZAAR PO SCH (09:02)
[2019-10-05] MEDS: ELIQUIS PO SCH ×2 (09:02→22:05)
[2019-10-05] MEDS: LOTRIMIN 1% CREAM TOP SCH ×2 (09:07→21:00)
[2019-10-05] MEDS: LEVEMIR SUBQ SCH ×3 (09:08→22:06)
[2019-10-05] MEDS ORDERED: VANCOMYCIN 1,500 MG in NS 250 ML IV SCH (10:32)
--- NOTE | 2019-10-05 10:34 | Diag Imaging Result Doc PS360 ---
CHEST-2 VIEWS - 10/05/2019 INDICATION: hypoxia COMPARISON: 10/02/2019 FINDINGS: There is a new right chest port in good position with the catheter tip at the mid SVC. Stable CABG changes. Stable left-sided pacemaker in good position. Stable hyperexpanded lungs compatible with COPD. Heart size remains grossly normal. There has been worsening in the hazy infiltrate in the right lung base concerning for pneumonia. No pneumothorax or significant pleural effusion. IMPRESSION: Worsening hazy right basilar infiltrate/pneumonia. Electronically signed by Brandon Gauthier 10/05/2019 10:32 AM
--- NOTE | 2019-10-05 14:51 | PROGRESS NOTE ---
DATE: 10/05/2019 SUBJECTIVE: This morning Mr. Bell referred to be doing a lot better. No new complaints. Still has some residual cough. He underwent port placement yesterday. OBJECTIVE: Vitals: Blood pressure is 125/51, pulse of 57, respirations 20, temperature 97.5 degrees. Mr. Bell was sitting up in a chair this morning.. General exam: Mr. Bell is a 69- year-old morbidly obese, gentleman. He was not in any cardiopulmonary distress. HEENT: Mucosa is pink and moist. Anicteric. Acyanotic. Neck: Supple. Chest: Air entry is bilaterally equal. There is still some end expiratory wheezing with rhonchi. Cardiovascular: Irregularly irregular. No murmurs. GI/Abdomen: Soft, distended, but nontender. Extremities: About 1+ pedal edema. WEIGHER BULKER: Patient is awake, alert, and oriented. There is no focal deficit. LABORATORY DATA: Glucose was 235 this morning. X-RAY: A chest x-ray this morning seems to show worsening hazy right basilar infiltrate/pneumonia. ASSESSMENT: 1. Acute on chronic hypoxemic and hypercarbic respiratory failure. The patient is back to 4 to 5 L of nasal cannula. He seems to be saturating well. 2. Methicillin-resistant Staphylococcus aureus multifocal pneumonia. Patient is on vancomycin. Infectious Disease plans to continue the intravenous vancomycin on an outpatient basis. 3. Acinetobacter lwoffii and Staphylococcus epidermidis bacteremia. Subsequent blood cultures have been negative. 4. Severe chronic obstructive pulmonary disease with moderate to severe exacerbation on admission, improved. Patient is currently not bronchospastic anymore. He continues to be on bronchodilation, antibiotic steroids. 5. Chronic atrial fibrillation, currently rate controlled. 6. Diabetes mellitus, controlled on insulin regimen. 7. Chronic diastolic heart failure with mild volume distention. The patient continues to be on diuretic therapy. 8. Generalized weakness and deconditioning. Patient has been seen multiple times by physical therapy. Last visit was 3 days ago where he was able to do 30 feet with minimum assistance. PLAN: So, in general, I think Mr. Bell is doing a lot better. He is down to the supplemental oxygen that he normally uses at home. He is not as symptomatic as he was. Chest x-ray shows some worsening on the haziness. However, his vitals are stable. I think he can still be discharged home. We are pending final recommendations from Pulmonary Medicine. cc: Jed Matthew MD [facility] SYSTEMLeonel
--- NOTE | 2019-10-05 16:27 | PROVIDER PROGRESS NOTE ---
Progress Note Dr. Campo Progress Note/Pulmonary and or critical care We appreciated progress of care, Complications, change in diagnosis, and instructions to patient. Subjective: We note the level of consciousness, bed (chair) position, family presence (if any), level of lethargy, feeling of symptoms, and changes from baseline condition/symptom. The patient is sitting on the bedside chair with no acute distress noted. He is on a NC at 5L. He states he is feeling better. He has some audible wheezing at this time. He still has SOB with activities. Objective: Vital Signs: We reviewed EMR current values for Pulse rate, Blood pressure, Pulse rate, r espiratory rate and Pulse oximetry. Also noted other values and trends if present (e.g. I/O, CVP). T 97.6, IN 68, RR 17, BP 151/69 and SaO2 90% on NC 5L. Physical Examination: General: Morbidly obese. Sitting on the bedside chair with no acute distress noted. HEENT: Atraumatic. Normocephalic. Trachea midline. Mucosa pink and moist. Chest: Even and unlabored. Audible wheezing noted. Symmetrical excursion. Auscultation reveals prolonged expiratory phase and coarse crackles bilaterally posteriorly. CVS: Regular rate and rhythm with S1 and S2 appreciated. Abdomen: Protuberant. Non-tender. Soft. Normoactive bowel sounds in all 4 quadrants. Extremities: BLE pitting edema 3+ up to knees with compression hose on. Neuro: A/O x3. Speech fluent. Follow commands. Weakness present. Labs and Radiology: Reviewed available labs and radiology values available at time of EMR review. Laboratory Results 10/04/19 10/04/19 10/04/19 16:16 17:55 18:19 POC Glucose 117 H 71 117 H D 10/04/19 10/05/19 10/05/19 20:33 05:47 10:49 POC Glucose 187 H D 218 H 235 H 10/05/19 15:48 POC Glucose 298 H Assessment: Acute on chronic hypoxemic respiratory failure. COPD exacerbation. Methicillin-resistant Staph aureus pneumonia. CT on 09/30/19 showed slight increase RLL consolidation and development of mild consolidation at the medial left lung base. Influenza A. S/P Tamiflu on 09/27/19. Bacteremia with Acinetobacter Lwoffii and Staphylococcus Epidermidis. Blood cultures on 09/30/19 have no growth after 48 hours. Morbid obesity. Chronic diastolic congestive heart failure. Stable. Chronic atrial fibrillation. Thrombocytopenia. Plan: Continue current treatment and supportive care per admitting and other teams on the case. Titrate oxygen therapy as needed. Antibiotics including levaquin and vancomycin. Bronchodilators. Mucomyst. Will need outpatient sleep study. Physical therapy. CPT. Encourage incentive spirometer use routinely. Appropriate DVT and GI prophylaxis. Input was appreciated from Admitting MD and other teams on the case. Case was discussed with Dr. Matthew.
[2019-10-05] MEDS: VANCOMYCIN 1,500 MG in NS 250 ML IV SCH (18:44)
--- NOTE | 2019-10-05 20:29 | INFECTIOUS DISEASE PROGRESS NO ---
DATE: 10/05/2019 PRESENT ILLNESS: The patient has a Staph epidermidis and Acinetobacter bacteremia which originated from the patient's Port-A-Cath. The Port-A-Cath has been removed and a new 1 has been replaced on the right side. While the patient was bacteremic, he could have infected his pacemaker on the left side of the chest. The patient also has a pneumonia due to hematogenous seeding of the lungs while the patient was bacteremic. MEDICATIONS: The patient is on IV vancomycin and p.o. Levaquin. PHYSICAL EXAMINATION: Vital Signs: Temperature is 97.2 degrees, pulse 75, respirations 20, blood pressure 137/55. The patient tells me he is feeling better today. Head, eyes, ears, nose and throat: He can hear my spoken words and see near objects. He is wearing glasses. He does not have any white patches in his mouth. Neck: No pain with moving. Thorax: The patient's left side has the site where the pacemaker was removed and a new 1 was put in both sites are not erythematous or purulent. The patient, on the left side, has a pacemaker. That site also is not red or purulent. Lungs: Clear to auscultation. Cardiovascular: Regular heart rate. Abdomen: Soft and nontender. Extremities: Both legs have support stockings present. Neurologic: The patient is alert. He ambulates and sits without difficulty. LAB AND X-RAY: Chest x-ray shows worsening of the right basilar infiltrate. There is no lab for today. ASSESSMENT AND PLAN: Patient has Staphylococcus epidermidis and Acinetobacter bacteremia, pneumonia, and a possible infection of his pacemaker. The plan is to continue Levaquin and vancomycin. COMORBIDITIES: The patient is obese, and he is elderly. He has chronic lung disease, congestive heart failure, chronic leg edema, diabetes mellitus, and anemia of chronic disease. cc: Darryl Downs MD
[2019-10-05] MEDS: PROTONIX PO SCH (22:05)
[2019-10-06] MEDS: DUONEB (A & A) INH SCH ×6 (03:43→23:56)
[2019-10-06] MEDS: VANCOMYCIN 1,500 MG in NS 250 ML IV SCH ×2 (05:51→21:38)
[2019-10-06] MEDS ORDERED: INSULIN PEN NEEDLES ONE (07:00)
[2019-10-06] MEDS: HUMALOG SUBQ SCH ×4 (07:05→21:46)
--- NOTE | 2019-10-06 07:24 | Diag Imaging Result Doc PS360 ---
EXAM: CHEST-1 VIEW HISTORY: SOB TECHNIQUE: Single view COMPARISON: 10/05/2019 FINDINGS: The lungs are well expanded. The heart is mildly enlarged. There are sternal wires, left-sided pacemaker, and a right jugular portacatheter. No pneumothorax. No pleural effusions identified. Mild increased interstitial markings in the lung bases are similar to the prior exam. IMPRESSION: Stable chest Electronically signed by Ramses Stanton 10/06/2019 7:22 AM
[2019-10-06] MEDS: MUCOMYST 20% INH SCH ×2 (08:04→20:25)
[2019-10-06] MEDS: LEVEMIR SUBQ SCH ×2 (08:30→21:45)
[2019-10-06] MEDS: PROZAC PO SCH (08:30)
[2019-10-06] MEDS: IMDUR PO SCH (08:30)
[2019-10-06] MEDS: LEVAQUIN PO SCH (08:31)
[2019-10-06] MEDS: LIORESAL PO SCH ×2 (08:31→21:42)
[2019-10-06] MEDS: ALDACTONE PO SCH (08:31)
[2019-10-06] MEDS: BUSPAR PO SCH ×3 (08:31→21:41)
[2019-10-06] MEDS: MEDROL PO SCH ×4 (08:31→21:42)
[2019-10-06] MEDS: ELIQUIS PO SCH ×2 (08:31→21:44)
[2019-10-06] MEDS: COZAAR PO SCH (08:31)
[2019-10-06] MEDS: LINZESS PO SCH (08:31)
[2019-10-06] MEDS: COREG PO SCH ×2 (08:31→21:42)
[2019-10-06] MEDS: MS CONTIN PO SCH ×3 (08:32→21:42)
[2019-10-06 08:39] LABS: AGAP 8; BUN 13 mg/dL (8-22); CHLORIDE 99 mmol/L (98-107); COSMO 276; CREATININE 0.8 mg/dL (0.7-1.2); ESTIMATED GFR > 60; GLUCOSE 194 mg/dL (70-104); POTASSIUM 4.5 mmol/L (3.5-5.1); SODIUM 135 mmol/L (136-145); TCO2 28 mmol/L (25-35)
[2019-10-06 08:52] LABS: BASO# 0.01 X1000 (0.0-0.2); BASO% 0.1 % (0.0-0.8); EOS# 0.02 X1000 (0.0-0.7); EOS% 0.3 % (0.0-10.0); HEMATOCRIT 34.3 % (42.0-52.0); HEMOGLOBIN 10.5 g/dL (14.0-18.0); IMM GRAN# 0.02 X1000 (0.0-0.04); IMM GRAN% 0.3 % (0.0-0.5); LYMPH# 0.64 X1000 (1.2-3.4); LYMPH% 8.5 % (20.5-51.1); MCH 23.9 PG (27-31); MCHC 30.6 g/dL (33-37); MONO# 0.53 X1000 (0.11-0.59); MPV 11.7 FL (7.4-10.4); NEUT# 6.35 X1000 (1.4-6.5); NEUT% 83.8 % (42.2-75.2); PLT 66 X1000 (130-400); RDW 14.1 % (11.5-14.5); WBC 7.57 X1000 (4.8-10.8)
[2019-10-06] MEDS: LOTRIMIN 1% CREAM TOP SCH ×2 (11:02→21:44)
--- NOTE | 2019-10-06 13:34 | PROVIDER PROGRESS NOTE ---
Progress Note Dr. Campo Progress Note/Pulmonary and or critical care We appreciated progress of care, Complications, change in diagnosis, and instructions to patient. Subjective: We note the level of consciousness, bed (chair) position, family presence (if any), level of lethargy, feeling of symptoms, and changes from baseline condition/symptom. The patient is sitting on the bedside chair with no acute distress noted. He is on a NC at 5L. He states he is feeling better. He has some audible wheezing at this time. He still has SOB with activities. Objective: Vital Signs: We reviewed EMR current values for Pulse rate, Blood pressure, Pulse rate, r espiratory rate and Pulse oximetry. Also noted other values and trends if present (e.g. I/O, CVP). T 97.6 , CA 66 , RR 22 , BP 137/64 and SaO2 99 on NC 5L. Physical Examination: General: Morbidly obese. Sitting on the bedside chair with no acute distress noted. HEENT: Atraumatic. Normocephalic. Trachea midline. Mucosa pink and moist. Chest: Even and unlabored. Audible wheezing noted. Symmetrical excursion. Auscultation reveals prolonged expiratory phase and coarse crackles bilaterally posteriorly. CVS: Regular rate and rhythm with S1 and S2 appreciated. Abdomen: Protuberant. Non-tender. Soft. Normoactive bowel sounds in all 4 quadrants. Extremities: BLE pitting edema 3+ up to knees with compression hose on. Neuro: A/O x3. Speech fluent. Follow commands. Weakness present. Management, face to face evaluation by Dr. Campo. HORTENCIA did scribing only. Labs and Radiology: Reviewed available labs and radiology values available at time of EMR review. Laboratory Results 10/05/19 10/05/19 10/06/19 15:48 20:26 05:32 WBC RBC Hgb Hct MCV MCH MCHC RDW Std Deviation Plt Count MPV Immature Gran % (Auto) Neut % (Auto) Lymph % (Auto) [place] % (Auto) Eos % (Auto) Baso % (Auto) Immature Gran # (Auto) Neut # (Auto) Lymph # (Auto) [place] # (Auto) Eos # (Auto) Baso # (Auto) Sodium Potassium Chloride Carbon Dioxide Anion Gap BUN Creatinine Estimated GFR/1.73 m2 BUN/Creatinine Ratio Glucose POC Glucose 298 H 366 H 207 H Calculated Osmolality Calcium 10/06/19 10/06/19 10/06/19 08:03 08:03 10:52 WBC 7.57 RBC 4.40 L Hgb 10.5 L Hct 34.3 L MCV 78.0 L MCH 23.9 L MCHC 30.6 L RDW Std Deviation 14.1 Plt Count 66 L MPV 11.7 H Immature Gran % (Auto) 0.3 Neut % (Auto) 83.8 H Lymph % (Auto) 8.5 L [place] % (Auto) 7.0 Eos % (Auto) 0.3 Baso % (Auto) 0.1 Immature Gran # (Auto) 0.02 Neut # (Auto) 6.35 Lymph # (Auto) 0.64 L [place] # (Auto) 0.53 Eos # (Auto) 0.02 Baso # (Auto) 0.01 Sodium 135 L Potassium 4.5 Chloride 99 Carbon Dioxide 28 Anion Gap 8 BUN 13 Creatinine 0.8 Estimated GFR/1.73 m2 > 60 BUN/Creatinine Ratio 16 Glucose 194 H POC Glucose 221 H Calculated Osmolality 276 Calcium 9.0 Assessment: Acute on chronic hypoxemic respiratory failure. COPD exacerbation. Methicillin-resistant Staph aureus pneumonia. CT on 09/30/19 showed slight increase RLL consolidation and development of mild consolidation at the medial left lung base. Influenza A. S/P Tamiflu on 09/27/19. Bacteremia with Acinetobacter Lwoffii and Staphylococcus Epidermidis. Blood cultures on 09/30/19 have no growth after 48 hours. Morbid obesity. Chronic diastolic congestive heart failure. Stable. Chronic atrial fibrillation. Thrombocytopenia. Plan: Continue current treatment and supportive care per admitting and other teams on the case. Titrate oxygen therapy as needed. Antibiotics including levaquin and vancomycin. Bronchodilators. Mucomyst. Will need outpatient sleep study. Physical therapy. CPT. Encourage incentive spirometer use routinely. Appropriate DVT and GI prophylaxis. Input was appreciated from Admitting MD and other teams on the case. Case was discussed with Dr. Matthew.
--- NOTE | 2019-10-06 16:30 | INFECTIOUS DISEASE PROGRESS NO ---
DATE: 10/06/2019 PRESENT ILLNESS: Mr. Bell is being treated for an Acinetobacter and Staphylococcus epidermidis bacteremia which most likely came from his Port-A-Cath. That Port-A-Cath has been removed and a new one has been put in after obtaining sterile blood cultures. There is a pacemaker to the left chest which could have been infected hematogenously while the patient was bacteremic. There is also a pneumonia which was most likely hematogenously acquired. MEDICATIONS: Based on his sterile blood cultures, today is day 6 of treatment for his bacteremia, using IV vancomycin per pharmacy dosing and Levaquin 750 mg by mouth daily. PHYSICAL EXAMINATION: Vital Signs: Temperature is 97.6 degrees, pulse rate 98, respiratory rate 22, blood pressure 146/70, O2 saturation is 95% on 5 L nasal cannula. General: This is a chronically ill-appearing, elderly gentleman. He is sitting up in a chair currently, in mild distress due to pain to his right chest from Port-A-Cath insertion. HEENT: Atraumatic, normocephalic. Oral mucous membranes are pink and moist. Conjunctivae are pink. Neck: Supple. Trachea is midline. Cardiovascular: Heart rate is regular, S1 and S2 noted. Respiratory: Lung sounds have coarse wheezes bilaterally. He does have a productive cough. Abdomen: Soft, obese and nontender. Bowel sounds are active. Neurologic: He is awake, alert, oriented, and able to ambulate independently for short distances. Integumentary: Skin is warm and dry. There are two dry dressings to the right chest where the new Port-A-Cath has been placed. The left-sided pacemaker has no erythema, edema or open areas to the site. LABORATORY AND X-RAY: Today his white count is 7.57, hemoglobin 10.5, platelet count 66,000. Creatinine is 0.8, estimated GFR is greater than 60. His previous blood cultures grew 1 out of 2 Acinetobacter and Staphylococcus epidermidis. Blood cultures have been sterile since September 30. Chest x-ray today is stable with mild increased interstitial markings in the lung bases similar to the prior exam. ASSESSMENT AND PLAN: Mr. Bell is being treated for a bacteremia and pneumonia, with concern for hematogenous infection to his pacemaker. He is receiving oral Levaquin and IV vancomycin which we will continue at this time. He has orders for the IV vancomycin at home and will also need oral Levaquin daily on discharge. These both need to be continued for a total of 6 weeks. We will plan to see him in our office in 3 weeks and then again in 6 weeks. These plans have been discussed with and recommended by Dr. Downs. COMORBIDITIES: Comorbidities for Mr. Bell include he is elderly and morbidly obese with chronic obstructive pulmonary disease, congestive heart failure, diabetes mellitus, chronic lower extremity edema, and anemia of chronic disease. Dictated by HORTENCIA Samuel for Darryl Downs MD cc: Darryl Downs MD [facility]
--- NOTE | 2019-10-06 19:42 | PROGRESS NOTE ---
DATE: 10/06/2019 SUBJECTIVE: Today Mr. Bell referred to be doing well. He was sitting up at the edge of the recliner . He still continues to have some cough and some wheezing. He is on supplemental oxygen at 5L. OBJECTIVE: Vital signs: Blood pressure is 113/64, pulse of 72, respirations 18, temperature is 97.9 degrees. General: Mr. Bell is a 69-year-old gentleman. He was sitting up in a chair. He was not in any cardiopulmonary distress. Mucosa is pink and moist, anicteric, acyanotic. Neck: Supple. Chest: Air entry was bilaterally reduced. Still has some inspiratory and expiratory rhonchi and wheezing. Cardiovascular: Irregularly irregular, no murmurs. GI: The abdomen is soft. It is distended, nontender. Extremities: About 1+ pedal edema. PRESENTATION SPECIALIST: Patient is awake, alert, and oriented. LABORATORY DATA: WBC is 7.57, hemoglobin is 10.5, platelet count of 66,000. Chemistry is also reviewed, for the most part unremarkable. A chest x-ray shows increased interstitial markings in the lung bases, similar to prior exams. ASSESSMENT: 1. Acute on chronic hypoxemic and hypercarbic respiratory failure. 2. Methicillin-resistant Staphylococcus Aureus (MRSA) multifocal pneumonia. 3. Acinetobacter lwoffii and Staph epidermidis bacteremia. Subsequent blood cultures negative. 4. Severe chronic obstructive pulmonary disease (COPD) with moderate to severe exacerbation, improved. 5. Chronic atrial fibrillation, currently rate controlled. 6. Diabetes mellitus. The patient is on insulin regimen. 7. Chronic diastolic heart failure with mild volume distention. Continue with diuretic therapy. 8. Generalized weakness and deconditioning. Physical therapy is on board. PLAN: Mr. Bell today remains fairly stable. Chest x-ray continues to show some increased interstitial infiltrates, which I think it is a combination of pulmonary edema and a pneumonia. The pneumonia is going to take time to show improvement on x-rays. I have spoken with Dr. Downs, who also agrees that Mr. Bell can potentially be discharged. We will wait on Pulmonary's recommendations. cc: Jed Matthew MD [facility]
[2019-10-06] MEDS: PROTONIX PO SCH (21:42)
[2019-10-07] MEDS: DUONEB (A & A) INH SCH ×6 (03:40→23:34)
[2019-10-07] MEDS: HUMALOG SUBQ SCH ×4 (06:43→21:06)
[2019-10-07] MEDS: MUCOMYST 20% INH SCH ×2 (08:31→20:32)
[2019-10-07] MEDS: ELIQUIS PO SCH ×2 (08:36→21:05)
[2019-10-07] MEDS: LEVAQUIN PO SCH (08:36)
[2019-10-07] MEDS: LIORESAL PO SCH ×2 (08:36→21:05)
[2019-10-07] MEDS: COZAAR PO SCH (08:36)
[2019-10-07] MEDS: PROZAC PO SCH (08:36)
[2019-10-07] MEDS: MEDROL PO SCH ×3 (08:36→21:05)
[2019-10-07] MEDS: ALDACTONE PO SCH (08:36)
[2019-10-07] MEDS: BUSPAR PO SCH ×3 (08:37→21:04)
[2019-10-07] MEDS: LINZESS PO SCH (08:37)
[2019-10-07] MEDS: MS CONTIN PO SCH ×3 (08:37→21:05)
[2019-10-07] MEDS: IMDUR PO SCH (08:38)
[2019-10-07] MEDS: LEVEMIR SUBQ SCH ×2 (08:38→21:06)
[2019-10-07] MEDS: COREG PO SCH ×2 (08:41→21:04)
[2019-10-07] MEDS: VANCOMYCIN 1,500 MG in NS 250 ML IV SCH ×2 (09:16→21:00)
[2019-10-07] MEDS: LOTRIMIN 1% CREAM TOP SCH ×2 (11:48→21:07)
--- NOTE | 2019-10-07 14:42 | PROVIDER PROGRESS NOTE ---
Progress Note Dr. Campo Progress Note/Pulmonary and or critical care We appreciated progress of care, Complications, change in diagnosis, and ins tructions to patient. Subjective: We note the level of consciousness, bed (chair) position, family presence (if any), level of lethargy, feeling of symptoms, and changes from baseline condition/symptom. The patient is sitting on the bedside chair with no acute distress noted. He is on a NC at 5L. He states he is feeling better. He has some audible wheezing at this time. He still has SOB with activities. Objective: Vital Signs: We reviewed EMR current values for Pulse rate, Blood pressure, Pulse rate, respiratory rate and Pulse oximetry. Also noted other values and trends if present (e.g. I/O, CVP). T 97.5 , VT 70 , RR 20 , BP 118/66 and SaO2 100% on NC 5L. Physical Examination: General: Morbidly obese. Sitting on the bedside chair with no acute distress noted. HEENT: Atraumatic. Normocephalic. Trachea midline. Mucosa pink and moist. Chest: Even and unlabored. Audible wheezing noted. Symmetrical excursion. Auscultation reveals prolonged expiratory phase and coarse crackles bilaterally posteriorly. CVS: Regular rate and rhythm with S1 and S2 appreciated. Abdomen: Protuberant. Non-tender. Soft. Normoactive bowel sounds in all 4 quadrants. Extremities: BLE pitting edema 3+ up to knees with compression hose on. Neuro: A/O x3. Speech fluent. Follow commands. Weakness present. Management, face to face evaluation by Dr. Campo. HORTENCIA Khalil did scribing only. Labs and Radiology: Reviewed available labs and radiology values available at time of EMR review. Laboratory Results 10/06/19 10/06/19 10/06/19 15:35 18:54 19:48 POC Glucose 269 H 256 H Random Vancomycin 15.70 10/07/19 10/07/19 05:49 11:08 POC Glucose 242 H 236 H Random Vancomycin Assessment: Acute on chronic hypoxemic respiratory failure. COPD exacerbation. Methicillin-resistant Staph aureus pneumonia. CT on 09/30/19 showed slight increase RLL consolidation and development of mild consolidation at the medial left lung base. Influenza A. S/P Tamiflu on 09/27/19. Bacteremia with Acinetobacter Lwoffii and Staphylococcus Epidermidis. Blood cultures on 09/30/19 have no growth after 48 hours. Morbid obesity. Chronic diastolic congestive heart failure. Stable. Chronic atrial fibrillation. Thrombocytopenia. Plan: Continue current treatment and supportive care per admitting and other teams on the case. Titrate oxygen therapy as needed. Antibiotics including levaquin and vancomycin. Bronchodilators. Mucomyst. Will need outpatient sleep study. Physical therapy. CPT. Encourage incentive spirometer use routinely. Appropriate DVT and GI prophylaxis. Input was appreciated from Admitting MD and other teams on the case. Case was discussed with Dr. Matthew.
--- NOTE | 2019-10-07 18:40 | PROGRESS NOTE ---
DATE: 10/07/2019 SUBJECTIVE: This morning, Mr. Bell referred to be doing well. He is concerned because he has been coughing up some brown greenish expectoration and he is not sure if he is being treated with the right antimicrobial. Otherwise, he denies any chest pain. No shortness of breath. OBJECTIVE: Mr. Bell is a 69-year-old, morbidly obese, gentleman. He is sitting up in a chair, in no distress. Mucosa is pink and moist. Anicteric, acyanotic.Neck: Supple. Chest: Air entry is bilaterally reduced. There is still prolonged expiration phase of respiration. There is diffuse inspiratory and expiratory rhonchi with some crackles. Cardiovascular: Irregularly irregular, but no murmurs, no rubs, no gallops. Gastrointestinal: Abdomen is soft, distended, but nontender. Extremities: Pedal edema 1+. The right lower extremity has some mildly erythematous changes which just looks chronic. central nervous system: Awake, alert, oriented. LABORATORY DATA: Patient's I's and O's, urine output was 5950. He has currently negative balance of over 37,000. MEDICATIONS: Have all been reviewed. No current changes. ASSESSMENT/PLAN: 1. Acute on chronic hypoxemic and hypercarbic respiratory failure. Patient is back to his baseline supplemental oxygen, which is 5 L/minute. 2. Methicillin-resistant Staphylococcus aureus multifocal pneumonia. The patient is on vancomycin. 3. Acinetobacter lwoffii and Staphylococcus epidermidis bacteremia. Subsequent blood cultures have been negative. Patient is on Levaquin and vancomycin. 4. Severe chronic obstructive pulmonary disease with [id number] exacerbation and frequent hospitalizations. The patient seems to be back to his baseline. 5. Chronic atrial fibrillation. Currently rate controlled. 6. Diabetes mellitus. Patient is controlled on insulin regimen. We will continue with glucose checks. 7. Chronic diastolic heart failure with mild volume distention. Improved with diuretic therapy. The patient has currently negative balance of over 37,000. 8. Generalized weakness and deconditioning. Physical Therapy has been consulted. In general, I think Mr. Bell is doing well. I think he is at his baseline and he is at the best we can get him in the hospital. He is going to be discharged with IV antibiotics already arranged, whenever it is okay with Pulmonary Medicine. cc: Jed Matthew MD
[2019-10-07] MEDS: PROTONIX PO SCH (21:04)
[2019-10-08] MEDS: DUONEB (A & A) INH SCH ×6 (04:20→23:12)
[2019-10-08] MEDS: HUMALOG SUBQ SCH ×4 (06:39→21:08)
[2019-10-08] MEDS: VANCOMYCIN 1,500 MG in NS 250 ML IV SCH ×2 (08:00→21:04)
[2019-10-08] MEDS: MS CONTIN PO SCH ×3 (08:00→21:06)
[2019-10-08] MEDS: IMDUR PO SCH (08:01)
[2019-10-08] MEDS: ELIQUIS PO SCH ×2 (08:01→21:05)
[2019-10-08] MEDS: BUSPAR PO SCH ×3 (08:01→21:05)
[2019-10-08] MEDS: PROZAC PO SCH (08:01)
[2019-10-08] MEDS: LEVEMIR SUBQ SCH ×2 (08:01→21:08)
[2019-10-08] MEDS: COZAAR PO SCH (08:01)
[2019-10-08] MEDS: LEVAQUIN PO SCH (08:01)
[2019-10-08] MEDS: LIORESAL PO SCH ×2 (08:01→21:05)
[2019-10-08] MEDS: COREG PO SCH ×2 (08:01→21:06)
[2019-10-08] MEDS: ALDACTONE PO SCH (08:01)
[2019-10-08] MEDS: LINZESS PO SCH (08:01)
[2019-10-08] MEDS: LOTRIMIN 1% CREAM TOP SCH ×2 (08:02→21:06)
[2019-10-08] MEDS: MEDROL PO SCH ×2 (08:02→21:06)
[2019-10-08] MEDS: MUCOMYST 20% INH SCH ×2 (08:15→19:42)
--- NOTE | 2019-10-08 17:19 | PROGRESS NOTE ---
DATE: 10/08/2019 SUBJECTIVE: I have seen and examined Mr. Bell today. He was sitting up in a chair. He refers to be doing fair. Still coughing and bringing up some brown expectoration. Otherwise, no fever. No chest pain. OBJECTIVE: Vital signs: Blood pressure is 122/54, pulse of 72, respiration is 18, temperature 98.1 degrees. General: Mr. Bell is a 69-year-old gentleman. He was sitting up in a chair no distress. HEENT: Mucosa is pink and moist. Anicteric. Acyanotic. Neck: Supple. Chest: Air entry is bilaterally reduced. There is still diffuse and expiratory rhonchi and some inspiratory crackles. Cardiovascular: Irregularly/irregular. No murmurs, no rubs, no gallops. GI.: Abdomen is soft, distended but nontender. Bowel sounds present. Extremities: About 1 to 2+ pedal edema with the right lower extremity with some redness noted. FIBRE OPTICS JOINTER: Patient is awake, alert, oriented. There are no focal deficits. LABORATORY: Glucose is 248. MEDICATIONS: The patient's medications have all been reviewed; continues to be on vancomycin and levofloxacin. ASSESSMENT: 1. Acute on chronic hypoxemic and hypercarbic respiratory failure. Patient is back on 5 L of supplemental oxygen. Methicillin resistant Staphylococcus aureus, multifocal pneumonia. Patient is on vancomycin. 1. Acinetobacter lwoffii and Staphylococcus epidermidis bacteremia. Subsequent blood cultures negative. Patient is on Levaquin and vancomycin. 2. Severe chronic obstructive pulmonary disease with moderate to severe exacerbation and frequent hospitalizations. The patient is back to baseline. 3. Chronic atrial fibrillation, currently rate controlled. 4. Diabetes mellitus. We will continue with insulin regimen. 5. Diastolic heart failure with mild volume distention. Patient is on diuretic therapy. 6. Generalized weakness and deconditioning. Physical Therapy is on board. 7. Hypertension, controlled. DISPOSITION: Pending final recommendations from Pulmonary Medicine. cc: Jed Matthew MD
--- NOTE | 2019-10-08 19:15 | PROVIDER PROGRESS NOTE ---
Progress Note ramirez Note Dr. Campo Progress Note/Pulmonary and or critical care We appreciated progress of care, Complications, change in diagnosis, and instructions to patient. Subjective: We note the level of consciousness, bed (chair) position, family presence (if any), level of lethargy, feeling of symptoms, and changes from baseline condition/symptom. The patient is sitting on the bedside chair with no acute distress noted. He is on a NC at 5L. He states he is feeling better. He has some audible wheezing at this time. He still has SOB with activities. Objective: Vital Signs: We reviewed EMR current values for Pulse rate, Blood pressure, Pulse rate, respiratory rate and Pulse oximetry. Also noted other values and trends if present (e.g. I/O, CVP). T 97.7 , W[place] 86 , RR 16 , BP 132/74 , and SaO2 100% on NC 4L. Physical Examination: General: Morbidly obese. Sitting on the bedside chair with no acute distress noted. HEENT: Atraumatic. Normocephalic. Trachea midline. Mucosa pink and moist. Chest: Even and unlabored. Audible wheezing noted. Symmetrical excursion. Improved breath sounds CVS: Regular rate and rhythm with S1 and S2 appreciated. Abdomen: Protuberant. Non-tender. Soft. Normoactive bowel sounds in all 4 quadrants. Extremities: BLE pitting edema 3+ up to knees with compression hose on. Neuro: A/O x3. Speech fluent. Follow commands. Weakness present. Management, face to face evaluation by Dr. Campo. HORTENCIA Khalil did scribing only. Labs and Radiology: Reviewed available labs and radiology values available at time of EMR review. Laboratory Results 10/07/19 10/08/19 10/08/19 19:20 05:55 10:43 POC Glucose 262 H 276 H 248 H 10/08/19 15:55 POC Glucose 205 H Assessment: Acute on chronic hypoxemic respiratory failure. COPD exacerbation. Methicillin-resistant Staph aureus pneumonia. CT on 09/30/19 showed slight increase RLL consolidation and development of mild consolidation at the medial left lung base. Influenza A. S/P Tamiflu on 09/27/19. Bacteremia with Acinetobacter Lwoffii and Staphylococcus Epidermidis. Blood cultures on 09/30/19 have no growth after 48 hours. Morbid obesity. Chronic diastolic congestive heart failure. Stable. Chronic atrial fibrillation. Thrombocytopenia. Plan: Continue current treatment and supportive care per admitting and other teams on the case. Titrate oxygen therapy as needed. Antibiotics including levaquin and vancomycin. Bronchodilators. Mucomyst. Will need outpatient sleep study. Physical therapy. CPT. Encourage incentive spirometer use routinely. Appropriate DVT and GI prophylaxis. May discharge tomorrow 10/09/19 if improvement persists. Input was appreciated from Admitting MD and other teams on the case. Case was discussed with Dr. Matthew.
[2019-10-08] MEDS: PROTONIX PO SCH (21:05)
[2019-10-09] MEDS: DUONEB (A & A) INH SCH ×3 (03:37→11:45)
[2019-10-09] MEDS: HUMALOG SUBQ SCH (06:17)
--- NOTE | 2019-10-09 07:39 | Diag Imaging Result Doc PS360 ---
CHEST-1 VIEW - 10/09/2019 INDICATION: SOB COMPARISON: 10/06/2019 FINDINGS: Stable CABG changes. Stable left pacemaker. Stable right chest port. Stable cardiomegaly and pulmonary vascular congestion. Stable patchy infiltrates in the lung bases bilaterally. No new infiltrates. No definite edema. IMPRESSION: No change from prior. Electronically signed by Brandon Gauthier 10/09/2019 7:37 AM
[2019-10-09] MEDS: MUCOMYST 20% INH SCH (08:17)
[2019-10-09] MEDS: VANCOMYCIN 1,500 MG in NS 250 ML IV SCH (10:36)
[2019-10-09] MEDS: COREG PO SCH (10:37)
[2019-10-09] MEDS: IMDUR PO SCH (10:37)
[2019-10-09] MEDS: BUSPAR PO SCH (10:37)
[2019-10-09] MEDS: COZAAR PO SCH (10:38)
[2019-10-09] MEDS: MS CONTIN PO SCH (10:38)
[2019-10-09] MEDS: LOTRIMIN 1% CREAM TOP SCH (10:38)
[2019-10-09] MEDS: LINZESS PO SCH (10:38)
[2019-10-09] MEDS: ALDACTONE PO SCH (10:39)
[2019-10-09] MEDS: MEDROL PO SCH (10:39)
[2019-10-09] MEDS: PROZAC PO SCH (10:39)
[2019-10-09] MEDS: ELIQUIS PO SCH (10:39)
[2019-10-09] MEDS: LEVAQUIN PO SCH (10:39)
[2019-10-09] MEDS: LIORESAL PO SCH (10:39)
[2019-10-09 11:42] VITALS: BP 148/74
[2019-10-09] MEDS: LEVEMIR SUBQ SCH (14:53)
--- NOTE | 2019-10-09 17:04 | PROVIDER PROGRESS NOTE ---
Progress Note Dr. Campo Progress Note/Pulmonary and or critical care We appreciated progress of care, Complications, change in diagnosis, and instructions to patient. Subjective: We note the level of consciousness, bed (chair) position, family presence (if any), level of lethargy, feeling of symptoms, and changes from baseline condition/symptom. The patient is sitting on the bedside chair with no acute distress noted. He is on a NC at 3.5L. He states he is feeling better. He still has productive cough with yellow greenish thick sputum. SOB with activities has been improved some. He states he is ready to go home. Objective: Vital Signs: We reviewed EMR current values for Pulse rate, Blood pressure, Pulse rate, respiratory rate and Pulse oximetry. Also noted other values and trends if present (e.g. I/O, CVP). T 98.3, MO 71, RR 18, BP 128/60 and SaO2 97% on NC 3.5 L. Physical Examination: General: Morbidly obese. Sitting on the bedside chair with no acute distress noted. HEENT: Atraumatic. Normocephalic. Trachea midline. Mucosa pink and moist. Chest: Even and unlabored. Symmetrical excursion. Auscultation reveals prolonged expiratory phase, mild expiratory wheezing bibasilarly and coarse crackles bilaterally posteriorly. CVS: Regular rate and rhythm with S1 and S2 appreciated. Abdomen: Protuberant. Non-tender. Soft. Normoactive bowel sounds in all 4 quadrants. Extremities: BLE pitting edema 1-2+ up to knees. Neuro: A/O x3. Speech fluent. Follow commands. Weakness present. Labs and Radiology: Reviewed available labs and radiology values available at time of EMR review. Laboratory Results 10/08/19 10/09/19 10/09/19 20:51 06:07 10:35 POC Glucose 251 H 152 H 221 H Assessment: Acute on chronic hypoxemic respiratory failure. COPD exacerbation. Methicillin-resistant Staph aureus pneumonia. CT on 09/30/19 showed slight increase RLL consolidation and development of mild consolidation at the medial left lung base. Influenza A. S/P Tamiflu on 09/27/19. Bacteremia with Acinetobacter Lwoffii and Staphylococcus Epidermidis. Blood cultures on 09/30/19 have no growth after 48 hours. Morbid obesity. Chronic diastolic congestive heart failure with mild volume distention. Chronic atrial fibrillation. Thrombocytopenia. Plan: Continue current treatment and supportive care per admitting and other teams on the case. Titrate oxygen therapy as needed. Antibiotics including levaquin and vancomycin. Bronchodilators. Mucomyst. Oral Medrol. Will need outpatient sleep study. Physical therapy. CPT. Encourage incentive spirometer use routinely. Appropriate DVT and GI prophylaxis. Ok to be discharged from the surface to air weapons officer point. Input was appreciated from Admitting MD and other teams on the case.
--- NOTE | 2019-10-10 19:17 | DISCHARGE SUMMARY ---
ADMISSION DATE: 09/22/2019 DISCHARGE DATE: 10/09/2019 The patient's length of stay was 17 days. CONSULTATION DURING THIS ADMISSION: Pulmonary Medicine was consulted. The patient was seen by Dr. Campo. INVASIVE PROCEDURES DONE DURING THIS ADMISSION: Removal of right side port was done by Dr. Carrasco on 09/30/2019 and the placement of the port was done by Dr. Luevano on 10/04/2019 after the blood cultures became negative. DISPOSITION: Is home. FOLLOW-UP: Will be with 1. Dr. Downs. 2. Dr. Jennifer Jean Baptiste. 3. Dr. Campo. ADMISSION DIAGNOSES: 1. Acute hypoxemic respiratory failure. 2. Chronic hypoxemia. 3. Bilateral pneumonia. 4. Diastolic heart failure. DIAGNOSES AT THE TIME OF DISCHARGE: 1. Acute on chronic hypoxemic and hypercarbic respiratory failure. 2. Methicillin-resistant Staphylococcus aureus multifocal pneumonia. 3. Acinetobacter lwoffii and Staphylococcus epidermidis bacteremia. Subsequent blood cultures have been negative. 4. Severe chronic obstructive pulmonary disease with moderate to severe exacerbation and frequent hospitalization. 5. Chronic atrial fibrillation. 6. Diabetes mellitus. 7. Diastolic heart failure. 8. Generalized weakness and deconditioning. 9. Hypertension. 10. Morbid obesity, body mass index of 45.3. DISCHARGE MEDICATIONS: 1. Buspirone 20 mg 3 times per day. 2. Spironolactone 25 mg daily. 3. Losartan 50 mg p.o. daily. 4. Fluoxetine 20 mg p.o. daily. 5. Carvedilol 37.5 b.i.d. 6. Morphine 30 mg p.o. 3 times per day. 7. Insulin lispro 30 units b.i.d. 8. Eliquis 5 mg b.i.d. 9. Pantoprazole 40 mg p.o. at bedtime. 10. Levemir 75 units b.i.d. 11. Vancomycin. 12. Levofloxacin 750 p.o. daily. PRESENTING COMPLAINT: Shortness of breath. HISTORY OF PRESENTING COMPLAINT: Mr. Bell is a 69-year-old gentleman who has history of COPD on home 2 oxygen, came to the emergency room because of shortness of breath, was found to be in hypoxemic with 88% on 4 L. Imaging studies did show increased interstitial markings throughout the lungs. He was subsequently admitted for respiratory failure, possible pneumonia. Mr. Bell was admitted to the medical floor. Multiple subspecialties were consulted including Pulmonary Medicine, Infectious Disease and Surgery. During the hospital course, Mr. Bell was found to be positive with Acinetobacter lwoffii and Staphylococcus epidermidis in his blood, so the port had to be removed. This was done by surgery. Subsequently, blood cultures came back negative after 5 days. Repeat blood cultures came back negative and a port was placed back. He has been fairly stable since. He still remains with some coughing and expectoration. However, his saturations have been fairly stable and normalized on the 5 L of supplemental oxygen, which he normally uses at home. Today, Pulmonary Medicine thinks that Mr. Bell can be discharged. Both myself and Dr. Downs also think that the patient can be discharged. Mr. Bell is being discharged in stable condition. He is going to follow up with all the subspecialties that has been involved including Dr. Campo. TIME SPENT FOR DISCHARGE: Is 38 minutes. cc: MD Jennifer Macias MD Leroy F. Harris, MD Rony Najjar
== END 2019-10-09 15:04 | disposition home health service (06) | DRG 981 ==
LOC: ED 04:27 → SUATTDRO 13:34 → EDIPHOLD 13:34 → 3N 16:03
PROVIDERS: ATTEND Internal Medicine

== ENCOUNTER 2019-12-15 05:19 | Inpatient (IN) ==
--- NOTE | 2019-12-15 05:32 | PROVIDER DOCUMENTATION ---
HPI-Respiratory General - General Stated Complaint: SOB, FEVER Time Seen by Provider: 12/15/19 05:23 Allergies/Adverse Reactions: Patient Allergies Allergy/AdvReac Type Severity Reaction Status Date / Time No Known Allergies Allergy Verified 12/15/19 05:59 Home Medications: Home Medication List Medication Instructions Recorded Confirmed Last Taken Type Buspirone [Buspar] 20 mg PO TID 10/06/16 09/22/19 09/14/19 07:00 History Carvedilol 37.5 mg PO BID 10/06/16 09/22/19 09/14/19 07:00 History Fluoxetine [Prozac] 20 mg PO DAILY 10/06/16 09/22/19 09/14/19 07:00 History Losartan [Cozaar] 50 mg PO DAILY 10/06/16 09/22/19 09/14/19 07:00 History Spironolactone 25 mg PO DAILY 10/06/16 09/22/19 09/14/19 07:00 History Insulin Aspart [Novolog] 30 unit SQ BID 03/04/18 09/22/19 09/14/19 12:00 History Mometasone Furoate 220 Mcg INH 0.5 inhaler INH BID 03/04/18 09/22/19 08/21/19 History [Asmanex 220 Microgm Inhaler] Morphine Sulfate 30 mg PO TID 03/04/18 09/22/19 09/14/19 12:00 History Apixaban [Eliquis] 5 mg PO BID 05/19/18 09/22/19 09/14/19 07:00 History Furosemide [Lasix] 80 mg PO QAM 05/19/18 09/22/19 09/14/19 07:00 History Pantoprazole [Protonix 40 mg PO QHS 05/19/18 09/22/19 09/14/19 07:00 History [Nonformulary]] Linaclotide [Linzess] 145 mcg PO DAILY 09/22/18 09/22/19 09/14/19 07:00 History Furosemide [Lasix] 120 mg PO HS 07/19/19 09/22/19 09/13/19 20:00 History Dulaglutide [Trulicity] 0.75 mg SUBQ Q7D 07/26/19 09/22/19 1 Week Ago Rx ~08/14/19 Albuterol Sulfate [Proair Hfa] 2 puff INH 4XDAY PRN PRN 09/14/19 09/30/19 09/14/19 07:00 History Baclofen [Lioresal] 10 mg PO BID 09/14/19 09/22/19 09/14/19 07:00 History Mometasone Furoate 220 Mcg INH 1 puff INH BID 09/14/19 09/22/19 09/14/19 07:00 History [Asmanex 220 Microgm Inhaler] Olodaterol HCl [Striverdi Respimat] 1 puff INH BID 09/14/19 09/22/19 09/14/19 07:00 History Vancomycin HCl in Water 1.75 gm IV Q12H #1 vial 09/20/19 09/22/19 Unknown Rx [Vancomycin 1,750 mg/17.5 ml Vl] Levofloxacin [Levaquin] 750 mg PO DAILY #40 tab 10/02/19 Unknown Rx Isosorbide Mononitrate E.r. [Imdur] 180 mg PO DAILY tab 10/04/19 Unknown Rx Insulin Detemir [Levemir] 75 unit SUBQ BID insuln.pen 10/09/19 Unknown Rx - History of Present Illness-Resp Nature of Presenting Problem: reports SOB since 10pm last night, is on 3L NC at all times. Upon EMS arrival he was 89% on his 3L, He was given a duoneb, and 98% back on his 3L NC. EMS mundo cked his temp and it was 101.5. Dnies any sick contacts. He has been coughing. He has been in the hospital 2-3 since August for PNA. He states he has mostly been at home but [facility] He denies any known COVID contacts. He states he just feels bad and he feels like when he last had PNA and the flu together. He dneies any GI symptoms but he does have some vomitus in his hart an is holding an emesis bag. He is asking for some water. Review of Systems - Adult - REVIEW OF SYSTEMS - ADULT Constitutional: reports: see HPI, chills, fever Eyes: reports: no symptoms reported Ears, Nose, Mouth & Throat: reports: no symptoms reported Cardiovascular: reports: no symptoms reported Respiratory: reports: see HPI, cough, shortness of breath, wheezing Gastrointestinal: reports: see HPI Genitourinary: reports: no symptoms reported Musculoskeletal: reports: see HPI, muscle aches Integumentary: reports: no symptoms reported Neurological: reports: no symptoms reported Psychiatric: reports: no symptoms reported Endocrine: reports: no symptoms reported Hematologic/Lymphatic: reports: no symptoms reported Allergic/Immunologic: reports: no symptoms reported All Other Systems: Reviewed and Negative Past History - Adult - PAST MEDICAL HISTORY-ADULT Review of Records: reports: Old Records Reviewed Major Childhood Illnesses: reports: denies history Cardiovascular: reports: A-Fib, arrhythmia (with cardiac ablation), CAD, HTN, hyperlipidemia, SD Respiratory: reports: asthma, COPD (on 4 Liters NC), pneumonia Gastrointestinal: reports: denies history Obstetrical/Gynecological: reports: denies history Genitourinary: reports: kidney stones Musculoskeletal: reports: denies history Neurological: reports: denies history Psychiatric: reports: anxiety Endocrine/Immune: reports: Diabetes Other Conditions: reports: other (sleep apnea) - PRIOR SURGERIES/PROCEDURES Surgical/Procedure History: reports: CABG, pacemaker, other (ablation) - IMMUNIZATION STATUS Childhood Immunizations: See Nurse Assessment Flu Vaccine: See Nurse Assessment - FAMILY HISTORY Family History: reviewed, not pertinent Physical Exam-General - PHYSICAL EXAM-ADULT Initial Vital Signs Reviewed: Yes - CONSTITUTIONAL General Appearance: alert, mild distress (uncomfortable appearing), obese, other (chronically ill appearing) - EYES Eyes: PERRL/EOMI - HEAD, EARS, NOSE, MOUTH & THROAT HENMT: normocephalic/atraumatic - NECK Neck: supple, normal inspection - RESPIRATORY Respiratory: chest non-tender, no respiratory distress, accessory muscle use, crackles (moderate bilaterally), increased rate - CARDIOVASCULAR Cardiovascular: normal peripheral pulses, no murmur, tachycardia - GASTROINTESTINAL (ABDOMEN) Abdominal Exam: normal bowel sounds, non tender, soft - MUSCULOSKELETAL Back Exam: normal inspection, no CVA tenderness, no vertebral tenderness Extremity: pedal edema (compression stockings in place with bilateral 1-2 + pitting edema) - SKIN Integumentary: normal color, warm/dry - NEUROLOGIC Neurologic: grossly normal - PSYCHIATRIC Psych/Mental Status: normal mood/affect, oriented x 3 Progress - PLAN OF CARE/RESULTS Progress/Plan/Lab Results: Vital Signs - 8 hr 12/15/19 05:40 12/15/19 07:22 Temperature 101.2 F H Pulse Rate 120 H 115 H Respiratory Rate 24 22 Blood Pressure 122/76 106/52 O2 Sat by Pulse Oximetry 89 L 96 12/15/19 06:40 Group A Strep Rapid Antigen - Final Throat 12/15/19 05:35 Influenza Screen - Final Nasopharyngeal Laboratory Results - last 24 hr 12/15/19 12/15/19 12/15/19 05:50 05:50 05:50 WBC 18.31 H RBC 4.79 Hgb 10.9 L Hct 35.5 L MCV 74.1 L MCH 22.8 L MCHC 30.7 L RDW Std Deviation 15.2 H Plt Count 61 L MPV 11.7 H Immature Gran % (Auto) 0.3 Neut % (Auto) 89.4 H Lymph % (Auto) 4.9 L Gonzales % (Auto) 4.9 Eos % (Auto) 0.3 Baso % (Auto) 0.2 Immature Gran # (Auto) 0.06 H Neut # (Auto) 16.36 H Lymph # (Auto) 0.90 L Gonzales # (Auto) 0.89 H Eos # (Auto) 0.06 Baso # (Auto) 0.04 PT INR PTT (Actin FS) Specimen Type Sample Site pH pCO2 pO2 HCO3 Base Excess Oxyhemoglobin ABG O2 Sat (Calculated) ABG O2 Saturation ABG Carboxyhemoglobin ABG Methemoglobin Dominguez Test A-a O2 Difference Total Hemoglobin Lactate Liter Flow Blood Gas Modality FiO2 % Sodium 137 Potassium 3.6 Chloride 97 L Carbon Dioxide 28 Anion Gap 12 BUN 23 H Creatinine 1.2 Estimated GFR/1.73 m2 60 BUN/Creatinine Ratio 19 Glucose 208 H Calculated Osmolality 284 Calcium 8.3 L Total Bilirubin 0.43 AST 11 ALT 8 L Alkaline Phosphatase 90 Troponin T High Sens 25 H Aqx-T-Ekssgmjiabw Pept Total Protein 5.9 L Albumin 3.2 L Globulin 2.7 Albumin/Globulin Ratio 1.2 Plasma Lactate 12/15/19 12/15/19 12/15/19 05:50 05:50 05:50 WBC RBC Hgb Hct MCV MCH MCHC RDW Std Deviation Plt Count MPV Immature Gran % (Auto) Neut % (Auto) Lymph % (Auto) Gonzales % (Auto) Eos % (Auto) Baso % (Auto) Immature Gran # (Auto) Neut # (Auto) Lymph # (Auto) Gonzales # (Auto) Eos # (Auto) Baso # (Auto) PT 15.9 INR 1.25 PTT (Actin FS) 35.5 Specimen Type Sample Site pH pCO2 pO2 HCO3 Base Excess Oxyhemoglobin ABG O2 Sat (Calculated) ABG O2 Saturation ABG Carboxyhemoglobin ABG Methemoglobin Dominguez Test A-a O2 Difference Total Hemoglobin Lactate Liter Flow Blood Gas Modality FiO2 % Sodium Potassium Chloride Carbon Dioxide Anion Gap BUN Creatinine Estimated GFR/1.73 m2 BUN/Creatinine Ratio Glucose Calculated Osmolality Calcium Total Bilirubin AST ALT Alkaline Phosphatase Troponin T High Sens Xsc-A-Mbzpwgwuhac Pept 193 Total Protein Albumin Globulin Albumin/Globulin Ratio Plasma Lactate 2.5 H 12/15/19 06:10 WBC RBC Hgb Hct MCV MCH MCHC RDW Std Deviation Plt Count MPV Immature Gran % (Auto) Neut % (Auto) Lymph % (Auto) Gonzales % (Auto) Eos % (Auto) Baso % (Auto) Immature Gran # (Auto) Neut # (Auto) Lymph # (Auto) Gonzales # (Auto) Eos # (Auto) Baso # (Auto) PT INR PTT (Actin FS) Specimen Type ARTERIAL Sample Site R RADIAL pH 7.48 H pCO2 42 pO2 63 HCO3 30.4 H Base Excess 7.1 H Oxyhemoglobin 92.3 L ABG O2 Sat (Calculated) 14.7 L ABG O2 Saturation 94.8 L ABG Carboxyhemoglobin 1.50 ABG Methemoglobin 1.1 Dominguez Test YES A-a O2 Difference 198.0 Total Hemoglobin 11.3 L Lactate 2.00 Liter Flow 6.0 Blood Gas Modality CANNULA FiO2 % 44.0 Sodium Potassium Chloride Carbon Dioxide Anion Gap BUN Creatinine Estimated GFR/1.73 m2 BUN/Creatinine Ratio Glucose Calculated Osmolality Calcium Total Bilirubin AST ALT Alkaline Phosphatase Troponin T High Sens Kth-O-Ofiwpnmzavd Pept Total Protein Albumin Globulin Albumin/Globulin Ratio Plasma Lactate Orders Category Date Time Status Cardiac Monitoring NOW Care 12/15/19 07:02 Active Juárez Cath Insertion ORDERED Care 12/15/19 06:52 Active Misc. NRSG Communication Order DIRECTED Care 12/15/19 05:52 Active Notify Provider of NEWS Score NOW Care 12/15/19 07:02 Active CHEST-1 VIEW [RAD] Stat Exams 12/15/19 05:26 Completed ABG [RESP] Routine Lab 12/15/19 06:10 Completed BLOOD CULTURE [BLDCUL] Stat Lab 12/15/19 06:40 Received BNP [PRO B-NATRIURETIC PEPTIDE] Stat Lab 12/15/19 05:50 Completed CBC WITH ELECTRONIC DIFF [HEME] Stat Lab 12/15/19 05:50 Completed CK PROFILE [SP CHEM] Stat Lab 12/15/19 05:50 Received COMPREHENSIVE METABOLIC PANEL [CHEM] Stat Lab 12/15/19 05:50 Completed DIRECT STREP Stat Lab 12/15/19 06:40 Completed INFLUENZA SCREEN A/B Stat Lab 12/15/19 05:35 Completed LACTATE, PLASMA [CHEM] Q3H Lab 12/15/19 10:15 Uncollected LACTATE, PLASMA [CHEM] Stat Lab 12/15/19 05:50 Completed LACTATE, PLASMA [CHEM] Stat Lab 12/15/19 13:30 Ordered MISCELLANEOUS TEST-LAB [RF] Stat Lab 12/15/19 07:20 Ordered PROTIME WITH INR [COAG] Stat Lab 12/15/19 05:50 Completed PTT [COAG] Stat Lab 12/15/19 05:50 Completed TROPONIN T HIGH SENSITIVITY Stat Lab 12/15/19 05:50 Completed URINALYSIS W/POSS RFLX CULT [URINALYSIS] Stat Lab 12/15/19 05:26 Uncollected URINE CULTURE [RM] Stat Lab 12/15/19 05:37 Uncollected 0.9% Sodium Chloride Inj [Ns] 1,000 ml Med 12/15/19 05:51 Discontinued IV 999 mls/hr 0.9% Sodium Chloride Inj [Ns] 1,000 ml Med 12/15/19 05:52 Discontinued IV 999 mls/hr Acetaminophen [Tylenol] Med 12/15/19 05:51 Discontinued 1,000 mg PO NOW ONE Albuterol Sulfate Inhaler [Ventolin Hfa] Med 12/15/19 06:30 Active 2 puff INH RTQ4H Ibuprofen [Motrin] Med 12/15/19 05:51 Discontinued 800 mg PO NOW ONE Ondansetron [Zofran] Med 12/15/19 06:00 Discontinued 4 mg IV NOW ONE Piperacillin/Tazobactam [Zosyn] 4.5 gm Med 12/15/19 05:58 Discontinued 0.9% Sodium Chloride Inj [Ns] 100 ml IV NOW Vancomycin 1 gm/Ns Med 12/15/19 05:59 Discontinued 1 gm in 250 ml IV NOW MDI Treatments Stat Oth 12/15/19 06:17 Active O2 Per Protocol Stat Oth 12/15/19 07:02 Active EKG [EKG] Stat Ther 12/15/19 05:29 Draft Result Diagrams: 12/15/19 05:50 12/15/19 05:50 - REASSESSMENT Reassessment #1 Time Reassessed: 07:35 Status: improving (Case discussed with Dr. Rothman at shift change. Seen and examined by me. Patient given O2, MDI tx, IVF, Vanc/zosyn. Has HCAP pneumonia with Sepsis (though not septic shock), fever, COPD exacerbation, chronic lung disease. Awaiting hospitalist.) - EKG 1 Time of EKG reading by physician:: 05:38 EKG Read and Signed by:: Dianne Rothman Rate: 116 Rhythm: Vent paced rhythm Prior EKG Comparison: unchanged from prior - XRAY 1 XRAY Study: Chest (EXAM: CHEST-1 VIEW HISTORY: fever, SOB TECHNIQUE: Two views COMPARISON: 11/08/2019 FINDINGS: Poor inspiratory effort. There are sternal wires and a left pacemaker as well as a right jugular portacatheter. No cardiomegaly. Increased interstitial markings in the lung bases. IMPRESSION: Small bibasilar infiltrates. Electronically signed by Ramses Stanton 12/15/2019 6:04 AM) - CONSULTS/PCP/HOSPITALIST Notification #1 *Consult/PCP/Hospitalist*: Hospitalist paged at [phone], [phone], [id number] Time Discussed: 07:45 (Zahraa BURNETT) Consult Disposition: Will see in ED, Admit - CHANGE OF SHIFT REPORT (ED Provider) 1 Report Given and Care Transferred to:: Dr Mccabe Time of Transfer: 07:00 Items Pending: Labs, Other (likely admit) Departure - Departure Date of Disposition Decision: 12/15/19 Time of Disposition Decision: 07:46 DIAGNOSIS: Sepsis due to pneumonia, Recurrent bacterial pneumonia, Shortness of breath, Hypoxia Chronic heart failure Qualifiers: Heart failure type: combined systolic and diastolic Qualified Code(s): I50.42 - Chronic combined systolic (congestive) and diastolic (congestive) heart failure Diabetes type 2, uncontrolled Qualifiers: Glycemic state: with hyperglycemia Qualified Code(s): E11.65 - Type 2 diabetes mellitus with hyperglycemia Fever Qualifiers: Fever type: due to other condition Qualified Code(s): R50.81 - Fever presenting with conditions classified elsewhere Disposition: ADMITTED INPATIENT 09 Certified Medical Emergency: Emergent Condition: Serious Referrals and Follow-Ups: None,PCP [Primary Care Provider] - - Critical Care Note This patient required my direct & personal management of CC.: Yes Total Time (mins): 45 Critical Care Statement: This patient required my direct personal management to treat or rule out processes, the absence of which, could potentiallly result in sudden, clinically significant life or limb threatening deterioration. Attestation - Physician/ ABBY Attestation Patient care was provided by Advanced Practice Provider:: No The physician spent face to face time with patient:: Yes Advanced Practice Provider documentation review:: Supervising physician onsite and consulted in the evaluation and care of this patient. The physician did have a face to face encounter with the patient.
[2019-12-15] MEDS ORDERED: MOTRIN PO ONE (05:51)
[2019-12-15] MEDS ORDERED: NS 1,000 ML IV ONE ×2 (05:51→05:52)
[2019-12-15] MEDS ORDERED: TYLENOL PO ONE (05:51)
[2019-12-15] MEDS ORDERED: ZOSYN 4.5 GM in NS 100 ML IV ONE (05:58)
[2019-12-15] MEDS ORDERED: VANCOMYCIN 1 GM/NS 1 GM/250 ML IVPB IV ONE (05:59)
[2019-12-15] MEDS ORDERED: ZOFRAN IV ONE ×2 (06:00→08:45)
--- NOTE | 2019-12-15 06:05 | EKG Report ---
Test Performed on : 12/15/2019 05:34:41 AM Test Reason : sob Blood Pressure : / mmHG Vent. Rate : 116 BPM Atrial Rate : 125 BPM P-R Int : 000 ms QRS Dur : 194 ms QT Int : 422 ms P-R-T Axes : 000 -80 087 degrees QTc Int : 586 ms Ventricular-paced rhythm Abnormal ECG When compared with ECG of 22-SEP-2019 04:45, Vent. rate has increased BY 37 BPM Unconfirmed Result
--- NOTE | 2019-12-15 06:06 | Diag Imaging Result Doc PS360 ---
EXAM: CHEST-1 VIEW HISTORY: fever, SOB TECHNIQUE: Two views COMPARISON: 11/08/2019 FINDINGS: Poor inspiratory effort. There are sternal wires and a left pacemaker as well as a right jugular portacatheter. No cardiomegaly. Increased interstitial markings in the lung bases. IMPRESSION: Small bibasilar infiltrates. Electronically signed by Ramses Stanton 12/15/2019 6:04 AM
[2019-12-15 06:14] LABS: BASO# 0.04 X1000 (0.0-0.2); BASO% 0.2 % (0.0-0.8); EOS# 0.06 X1000 (0.0-0.7); EOS% 0.3 % (0.0-10.0); HEMATOCRIT 35.5 % (42.0-52.0); HEMOGLOBIN 10.9 g/dL (14.0-18.0); IMM GRAN# 0.06 X1000 (0.0-0.04); IMM GRAN% 0.3 % (0.0-0.5); LYMPH% 4.9 % (20.5-51.1); MCH 22.8 PG (27-31); MCHC 30.7 g/dL (33-37); MCV 74.1 FL (81-99); MONO# 0.89 X1000 (0.11-0.59); MONO% 4.9 % (1.7-9.3); MPV 11.7 FL (7.4-10.4); NEUT# 16.36 X1000 (1.4-6.5); NEUT% 89.4 % (42.2-75.2); PLT 61 X1000 (130-400); RBC 4.79 XMIL (4.7-6.1); RDW 15.2 % (11.5-14.5); WBC 18.31 X1000 (4.8-10.8)
[2019-12-15 06:16] LABS: INR 1.25; PROTIME 15.9 Seconds (11.0-16.0); PTT 35.5 Seconds (22.3-41.8)
[2019-12-15 06:21] LABS: ALLEN TEST YES; BE 7.1 mmoll (-3.0-3.0); BLOOD TYPE ARTERIAL; HCO3-(ACT) 30.4 mmoll (20.0-26.0); METHB 1.1 % (0.0-1.5); O2(CT) 14.7 mL/dL (15.0-23.0); O2HB 92.3 % (95.0-99.0); PCO2(98.6) 42 mmHg (35-45); PO2(98.6) 63 mmHg (60-100); SAMPLE BLOOD; SAO2 94.8 % (95.0-100.0); THB 11.3 g/dL (11.5-17.4); pH(98.6) 7.48 (7.35-7.45)
[2019-12-15 06:22] LABS: MODALITY CANNULA
[2019-12-15 06:37] LABS: ALB/GLOB RATIO 1.2; ALBUMIN 3.2 g/dL (3.5-5.0); CALCIUM 8.3 mg/dL (8.8-10.2); CREATININE 1.2 mg/dL (0.7-1.2); POTASSIUM 3.6 mmol/L (3.5-5.1); TOTAL BILIRUBIN 0.43 mg/dL (0.20-1.00); TOTAL PROTEIN 5.9 g/dL (6.3-8.3)
[2019-12-15 08:19] LABS: URINE SOURCE CATH
[2019-12-15 08:24] LABS: BILIRUBIN URINE NEGATIVE (NEGATIVE); BLOOD URINE SMALL (NEGATIVE); COLOR YELLOW; GLUCOSE URINE NEGATIVE (NEGATIVE); KETONE URINE NEGATIVE (NEGATIVE); LEUKOCYTES URINE NEGATIVE (NEGATIVE); NITRITE URINE NEGATIVE (NEGATIVE); PROTEIN URINE 50 mg/dL (NEGATIVE); SP GRAVITY URINE 1.016; TURBIDITY URINE CLEAR (CLEAR); UROBILINOGEN URINE 2 mg/dL (NORMAL)
[2019-12-15 08:26] LABS: UR EPITHELIAL CELLS <10 /HPF (<10); URINE BACTERIA NEGATIVE /HPF; URINE RBC <10 /HPF (<10); URINE WBC <10 /HPF (<10)
[2019-12-15] MEDS ORDERED: MORPHINE IV ONE ×2 (08:45→09:06)
[2019-12-15] MEDS ORDERED: VANCOMYCIN IV PER PHARMACY MISC SCH (09:00)
[2019-12-15] MEDS ORDERED: HALDOL IV ONE (09:06)
[2019-12-15] MEDS ORDERED: VANCOMYCIN 2 GM in NS 500 ML IV ONE (10:00)
[2019-12-15] MEDS: VENTOLIN HFA INH SCH ×5 (12:07→22:39)
[2019-12-15] MEDS: MS CONTIN PO SCH ×2 (14:15→21:27)
[2019-12-15] MEDS: ZYVOX 600 MG/D5W 600 MG/300 ML IVPB IV SCH (16:42)
[2019-12-15] MEDS: ZOSYN 3.375 GM in NS 50 ML IV SCH ×2 (16:44→21:28)
--- NOTE | 2019-12-15 16:52 | HISTORY AND PHYSICAL ---
ADDENDUM: The patient seen and examined by me face to face. All the laboratory, vital signs, and images were reviewed. The patient presented to the emergency department with a chief complaint of shortness of breath that started yesterday night. As per the patient, he was doing fine. He finished his last round of antibiotics 3 weeks ago. Then yesterday night he started having severe shortness of breath and cough, so he decided to come to the emergency department. Chest x-ray actually showed some bibasilar infiltrates and he has been coughing up really thick brown-green sputum. He had a fever of 101.2 here in the emergency department. I have placed this patient on Zyvox and Zosyn. He received a couple liters of fluid as well. I will continue with his home medications except Lasix due to some kidney dysfunction, but likely this can be restarted tomorrow if he is doing fine as well as the spironolactone. Since he is eating now, I will put this patient on sliding scale insulin and insulin detemir that he has been taking at home. He is not in acute respiratory distress. He is still on O2 around 4 L, and at home he is around 3. We will continue with antibiotics pending a sputum culture at this moment. Blood culture has been taken. Influenza and strep throat culture are negative. The patient has been tested for COVID- 19, but I do not think this is the case. He has been basically in isolation, but we will rule this out anyway. I agree with the rest of the nurse practitioner's assessment and plan. cc: Blair Rivas MD MTDD
[2019-12-15] MEDS: HUMULIN R SUBQ SCH ×2 (17:05→21:27)
--- NOTE | 2019-12-15 18:20 | HISTORY AND PHYSICAL ---
CHIEF COMPLAINT: Shortness of breath, fever. HISTORY OF PRESENT ILLNESS: This is a 69-year-old gentleman with a prior history of COPD on home O2, chronic hypoxic respiratory failure, ischemic cardiomyopathy, and history of exposure to asbestos and Agent Scott. He presents to the emergency room complaining of increasing shortness of breath despite using his home O2 and home medications as well as fever and cough. He does describe his cough as a productive cough. He denied any sick contacts. He states that he has mostly stayed at home although he did go over to his brother's last night to get his hair cut. Mr. Bell has frequent pneumonia. He was hospitalized in August. Mr. Bell was hospitalized in August and treated for Acinetobacter and Staphylococcus epidermidis bacteremia that was felt was from his Port-A-Cath. During this hospitalization the Port-A-Cath was removed. A new Port-A-Cath was placed after obtaining sterile blood cultures. He was discharged home on IV vancomycin and oral Levaquin and followed by Dr. Darryl Downs on an outpatient basis. He does state that he completed his antibiotics as prescribed. He comes in today stating that he feels that he has pneumonia. Chest x-ray revealed small bibasilar infiltrates. Blood cultures were obtained. He was given Zosyn and vancomycin and is being admitted for further evaluation and treatment. PAST MEDICAL HISTORY: 1. COPD on home O2 at 4 L nasal cannula. 2. Chronic hypoxic respiratory failure. 3. Chronic atrial fibrillation on chronic anticoagulation. 4. Ischemic cardiomyopathy with preserved ejection fraction of 60 percent August 2018. 5. Obstructive sleep apnea, but the patient does not wear CPAP as he cannot tolerate it. 6. Morbid obesity. 7. Diabetes mellitus type 2. 8. Hypertension. 9. History of exposure to asbestosis and Agent Scott. 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 SOCIAL HISTORY: He smoked 3 packs of cigarettes a day from age 13 to age 59. He did stop in 1989. He denies alcohol or illicit drug use. ALLERGIES: No known drug allergies. HOME MEDICATIONS: A list will be obtained by the nursing staff. Once verified, we will review and restart as appropriate. REVIEW OF SYSTEMS: Discussed with the patient with pertinent positives stated in the HPI. He denied any syncope, dizziness, any chest pain or palpitations, nausea, vomiting, diarrhea, constipation, any black or bloody vomitus or stools, or any hematuria, dysuria, frequency, or urgency. PHYSICAL EXAMINATION: GENERAL: This is a 69-year-old gentleman who is sitting up on the stretcher in the emergency room in no distress. VITAL SIGNS: Blood pressure is 104/65 with heart rate of 89, respirations are 20, and temperature is 98.1 degrees oral with O2 saturations 98 percent to 100 percent on 4 L nasal cannula. HEENT: Head is normocephalic, atraumatic. Mucous membranes are moist. NECK: Supple with trachea midline. He has no JVD. CARDIOVASCULAR: Regular rate and rhythm. S1 and S2 were appreciated. No murmur. PULMONARY: He has got crackles bibasilar with rhonchi that mostly clear to cough. Chest rises and falls symmetric with respiration. Chest wall is nontender to palpation. GASTROINTESTINAL: Abdomen is soft, nontender, and nondistended with bowel sounds in all 4 quadrants. EXTREMITIES: Compression stockings are in place. The patient does have bilateral 1 to 2+ pitting edema. He denies any calf tenderness. NEUROLOGIC: He is alert and oriented x3. LABORATORIES: WBC is 18 with hemoglobin 10.9, hematocrit 35.5, and platelets of 61,000. Sodium 137, potassium 3.6, BUN 23, creatinine 1.2 with a glucose of 208. Urinalysis is essentially negative. Influenza A and B are negative. Rapid strep is negative. Throat culture is pending. Blood cultures and urine culture are pending. STUDIES: Chest x-ray reveals small bibasilar infiltrates. ASSESSMENT AND PLAN: 1. Bibasilar pneumonia. 2. Sepsis secondary to pneumonia. 3. Recent bacteremia Acinetobacter and Staphylococcus epidermidis. 4. Diabetes mellitus type 2. 5. Hypertension. 6. Chronic atrial fibrillation on chronic anticoagulation. 7. Ischemic cardiomyopathy with a preserved ejection fraction of 60 percent. 8. Obstructive sleep apnea in a patient that does not wear CPAP. PLAN: 1. The patient will be admitted and placed on telemetry. 2. Supplemental oxygen as appropriate. 3. Pattern blood glucose with sliding scale insulin. 4. Antibiotics, linezolid and Zosyn. Further antibiotics will be culture driven. 5. Repeat a chest x-ray, CBC, CMP, and magnesium in the morning. 6. Diabetic diet. 7. Start incentive spirometer q. 4 hours. 8. The patient will have strict I O and daily weights. 9. Further treatments pending hospital course. Dictated by HORTENCIA Deng for Blair Rivas MD cc: HORTENCIA Deng MD
[2019-12-15] MEDS: ASMANEX 220 MICROGM INHALER INH SCH (20:07)
[2019-12-15] MEDS ORDERED: INSULIN PEN NEEDLES ONE (21:15)
[2019-12-15] MEDS: ELIQUIS PO SCH (21:27)
[2019-12-15] MEDS: BUSPAR PO SCH (21:28)
[2019-12-15] MEDS: LEVEMIR SUBQ SCH (21:28)
[2019-12-15] MEDS: COREG PO SCH (21:28)
[2019-12-15] MEDS: PROTONIX [NONFORMULARY] PO SCH (21:28)
[2019-12-15] MEDS ORDERED: VANCOMYCIN 1,500 MG in NS 250 ML IV SCH (23:00)
[2019-12-16] MEDS: TYLENOL PO PRN ×2 (00:01→18:21)
[2019-12-16] MEDS: ZYVOX 600 MG/D5W 600 MG/300 ML IVPB IV SCH (03:53)
[2019-12-16] MEDS: ZOSYN 3.375 GM in NS 50 ML IV SCH ×6 (03:54→23:15)
[2019-12-16] MEDS: VENTOLIN HFA INH SCH ×6 (03:58→22:44)
[2019-12-16] MEDS: HUMULIN R SUBQ SCH ×4 (06:12→20:47)
[2019-12-16] MEDS: MS CONTIN PO SCH ×3 (06:12→21:14)
[2019-12-16] MEDS: ASMANEX 220 MICROGM INHALER INH SCH ×2 (08:45→19:21)
[2019-12-16] MEDS: IMDUR PO SCH (08:48)
[2019-12-16] MEDS: ELIQUIS PO SCH (08:48)
[2019-12-16] MEDS: BUSPAR PO SCH ×3 (08:49→16:22)
[2019-12-16] MEDS: COZAAR PO SCH (08:49)
[2019-12-16] MEDS: LINZESS PO SCH (08:49)
[2019-12-16] MEDS: COREG PO SCH ×2 (08:49→20:39)
[2019-12-16] MEDS: PROZAC PO SCH (08:49)
[2019-12-16] MEDS ORDERED: BUSPAR PO SCH (09:00)
[2019-12-16 09:10] LABS: BASO# 0.03 X1000 (0.0-0.2); BASO% 0.3 % (0.0-0.8); EOS# 0.14 X1000 (0.0-0.7); EOS% 1.2 % (0.0-10.0); HEMATOCRIT 30.9 % (42.0-52.0); HEMOGLOBIN 9.2 g/dL (14.0-18.0); IMM GRAN# 0.03 X1000 (0.0-0.04); IMM GRAN% 0.3 % (0.0-0.5); LYMPH# 0.83 X1000 (1.2-3.4); LYMPH% 7.1 % (20.5-51.1); MCH 22.5 PG (27-31); MCHC 29.8 g/dL (33-37); MCV 75.6 FL (81-99); MONO# 0.75 X1000 (0.11-0.59); MONO% 6.4 % (1.7-9.3); NEUT# 9.93 X1000 (1.4-6.5); NEUT% 84.7 % (42.2-75.2); PLT 23 X1000 (130-400); RBC 4.09 XMIL (4.7-6.1); RDW 14.9 % (11.5-14.5); WBC 11.71 X1000 (4.8-10.8)
[2019-12-16 09:25] LABS: AGAP 6; ALB/GLOB RATIO 1.2; ALBUMIN 3.1 g/dL (3.5-5.0); ALKALINE PHOSPHATASE 75 U/L (32-122); BUN 19 mg/dL (8-22); CALCIUM 8.5 mg/dL (8.8-10.2); CHLORIDE 96 mmol/L (98-107); COSMO 274; CREATININE 0.8 mg/dL (0.7-1.2); ESTIMATED GFR > 60; GLUCOSE 198 mg/dL (70-104); GOT 8 U/L (10-34); GPT 7 U/L (10-44); POTASSIUM 3.7 mmol/L (3.5-5.1); SODIUM 133 mmol/L (136-145); TCO2 31 mmol/L (25-35); TOTAL BILIRUBIN 0.43 mg/dL (0.20-1.00); TOTAL PROTEIN 5.6 g/dL (6.3-8.3)
[2019-12-16 10:13] LABS: EOS 1 % (1-10); LYMPHS 7 % (21-51); MONO 6 % (1-9); SEGS 86 % (42-75)
[2019-12-16 10:14] LABS: ANISOCYTOSIS 3+; LARGE PLATELETS 1+; MICROCYTOSIS 3+; POIKILOCYTOSIS 1+; POLYCHROM 2+
[2019-12-16] MEDS ORDERED: VANCOMYCIN IV PER PHARMACY MISC SCH (10:45)
--- NOTE | 2019-12-16 11:30 | PROGRESS NOTE ---
DATE: 12/16/2019 SUBJECTIVE: Patient reports breathing better. He has no shortness of breath upon my examination. He denies any fever or chills recently. OBJECTIVE: Vital Signs: Temperature 97.7, heart rate 85, respiratory rate 20, blood pressure 113/77, O2 saturation 100% on nasal cannula 4 L/minute. General Examination: This is a chronically ill-looking, morbidly obese, 69-year-old male, lying in bed, in no acute distress. Cardiovascular: S1, S2 heard. No murmurs, gallops, or rubs. Regular rate and rhythm. Respiratory: Crackles in both pulmonary bases and rhonchi. The patient is not using any accessory muscles or having work of breathing. Abdomen: Soft, nontender to palpation. Bowel sounds present. Extremities: The patient is using compression stockings. The patient has 2+ pitting edema in both lower extremities. Neurological: Patient is alert and oriented x3. Moves 4 extremities. LABORATORY DATA: White count 11.71, hemoglobin 9.2, hematocrit 30.9, platelets 223,000. BMP reveals creatinine 0.8 with sodium 133 and glucose 198. ASSESSMENT AND PLAN: 1. Acute respiratory failure secondary to bibasilar pneumonia. We will continue with oxygen supplementation. In regard to antibiotics, considering his worsening thrombocytopenia we are going to change Zyvox for vancomycin. Patient has a normal renal function. The patient has recent bacteremia secondary to Acinetobacter and Staphylococcus epidermidis, so we will definitely start vancomycin and we will continue with Zosyn as well. 2. Diabetes mellitus type 2. We will continue with sliding scale insulin. Accu-Cheks before meals and also at bedtime. 3. Hypertension. Blood pressure is under control. We will continue with the same management. 4. Chronic atrial fibrillation on chronic anticoagulation. Considering this worsening thrombocytopenia, will hold anticoagulation for a couple of days and then restart if everything is okay at that time. 5. Ischemic cardiomyopathy with preserved ejection fraction 60%. We will continue with home medications. 6. Obstructive sleep apnea. The patient will use C-PAP machine that he is using at home. 7. Disposition. We will continue to monitor this patient closely in [facility]. cc: Gagan Escoto MD
[2019-12-16] MEDS: LEVEMIR SUBQ SCH ×2 (11:39→20:46)
--- NOTE | 2019-12-16 13:19 | Diag Imaging Result Doc PS360 ---
EXAM: CHEST-PORTABLE HISTORY: pneumonia TECHNIQUE: Single view COMPARISON: 12/15/2019 FINDINGS: The lungs are well expanded. Mild cardiomegaly. There are sternal wires and a left pacemaker. No change in the right jugular line. Small basilar infiltrates with atelectasis. IMPRESSION: Stable chest Electronically signed by Ramses Stanton 12/16/2019 1:17 PM
[2019-12-16] MEDS: VANCOMYCIN 1.5 GM in NS 250 ML IV SCH (14:11)
[2019-12-16] MEDS: PROTONIX [NONFORMULARY] PO SCH (20:39)
[2019-12-17] MEDS: VANCOMYCIN 1.5 GM in NS 250 ML IV SCH (02:51)
[2019-12-17] MEDS: VENTOLIN HFA INH SCH ×3 (03:26→11:21)
[2019-12-17] MEDS: ZOSYN 3.375 GM in NS 50 ML IV SCH ×2 (05:17→09:39)
[2019-12-17] MEDS: MS CONTIN PO SCH ×3 (05:17→21:10)
[2019-12-17 06:18] LABS: BASO# 0.02 X1000 (0.0-0.2); BASO% 0.2 % (0.0-0.8); EOS# 0.13 X1000 (0.0-0.7); EOS% 1.4 % (0.0-10.0); HEMATOCRIT 29.8 % (42.0-52.0); HEMOGLOBIN 8.8 g/dL (14.0-18.0); IMM GRAN# 0.03 X1000 (0.0-0.04); IMM GRAN% 0.3 % (0.0-0.5); LYMPH# 0.86 X1000 (1.2-3.4); LYMPH% 9.2 % (20.5-51.1); MCH 22.6 PG (27-31); MCHC 29.5 g/dL (33-37); MCV 76.6 FL (81-99); MONO# 0.66 X1000 (0.11-0.59); MONO% 7.1 % (1.7-9.3); MPV 11.7 FL (7.4-10.4); NEUT# 7.65 X1000 (1.4-6.5); NEUT% 81.8 % (42.2-75.2); RBC 3.89 XMIL (4.7-6.1); RDW 14.9 % (11.5-14.5); WBC 9.35 X1000 (4.8-10.8)
[2019-12-17 06:19] LABS: PLT 32 X1000 (130-400)
[2019-12-17 06:45] LABS: AGAP 6; ALBUMIN 2.7 g/dL (3.5-5.0); BUN 14 mg/dL (8-22); CALCIUM 8.7 mg/dL (8.8-10.2); CHLORIDE 102 mmol/L (98-107); COSMO 280; CREATININE 0.9 mg/dL (0.7-1.2); ESTIMATED GFR > 60; GLUCOSE 102 mg/dL (70-104); PHOSPHORUS 2.5 mg/dL (2.7-4.5); POTASSIUM 4.1 mmol/L (3.5-5.1); SODIUM 140 mmol/L (136-145); TCO2 32 mmol/L (25-35)
[2019-12-17] MEDS: HUMULIN R SUBQ SCH ×4 (07:56→21:12)
[2019-12-17] MEDS: ASMANEX 220 MICROGM INHALER INH SCH ×2 (08:08→20:04)
[2019-12-17] MEDS: PROZAC PO SCH (08:31)
[2019-12-17] MEDS: IMDUR PO SCH (08:31)
[2019-12-17] MEDS: COREG PO SCH ×2 (08:31→21:10)
[2019-12-17] MEDS: LINZESS PO SCH (08:31)
[2019-12-17] MEDS: BUSPAR PO SCH ×3 (08:31→18:37)
[2019-12-17] MEDS: COZAAR PO SCH (08:31)
[2019-12-17] MEDS: LEVEMIR SUBQ SCH ×2 (08:32→21:11)
[2019-12-17] MEDS: TYLENOL PO PRN (09:37)
[2019-12-17] MEDS ORDERED: DUONEB (A & A) INH PRN (11:39)
[2019-12-17] MEDS ORDERED: TESSALON PO PRN (11:48)
[2019-12-17] MEDS ORDERED: LEVAQUIN 750 MG/D5W 750 MG/150 ML IVPB IV SCH (12:00)
--- NOTE | 2019-12-17 12:25 | PROGRESS NOTE ---
DATE: 12/17/2019 SUBJECTIVE: The patient reports more cough in the last 24 hours and also spitting up some blood. Denies any fever or chills. Not short of breath while he is resting. OBJECTIVE: Vital Signs: Temperature 98.0 degrees, heart rate 92, respiratory rate 20, blood pressure 122/64, O2 saturation 94% on 4 L nasal cannula. General Examination: This is a morbidly obese and chronically ill-looking, 69-year-old, male, lying in bed, in no acute distress. Cardiovascular Examination: S1 and S2 heard. No murmurs, gallops, or rubs. Regular rate and rhythm. Respiratory Examination: Rhonchi is noted all over both pulmonary ann. Patient is not using any accessory muscles or having work of breathing. Abdomen: Soft, nontender to palpation. Bowel sounds present. No organomegaly. Extremities: The patient is using compression stockings. Patient has 2+ pitting edema in both lower extremities. Neurological Examination: The patient is alert and oriented x3. Moves 4 extremities. Laboratory Data: White cell count is 9.35, hemoglobin 8.8, hematocrit 29.8, platelets 32,000. The BMP is completely normal except phosphorus 2.5. ASSESSMENT AND PLAN: 1. Acute respiratory failure secondary to bibasilar pneumonia. Considering that this patient is having worsening cough and shortness of breath, even though he is requiring the same amount of oxygen supplementation, I prefer to go ahead and check a CT of the chest with contrast. We will go from there. He has history of many infections including Acinetobacter and Staphylococcus epidermidis. At this point, I prefer to switch Zosyn for meropenem. We will continue with vancomycin. We will monitor renal function closely. 2. Thrombocytopenia, most likely related to use of Zyvox. We had stopped that medication two days ago and platelets are improving. Because there are no signs of bleeding, I do not think we will need to transfuse any platelets. 3. Diabetes mellitus type 2. We will continue with sliding scale insulin, and Accu-Chek before meals and also at bedtime. 4. Hypertension. Blood pressure is under control. We will continue with the same medications. 5. Chronic atrial fibrillation on chronic anticoagulation. As we mentioned before, because of thrombocytopenia, we have held anticoagulation for couple of days. That is improving. We will continue to monitor. 6. Ischemic cardiomyopathy with preserved ejection fraction of 60%. We will continue home medications. 7. Obstructive sleep apnea. We will continue CPAP machine that he is using at home. 8. Disposition. We will continue to monitor this patient closely in the [facility]. cc: Gagan Escoto MD
[2019-12-17] MEDS ORDERED: SODIUM PHOSPHATE 35 MMOL in NS 250 ML IV ONE (13:00)
[2019-12-17] MEDS: DIFLUCAN PO SCH (13:21)
[2019-12-17] MEDS ORDERED: BENADRYL IV ONE (13:32)
[2019-12-17] MEDS: DUONEB (A & A) INH SCH ×2 (15:56→19:55)
[2019-12-17] MEDS: PROTONIX [NONFORMULARY] PO SCH (21:10)
[2019-12-17] MEDS: MERREM 1 GM in NS 50 ML IV SCH (21:10)
[2019-12-17] MEDS: TEFLARO IV SCH (22:20)
[2019-12-17] MEDS: NS IV SCH (22:20)
[2019-12-18] MEDS: DUONEB (A & A) INH SCH ×7 (00:28→22:34)
[2019-12-18] MEDS: TYLENOL PO PRN (03:00)
[2019-12-18] MEDS: ZOFRAN IV PRN (03:51)
[2019-12-18] MEDS: MS CONTIN PO SCH ×4 (04:50→21:38)
[2019-12-18] MEDS: MERREM 1 GM in NS 50 ML IV SCH ×3 (04:51→21:38)
[2019-12-18 06:21] LABS: BASO# 0.03 X1000 (0.0-0.2); BASO% 0.4 % (0.0-0.8); EOS# 0.18 X1000 (0.0-0.7); EOS% 2.1 % (0.0-10.0); HEMATOCRIT 29.6 % (42.0-52.0); HEMOGLOBIN 8.9 g/dL (14.0-18.0); LYMPH# 0.87 X1000 (1.2-3.4); LYMPH% 10.2 % (20.5-51.1); MCHC 30.1 g/dL (33-37); MCV 76.5 FL (81-99); MONO# 0.63 X1000 (0.11-0.59); MONO% 7.4 % (1.7-9.3); MPV 11.8 FL (7.4-10.4); NEUT# 6.78 X1000 (1.4-6.5); NEUT% 79.9 % (42.2-75.2); PLT 40 X1000 (130-400); RBC 3.87 XMIL (4.7-6.1); RDW 15.1 % (11.5-14.5); WBC 8.49 X1000 (4.8-10.8)
[2019-12-18] MEDS: HUMULIN R SUBQ SCH ×4 (06:28→21:39)
[2019-12-18 07:06] LABS: AGAP 7; ALBUMIN 2.7 g/dL (3.5-5.0); BUN 12 mg/dL (8-22); CALCIUM 8.8 mg/dL (8.8-10.2); CHLORIDE 100 mmol/L (98-107); COSMO 274; CREATININE 0.9 mg/dL (0.7-1.2); ESTIMATED GFR > 60; GLUCOSE 114 mg/dL (70-104); PHOSPHORUS 3.1 mg/dL (2.7-4.5); SODIUM 137 mmol/L (136-145); TCO2 30 mmol/L (25-35)
[2019-12-18] MEDS: ASMANEX 220 MICROGM INHALER INH SCH ×2 (07:54→20:12)
--- NOTE | 2019-12-18 09:14 | Diag Imaging Result Doc PS360 ---
EXAM: CT THORAX W/CONTRAST HISTORY: pneumonia TECHNIQUE: CT chest with intravenous contrast COMPARISON: 09/30/2019 FINDINGS: No pleural effusions. Heart is mildly prominent. There are sternal wires. No aortic aneurysm or dissection. There is a right-sided portacatheter. There is a 22 mm lymph node at the kevin and there are prominent subcarinal lymph nodes similar to the prior study. Multifocal groundglass infiltrates with more dense infiltrates and air bronchograms most pronounced in the right lower lobe. Some of these were present on the prior exam with associated pleural calcifications. IMPRESSION: Bilateral infiltrates This exam was performed using automated exposure control, adjustment of mA or kV according to patient size, and/or use of iterative reconstruction technique. Electronically signed by Ramses Stanton 12/18/2019 9:11 AM
[2019-12-18] MEDS ORDERED: TUSSIONEX LIQUID PO PRN (09:38)
[2019-12-18] MEDS: DIFLUCAN PO SCH (10:06)
[2019-12-18] MEDS: COREG PO SCH ×2 (10:06→21:38)
[2019-12-18] MEDS: IMDUR PO SCH (10:06)
[2019-12-18] MEDS: COZAAR PO SCH (10:06)
[2019-12-18] MEDS: BUSPAR PO SCH ×3 (10:06→16:47)
[2019-12-18] MEDS: PROZAC PO SCH (10:07)
[2019-12-18] MEDS: LINZESS PO SCH (10:07)
[2019-12-18] MEDS: LEVEMIR SUBQ SCH ×2 (10:07→21:38)
[2019-12-18] MEDS: BENADRYL IV SCH ×3 (10:09→21:39)
[2019-12-18] MEDS: NS IV SCH ×2 (10:09→22:29)
[2019-12-18] MEDS: TEFLARO IV SCH ×2 (10:09→22:29)
[2019-12-18] MEDS: ELIQUIS PO SCH ×2 (10:10→21:37)
--- NOTE | 2019-12-18 10:27 | PROGRESS NOTE ---
DATE: 12/18/2019 SUBJECTIVE: Patient reports breathing much better today, not spitting any bloody secretions. Denies any fever or chills. He reports still the rash that he developed yesterday apparently secondary to vancomycin. This is better but still there. OBJECTIVE: Vital Signs: Temperature degrees 97.8, heart rate 73, respiratory rate 15, blood pressure 128/67, O2 saturation 99% on 4 L nasal cannula. General: This is a morbidly obese and chronically ill-looking, 69-year-old male, lying in bed, in no acute distress. Cardiovascular: S1, S2 heard. No murmurs, gallops, or rubs. Regular rate and rhythm. Respiratory: Coarse breath sounds noted in all pulmonary ann. Patient not using any accessory muscles or having work of breathing. Abdomen: Soft. Nontender to palpation. Bowel sounds present. No organomegaly. Extremities: The patient is using compression stockings. The patient has 2+ pitting edema in both lower extremities. Neurological: Patient is alert and oriented x3. Moves 4 extremities. LABORATORY DATA: White cell count 8.49, hemoglobin 8.9, hematocrit 29.6, platelets 40,000 with normal BMP and glucose 114. ASSESSMENT AND PLAN: 1. Acute respiratory failure secondary to bibasilar pneumonia. Clinically, patient is doing better. The patient is requiring 4 L of oxygen which he used at home. CT of the chest did show bilateral pneumonia, no other lesions. At this point, we will continue with meropenem and Levaquin. Vancomycin has been discontinued yesterday because apparently he developed a rash that I am not quite sure he developed an allergy to this medication or it was red man syndrome because of rapid infusion of this medication. In any case, we will continue to monitor the patient closely. We will provide 3 doses of Benadryl. 2. Thrombocytopenia, most likely related to use of Zyvox. We stopped that medication 3 days ago. Platelets are getting better slowly. No signs of bleeding. So at this point, he is not a candidate for any platelet transfusion. 3. Diabetes mellitus type 2. We will continue with sliding scale insulin. Accu-Chek before meals and also at bedtime. 4. Hypertension. Blood pressure is under control. We will continue with same management. 5. Chronic atrial fibrillation on chronic anticoagulation. There has not been any bleeding. Platelets are getting better. So at this point, his anticoagulation has been restarted. 6. Ischemic cardiomyopathy with preserved ejection fraction 60%. We will continue home medications. 7. Obstructive sleep apnea. Will continue with CPAP. DISPOSITION: I think the patient is definitely much more stable. We will send this patient to a regular room today. cc: Gagan Escoto MD MTDD
[2019-12-18] MEDS: PROTONIX [NONFORMULARY] PO SCH (21:37)
[2019-12-18] MEDS ORDERED: INSULIN PEN NEEDLES ONE (21:38)
[2019-12-19] MEDS: TYLENOL PO PRN (03:16)
[2019-12-19] MEDS: DUONEB (A & A) INH SCH ×6 (03:57→23:19)
[2019-12-19] MEDS: ZOFRAN IV PRN (05:01)
[2019-12-19] MEDS: MERREM 1 GM in NS 50 ML IV SCH ×3 (05:16→20:17)
[2019-12-19] MEDS: MS CONTIN PO SCH ×3 (05:17→22:00)
[2019-12-19] MEDS: ALDACTONE PO SCH ×2 (05:18→09:18)
[2019-12-19] MEDS: HUMULIN R SUBQ SCH ×4 (06:07→20:19)
[2019-12-19] MEDS: ASMANEX 220 MICROGM INHALER INH SCH ×2 (07:44→19:51)
[2019-12-19] MEDS: ELIQUIS PO SCH ×2 (09:18→20:18)
[2019-12-19] MEDS: PROZAC PO SCH (09:18)
[2019-12-19] MEDS: DIFLUCAN PO SCH (09:18)
[2019-12-19] MEDS: LINZESS PO SCH (09:19)
[2019-12-19] MEDS: COREG PO SCH ×2 (09:19→20:18)
[2019-12-19] MEDS: IMDUR PO SCH (09:19)
[2019-12-19] MEDS: COZAAR PO SCH (09:19)
[2019-12-19] MEDS: BUSPAR PO SCH ×3 (09:19→17:01)
[2019-12-19] MEDS: LEVEMIR SUBQ SCH ×2 (09:24→20:18)
[2019-12-19 09:37] LABS: BASO# 0.04 X1000 (0.0-0.2); BASO% 0.6 % (0.0-0.8); EOS# 0.15 X1000 (0.0-0.7); EOS% 2.1 % (0.0-10.0); HEMATOCRIT 29.4 % (42.0-52.0); HEMOGLOBIN 8.9 g/dL (14.0-18.0); IMM GRAN# 0.04 X1000 (0.0-0.04); IMM GRAN% 0.6 % (0.0-0.5); LYMPH# 0.99 X1000 (1.2-3.4); LYMPH% 13.6 % (20.5-51.1); MCH 23.3 PG (27-31); MCHC 30.3 g/dL (33-37); MONO# 0.57 X1000 (0.11-0.59); MONO% 7.8 % (1.7-9.3); MPV 11.5 FL (7.4-10.4); NEUT# 5.48 X1000 (1.4-6.5); NEUT% 75.3 % (42.2-75.2); PLT 41 X1000 (130-400); RBC 3.82 XMIL (4.7-6.1); RDW 15.3 % (11.5-14.5); WBC 7.27 X1000 (4.8-10.8)
[2019-12-19 09:41] LABS: AGAP 8; ALBUMIN 3.1 g/dL (3.5-5.0); BUN 12 mg/dL (8-22); CALCIUM 8.4 mg/dL (8.8-10.2); CHLORIDE 100 mmol/L (98-107); COSMO 278; CREATININE 0.7 mg/dL (0.7-1.2); ESTIMATED GFR > 60; GLUCOSE 177 mg/dL (70-104); PHOSPHORUS 2.6 mg/dL (2.7-4.5); POTASSIUM 4.1 mmol/L (3.5-5.1); SODIUM 137 mmol/L (136-145); TCO2 29 mmol/L (25-35)
[2019-12-19] MEDS: NS IV SCH ×2 (10:17→22:49)
[2019-12-19] MEDS: TEFLARO IV SCH ×2 (10:17→22:49)
--- NOTE | 2019-12-19 12:21 | PROGRESS NOTE ---
DATE: 12/19/2019 SUBJECTIVE: The patient reports breathing better. Continues to have a sputum production. Sometimes a little bit dark. Some rash noted. The patient reported still itching. OBJECTIVE: Vitals: Temperature 97.6 degrees, heart rate 71, respiratory 16, blood pressure 152/62, O2 saturation 98% on 4 L nasal cannula. General Examination: This is a chronically ill- looking, morbidly obese, 69-year-old male, lying in bed, in no acute distress. Cardiovascular: S1, S2 heard. No murmurs, gallops, or rubs. Regular rate and rhythm. Respiratory: Coarse breath sounds still noted in both pulmonary ann mostly noted in both bases. Patient not using any accessory muscles or having work of breathing. Abdomen: Soft. Nontender to palpation. Bowel sounds present. No organomegaly. Extremities: The patient is using a compression stocking. Patient has 2+ pitting edema in both lower extremities. Peripheral pulses present in both legs. Neurological: Patient is alert and oriented x3. Moves 4 extremities. LABORATORY DATA: White cell count 7.27, hemoglobin 8.9, hematocrit 29.4, platelets 41,000 with normal BMP. ASSESSMENT AND PLAN: 1. Acute respiratory failure secondary to bibasilar pneumonia. Clinically, patient is doing fine. Not feeling short of breath. Requiring the same amount of oxygen that he is using home in this case is 4 L/minute. CT of the chest confirmed bilateral pneumonia so we will continue with meropenem and Levaquin and Teflaro. We will continue with same management. 2. Thrombocytopenia most likely related to Zyvox use, now that condition is stable. Platelets 41,000 no signs of bleeding. We will continue to monitor. 3. Diabetes mellitus type 2. We will continue with sliding scale insulin. Accu-Chek before meals and also at bedtime. 4. Hypertension. Blood pressure is under control. We will continue with same management. 5. Chronic atrial fibrillation on chronic anticoagulation. We will continue with Eliquis. 6. Ischemic cardiomyopathy with preserved ejection fraction 60%. We will continue home medications. 7. Obstructive sleep apnea. We will continue with CPAP. 8. Disposition. The patient is much more stable. We will continue to monitor this patient closely here in the hospital. Most likely will need to stay 1 to 2 more days. cc: Gagan Escoto MD
[2019-12-19] MEDS: ELOCON CREAM TOP SCH (14:01)
[2019-12-19] MEDS: PROTONIX [NONFORMULARY] PO SCH (20:18)
[2019-12-20] MEDS: TYLENOL PO PRN (01:23)
[2019-12-20] MEDS: DUONEB (A & A) INH SCH ×3 (03:56→11:46)
[2019-12-20] MEDS: MERREM 1 GM in NS 50 ML IV SCH (04:37)
[2019-12-20] MEDS: MS CONTIN PO SCH (06:15)
[2019-12-20] MEDS: HUMULIN R SUBQ SCH ×2 (06:16→12:22)
[2019-12-20 07:35] VITALS: BP 152/75
[2019-12-20 07:43] LABS: BASO# 0.04 X1000 (0.0-0.2); BASO% 0.5 % (0.0-0.8); EOS# 0.22 X1000 (0.0-0.7); HEMOGLOBIN 8.9 g/dL (14.0-18.0); IMM GRAN# 0.05 X1000 (0.0-0.04); IMM GRAN% 0.7 % (0.0-0.5); LYMPH# 0.93 X1000 (1.2-3.4); LYMPH% 12.7 % (20.5-51.1); MCH 22.6 PG (27-31); MCHC 29.7 g/dL (33-37); MCV 76.3 FL (81-99); MONO# 0.72 X1000 (0.11-0.59); MONO% 9.9 % (1.7-9.3); NEUT# 5.34 X1000 (1.4-6.5); NEUT% 73.2 % (42.2-75.2); PLT 42 X1000 (130-400); RBC 3.93 XMIL (4.7-6.1); RDW 15.4 % (11.5-14.5)
[2019-12-20 08:03] LABS: AGAP 8; ALBUMIN 2.9 g/dL (3.5-5.0); BUN 11 mg/dL (8-22); CALCIUM 8.7 mg/dL (8.8-10.2); CHLORIDE 101 mmol/L (98-107); COSMO 279; CREATININE 0.8 mg/dL (0.7-1.2); ESTIMATED GFR > 60; GLUCOSE 172 mg/dL (70-104); PHOSPHORUS 2.4 mg/dL (2.7-4.5); POTASSIUM 4.6 mmol/L (3.5-5.1); SODIUM 138 mmol/L (136-145); TCO2 29 mmol/L (25-35)
[2019-12-20] MEDS: ASMANEX 220 MICROGM INHALER INH SCH (08:17)
[2019-12-20] MEDS: COZAAR PO SCH (08:51)
[2019-12-20] MEDS: IMDUR PO SCH (08:51)
[2019-12-20] MEDS: ELOCON CREAM TOP SCH (08:51)
[2019-12-20] MEDS: BUSPAR PO SCH ×2 (08:51→12:45)
[2019-12-20] MEDS: ELIQUIS PO SCH (08:52)
[2019-12-20] MEDS: LINZESS PO SCH (08:52)
[2019-12-20] MEDS: ALDACTONE PO SCH (08:52)
[2019-12-20] MEDS: PROZAC PO SCH (08:52)
[2019-12-20] MEDS: DIFLUCAN PO SCH (08:52)
[2019-12-20] MEDS: COREG PO SCH (08:52)
[2019-12-20] MEDS: LEVEMIR SUBQ SCH (08:55)
[2019-12-20] MEDS: TEFLARO IV SCH (09:00)
[2019-12-20] MEDS: NS IV SCH (09:00)
--- NOTE | 2019-12-20 15:35 | DISCHARGE SUMMARY ---
ADMISSION DATE: 12/15/2019 DISCHARGE DATE: 12/20/2019 ADMISSION DIAGNOSES: 1. Bibasilar pneumonia. 2. Sepsis secondary to pneumonia. 3. Recent bacteremia with Acinetobacter and Staphylococcus epidermidis. 4. Diabetes mellitus type 2. 5. Hypertension. 6. Chronic atrial fibrillation on chronic anticoagulation. 7. Ischemic cardiomyopathy myopathy with a preserved ejection fraction of 60%. 8. Obstructive sleep apnea with a patient that does not wear CPAP. DISCHARGE DIAGNOSES: 1. Acute respiratory failure secondary to bibasilar pneumonia. 2. Thrombocytopenia, most likely related to Zyvox, now stable. 3. Diabetes mellitus type 2. 4. Hypertension. 5. Chronic atrial fibrillation on chronic anticoagulation with Eliquis. 6. Ischemic cardiomyopathy with preserved ejection fraction 60%. 7. Obstructive sleep apnea. Continue with CPAP. 8. Extended-spectrum beta-lactamases positive Escherichia coli pneumonia CONSULTATIONS: None. SURGERIES AND PROCEDURES: None. HOSPITAL COURSE: Mr. 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 He comes in with complaints of subjective fever and shortness of breath despite his home oxygen and increasing his home oxygen. He has had a cough as well described as productive. He has not been around any sick contacts and complains of having frequent spells of pneumonia with his most recent being in August where he was treated for Acinetobacter Staphylococcus epidermidis bacteremia that was from his chest port. At that time he was discharged home on IV vancomycin, oral Levaquin and completed those antibiotics. The x-ray revealed that he has small bibasilar infiltrates. He had a complete infection workup, was given Zosyn and vancomycin. Supplemental oxygen increased. Incentive spirometer. A repeat chest x-ray the next day showed that there was improvement. Apparently, he was on Zyvox due to thrombocytopenia, it was switched to vancomycin and Zosyn was continued. Anticoagulation was continued. All of his other home medications were continued. He was instructed to use CPAP for his obstructive sleep apnea. He was eventually changed from Zosyn to meropenem. He was eventually decreased to 4 L of oxygen, which was his home dosing. The vancomycin ended up having to be discontinued because he developed a rash, not sure if it was red man syndrome. He was given 3 doses of [address]ryl. Chest CT performed on the 20th still showed some infiltrates bilaterally. However, he improved, so he is going to be discharged home with home health. DISCHARGE VITAL SIGNS: Temperature 97.5 degrees, heart rate 70, respiratory rate 20, blood pressure 152/75, O2 saturation 95% on 4 L nasal cannula. DISCHARGE LAB DATA: White blood cells 7000, hemoglobin 8, hematocrit 30, platelet count 42,000. Sodium 138, potassium 4.6, BUN 11, creatinine 0.8, glucose 172, calcium 8.7, phosphorus 2.4, albumin 2.9. The sputum grew out ESBL positive Escherichia coli with gentamicin resistance, Levaquin resistance and tobramycin resistance. Urine no growth. Strep negative. Blood cultures negative. Flu negative. No blood given. PERTINENT IMAGING: On December 14, chest x-ray, small bibasilar infiltrates. On December 15, chest x-ray stable chest. On December 17, chest CT bilateral infiltrate. EKG on December 14, ventricularly paced rhythm. Rate was 116. DISCHARGE MEDICATIONS: 1. Lasix 80 in the morning and 120 mg at night. 2. Protonix 40 mg p.o. nightly. 3. Asmanex 1 puff inhaled twice daily. 4. Buspirone 20 mg p.o. t.i.d. 5. Coreg 12.5 mg p.o. twice daily. 6. Cozaar 50 mg p.o. daily. 7. Eliquis 5 mg p.o. twice daily. 8. Imdur 60 mg p.o. daily. 9. Lasix 120 mg p.o. daily. 10. Levemir 62 units subcutaneous twice daily. 11. Linzess 145 mcg p.o. daily. 12. Morphine 30 mg p.o. t.i.d. 13. Insulin Aspart 20 units at lunch, 30 units at dinner. 14. ProAir albuterol 2 puffs inhaled 4 times daily p.r.n. 15. Prozac 20 mg p.o. daily. 16. Spironolactone 25 mg p.o. daily. 17. Cefdinir 300 mg p.o. twice daily for 28 capsules. 18. Diflucan 150 mg p.o. daily for 7 days. 19. Doxycycline 100 mg p.o. twice daily for 28 tabs. PHYSICIAN FOLLOWUPS: Jennifer Gifford on 12/26/2019 at 2:15 p.m. DISCHARGE ACTIVITY: As tolerated. Take care to prevent falls. DISCHARGE DIET: Diabetic diet. DISCHARGE INSTRUCTIONS: If your condition changes, contact physician and/or return to the emergency department. Changes may include, but not limited to shortness of breath, increased fatigue, excessive bleeding, unexplained weight loss or gain, unmanageable pain, signs or symptoms of infection. Please perform turn and cough, deep breathing exercises and incentive spirometer every hour for 10 times each 1 and report if fever returns or if phlegm turns abnormal colors. DISCHARGE DISPOSITION: Home with Q[facility]. Dictated by HORTENCIA Haywood for Gagan Escoto MD Addendum: Patient seen and examined by myself. Agree with HORTENCIA note. It reflects my assessment and plan. Patient is being discharged from hospital in stable condition. Will be seen by PCP in a week. cc: HORTENCIA Haywood MD [facility]
--- NOTE | 2019-12-20 16:17 | DISCHARGE SUMMARY ---
ADMISSION DATE: 12/15/2019 DISCHARGE DATE: 12/20/2019 PRIMARY CARE PHYSICIAN: Listed as none. ADMISSION DIAGNOSES: 1. Bilateral pneumonia. 2. Sepsis secondary to pneumonia. 3. A recent bacteremia, Acinetobacter and Staphylococcus epidermidis. 4. Diabetes type 2. 5. Hypertension. 6. Chronic atrial fibrillation on chronic anticoagulation. 7. Ischemic cardiomyopathy with a preserved ejection fraction of 60%. 8. Obstructive sleep apnea in a patient that does not wear continuous positive airway pressure. DISCHARGE DIAGNOSES: 1. Acute respiratory failure secondary to bibasilar pneumonia, improved. 2. Thrombocytopenia, most likely secondary to Zyvox use, now stable. 3. Diabetes type 2. 4. Hypertension. 5. Chronic atrial fibrillation with chronic anticoagulation. 6. Ischemic cardiomyopathy with preserved ejection fraction of 60%. 7. Obstructive sleep apnea. SUMMARY OF FINDINGS: This is a 69-year-old male who presented to the emergency room with increased shortness of breath despite using his home O2 and home medications, as well as a fever and cough. He described the cough as a productive cough. No sick contacts, has mostly stayed at home, though he did go to his brother's the night before to get a haircut. He states he has frequent pneumonia and was last hospitalized in August. He was hospitalized in August and treated for Acinetobacter and Staphylococcus epidermidis bacteremia that was felt to be from his Port-A-Cath. During that hospitalization, the Port-A-Cath was removed. He had been discharged home at that time on IV Vancomycin and oral Levaquin and was followed by Infectious Disease, Dr. Darryl Downs, on an outpatient basis. Chest x-ray on admission showed a small bibasilar infiltrate. Blood cultures showed no growth after 48 hours. His sputum culture did reveal an E. Coli. Urine culture showed no growth. He was admitted and placed on IV antibiotics, DuoNeb incentive spirometry every 4 hours. We did screen him for the santana virus that showed undetected. We did do a chest CT on 12/18/2019 that showed bilateral infiltrates. His white blood cell count is now normal at 7.30. He has been afebrile for greater than 24 hours and it is now felt that he can safely be discharged home with home health services and continue his home O2. DISCHARGE MEDICATIONS: Include ProAir 2 puff inhalation 4 times daily p.r.n., Eliquis 5 mg p.o. b.i.d., buspirone 20 mg p.o. t.i.d., carvedilol 12.5 mg p.o. b.i.d., cefdinir 300 mg p.o. b.i.d. #28 with no refills, Diflucan 150 mg p.o. daily #7 with no refills, Prozac 20 mg p.o. daily, Lasix 120 mg p.o. q.a.m. and 80 mg p.o. at bedtime, NovoLog 30 units subcutaneous b.i.d., Levemir 62 units subcutaneous b.i.d., Imdur 60 mg p.o. daily, Linzess 145 mcg p.o. daily, losartan 50 mg p.o. daily, Asmanex 1 puff inhalation b.i.d., morphine sulfate 30 mg p.o. t.i.d., pantoprazole 40 mg p.o. at bedtime, spironolactone 25 mg p.o. daily, and Bactrim DS 1 p.o. b.i.d. #20 with no refills. FOLLOWUP: He will follow up with his primary care physician on 12/26/2019 at 2:15 p.m. Again, he will have home health care and his home O2. This is a 35-minute discharge. Dictated by HORTENCIA Gonzalez for Gagan Escoto MD cc: HORTENCIA Gonzalez MD Lindsay E. Smith, MD
== END 2019-12-20 14:18 | disposition home health service (06) | DRG 871 ==
LOC: ED 05:19 → 2N 09:53 → SUATTDRO 09:53 → 2N 11:17 → 3N 12-19 01:47
PROVIDERS: ATTEND Internal Medicine